=== PATIENT | male | born 1965 | race Caucasian/White ===

== ENCOUNTER → 2020-03-02 09:46 | Outpatient (BNVA) | payer MEDICAID, SELFPAY | PROVIDERS: PCP Internal Medicine Medical Oncology; Visit Provider Surgery | DX: L82.0 Inflamed seborrheic keratosis (principal) | CPT/HCPCS: 99203 ==

== ENCOUNTER 2020-03-16 07:16 | Outpatient (REF) | payer MEDICAID, SELFPAY ==
[2020-03-16 07:39] VITALS: BP 140/83; PULSE 115; RESP 16; TEMP 36.9; O2SAT 98
[2020-03-16 07:44] VITALS: BMI 20.9
[2020-03-16 08:30] VITALS: BP 130/76; PULSE 100; RESP 16; O2SAT 98
--- NOTE | 2020-03-16 08:42 | MHC.SHP ---
Pre-Procedural Eval Section A The patient is an INPATIENT: No Changes since office visit: Yes Patient answered all questions; No Cold of Flu in the past 2 weeks, No New Medical Problems and No Changes in Medication The History & Physical has been completed within 30 days and I have reviewed it.: Yes Section B Chief Complaint: keratosis Allergies: Allergies Allergy/AdvReac Type Severity Reaction Status Date / Time No Known Allergies Allergy Unverified 01/26/20 15:42 [No Known Allergies*] Plan Diagnosis/Plan: Unchanged Patient has been examined and remains a candidate for the planned procedure
--- NOTE | 2020-03-16 08:42 | PM.OP ---
Brief Operative Note Date of procedure: 03/16/20 Pre-op diagnosis: Skin lesion x 2 right face Post-op diagnosis: same Procedure: Excision of facial lesion x 2 Implants: non3 Surgeon: Skip Donovan MD Anesthesia: local Estimated blood loss (mL): 2 Pathology: other (skin lesion x 2) Condition: stable Disposition: other (home)
--- NOTE | 2020-03-16 08:43 | W.PM.OPN ---
Operative Note Operative Note Narrative: Preop diagnosis: Facial lesion x2 right face Postoperative diagnosis: Same Procedure: excision of facial lesions x2 face Surgeon: Skip Donovan MD Anesthesia local Indications for procedure: 54-year-old male with a 1.5 cm keratotic lesion located on the right preauricular skin of the face. Patient reports bleeding and discharge from the site. A 2nd 2 mm keratotic lesion located in the lower eyelid skin which is flat and dark in color but causing some irritation to the patient. He reports bleeding from both lesions on occasion. Operative findings: 1.5 cm keratotic lesion located in the right preauricular skin 2 mm keratotic lesion located in the lower eyelid skin Specimen: Right facial skin lesions x2 Estimated blood loss: 2 mL Complications: None Procedure details: Patient was brought to the minor surgery suite and a informed consent confirmed. A surgical time-out was called and the site of surgery confirmed by the patient. Patient was placed in a supine position with head turned toward the right. Skin was prepped with Betadine and draped in a sterile fashion. Skin was anesthetized using 1% lidocaine with epinephrine. An elliptical incision was made around the preauricular lesion oriented in the longitudinal fashion. The lesion was excised and sent to pathology for further examination. Skin was closed using interrupted 5 0 nylon sutures. Attention was then directed to the right lower eyelid lesion. Local was infiltrated below the lesion and sharp scissors use use excise the flat lesion. This was sent to pathology as well for further examination. Sterile dressings were then applied. The patient tolerated the procedure well was discharged to home in stable condition.
== END 2020-03-16 07:17 | disposition home or self-care (01) ==
LOC: HO.MS 07:16
PROVIDERS: Visit Provider Surgery
PROC: (CPT 11442; principal; 2020-03-16 08:00)
DX: L82.1 Other seborrheic keratosis (principal)
CPT/HCPCS: 11442; 11440; 88305

== ENCOUNTER → 2020-03-23 10:23 | Outpatient (BNVA) | payer MEDICAID, SELFPAY | PROVIDERS: PCP Internal Medicine; Referring Provider Internal Medicine; Visit Provider Surgery | DX: Z09 Encounter for follow-up examination after completed treatment for conditions other than malignant neoplasm (principal); Z87.2 Personal history of diseases of the skin and subcutaneous tissue | CPT/HCPCS: 99212 ==

== ENCOUNTER 2020-03-27 10:38 | Outpatient (REF) | payer MEDICAID, SELFPAY ==
[2020-03-27 11:29] LABS: MANUAL DIFF FLAG NO
[2020-03-27 11:38] LABS: Basophils Percent Auto 0.5 % (0-2); Eosinophils Percent Auto 0.5 % (0-4); Hematocrit 40.9 % (42-52); Hemoglobin 13.9 g/dl (14.0-18.0); Imm Gran Abs Auto 0.02 X10*3/uL (0.00-0.03); Imm Gran Pct Auto 0.3 % (0.0-0.4); Lymphocytes Absolute Auto 3.2 X10*3/uL (1.2-4.9); Lymphocytes Percent Auto 42.8 % (20-40); Mean Corpuscular Hemoglobin 32.6 pg (27.0-33.0); Mean Platelet Volume 9.6 fL (9.4-12.4); Monocytes Absolute Auto 0.8 X10*3/uL (0.1-1.2); Monocytes Percent Auto 10.3 % (2-11); Neutrophils Absolute Auto 3.4 X10*3/uL (2.0-8.3); Neutrophils Percent Auto 45.6 % (45-73); Platelet Count 262 X10*3/uL (160-400); Red Blood Count 4.26 X10*6/uL (4.60-5.80); Red Cell Distribution Width 14.2 % (11.0-16.0); White Blood Count 7.5 X10*3/uL (4.8-10.8)
[2020-03-27 12:00] LABS: Alanine Aminotransferase 13 U/L (0-40); Albumin Level 4.5 g/dL (3.5-5.0); Alkaline Phosphatase 82 U/L (39-117); Anion Gap 14 (12-20); Aspartate Amino Transferase 28 U/L (5-37); Bilirubin Total 0.3 mg/dL (0.0-1.0); Blood Urea Nitrogen 6 mg/dL (9-16); Calcium 8.6 mg/dL (8.4-10.2); Carbon Dioxide 27 mmol/L (22-29); Chloride 104 mmol/L (96-108); Cholesterol 198 mg/dL; Estimated Glomerular Filt Rate > 60; Glucose Random 72 mg/dL (60-115); HDL Cholesterol 79 mg/dL; LDL Cholesterol Calculated 92 mg/dl; Potassium 4.4 mmol/l (3.3-5.1); Sodium 141 mmol/L (135-145); Total Protein 7.5 g/dL (6.5-8.0); Triglycerides 139 mg/dL
[2020-03-27 12:24] LABS: Prostate Specific Antigen 1.03 ng/mL (<0.05-4.0)
[2020-03-27 13:37] LABS: Folate 9.1 ng/mL (> or = 4.0); Vitamin B12 321 pg/mL (200-900)
== END 2020-03-27 10:39 | disposition home or self-care (01) ==
LOC: HO.LAB 10:38
PROVIDERS: PCP Internal Medicine Medical Oncology; Visit Provider Internal Medicine Medical Oncology
DX: E53.8 Deficiency of other specified B group vitamins (principal); D75.89 Other specified diseases of blood and blood-forming organs; R00.0 Tachycardia, unspecified; E78.5 Hyperlipidemia, unspecified; R27.0 Ataxia, unspecified; I10 Essential (primary) hypertension
CPT/HCPCS: 36415; 80053; 80061; 82607; 82746; 84153; 85025

== ENCOUNTER 2020-06-13 10:44 | Outpatient (REF) | payer MEDICAID, SELFPAY ==
[2020-06-13 11:28] LABS: MANUAL DIFF FLAG NO
[2020-06-13 11:33] LABS: Basophils Absolute Auto 0.1 X10*3/uL (0.0-0.2); Basophils Percent Auto 0.6 % (0-2); Eosinophils Percent Auto 0.1 % (0-4); Hematocrit 42.4 % (42-52); Hemoglobin 14.5 g/dl (14.0-18.0); Imm Gran Abs Auto 0.05 X10*3/uL (0.00-0.03); Imm Gran Pct Auto 0.5 % (0.0-0.4); Lymphocytes Absolute Auto 2.1 X10*3/uL (1.2-4.9); Lymphocytes Percent Auto 20.3 % (20-40); Mean Corpuscular HGB Conc 34.2 g/dl (31.0-36.0); Mean Corpuscular Hemoglobin 32.4 pg (27.0-33.0); Mean Corpuscular Volume 94.6 fL (80-98); Mean Platelet Volume 9.7 fL (9.4-12.4); Monocytes Absolute Auto 0.9 X10*3/uL (0.1-1.2); Monocytes Percent Auto 8.8 % (2-11); Neutrophils Absolute Auto 7.3 X10*3/uL (2.0-8.3); Neutrophils Percent Auto 69.7 % (45-73); Platelet Count 244 X10*3/uL (160-400); Red Blood Count 4.48 X10*6/uL (4.60-5.80); Red Cell Distribution Width 13.7 % (11.0-16.0); White Blood Count 10.5 X10*3/uL (4.8-10.8)
[2020-06-13 12:12] LABS: Alanine Aminotransferase 12 U/L (0-40); Albumin Level 4.6 g/dL (3.5-5.0); Alkaline Phosphatase 63 U/L (39-117); Anion Gap 18 (12-20); Aspartate Amino Transferase 29 U/L (5-37); Bilirubin Total 1.4 mg/dL (0.0-1.0); Blood Urea Nitrogen 9 mg/dL (9-16); Calcium 9.4 mg/dL (8.4-10.2); Carbon Dioxide 24 mmol/L (22-29); Chloride 96 mmol/L (96-108); Estimated Glomerular Filt Rate > 60; Glucose Random 87 mg/dL (60-115); Potassium 4.3 mmol/L (3.3-5.1); Sodium 134 mmol/L (135-145); Total Protein 7.7 g/dL (6.5-8.0)
[2020-06-13 12:31] LABS: Vitamin B12 257 pg/mL (200-900)
== END 2020-06-13 10:45 | disposition home or self-care (01) ==
LOC: HO.LAB 10:44
PROVIDERS: PCP Internal Medicine Medical Oncology; Visit Provider Internal Medicine Medical Oncology
DX: E53.8 Deficiency of other specified B group vitamins (principal); R63.6 Underweight; E78.5 Hyperlipidemia, unspecified
CPT/HCPCS: 36415; 80053; 82607; 85025

== ENCOUNTER 2020-08-10 09:45 | Outpatient (REF) | payer MEDICAID, SELFPAY ==
--- NOTE | ~2020-08-10 | MR_ITS ---
EXAMINATION: MR BRAIN WITHOUT CONTRAST CLINICAL INFORMATION: Cerebellar ataxia. Rule out cerebellar degeneration. COMPARISON: Head CT 08/05/2016. TECHNIQUE: Multiplanar, multisequence imaging of the brain was performed without intravenous contrast. FINDINGS: There is no acute infarction, hemorrhage, mass, or extra-axial fluid collection. There is mild degree of diffuse brain parenchymal volume loss, greater than expected for patient's age but not definitively progressive compared with 2017. Disproportionate volume loss is seen involving the superior aspect of the cerebellar vermis and hemispheres which appears similar compared with prior. The brainstem volume and brachium pontis volume appears preserved No significant brain parenchyma signal abnormality is seen. The major arterial flow voids are preserved at the skull base. The orbital contents appear normal. Lobular mucosal thickening is seen along the right maxillary sinus floor. The mastoids are grossly clear. MR/MR head/brain wo con IMPRESSION: Redemonstration of diffuse brain parenchymal volume loss, greater than expected for patient's age but without definite progression compared with 2017. Volume loss is also seen involving the superior aspect of the cerebellar vermis and hemispheres but with preservation of the brainstem and brachium pontis volume. No acute abnormality is seen.
== END 2020-08-10 09:46 | disposition home or self-care (01) ==
LOC: HO.MRI 09:45
PROVIDERS: Visit Provider Psychiatry & Neurology Neurology
DX: G11.9 Hereditary ataxia, unspecified (principal)
CPT/HCPCS: 70551

== ENCOUNTER 2020-12-12 11:37 | Outpatient (REF) | payer MEDICAID, SELFPAY ==
[2020-12-12 12:38] LABS: MANUAL DIFF FLAG NO
[2020-12-12 12:45] LABS: Basophils Absolute Auto 0.1 X10*3/uL (0.0-0.2); Basophils Percent Auto 0.6 % (0-2); Eosinophils Percent Auto 0.2 % (0-4); Hematocrit 39.8 % (42-52); Hemoglobin 13.4 g/dl (14.0-18.0); Imm Gran Abs Auto 0.03 X10*3/uL (0.00-0.03); Imm Gran Pct Auto 0.3 % (0.0-0.4); Lymphocytes Absolute Auto 2.6 X10*3/uL (1.2-4.9); Mean Corpuscular HGB Conc 33.7 g/dl (31.0-36.0); Mean Corpuscular Hemoglobin 32.7 pg (27.0-33.0); Mean Corpuscular Volume 97.1 fL (80-98); Mean Platelet Volume 9.8 fL (9.4-12.4); Monocytes Absolute Auto 0.9 X10*3/uL (0.1-1.2); Monocytes Percent Auto 9.7 % (2-11); Neutrophils Absolute Auto 5.4 X10*3/uL (2.0-8.3); Neutrophils Percent Auto 60.2 % (45-73); Platelet Count 331 X10*3/uL (160-400); Red Cell Distribution Width 13.7 % (11.0-16.0)
[2020-12-12 13:23] LABS: Alanine Aminotransferase 9 U/L (0-40); Albumin Level 4.3 g/dL (3.5-5.0); Alkaline Phosphatase 54 U/L (39-117); Anion Gap 13 (12-20); Aspartate Amino Transferase 17 U/L (5-37); Bilirubin Total 0.4 mg/dL (0.0-1.0); Blood Urea Nitrogen 9 mg/dL (9-16); Calcium 9.7 mg/dL (8.4-10.2); Carbon Dioxide 27 mmol/L (22-29); Chloride 102 mmol/L (96-108); Estimated Glomerular Filt Rate > 60; Glucose Random 88 mg/dL (60-115); Potassium 4.5 mmol/L (3.3-5.1); Sodium 137 mmol/L (135-145); Total Protein 7.2 g/dL (6.5-8.0)
[2020-12-12 13:28] LABS: Erythrocyte Sedimentation Rate 13 MM/HR (0-15)
[2020-12-12 14:04] LABS: Folate 9.9 ng/mL (> or = 4.0); Vitamin B12 197 pg/mL (200-900)
== END 2020-12-12 11:38 | disposition home or self-care (01) ==
LOC: HO.LAB 11:37
PROVIDERS: Absent Provider Psychiatry & Neurology Neurology; PCP Internal Medicine Medical Oncology; Visit Provider Internal Medicine Medical Oncology
DX: E53.8 Deficiency of other specified B group vitamins (principal); R63.6 Underweight; D75.89 Other specified diseases of blood and blood-forming organs; I10 Essential (primary) hypertension; E78.5 Hyperlipidemia, unspecified
CPT/HCPCS: 36415; 80053; 82607; 82746; 85025; 85652

== ENCOUNTER 2021-03-25 08:57 | Outpatient (RCR) | payer MEDICAID, SELFPAY ==
--- NOTE | 2021-03-25 10:51 | MHC.PT.EP ---
[facility] [place] [facility] [place] [facility] [place] [facility] [address] [place] [address] Dr Melany Ahuja [address] [phone] F: [phone] F: [phone] F: [phone] F: [phone] Physical Therapy Plan of Care Date of Evaluation: Date of Surgery: NA Diagnosis: ATAXIA. Assessment: Pt IS 55 YO M REFERRED TO PT FROM DR MORTON WITH ATAXIA. 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 Pt WITH NORMAL NERVE CONDUCTION AND NORMAL EMG. Pt REPORTS ABOUT A 3 YEAR HX OF SLOW BALANCE LOSS PROGRESSION (INSIDIOUS ONSET). PRESENTS WITH WBOS/ATAXIC GT WITH ST CANE, DECREASED LE FLEXIBILITY AND POOR BALANCE, MMT WNLS FOR LES BUT SEEMINGLY DECREASED ENDURANCE IN LEGS IS PRESENT WITH Pt REPORT OF HEAVY FEELING IN LOWER LEGS (ESPECIALLY ON L). Pt LIVES WITH HIS PARENTS, HIS DTR (CARMEN) ACCOMPANIES HIM FOR EVAL. 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 SHOULD BENEFIT FROM PT TO ADDRESS THESE ISSUES. MAY BENEFIT FROM A STRUCTURED EXERCISE PROGRAM UPON DC (?DOPAFIT). Frequency and Duration: The patient will be seen 2X/WK X 8 WKS Short Term Goals: 1. INCREASED AWARENESS SAFETY AND BAL TECHNIQUES 2. INCREASED HS FLEXIBILITY 5 DEGREES B 3. ASSESS FOR BBPV WITH TREATMENT IF INDICATED Residential Goals: 1. I HEP WITH DC EX PLAN 2. IMPROVED GT PATTERN WITH REPORT OF IMPROVED CURB NEGOTIATION AND WALK ON UNEVEN SURFACES 3. INCREASED TIME WITH NBOS, TANDEM STANCE 4. INCREASED REPS WITH 30 SEC SIT<>STAND Treatment Plan: Modalities to reduce pain, spasms and effusion. Manual therapy to restore motion and function. Therapeutic exercise to improve strength and flexibility. Neuromuscular re-education for posture and balance. Therapeutic activities to return to functional activities of daily living. Electronically signed by: WON BRYAN PT Please sign and return to therapist. Thank you for your referral.
--- NOTE | 2021-05-17 10:33 | MHC.PT.DC ---
[facility] [place] [facility] [place] [facility] [place] [facility] [address] Melany Ahuja [address] [phone] F: [phone] F: [phone] F: [phone] F: [phone] Physical Therapy Discharge Report Diagnosis: ATAXIA. Date of Surgery: NA Date of Evaluation: 03/25/21 Date of Discharge: 05/17/21 Treatments to Date: 1 Cancellations to Date: 1 No Shows to Date: Discharge Status: Patient Elected to Stop Discharge Summary: Pt SEEN FOR INIT EVAL AND THEN HAD MULTIPLE CANCELS. ANDRIY (PRINT CONTROLLER) SPOKE WITH Pt ON 04/25 AND Pt TO CANCEL FURTHER APPTS WITH POSSIBLE RESTART AT FUTURE TIME (?MAY). WAS ADVISED THAT HE MAY NEED NEW ORDER Electronically signed by: WON BRYAN PT Please sign and return to therapist. Thank you for your referral.
== END 2021-05-17 10:38 | disposition home or self-care (01) ==
LOC: HO.PT 08:57
PROVIDERS: PCP Internal Medicine Medical Oncology; Visit Provider Psychiatry & Neurology Neurology
DX: R27.0 Ataxia, unspecified (principal)
CPT/HCPCS: 97110; 97162

== ENCOUNTER 2021-04-29 09:22 | Outpatient (REF) | payer MEDICAID, SELFPAY ==
[2021-04-29 09:57] LABS: MANUAL DIFF FLAG NO
[2021-04-29 10:08] LABS: Basophils Percent Auto 0.6 % (0-2); Eosinophils Percent Auto 0.2 % (0-4); Hemoglobin 14.9 g/dl (14.0-18.0); Imm Gran Abs Auto 0.02 X10*3/uL (0.00-0.03); Imm Gran Pct Auto 0.4 % (0.0-0.4); Lymphocytes Absolute Auto 2.4 X10*3/uL (1.2-4.9); Lymphocytes Percent Auto 50.4 % (20-40); Mean Corpuscular HGB Conc 33.9 g/dl (31.0-36.0); Mean Corpuscular Hemoglobin 32.7 pg (27.0-33.0); Mean Corpuscular Volume 96.7 fL (80.0-98.0); Mean Platelet Volume 9.7 fL (9.4-12.4); Monocytes Absolute Auto 0.6 X10*3/uL (0.1-1.2); Monocytes Percent Auto 13.1 % (2-11); Neutrophils Absolute Auto 1.7 x10*3/uL (2.0-8.3); Neutrophils Percent Auto 35.3 % (45-73); Platelet Count 225 X10*3/uL (160-400); Red Blood Count 4.55 X10*6/uL (4.60-5.80); Red Cell Distribution Width 14.4 % (11.0-16.0); White Blood Count 4.7 X10*3/uL (4.8-10.8)
[2021-04-29 10:40] LABS: Alanine Aminotransferase 18 U/L (0-40); Albumin Level 4.4 g/dL (3.5-5.0); Alkaline Phosphatase 67 U/L (39-117); Anion Gap 13 (12-20); Aspartate Amino Transferase 37 U/L (5-37); Bilirubin Total 0.4 mg/dL (0.0-1.0); Blood Urea Nitrogen 6 mg/dL (9-16); Calcium 9.6 mg/dL (8.4-10.2); Carbon Dioxide 26 mmol/L (22-29); Chloride 103 mmol/L (96-108); Estimated Glomerular Filt Rate > 60; Glucose Random 85 mg/dL (60-115); Potassium 4.6 mmol/L (3.3-5.1); Sodium 137 mmol/L (135-145); Total Protein 7.5 g/dL (6.5-8.0)
[2021-04-29 10:50] LABS: Free T4 (Free Thyroxine) 0.99 ng/dL (0.71-1.85); Thyroid Stimulating Hormone 1.49 uIU/mL (0.32-4.0)
[2021-04-29 11:31] LABS: Vitamin B12 255 pg/mL (200-900)
== END 2021-04-29 09:23 | disposition home or self-care (01) ==
LOC: HO.LAB 09:22
PROVIDERS: PCP Internal Medicine Medical Oncology; Visit Provider Internal Medicine Medical Oncology
DX: I10 Essential (primary) hypertension (principal); E78.5 Hyperlipidemia, unspecified; E53.8 Deficiency of other specified B group vitamins
CPT/HCPCS: 36415; 80053; 82607; 84439; 84443; 85025

== ENCOUNTER 2021-07-29 08:18 | Outpatient (REF) | payer MEDICAID, SELFPAY ==
[2021-07-29 08:44] LABS: MANUAL DIFF FLAG NO
[2021-07-29 08:59] LABS: Basophils Percent Auto 0.7 % (0-2); Eosinophils Percent Auto 0.5 % (0-4); Hematocrit 41.7 % (42.0-52.0); Hemoglobin 14.2 g/dl (14.0-18.0); Imm Gran Abs Auto 0.03 X10*3/uL (0.00-0.03); Imm Gran Pct Auto 0.5 % (0.0-0.4); Lymphocytes Absolute Auto 2.4 X10*3/uL (1.2-4.9); Mean Corpuscular HGB Conc 34.1 g/dl (31.0-36.0); Mean Corpuscular Volume 99.8 fL (80.0-98.0); Mean Platelet Volume 9.5 fL (9.4-12.4); Monocytes Absolute Auto 0.7 X10*3/uL (0.1-1.2); Monocytes Percent Auto 12.3 % (2-11); Neutrophils Absolute Auto 2.5 x10*3/uL (2.0-8.3); Platelet Count 219 X10*3/uL (160-400); Red Blood Count 4.18 X10*6/uL (4.60-5.80); Red Cell Distribution Width 13.7 % (11.0-16.0); White Blood Count 5.7 X10*3/uL (4.8-10.8)
[2021-07-29 09:21] LABS: Alanine Aminotransferase 24 U/L (0-40); Albumin Level 4.3 g/dL (3.5-5.0); Alkaline Phosphatase 73 U/L (39-117); Anion Gap 18 (12-20); Aspartate Amino Transferase 48 U/L (5-37); Bilirubin Total 0.7 mg/dL (0.0-1.0); Blood Urea Nitrogen 6 mg/dL (9-16); Calcium 9.7 mg/dL (8.4-10.2); Carbon Dioxide 23 mmol/L (22-29); Chloride 101 mmol/L (96-108); Cholesterol 205 mg/dL; Estimated Glomerular Filt Rate > 60; Glucose Fasting 96 mg/dL (60-99); HDL Cholesterol 89 mg/dL; LDL Cholesterol Calculated 101 mg/dl; Potassium 4.5 mmol/L (3.3-5.1); Sodium 137 mmol/L (135-145); Total Protein 7.5 g/dL (6.5-8.0); Triglycerides 75 mg/dL
[2021-07-29 10:15] LABS: Vitamin B12 246 pg/mL (200-900)
== END 2021-07-29 08:19 | disposition home or self-care (01) ==
LOC: HO.LAB 08:18
PROVIDERS: PCP Internal Medicine Medical Oncology; Visit Provider Internal Medicine Medical Oncology
DX: R63.6 Underweight (principal); D75.89 Other specified diseases of blood and blood-forming organs; I10 Essential (primary) hypertension; E78.5 Hyperlipidemia, unspecified
CPT/HCPCS: 36415; 80053; 80061; 82607; 85025

== ENCOUNTER 2021-12-27 08:12 | Outpatient (REF) | payer MEDICAID, SELFPAY ==
[2021-12-27 08:41] LABS: MANUAL DIFF FLAG NO
[2021-12-27 09:30] LABS: Basophils Absolute Auto 0.1 X10*3/uL (0.0-0.2); Basophils Percent Auto 0.9 % (0-2); Eosinophils Percent Auto 0.2 % (0-4); Hematocrit 40.2 % (42.0-52.0); Hemoglobin 13.9 g/dl (14.0-18.0); Imm Gran Abs Auto 0.02 X10*3/uL (0.00-0.03); Imm Gran Pct Auto 0.4 % (0.0-0.4); Lymphocytes Absolute Auto 2.4 X10*3/uL (1.2-4.9); Lymphocytes Percent Auto 43.2 % (20-40); Mean Corpuscular HGB Conc 34.6 g/dl (31.0-36.0); Mean Corpuscular Hemoglobin 33.4 pg (27.0-33.0); Mean Corpuscular Volume 96.6 fL (80.0-98.0); Mean Platelet Volume 9.6 fL (9.4-12.4); Monocytes Absolute Auto 0.7 X10*3/uL (0.1-1.2); Monocytes Percent Auto 11.9 % (2-11); Neutrophils Absolute Auto 2.5 x10*3/uL (2.0-8.3); Neutrophils Percent Auto 43.4 % (45-73); Platelet Count 230 X10*3/uL (160-400); Red Blood Count 4.16 X10*6/uL (4.60-5.80); Red Cell Distribution Width 14.4 % (11.0-16.0); White Blood Count 5.7 X10*3/uL (4.8-10.8)
[2021-12-27 10:07] LABS: Alanine Aminotransferase 13 U/L (0-40); Albumin Level 4.5 g/dL (3.5-5.0); Alkaline Phosphatase 78 U/L (39-117); Anion Gap 20 (12-20); Aspartate Amino Transferase 42 U/L (5-37); Bilirubin Total 0.5 mg/dL (0.0-1.0); Blood Urea Nitrogen 8 mg/dL (9-16); Calcium 9.4 mg/dL (8.4-10.2); Carbon Dioxide 23 mmol/L (22-29); Chloride 103 mmol/L (96-108); Cholesterol 225 mg/dL; Estimated Glomerular Filt Rate > 60; Glucose Fasting 93 mg/dL (60-99); HDL Cholesterol 97 mg/dL; LDL Cholesterol Calculated 112 mg/dl; Potassium 4.7 mmol/L (3.3-5.1); Sodium 141 mmol/L (135-145); Total Protein 7.6 g/dL (6.5-8.0); Triglycerides 83 mg/dL
[2021-12-27 10:11] LABS: Prostate Specific Antigen 1.41 ng/mL (<0.05-4.0)
[2021-12-27 10:13] LABS: Erythrocyte Sedimentation Rate 3 MM/HR (0-15)
[2021-12-27 10:17] LABS: Vitamin B12 230 pg/mL (200-900)
== END 2021-12-27 08:13 | disposition home or self-care (01) ==
LOC: HO.LAB 08:12
PROVIDERS: PCP Internal Medicine Medical Oncology; Visit Provider Internal Medicine Medical Oncology
DX: Z12.5 Encounter for screening for malignant neoplasm of prostate (principal); R63.6 Underweight; E53.8 Deficiency of other specified B group vitamins; I10 Essential (primary) hypertension
CPT/HCPCS: 36415; 80053; 80061; 82607; 84153; 85025; 85652

== ENCOUNTER 2023-06-18 08:47 | Outpatient (REF) | payer MEDICARE, MEDICAID, SELFPAY ==
[2023-06-18 09:10] LABS: MANUAL DIFF FLAG NO
[2023-06-18 10:07] LABS: Basophils Absolute Auto 0.1 X10*3/uL (0.0-0.2); Basophils Percent Auto 0.8 % (0-2); Eosinophils Percent Auto 0.3 % (0-4); Hematocrit 40.3 % (42.0-52.0); Hemoglobin 13.6 g/dl (14.0-18.0); Imm Gran Abs Auto 0.03 X10*3/uL (0.00-0.03); Imm Gran Pct Auto 0.4 % (0.0-0.4); Immature Retic Fraction 7.4 % (2.3-13.4); Lymphocytes Absolute Auto 2.8 X10*3/uL (1.2-4.9); Lymphocytes Percent Auto 36.4 % (20-40); Mean Corpuscular HGB Conc 33.7 g/dl (31.0-36.0); Mean Corpuscular Hemoglobin 31.3 pg (27.0-33.0); Mean Corpuscular Volume 92.9 fL (80.0-98.0); Mean Platelet Volume 9.2 fL (9.4-12.4); Monocytes Absolute Auto 0.9 X10*3/uL (0.1-1.2); Neutrophils Absolute Auto 3.9 x10*3/uL (2.0-8.3); Neutrophils Percent Auto 51.1 % (45-73); Platelet Count 283 X10*3/uL (160-400); Red Blood Count 4.34 X10*6/uL (4.60-5.80); Red Cell Distribution Width 14.3 % (11.0-16.0); Retic HGB Equivalent 35.3 pg (30.0-35.0); Reticulocyte Percent 1.6 % (0.5-1.8); Reticulocytes Absolute 0.069 X10*6/uL (0.026-0.095); White Blood Count 7.7 X10*3/uL (4.8-10.8)
[2023-06-18 10:39] LABS: Alanine Aminotransferase 12 U/L (0-40); Albumin Level 4.3 g/dL (3.5-5.0); Alkaline Phosphatase 58 U/L (39-117); Anion Gap 15 (12-20); Aspartate Amino Transferase 24 U/L (5-37); Bilirubin Total 0.4 mg/dL (0.0-1.0); Blood Urea Nitrogen 10 mg/dL (9-16); Calcium 10.1 mg/dL (8.4-10.2); Carbon Dioxide 25 mmol/L (22-29); Chloride 101 mmol/L (96-108); Cholesterol 211 mg/dL (<200); Estimated Glomerular Filt Rate > 60; Glucose Fasting 88 mg/dL (60-99); HDL Cholesterol 45 mg/dL (>40); LDL Cholesterol Calculated 145 mg/dL (<100); Potassium 4.3 mmol/L (3.3-5.1); Sodium 137 mmol/L (135-145); Total Protein 7.6 g/dL (6.5-8.0); Triglycerides 109 mg/dL (<150)
[2023-06-18 10:59] LABS: Prostate Specific Antigen 1.06 ng/mL (<0.05-4.0); Vitamin B12 410 pg/mL (200-900)
[2023-06-19 13:44] LABS: Alpha Fetoprotein 2.7 ng/mL (<6.1)
== END 2023-06-18 08:48 | disposition home or self-care (01) ==
LOC: HO.LAB 08:47
PROVIDERS: PCP Internal Medicine Medical Oncology; Visit Provider Internal Medicine Medical Oncology
DX: I10 Essential (primary) hypertension (principal); R63.6 Underweight; F17.200 Nicotine dependence, unspecified, uncomplicated; E78.00 Pure hypercholesterolemia, unspecified; E53.8 Deficiency of other specified B group vitamins; N40.1 Benign prostatic hyperplasia with lower urinary tract symptoms; N13.8 Other obstructive and reflux uropathy; D75.89 Other specified diseases of blood and blood-forming organs; R27.0 Ataxia, unspecified; Z12.5 Encounter for screening for malignant neoplasm of prostate
CPT/HCPCS: 36415; 80053; 80061; 82105; 82607; 84153; 85025; 85045

== ENCOUNTER 2024-09-12 09:07 | Inpatient (IN) | payer MEDICARE, SELFPAY ==
--- NOTE | ~2024-09-12 | CT_ITS ---
EXAMINATION: CT CERVICAL SPINE WITHOUT IV CONTRAST HISTORY: ?seizure, fall. TECHNIQUE: Helical CT of the cervical spine was performed per standard departmental protocol. Coronal and sagittal reformatted images were also evaluated. One or more of the following techniques was used for dose reduction: Automated exposure control, adjustment of the mA and/or kV according to patient size, use of iterative reconstruction technique. DLP: 320 mGy-cm COMPARISON: There are no prior studies for comparison. FINDINGS: CERVICAL SPINE: The vertebral bodies maintain normal height and alignment without evidence of fracture or subluxation. The intervertebral disc spaces are preserved. Evaluation for disc pathology is limited by lack of intrathecal contrast material. BRAIN: The visualized portion of the brain is unremarkable. SINUSES: The visualized paranasal sinuses, mastoid air cells and middle ear cavities are unremarkable. LUNG APICES: There is biapical pleural and parenchymal scarring. SOFT TISSUES: There is calcification of the internal carotid arteries. CT/CT cervical spine wo IV con IMPRESSION: No evidence of fracture or malalignment of the cervical spine. Electronically signed by: Serafin Schmidt MD 09/12/2024 10:28 AM EDT
--- NOTE | ~2024-09-12 | CT_ITS ---
EXAMINATION: CT HEAD WITHOUT IV CONTRAST HISTORY: seizure. TECHNIQUE: Unenhanced helical CT of the head was performed per standard departmental protocol. Coronal and sagittal reformats of the head were also evaluated. One or more of the following techniques was used for dose reduction: Automated exposure control, adjustment of the mA and/or kV according to patient size, use of iterative reconstruction technique. DLP: 779 mGy-cm COMPARISON: Comparison is made with the prior examination dated 08/05/2016. FINDINGS: BRAIN: There is mild prominence of the ventricular system and cortical sulci, consistent with atrophy. This is greater than expected for a patient of this age. Periventricular and subcortical white matter hypodensities are noted which are nonspecific, but often seen in the setting of small vessel ischemic disease. There is no mass effect or midline shift. No intra- or extra-axial fluid collections are identified. SINUSES: There is a polyp versus mucous retention cyst in the right maxillary sinus. The mastoid air cells and middle ear cavities are well pneumatized. ORBITS: The visualized orbits are unremarkable. BONES/SOFT TISSUES: The extracranial soft tissues are unremarkable. The calvarium is intact. No suspicious lytic or sclerotic lesions. CT/CT head/brain wo IV con IMPRESSION: No acute intracranial abnormality. Electronically signed by: Serafin Schmidt MD 09/12/2024 10:20 AM EDT
[2024-09-12 09:27] VITALS: BP 147/85; PULSE 118; RESP 16; TEMP 36.6; O2SAT 99; BMI 24.9
[2024-09-12 09:28] LABS: Glucose, Whole Blood 135 mg/dL (60-115)
[2024-09-12 09:30] VITALS: BP 129/85; PULSE 108; RESP 18; O2SAT 99
--- NOTE | 2024-09-12 09:31 | ED.SEIZURE ---
HPI - Seizure General Chief Complaint: Seizure Stated Complaint: AMS,GIBBERISH/NORMAL SPEECH,?SZ,H/O ETOH PER EMS Time Seen by Provider: 09/12/24 09:23 Source: patient, family, EMS and RN notes reviewed Mode of arrival: EMS Limitations: no limitations History of Present Illness ED Provider: Rakel Yuen PA-C HPI Narrative: This is a 59-year-old male, with no reported medical problems, who presents emergency department via EMS with concerns for seizure-like activity which occurred this morning. On my initial assessment, patient smelling of urine. He is alert and oriented x4, states that this morning he had a normal morning, had 3 cups of coffee, and states that all of the sudden while he was in his bedroom, he lost consciousness and woke up on the floor. This was witnessed by family members, states that there was reported seizure-like activity for approximately 1 minute. He became incontinent of his urine. EMS reports that he was post-ictal, stating he was speaking gibberish en route, he no longer appears to be post-ictal here in the emergency department. Patient reports that he is feeling well, only symptom is anxiety as this is never happened to him before. Patient reports that he drinks alcohol, is not very forthcoming about the details, he states that he last drank 2-3 weeks ago. He denies any heavy alcohol use, however when asked multiple times, he states that he does drink approximately 3-4 mixed drinks per day. He states that he does have a history of alcohol withdrawal, states that he has no known history of alcohol withdrawal seizures. No drug use. He does report that he smokes cigarettes. He denies any recent fevers, chills, chest pain, shortness of breath, abdominal pain, nausea, vomiting or diarrhea. Denies loss of bowel control. No other complaints or concerns at this time. MD complaint: possible seizure Onset (ago): hour(s) Description of Episode: loss of consciousness and bladder incontinence -: minutes(s) Witnessed: Yes - by Other (Family) Trauma: No Seizure History: No Place: Home Possible Precipitating Event: none Associated symptoms: denies other symptoms Treatments prior to arrival: none Related Data Home Medications ?Medication ?Instructions ?Recorded ?Confirmed mecobalamin (vitamin B12) 1,000 1,000 mcg sublingual DAILY 03/02/20 03/23/20 mcg disintegrating tablet,sublingual metoprolol tartrate 25 mg tablet 25 mg PO DAILY 03/02/20 03/23/20 Allergies Allergy/AdvReac Type Severity Reaction Status Date / Time No Known Allergies Allergy Unverified 09/12/24 09:35 [No Known Allergies*] Review of Systems Review of Systems: Constitutional: No Weight loss, No Fever, No Chills, No Night Sweats, No Fatigue, No Malaise ENT/Mouth: No Hearing loss, No Ear Pain, No Nasal Congestion, No Sinus Pain, No Hoarseness, No sore throat, No Rhinorrhea, No Swallowing Difficulty Eyes: No Eye Pain, No Swelling, No Redness, No Foreign Body, No Discharge, No Vision Changes Cardiovascular: No Chest Pain, No SOB, No Dyspnea on Exertion, No Orthopnea, No Edema, No Palpitations Respiratory: No Cough, No Sputum, No Wheezing, No Smoke Exposure, No Dyspnea Gastrointestinal: No Nausea, No Vomiting, No Diarrhea, No Constipation, No Abdominal pain, No Hematochezia, No Melena Genitourinary: No irregular bleeding, No Dysuria, No Urinary Frequency, No Hematuria, + Urinary Incontinence, No Urgency, No Flank Pain, No Urinary Flow Changes, No Hesitancy Musculoskeletal: No joint pain, No Myalgias, No Joint Swelling Skin: No Skin Lesions, No rash Neuro: No Weakness, No Numbness, No Paresthesias, + Loss of Consciousness, No Dizziness, No Headache Psych: No Anxiety/Panic, No Depression, No SI/HI/AH/VH, No Social Issues, Heme/Lymph: No Bruising, No Bleeding,No Lymphadenopathy Endocrine: No Polyuria, No Polydipsia, No Temperature Intolerance Yes all other systems are reviewed and are negative Constitutional: Constitutional: Reports as per HPI Neurologic: Reports Abnormal speech present [facility] Past Medical History Attestation statement: The following information was validated with the patient. Medical History Nicotine dependence, cigarettes, uncomplicated EtOH dependence Cerebellar ataxia Hypertension Vitamin B12 deficiency BPH (benign prostatic hyperplasia) Arthritis Surgical History History of mandibular surgery Social History Social History Alcohol intake: current Alcohol type: beer Smoked in Last 30 Days: Yes Use of substances other than those prescribed or required for medical reasons: No Advance Directives: No Advance Directives Information Provided: Yes Do you have a plan to hurt others: No Plan Physical Exam Vital Signs: Vital Signs: Last Vital Signs Temp 98 F 09/12/24 09:27 Pulse 108 H 09/12/24 12:00 Resp 18 09/12/24 12:00 BP 129/85 09/12/24 12:00 Pulse Ox 99 09/12/24 12:00 O2 Del Method Room Air 09/12/24 12:00 BMI result Body Mass Index 24.9 Const: General: cooperative, comfortable and no acute distress Orientation/consciousness: patient oriented x3 Limitations: no limitations HEENT: Head: Yes normal to inspection, Yes normocephalic and Yes atraumatic Ears: hearing grossly normal bilaterally General nose exam: Normal external nose present Face and sinus: Yes normal facial exam Mouth: Normal oral and palatal mucosa present, oropharynx normal and moist mucous membranes Throat: Yes posterior oropharynx normal Eyes: General: appearance normal, both eyes and all related structures Eyelids: Yes eyelids normal Conjunctivae: conjunctivae normal Sclerae: sclerae normal Pupils: Equal, round and reactive pupils present EOM: EOMs intact bilaterally Neck: Neck: Yes normal visual inspection, Yes full ROM and Yes no lymphadenopathy Lymphatic: no lymphadenopathy noted Chest: Chest palpation & inspection: normal inspection of the chest Resp: Effort & Inspection: normal respiratory effort and able to speak in complete sentences Auscultation: clear to auscultation bilaterally, no crackles, no rales, no rhonchi and no wheezes Cardio: Rate: regular rate Rhythm: regular rhythm Heart sounds: S1 normal heart sound present and S2 normal heart sound present GI: Inspection: Yes normal to inspection Skin: General skin exam: no rashes or lesions noted Trauma: no lacerations or abrasions Wounds: no wounds Neuro: General: patient oriented x3 and moves all extremities Cranial nerves: Yes Equal, round and reactive pupils present Cognition (Neuro): normal cognition Speech: Abnormal speech present Motor exam (neuro): 5/5 motor strength present throughout, Pronator motor function not present and no tremor noted Extrem: General: Yes normal to inspection Right upper extremity: normal to inspection Left upper extremity: normal to inspection Right lower extremity: normal to inspection Left lower extremity: normal to inspection Medications Administered Generic Name Dose Route Start Last Admin Trade Name Freq PRN Reason Stop Dose Admin Enoxaparin Sodium 40 mg 09/12/24 14:00 09/12/24 14:17 Enoxaparin Sodium 40 Mg/0.4 Ml Syringe SUBCUT Not Given Q24H CINDI Phenobarbital Sodium 191 mg 09/12/24 15:00 09/12/24 15:32 Phenobarbital Sodium 130 Mg/Ml Vial Im Q3hx2 IM 09/12/24 18:01 191 mg Q3H CINDI Administration Protocol Discontinued Medications Generic Name Dose Route Start Last Admin Trade Name Freq PRN Reason Stop Dose Admin Sodium Chloride 1,000 mls @ 999 mls/hr 09/12/24 09:32 09/12/24 13:11 Ns IVCONT 09/12/24 10:32 Infused .Q1H1M ONE Infusion Magnesium Sulfate 2 gm in 50 mls @ 150 mls/hr 09/12/24 10:42 09/12/24 13:11 Magnesium Sulfate/H2o IV 09/12/24 11:01 Infused ONCE ONE Infusion Phenobarbital Sodium 255 mg 09/12/24 12:15 09/12/24 12:58 Phenobarbital Sodium 130 Mg/Ml Im Once IM 09/12/24 12:16 255 mg ONCE ONE Administration Protocol Medical Decision Making Medical Decision Making MDM Narrative: This is a 59-year-old male, with no known medical problems, who presents emergency department with witnessed seizure-like activity which occurred this morning. Patient arrives via EMS, reporting that family witnessed seizure-like activity which lasted for approximately 1 minute. EMS reports he was postictal in the ambulance. On arrival, patient is alert and oriented x4, he has no current complaints. Patient states that this is never happened to him before. He does report that he drinks alcohol however states that he has not drank in over 3 weeks. He denies any daily alcohol use. No other drug use. No chest pain or shortness for breath. Differential diagnoses include alcohol withdrawal seizure, seizure, arrhythmia, syncope, ICH, electrolyte derangement. Will obtain labs, EKG, CT head and neck, UA, will start on IV fluids. We will continue to closely monitor. I discussed this with my attending physician, Dr. Damon, recommending 1 time dose of Valium. Course: Blood work returns, he has no leukocytosis, he has a normocytic anemia with an H&H of 13.7/39.9. Chemistry revealing hypo magnesi at 1.3 which was replenished with 2 g of magnesium. Total bili slightly elevated 1.3. AST slightly elevated at 45, ALT within normal limits. CPK elevated at 179, troponin x2 40.5 and 46. Lactic acid at 2.7, this was performed due to question of seizure-like activity. He is not on metformin. Infection is not suspected at this time. He has been well-appearing during his visit. CT head and neck revealed no acute findings. Cervical collar was removed. Ethyl alcohol less than 10. Valium was not given, discussed overall workup with my attending physician. Seizure like activity secondary to alcohol withdrawal as patient reported alcohol use, with cessation about 2 weeks ago. Pt was started on phenobarb protocol. We will discussed with the hospitalist for transfer of care. Differential Diagnosis Differential Diagnoses: The differential diagnosis associated with the presentation includes See above Admission/Observation Consideration of admission/observation: Escalation of care including admission/observation considered Patient requiring admission secondary to seizure like activity, ?etoh use in nature Lab Data MDM Lab Attestation statement: I reviewed the patient's lab results. See MDM and course 09/12/24 10:14 09/12/24 10:14 Labs: Lab Results 09/12/24 09/12/24 09/12/24 Range/Units 09:25 10:14 12:17 WBC 8.8 (4.8-10.8) X10*3/uL RBC 4.02 L (4.60-5.80) X10*6/uL Hgb 13.7 L (14.0-18.0) g/dl Hct 39.9 L (42.0-52.0) % MCV 99.3 H (80.0-98.0) fL MCH 34.1 H (27.0-33.0) pg MCHC 34.3 (31.0-36.0) g/dl RDW 13.8 (11.0-16.0) % Plt Count 221 (160-400) X10*3/uL MPV 9.6 (9.4-12.4) fL Immature Gran % (Auto) 0.3 (0.0-0.4) % Neut % (Auto) 69.6 (45-73) % Lymph % (Auto) 20.1 (20-40) % Greene % (Auto) 9.3 (2-11) % Eos % (Auto) 0.2 (0-4) % Baso % (Auto) 0.5 (0-2) % Lymph # (Auto) 1.8 (1.2-4.9) X10*3/uL Greene # (Auto) 0.8 (0.1-1.2) X10*3/uL Eos # (Auto) 0.0 (0.0-0.4) X10*3/uL Baso # (Auto) 0.0 (0.0-0.2) X10*3/uL Abs Immat Gran (auto) 0.03 (0.00-0.03) X10*3/uL Absolute Neuts (auto) 6.2 (2.0-8.3) x10*3/uL Absolute Nucleated RBC 0.000 (0.0-0.012) X10*3/uL Nucleated RBC % (auto) 0.0 (0.0-0.2) /100WBC Sodium 135 (135-145) mmol/L Potassium 3.4 D (3.3-5.1) mmol/L Chloride 99 (96-108) mmol/L Carbon Dioxide 23 (22-29) mmol/L Anion Gap 16 (12-20) BUN 9 (9-16) mg/dL Creatinine 0.75 (0.5-1.4) mg/dL Estim Creat Clear Calc 98.0 Estimated GFR > 60 POC Glucose 135 H (60-115) mg/dL Random Glucose 87 (60-115) mg/dL Lactic Acid 2.7 H* (0.5-2.0) mmol/L Lactic Acid F/U @ 2Hr (0.5-2.0) mmol/L Calcium 8.9 D (8.4-10.2) mg/dL Magnesium 1.3 L* (1.6-2.6) mg/dL Total Bilirubin 1.3 H (0.0-1.0) mg/dL Direct Bilirubin 0.4 (0.0-0.5) mg/dL AST 45 H (5-37) U/L ALT 37 (0-40) U/L Alkaline Phosphatase 55 (39-117) U/L Total Creatine Kinase 179 H (38-174) U/L Troponin I High Sens 40.5 H 46.0 H (<3.5-35.0) ng/L Total Protein 6.9 (6.5-8.0) g/dL Albumin 4.0 (3.5-5.0) g/dL Lipase 20 (8-78) U/L Urine Color Urine Appearance Urine pH (5.0-9.0) Ur Specific [place] (1.005-1.025) Urine Protein (Neg-Trace) mg/dL Urine Glucose (UA) (Negative) mg/dL Urine Ketones (Negative) mg/dL Urine Blood (Negative) Urine Nitrite (Negative) Ur Leukocyte Esterase (Negative) Urine RBC (0-2) /HPF Urine WBC (0-5) /HPF Ur Squamous Epith Cells (0-2) /HPF Urine Bacteria (None Seen) Hyaline Casts (0-2) /LPF Urine Opiates Screen (Not Detect) Ur Buprenorphine Scrn (Not Detect) ng/mL Ur Oxycodone Screen (Not Detect) ng/mL Urine Methadone Screen (Not Detect) ng/mL Urine Fentanyl Screen (Not Detect) Ur Barbiturates Screen (Not Detect) Ur Phencyclidine Scrn (Not Detect) Ur Amphetamines Screen (Not Detect) U Benzodiazepines Scrn (Not Detect) Urine Cocaine Screen (Not Detect) U Marijuana (THC) Screen (Not Detect) Ethyl Alcohol < 10 mg/dL Influenza Type A (PCR) NEGATIVE (Negative) Influenza Type B (PCR) NEGATIVE (Negative) RSV RNA Qual (PCR) NEGATIVE (Negative) SARS-CoV-2 RNA (RT-PCR) NEGATIVE (Negative) 09/12/24 Range/Units 12:24 WBC (4.8-10.8) X10*3/uL RBC (4.60-5.80) X10*6/uL Hgb (14.0-18.0) g/dl Hct (42.0-52.0) % MCV (80.0-98.0) fL MCH (27.0-33.0) pg MCHC (31.0-36.0) g/dl RDW (11.0-16.0) % Plt Count (160-400) X10*3/uL MPV (9.4-12.4) fL Immature Gran % (Auto) (0.0-0.4) % Neut % (Auto) (45-73) % Lymph % (Auto) (20-40) % Greene % (Auto) (2-11) % Eos % (Auto) (0-4) % Baso % (Auto) (0-2) % Lymph # (Auto) (1.2-4.9) X10*3/uL Greene # (Auto) (0.1-1.2) X10*3/uL Eos # (Auto) (0.0-0.4) X10*3/uL Baso # (Auto) (0.0-0.2) X10*3/uL Abs Immat Gran (auto) (0.00-0.03) X10*3/uL Absolute Neuts (auto) (2.0-8.3) x10*3/uL Absolute Nucleated RBC (0.0-0.012) X10*3/uL Nucleated RBC % (auto) (0.0-0.2) /100WBC Sodium (135-145) mmol/L Potassium (3.3-5.1) mmol/L Chloride (96-108) mmol/L Carbon Dioxide (22-29) mmol/L Anion Gap (12-20) BUN (9-16) mg/dL Creatinine (0.5-1.4) mg/dL Estim Creat Clear Calc Estimated GFR POC Glucose (60-115) mg/dL Random Glucose (60-115) mg/dL Lactic Acid (0.5-2.0) mmol/L Lactic Acid F/U @ 2Hr 0.9 (0.5-2.0) mmol/L Calcium (8.4-10.2) mg/dL Magnesium (1.6-2.6) mg/dL Total Bilirubin (0.0-1.0) mg/dL Direct Bilirubin (0.0-0.5) mg/dL AST (5-37) U/L ALT (0-40) U/L Alkaline Phosphatase (39-117) U/L Total Creatine Kinase (38-174) U/L Troponin I High Sens (<3.5-35.0) ng/L Total Protein (6.5-8.0) g/dL Albumin (3.5-5.0) g/dL Lipase (8-78) U/L Urine Color Dark Yellow Urine Appearance Cloudy Urine pH 6.0 (5.0-9.0) Ur Specific [place] 1.025 (1.005-1.025) Urine Protein 100 (2+) H (Neg-Trace) mg/dL Urine Glucose (UA) Negative (Negative) mg/dL Urine Ketones 15 (Negative) mg/dL Urine Blood Negative (Negative) Urine Nitrite Negative (Negative) Ur Leukocyte Esterase Negative (Negative) Urine RBC 0-2 (0-2) /HPF Urine WBC 0-5 (0-5) /HPF Ur Squamous Epith Cells 0-2 (0-2) /HPF Urine Bacteria None Seen (None Seen) Hyaline Casts 11-20 (0-2) /LPF Urine Opiates Screen Not Detected (Not Detect) Ur Buprenorphine Scrn Not Detected (Not Detect) ng/mL Ur Oxycodone Screen Not Detected (Not Detect) ng/mL Urine Methadone Screen Not Detected (Not Detect) ng/mL Urine Fentanyl Screen Not Detected (Not Detect) Ur Barbiturates Screen Not Detected (Not Detect) Ur Phencyclidine Scrn Not Detected (Not Detect) Ur Amphetamines Screen Not Detected (Not Detect) U Benzodiazepines Scrn Not Detected (Not Detect) Urine Cocaine Screen Not Detected (Not Detect) U Marijuana (THC) Screen Not Detected (Not Detect) Ethyl Alcohol mg/dL Influenza Type A (PCR) (Negative) Influenza Type B (PCR) (Negative) RSV RNA Qual (PCR) (Negative) SARS-CoV-2 RNA (RT-PCR) (Negative) Independent Interpretation I performed an independent interpretation of an: EKG Interpretation: Sinus tach at 112 beats per minute, with PVCs, no STEMI. Vent. Rate : 112 BPM Atrial Rate : 112 BPM P-R Int : 160 ms QRS Dur : 100 ms QT Int : 346 ms P-R-T Axes : 76 -53 63 degrees QTcB Int : 472 ms Sinus tachycardia with frequent Premature ventricular complexes Left axis deviation Incomplete right bundle branch block Abnormal ECG When compared with ECG of 07-Dec-2015 19:02, Premature ventricular complexes are now Present QRS axis Shifted left Non-specific change in ST segment in Lateral leads Radiology Impression Discussion of test interpretation with radiology: I have reviewed the radiologist's reading. Radiologist Impression: FINDINGS: CERVICAL SPINE: The vertebral bodies maintain normal height and alignment without evidence of fracture or subluxation. The intervertebral disc spaces are preserved. Evaluation for disc pathology is limited by lack of intrathecal contrast material. BRAIN: The visualized portion of the brain is unremarkable. SINUSES: The visualized paranasal sinuses, mastoid air cells and middle ear cavities are unremarkable. LUNG APICES: There is biapical pleural and parenchymal scarring. SOFT TISSUES: There is calcification of the internal carotid arteries. CT/CT cervical spine wo IV con IMPRESSION: No evidence of fracture or malalignment of the cervical spine. Electronically signed by: Serafin Schmidt MD 09/12/2024 10:28 AM EDT RP Dictated By: Serafin Schmidt MD FINDINGS: BRAIN: There is mild prominence of the ventricular system and cortical sulci, consistent with atrophy. This is greater than expected for a patient of this age. Periventricular and subcortical white matter hypodensities are noted which are nonspecific, but often seen in the setting of small vessel ischemic disease. There is no mass effect or midline shift. No intra- or extra-axial fluid collections are identified. SINUSES: There is a polyp versus mucous retention cyst in the right maxillary sinus. The mastoid air cells and middle ear cavities are well pneumatized. ORBITS: The visualized orbits are unremarkable. BONES/SOFT TISSUES: The extracranial soft tissues are unremarkable. The calvarium is intact. No suspicious lytic or sclerotic lesions. CT/CT head/brain wo IV con IMPRESSION: No acute intracranial abnormality. Electronically signed by: Serafin Schmidt MD 09/12/2024 10:20 AM EDT RP Dictated By: Serafin Schmidt MD Critical Care Time Critical Care Time Critical Care Time: Yes Total Critical Care Time: 35 Attestation: I have personally provided critical care time exclusive of time spent on separately billable procedures. Time includes review of lab data, radiology results, discussion with consultants, and monitoring for potential decompensation. Intervention performed as documented. Discharge Plan Discharge Clinical Impression: New onset seizure, Alcohol use disorder, Hypomagnesemia, Elevated troponin Patient Disposition: Admitted As Inpatient
[2024-09-12 10:22] LABS: MANUAL DIFF FLAG NO
[2024-09-12 10:34] LABS: Basophils Percent Auto 0.5 % (0-2); Eosinophils Percent Auto 0.2 % (0-4); Hematocrit 39.9 % (42.0-52.0); Hemoglobin 13.7 g/dl (14.0-18.0); Imm Gran Abs Auto 0.03 X10*3/uL (0.00-0.03); Imm Gran Pct Auto 0.3 % (0.0-0.4); Lymphocytes Absolute Auto 1.8 X10*3/uL (1.2-4.9); Lymphocytes Percent Auto 20.1 % (20-40); Mean Corpuscular HGB Conc 34.3 g/dl (31.0-36.0); Mean Corpuscular Hemoglobin 34.1 pg (27.0-33.0); Mean Corpuscular Volume 99.3 fL (80.0-98.0); Mean Platelet Volume 9.6 fL (9.4-12.4); Monocytes Absolute Auto 0.8 X10*3/uL (0.1-1.2); Monocytes Percent Auto 9.3 % (2-11); Neutrophils Absolute Auto 6.2 x10*3/uL (2.0-8.3); Neutrophils Percent Auto 69.6 % (45-73); Platelet Count 221 X10*3/uL (160-400); Red Blood Count 4.02 X10*6/uL (4.60-5.80); Red Cell Distribution Width 13.8 % (11.0-16.0); White Blood Count 8.8 X10*3/uL (4.8-10.8)
[2024-09-12 10:39] LABS: Alanine Aminotransferase 37 U/L (0-40); Alkaline Phosphatase 55 U/L (39-117); Anion Gap 16 (12-20); Aspartate Amino Transferase 45 U/L (5-37); Bilirubin Direct 0.4 mg/dL (0.0-0.5); Bilirubin Total 1.3 mg/dL (0.0-1.0); Blood Urea Nitrogen 9 mg/dL (9-16); Calcium 8.9 mg/dL (8.4-10.2); Carbon Dioxide 23 mmol/L (22-29); Chloride 99 mmol/L (96-108); Estimated Glomerular Filt Rate > 60; Ethanol < 10 mg/dL; Glucose Random 87 mg/dL (60-115); Lipase 20 U/L (8-78); Magnesium 1.3 mg/dL (1.6-2.6); Potassium 3.4 mmol/L (3.3-5.1); Sodium 135 mmol/L (135-145); Total Protein 6.9 g/dL (6.5-8.0)
[2024-09-12 10:40] LABS: Lactic Acid 2.7 mmol/L (0.5-2.0)
[2024-09-12 10:45] LABS: Troponin-I High Sensitivity 40.5 ng/L (<3.5-35.0)
[2024-09-12 11:02] LABS: Influenza A PCR NEGATIVE (Negative); Influenza B PCR NEGATIVE (Negative); Resp Syncy Virus RNA Qual PCR NEGATIVE (Negative); SARS COV2 PCR INHOUSE NEGATIVE (Negative)
--- NOTE | 2024-09-12 11:12 | PC.NURSE ---
Report recieved. Taken over care at this time.
[2024-09-12] MEDS: 0.9 % Sodium Chloride 1,000 ML 999 ML IVCONT (11:17)
--- NOTE | 2024-09-12 11:18 | PC.NURSE ---
pt is back from ct and remains caox4 with gcs of 15, his reflexes are brsik x 4 ext and he has no tremors. pt is compliant with c-collar. he is in nsr on monitor, no peripheral edema noted.
[2024-09-12 12:00] VITALS: BP 129/85; PULSE 108; RESP 18; O2SAT 99
[2024-09-12] MEDS: Magnesium Sulfate/H2O 2 GM/50 ML PIGGYBACK IV (12:00)
--- OUTSIDE RECORDS SUMMARY | 2024-09-12 12:06 | XMS_ITS ---
Author Organization Serafin Mckeon III, MD Address [address] [place] [address] Care Team Providers Care Obstetric Assistant Name Role Phone Serafin Mckeon Primary Care Provider REASON FOR VISIT annual exam Encounters Encounter Location Date Provider Diagnosis Serafin Mckeon III, MD [address] [place] [address] [place] [address] 05/13/2024 Serafin Mckeon Plan Of Treatment Next Appt Details Provider Name:Serafin Mckeon, 09/14/2024 10:30:00 AM, [address] [place] [address] [place], [id number], Progress Notes * Skip RANDLEDOB:1965 (59 yo M)Acc No.[id number]:05/13/2024 Progress Notes Patient:?Skip RANDLE Provider:?Serafin Mckeon MD :1965???Age:59 Y???Sex:Male Antony e:05/13/2024 Address:[address] [place] [address] [place], [id number] Subjective: * Chief Complaints: * ???1. Annual exam. * Medical History:? Objective: * Vitals:? Assessment: Plan: * Treatment: * Images: * The named appointment provid er may or may not be the originator of this progress note, and it is not deemed complete until electronically signed by the appointment provider. Sign off status: Pending * Provider:?Serafin Mckeon MD Date:?07/2024 Generated for Beryl barnard/Caitlyn/Gertrudis on:?09/12/2024 12:06 PM EDT
--- OUTSIDE RECORDS SUMMARY | 2024-09-12 12:06 | XMS_ITS ---
Author Organization Serafin Mckeon III, MD Address [address] [place] [address] Care Team Providers Care Typewriters Functional Tester Name Role Phone Serafin Mckeon Primary Care Provider Allergies Allergen (clinical drug ingredient) Drug/Non Drug Allergy documented on EMR Reaction Allergy Type Onset Date Status No Known Drug Allergy Unknown Drug Allergy Active REASON FOR VISIT annual exam Medications Medication SIG (Take, Route, Frequency, Duration) Notes Start Date End Date Status Thiamine HCl 100 MG 1 tablet Orally Once a day 05/2022 Active B1 100 MG TAKE 1 TABLET BY [facility] EVERY DAY FOR 30 DAYS Oral Activ e Tamsulosin HCl 0.4 MG 1 capsule Orally O nce a day 11/03/2022 Active Metoprolol Tartrate 50 MG 1 tablet with food Orally Twice a day 01/21/2016 Active Cyanocobalamin 1000 MCG 1 tablet Orally Once a day 09/11/2016 Active Social History Tobacco Use: Social History Observation Description Date Details (start date - stop date) Current Smoker NA - NA Tobacco Use/Smoking Question Answer Notes Patient is a current smoker How often do you smoke cigarettes? every day How many cigarettes a day do you smoke? 6-10 How soon after you wake up d o you smoke your first cigarette? after 60 minutes Are you interested in quitting? Ready to quit Additional Findings: Tobacco User Light cigarett e smoker ((1-9 cigs/day) Encounters Encounter Location Date Provider Diagnosis Serafin Mckeon III, MD [address] [place] [address] [place] [address] 02/11/2024 Serafin Careyrne Tobacco dependence F17.200 Assessments Encounter Date Diagnosis (ICD Code) Assessment Notes Treatment Notes Treatment Clinical Notes 02/11/2024 Tobacco dependence (ICD-10 - F17.200) I have strongly encouraged him not to smoke. I've discussed with him several strategies for becoming smoke-free in maintaining abstinence. He says that he is down to 10 cigarettes daily.I have made him aware of all of the smoking cessation programs available at local hospitals and commercially. He has declined a referral to any of them today. Plan Of Treatment Medication Medication Name Sig Start Date Stop Date Notes Thiamine HCl 100 MG 1 tablet Orally Once a day 09/08/2022 B1 100 MG TAKE 1 TABLET BY [facility] EVERY DAY FOR 30 DAYS Oral Tamsulosin HCl 0.4 MG 1 capsule Orally Once a day 11/04/19 23 Metoprolol Tartrate 50 MG 1 tablet with food Orally Twice a day 01/21/2016 Cyanocobalamin 1000 MCG 1 tablet Orally Once a day 017 Next Appt Details Provider Name:Serafin Mckeon, 09/14/2024 10:30:00 AM, [address] [place] [address] [address], [place], [address], Progress Notes * Skip RANDLEDOB:1965 (59 yo M)Acc No.[id number]:02/11/2024 Progress Notes Patient:?Skip RANDLE Provider:?Serafin Mckeon MD :1965???Age:58 Y???Sex:Male Antony e:02/11/2024 Address:[address] [place] [address] [place], [place] Subjective: * Chief Complaints: * ???1. Annual exam. * HPI: ???COVID-19 Screening:?Questions?Have you had any new onset fever, chills, cough, congestion, sore throat, shortness of breath, muscle aches??No ?Have you been exposed to the virus within the last 10 days??No ?Have you travelled internationally in the last 10 days??No ?Have you been exposed to COVID-19 in the past??No * ROS:?General/Constitutional:?pain?only normal aches and pains.?Chills?denies.?Fatigue?admits.?Fever?denies.?ENT:?Decreased hearing?denies.?Respiratory:?Cough?denies.?Cardiovascular:?Chest pain with exertion?denies.?Dyspnea on exertion?denies.?Shortness of breath?denies.?Gastrointestinal:?Constipation?denies.?Decreased appetite?denies.?Diarrhea?denies.?Heartburn?denies.?Nausea?denies.?Rectal bleeding?denies.?Vomiting?denies.?Hematology:?bruising?denies.?petechiae?denies.?Swollen glands?none have been noted.?Genitourinary:?Frequent urination?denies.?Musculoskeletal:?Muscle aches?denies.?Painful joints?denies.?Sciatica?denies.?Weakness?denies.?Skin:?Itching?denies.?Rash?denies.?Skin lesion(s)?denies.?Neurologic:?Difficulty speaking?denies.?Dizziness?denies.?Headache?denies.?Low back pain?denies.?Psychiatric:?Depressed mood?denies.? * Medical History:?Tobacco dep endence, Underweight, Tachycardia, 2009 microscopic hematuria, negative urine cytology, Allergies, Alcohol use disorder, Benign prostatic hypertrophy. * Surgical History:?Broken jaw 2002, nondisplaced fracture middle phalanx left third finger 2002. * Hospitalization/Major Diagno stic Procedure:?Denies Past Hospitalization. * Family History:?Father: jodee solo, CAD, tachycardia, on cardiac medications, diagnosed with CVD.?Mother: alive, diabetes mellitus, diagnosed with DM.?2 brother(s) , 1 sister(s) . 1 son(s) , 2 daughter(s) - healthy. .? Youngest child has authism. HIs two brothers are well. His sister has had an aortic aneurysm repair. His family was tested with ultrasound for aortic aneurysms and his was negative. His sister, Briseyda, had throat cancer at the age of 53. * Social History:?Tobacco Use:?Tobacco Use/Smoking?Patient is a?current smoker ?How often do you smoke cigarettes??every day ?How many cigarettes a day do you smoke??6-10 ?How soon after you wake up do you smoke your first cigarette??after 60 minutes ?Are you interested in quitting??Ready to quit ?Additional Findings: Tobacco User?Light cigarette smoker ((1-9 cigs/day) ???He smokes a half a packages cigarettes per day. He was born and [facility]. He is and has 3 children, 2 daughters and 1 son all of whom are alive and well. He has no grandchildren. 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 He has been there for 20 years. * Medications:?Taking Thiamine HCl 100 MG Tablet 1 tablet Orally Once a day , Taking Cyanocobalamin 1000 MCG Tablet 1 tablet Orally Once a day , Taking Metoprolol Tartrate 50 MG Tablet 1 tablet with food Orally Twice a day , Taking Tamsulosin HCl 0.4 MG Capsule 1 capsule Orally Once a day , Taking B1 100 MG Tablet TAKE 1 TABLET BY MOUTH EVERY DAY FOR 30 DAYS Oral , Medication List reviewed and reconciled with the patient * Allergies:?No Known Drug All ergy. Objective: * Vitals:? * Examination: ???General Examination: ?GENERAL APPEARANCE:?pleasant, well nourished, well developed, in no acute distress, calm and relaxed.?HEAD:?atraumatic, normocephalic.?EYES:?eomi, perrla, anicteric, conjugate.?EARS:?normal.?NOSE:?septum intact.?ORAL CAVITY:?normal, unremarkable.?NECK/THYROID:?no jugular venous distention, no carotid bruit, thyroid normal.?LYMPH NODES:?no enlarged lymph nodes,spleen normal.?SKIN:?no suspicious lesions, anicteric.?HEART:?no clicks, gallops, murmurs, or rubs, regular rhythm, S1, S2 normal, no s3, or vascular bruits.?LUNGS:?clear to auscultation .?BREASTS:??no masses palpable bilaterally.?ABDOMEN:?bowel sounds normal, no ascites, no organomegaly, no mass.?RECTAL EXAM:?not examined.?MUSCULOSKELETAL:?extremities unremarkable, no clubbing, cyanosis or edema.?PERIPHERAL PULSES:?normal.?NEUROLOGIC:?alert and oriented, cranial nerves 2-12 grossly intact, deep tendon reflexes 2+ symmetrical, motor strength normal upper and lower extremities, sensory exam intact.?PSYCH:?alert, oriented.? Assessment: * Assessment: 1.?Tobacco dependence - F17. 200???Notes :I have strongly encouraged him not to smoke. I've discussed with him several strategies for becoming smoke-free in maintaining abstinence. He says that he is down to 10 cigarettes daily.I have made him aware of all of the smoking cessation programs available at local hospitals and commercially. He has declined a referral to any of them today.??? Plan: * Treatment: * Images: * The named appointment provid er may or may not be the originator of this progress note, and it is not deemed complete until electronically signed by the appointment provider. Sign off status: Pending * Provider:?Serafin Mckeon MD Date:?07/2023 Generated for Beryl barnard/Caitlyn/eTransmitting on:?09/12/2024 12:06 PM EDT History and Physical Notes * HPI (History of Present Illness) Category Sub-Category Detail Notes COVID-19 Screening Questions Have you had any new onset fever, chills, cough, congestion, sore throat, shortness of breath, muscle aches?: No Have you been exposed to the virus withi n the last 10 days?: No Have you travelled internationally in [facility] last 10 days?: No Have you been exposed to COVID-19 in the past?: No Examination Category Sub-Category Detail Notes General Examination GENERAL APPEARANCE: pleasant , well nourished, well developed, in no acute distress, calm and relaxed HEAD: atraumatic, normocep halic EYES: eomi, perrla, anicte janet, conjugate EARS: normal NOSE: septum intact NECK/THYROID: no jugular venous di stention, no carotid bruit, thyroid normal HEART: no clicks, gallops, murmurs, or rubs, regular rhythm, S1, S2 normal, no s3, or vascular bruits LUNGS: clear to auscultatio n ABDOMEN: bowel sounds normal, no ascites, no organomegaly, no mass NEUROLOGIC: alert and oriented, cranial nerves 2-12 grossly intact, deep tendon reflexes 2+ symmetrical, motor strength normal upper and lower extremities, sensory exam intact SKIN: no suspicious lesion s, anicteric PERIPHERAL PULSES: normal BREASTS: no masses palpable b ilaterally MUSCULOSKELETAL: extremities unremark able, no clubbing, cyanosis or edema LYMPH NODES: no enlarged lymph no carine,spleen normal RECTAL EXAM: not examined PSYCH: alert, oriented ORAL CAVITY: normal, unremarkable
--- OUTSIDE RECORDS SUMMARY | 2024-09-12 12:07 | XMS_ITS ---
Author Organization Serafin Mckeon III, MD Address [address] [place] [address] Care Team Providers Care Licensed Clinical Social Worker Name Role Phone Serafin Mckeon Primary Care Provider [phone] REASON FOR VISIT annual exam Medications Medication SIG (Take, Route, Frequency, Duration) Notes Start Date End Date Status B1 100 MG TAKE 1 TABLET BY [facility] EVERY DAY FOR 30 DAYS Oral Activ e Cyanocobalamin 1000 MCG 1 tablet Orally Once a day 09/11/2016 Active Metoprolol Tartrate 50 MG 1 tablet with food Orally Twice a day 01/21/2016 Active Tamsulosin HCl 0.4 MG 1 capsule Orally O nce a day 11/03/2022 Active Thiamine HCl 100 MG 1 tablet Orally Once a day 05/2022 Active Social History Tobacco Use: Social History [...] Date Provider Diagnosis Serafin Mckeon III, MD [address] [place] [address] [address] [place] [address] 07/01/2024 Serafin Mckeon Tobacco dependence F17.200 Assessments Encounter Date Diagnosis (ICD Code) Assessment Notes Treatment Notes Treatment Clinical Notes 07/01/2024 Tobacco dependence (ICD-10 - F17.200) I have [...] Name Sig Start Date Stop Date Notes B1 100 MG TAKE 1 TABLET BY [facility] EVERY DAY FOR 30 DAYS Oral Cyanocobalamin 1000 MCG 1 tablet Orally Once a day 017 Metoprolol Tartrate 50 MG 1 tablet with food Orally Twice a day 01/21/2016 Tamsulosin HCl 0.4 MG 1 capsule Orally Once a day 11/04/19 23 Thiamine HCl 100 MG 1 tablet Orally Once a day 09/08/2022 Next Appt Details Provider Name:Serafin Mckeon, 09/14/2024 10:30:00 AM, [address] [place] [address] [address], [place], [address], Progress Notes * Skip RANDLEDOB:1965 (59 yo M)Acc No.[id number]:07/01/2024 Progress Notes Patient:?Skip RANDLE Provider:?Serafin Mckeon MD :1965???Age:59 Y???Sex:Male Antony e:07/01/2024 Address:[address] [place], [place] [id number] Subjective: * Chief Complaints: * ???1. Annual exam. * HPI: ???COVID-19 Screening:?Questions?Have you had any new onset fever, chills, cough, congestion, sore throat, shortness of breath, muscle aches??No * ROS:?General/Constitutional:?pain?only normal aches and pains.?Chills?denies.?Fatigue?admits.?Fever?denies.?ENT:?Decreased hearing?denies.?Respiratory:?Cough?denies.?Cardiovascular:?Chest pain with exertion?denies.?Dyspnea on exertion?denies.?Shortness of breath?denies.?Gastrointestinal:?Constipation?denies.?Decreased appetite?denies.?Diarrhea?denies.?Heartburn?denies.?Nausea?denies.?Rectal bleeding?denies.?Vomiting?denies.?Hematology:?bruising?denies.?petechiae?denies.?Swollen glands?none have been noted.?Genitourinary:?Frequent urination?denies.?Musculoskeletal:?Muscle aches?denies.?Painful joints?denies.?Sciatica?denies.?Weakness?denies.?Skin:?Itching?denies.?Rash?denies.?Skin lesion(s)?denies.?Neurologic:?Difficulty speaking?denies.?Dizziness?denies.?Headache?denies.?Low back pain?denies.?Psychiatric:?Depressed mood?denies.? * Medical History:? * Surgical History:?Broken jaw 2002, nondisplaced fracture [...] cigarettes per day. He was born and [facility] at [facility]. He is and has 3 children, 2 daughters and 1 son all of whom are alive and well. He has no grandchildren. 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 * Examination: ???General Examination: [...] off status: Pending * Provider:?Serafin Mckeon MD Date:?06/12 Generated for Beryl barnard/Caitlyn/Kianasmitting on:?09/12/2024 12:06 PM EDT History and Physical Notes * HPI (History of Present Illness) Category Sub-Category Detail Notes COVID-19 Screening Questions Have you had any new onset fever, chills, cough, congestion, sore throat, shortness of breath, muscle aches?: No Examination Category Sub-Category Detail Notes General [...]
--- OUTSIDE RECORDS SUMMARY | 2024-09-12 12:07 | XMS_ITS | Patient Health Record ---
Author Organization Serfain Mckeon III, MD Address [address] [place] [address] Care Team Providers Care Gravel Truck Driver Name Role Phone Serafin Mckeon Primary Care Provider [phone] Allergies Allergen (clinical drug ingredient) Drug/Non Drug Allergy documented on EMR Reaction Allergy Type Onset Date Status No Known Drug Allergy Unknown Drug Allergy Active Reason For Referral No Information Medications Medication SIG (Take, Route, Frequency, Duration) Notes Start Date End Date Status B1 100 MG TAKE 1 TABLET BY [facility] TH EVERY DAY FOR 30 DAYS Oral Activ e Cyanocobalamin 1000 MCG 1 tablet Orally Once a day 09/11/2016 Active Metoprolol Tartrate 50 MG 1 tablet with food Orally Twice a day 01/21/2016 Active Tamsulosin HCl 0.4 MG 1 capsule Orally O nce a day 11/03/2022 Active Thiamine HCl 100 MG 1 tablet Orally Once a day 05/2022 Active Immunizations Vaccine Route Administration Date Status Comme nts Influenza no Preserv 3 and > IM Intramuscular 03/15/2019 Administered Influenza, quad IM Intramuscular 04/19/2020 Administered COVID- 19 Vaccine Unknown 09/05/2020 Administered Influenza, quad IM Intramuscular 03/01/2021 Administered COVID- 19 Vaccine Unknown 08/12/2021 Administered Influenza, quad IM Intramuscular 03/11/2022 Administered COVID- 19 Vaccine Unknown 10/03/2020 Administered Influenza, quad IM Intramuscular 06/10/2023 Administered Social History Tobacco Use: Social History Observation [...] User Light cigarett e smoker ((1-9 cigs/day) Alcohol Screen Question Answer Notes Did you have a drink contain ing alcohol in the past year? Yes How often did you have a dri nk containing alcohol in the past year? Monthly or less (1 point) How many drinks did you have on a typical day when you were drinking in the past year? 1 or 2 drinks (0 point) How often did you have 6 or more drinks on one occasion in the past year? Never (0 point) Points 1 Interpretation Negative Encounters Encounter Location Date Provider Diagnosis Serafin Mckeon III, MD [address] [place] [address] [place] [address] 09/29/2023 Serafin Mckeon Tobacco dependence F17.200 Assessments Encounter Date Diagnosis (ICD Code) Assessment Notes Treatment Notes Treatment Clinical Notes 09/29/2023 Tobacco dependence (ICD-10 - F17.200) I have [...] any of them today. Plan Of Treatment Pending Test Test Name Order Date PROFILE, FASTING (COMPREHENSIVE METABOLI C) 09/26/2021 PROFILE, FASTING (COMPREHENSIVE METABOLI C) 09/08/2022 PROFILE, FASTING (COMPREHENSIVE METABOLI C) 06/07/2021 PROFILE, FASTING (COMPREHENSIVE METABOLI C) 06/10/2023 PROFILE, RANDOM (COMPREHENSIVE METABOLIC ) 09/18/2020 PROFILE, RANDOM (COMPREHENSIVE METABOLIC ) 03/01/2021 PROFILE, RANDOM (COMPREHENSIVE METABOLIC ) 11/30/2020 MAGNESIUM 09/08/2022 LIPID PANEL 09/18/2020 LIPID PANEL 09/26/2021 LIPID PANEL 06/07/2021 LIPID PANEL 09/08/2022 FREE T4 (FT4) 03/01/2021 TSH (THYROID STIMULATING HORMONE) 2020 VITAMIN B12 AND FOLATE 11/30/2020 VITAMIN B12 AND FOLATE 09/18/2020 B12 09/08/2022 B12 03/01/2021 B12 09/26/2021 PSA, TOTAL 09/08/2022 PSA, TOTAL 06/10/2023 PSA, TOTAL 09/26/2021 CBC w DIFF 06/07/2021 CBC w DIFF 09/26/2021 CBC w DIFF 11/30/2020 CBC w DIFF 03/01/2021 CBC w DIFF 09/08/2022 CBC w DIFF 09/18/2020 SED RATE (ESR) 09/26/2021 SED RATE (ESR) 11/30/2020 ALPHA-FETOPROTEIN,TUMOR MARKER CBC WITH AUTO DIFF 06/10/2023 RETIC 06/10/2023 Lipid Panel 06/10/2023 Vitamin B12 06/07/2021 Vitamin B12 06/10/2023 Next Appt Details Provider Name:Serafin Mckeon, 09/14/2024 10:30:00 AM, [address] [place] [address] , [place] [address], [place], [address], Insurance Providers Payer Name Payer Address Payer Phone Subscriber Number Group Number Insured Name Patient Relationship to Insured Coverage Start Date Coverage End Date MEDICARE NGS [address] [place] [address] [phone] [id number] Skip Randle Self - patient is the insured [place] [address] [place], [place] [id number] Skip Randle Self - patient is the insured Medical (General) History Medical History History ICD Code tobacco dependence underweight tachycardia 2009 microscopic hematuria, negative uri ne cytology allergies Alcohol use disorder Benign prostatic hypertrophy Surgical History Surgery Date(Month/Year) nondisplaced fracture middle phalanx lef t third finger 2002 Broken jaw 2002
[2024-09-12 12:21] LABS: Reflex Lactate? Lactic Acid Added
[2024-09-12 12:39] LABS: Appearance Urine Cloudy; Color Urine Dark Yellow; Glucose Urine UA Negative (Negative); Leukocyte Esterase Urine Negative (Negative); Nitrite Urine Negative (Negative); Specific Gravity - Urine 1.025 (1.005-1.025); UMIC TRIGGER UACC YES; Urine Blood Negative (Negative); Urine Ketones 15 mg/dL (Negative); Urine Protein 100 (2+) mg/dL (Neg-Trace)
[2024-09-12 12:52] LABS: Amphetamine Screen Urine Not Detected (Not Detect); Barbiturates, Urine Not Detected (Not Detect); Benzodiazepines Screen Urine Not Detected (Not Detect); Buprenorphine Scr Not Detected (Not Detect); Cannabinoid Screen Urine Not Detected (Not Detect); Cocaine Screen Urine Not Detected (Not Detect); Fentanyl, urine Not Detected (Not Detect); Methadone Screen, Urine Not Detected (Not Detect); Opiate Screen Urine Not Detected (Not Detect); Oxycodone Screen Urine Not Detected (Not Detect); Phencyclidine Screen Urine Not Detected (Not Detect)
[2024-09-12] MEDS: PHENobarbitaL sodium 130 MG/ML IM ONCE 255 MG IM (12:58)
[2024-09-12 12:59] LABS: ~Lactic Acid-LAB USE ONLY 0.9 mmol/L (0.5-2.0)
[2024-09-12 13:14] LABS: Bacteria Urine None Seen (None Seen); RBC Urine 0-2 /HPF (0-2); Squamous Epithelial Cell Urine 0-2 /HPF (0-2); WBC Urine 0-5 /HPF (0-5)
--- NOTE | 2024-09-12 14:02 | P.HPHOSP_ITS ---
History of Present Illness Date of Service: 09/12/24 Chief Complaint: Syncope, altered mentation A 59 years old male with PMH of alcohol abuse, smoking who presents to the hospital with reported syncopal episode and altered mentation at home with reported seizure likey activity. The patient reporting waking up this morning and having coffee then he went back to his bedroom and the next thing he remember is waking up while being carried by EMS. His mother reported abnormal movements and seizure likey activity for almost 1 minutes and lose control of urine. when EMS picked him up he was speaking unclear words and did not make sense. improved back to baseline. He reports quitting alcohol 2 weeks ago. tested negative for alcohol in urine. never had withdrawals before. No chest pain, palpitations, SOB, nausea, vomiting, diarrhea or urinary symptoms. A CT scan of head negative for acute findings but showing mild prominence of the ventricular system and cortical sulci, consistent with atrophy. This is greater than expected for a patient of this age. Will be admitted for further work up and neurology evaluation Review of Systems 2 Review of Systems: No fever, chills or weakness No chest pain, palpitation No shortness of breath or coughing No abdominal pain, nausea or vomiting No urinary symptoms No any rash or wounds Yes all other systems are reviewed and are negative [facility] Medical History Nicotine dependence, cigarettes, uncomplicated EtOH dependence Cerebellar ataxia Hypertension Vitamin B12 deficiency BPH (benign prostatic hyperplasia) Arthritis Surgical History History of mandibular surgery Social History Alcohol intake: current Alcohol type: beer Smoked in Last 30 Days: Yes Use of substances other than those prescribed or required for medical reasons: No Advance Directives: No Advance Directives Information Provided: Yes Do you have a plan to hurt others: No Plan Meds Allergies Allergy/AdvReac Type Severity Reaction Status Date / Time No Known Allergies Allergy Unverified 09/12/24 09:35 [No Known Allergies*] Active Medications: Current Medications Pharmacy Consult (Consult Rx Etoh Phenob Im/Po) 1 each MISCELLANE ONCE PRN; Protocol PRN Reason: Consult order Phenobarbital (Phenobarbital 15 Mg Tablet) 45 mg PO BID [facility]; Protocol Stop: 09/14/24 09:01 Phenobarbital (Phenobarbital 15 Mg Tablet) 15 mg PO BID [facility]; Protocol Stop: 09/16/24 09:01 Phenobarbital (Phenobarbital 15 Mg Tablet) 15 mg PO DAILY [facility]; Protocol Stop: 09/18/24 09:01 Phenobarbital Sodium (Phenobarbital Sodium 130 Mg/Ml Vial Im Q3hx2) 191 mg IM Q3H [facility]; Protocol Stop: 09/12/24 18:01 Home Medications ?Medication ?Instructions ?Recorded ?Confirmed ?Last Taken ?Type acetaminophen 325 mg tablet 325 - 650 mg PO Q4H PRN 09/12/24 09/12/24 Unknown History (Tylenol) Headache/Pain cyanocobalamin (vitamin B-12) 1,000 mcg PO DAILY 09/12/24 09/12/24 09/11/24 History 1,000 mcg tablet (Vitamin B-12) multivitamin 1 tab PO DAILY 09/12/24 09/12/24 09/11/24 History thiamine HCl (vitamin B1) 100 mg 100 mg PO DAILY 09/12/24 09/12/24 09/11/24 History tablet Physical Exam 2 Vital Signs and Narrative: Vital Signs: Last Vital Signs Temp 98 F 09/12/24 09:27 Pulse 108 H 09/12/24 12:00 Resp 18 09/12/24 12:00 BP 129/85 09/12/24 12:00 Pulse Ox 99 09/12/24 12:00 O2 Del Method Room Air 09/12/24 12:00 BMI result Body Mass Index 24.9 Const: Other: Constitutional : Awake, interactive, not in distress Neck : Normal inspection, Supple Cardiovascular : RRR, no JVP, no lower extremity edema Respiratory : good bilateral air entry, no crackles, wheezes or rhonchi Gastrointestinal: soft, lax, Normal bowel sounds, Non tender Skin : Warm, Dry Neurological : Alert & oriented x3, No focal deficit , CN 2-12 within normal Results Labs 09/12/24 10:14 09/12/24 10:14 Labs: Laboratory Results - last 24 hr 09/12/24 09/12/24 09/12/24 09:25 10:14 12:24 MCV 99.3 H MCH 34.1 H MCHC 34.3 RDW 13.8 Plt Count 221 MPV 9.6 Immature Gran % (Auto) 0.3 Neut % (Auto) 69.6 Lymph % (Auto) 20.1 [place] % (Auto) 9.3 Eos % (Auto) 0.2 Baso % (Auto) 0.5 Lymph # (Auto) 1.8 [place] # (Auto) 0.8 Eos # (Auto) 0.0 Baso # (Auto) 0.0 Abs Immat Gran (auto) 0.03 Absolute Neuts (auto) 6.2 Absolute Nucleated RBC 0.000 Nucleated RBC % (auto) 0.0 Anion Gap 16 Estim Creat Clear Calc 98.0 Estimated GFR > 60 POC Glucose 135 H Random Glucose 87 Lactic Acid 2.7 H* Lactic Acid F/U @ 2Hr 0.9 Calcium 8.9 D Magnesium 1.3 L* Total Bilirubin 1.3 H Direct Bilirubin 0.4 AST 45 H ALT 37 Alkaline Phosphatase 55 Total Creatine Kinase 179 H Total Protein 6.9 Albumin 4.0 Lipase 20 Urine Color Dark Yellow Urine Appearance Cloudy Urine pH 6.0 Ur Specific [place] 1.025 Urine Protein 100 (2+) H Urine Glucose (UA) Negative Urine Ketones 15 Urine Blood Negative Urine Nitrite Negative Ur Leukocyte Esterase Negative Urine RBC 0-2 Urine WBC 0-5 Ur Squamous Epith Cells 0-2 Urine Bacteria None Seen Hyaline Casts 11-20 Urine Opiates Screen Not Detected Ur Buprenorphine Scrn Not Detected Ur Oxycodone Screen Not Detected Urine Methadone Screen Not Detected Urine Fentanyl Screen Not Detected Ur Barbiturates Screen Not Detected Ur Phencyclidine Scrn Not Detected Ur Amphetamines Screen Not Detected U Benzodiazepines Scrn Not Detected Urine Cocaine Screen Not Detected U Marijuana (THC) Screen Not Detected Ethyl Alcohol < 10 Influenza Type A (PCR) NEGATIVE Influenza Type B (PCR) NEGATIVE RSV RNA Qual (PCR) NEGATIVE SARS-CoV-2 RNA (RT-PCR) NEGATIVE Imaging Radiologist's Impressions: Impressions Head CT 09/12/24 09:35 IMPRESSION: No acute intracranial abnormality. Electronically signed by: Serafin Schmidt MD 09/12/2024 10:20 AM EDT RP Cervical Spine CT 09/12/24 09:48 IMPRESSION: No evidence of fracture or malalignment of the cervical spine. Electronically signed by: Serafin Schmidt MD 09/12/2024 10:28 AM EDT RP Assessment and Plan (1) Elevated troponin: Status: Acute (2) Hypomagnesemia: Status: Acute (3) Alcohol use disorder: Status: Acute (4) New onset seizure: Status: Acute Plan A 59 years old male with PMH of alcohol abuse, smoking who presents to the hospital with reported syncopal episode and altered mentation at home with reported seizure likey activity. Seizure like activity concerning for possible new onset seizure CT Head reporting mild prominence of the ventricular system and cortical sulci, consistent with atrophy. This is greater than expected for a patient of this age. Unlikely withdrawal seizure if he quitted alcohol 2 weeks ago NEurology consult outpatient EEG keep on tele to monitor for any arrhythmia causing syncope Hx Alcohol abuse Started on Phenobarb in ED but unclear if he is withdrawing Alcohol level <10 CIWA protocol Continue Thiamine Acute hypomagnesemia replacement given follow Elevated Trop type 2 from seizure ? no chest pain, no EKG changes to suggest ACS Smoking Advised to Quit NRT as needed Urine incontinence Check PSA start Tamsulosin if elevated DVT PPx Lovenox The patient will likely need 2 overnight hospital stay for evaluation of seizure activity and monitoring alcohol withdrawal Quality Stroke Does the patient have a stroke diagnosis?: No VTE Prior VTE?: No VTE Risk Level:: Medical - moderate - high VTE Device Contraindication: Treatment Not Indicated VTE Drug Contraindication: N/A - Med Ordered
[2024-09-12] MEDS: PHENobarbitaL sodium 130 MG/ML VIAL IM Q3Hx2 191 MG IM ×2 (15:32→19:18)
[2024-09-12] MEDS: 0.9 % Sodium Chloride Flush 3 ML SYRINGE IVFLUSH (17:04)
--- NOTE | 2024-09-12 17:06 | PHA.MEDREC ---
Addendum entered by Sonali Barrera RPh 09/12/24 17:16: REVIEWED BY [facility] Original Note: Pharmacy Consult ? Medication Reconciliation Pharmacy has completed the medication reconciliation. Spoke with patient who confirmed he is only taking OTC medications (Tylenol, Vitamin B-1, Vitamin B-12 and a Multivitamin) and no prescription medications at this time.
--- NOTE | 2024-09-12 19:43 | MHC.EDTECH ---
Assisted pt to bathroom and back to bed. Pt walks slow with unsteady gait and walker. 1 Assist needed. Pt complaining of having diarrhea. RN aware
[2024-09-12 22:00] VITALS: BP 113/77; PULSE 86; RESP 18; O2SAT 97
[2024-09-12] MEDS: PHENobarbitaL 15 MG TABLET 45 MG PO (22:03)
[2024-09-13] VITALS (8 sets, daily range): BP systolic 98–115; BP diastolic 57–80; PULSE 80–98; RESP 14–20; TEMP 36.3–36.6; O2SAT 96–100; BMI 22.8
[2024-09-13 05:57] LABS: MANUAL DIFF FLAG NO
[2024-09-13 06:01] LABS: Basophils Percent Auto 0.7 % (0-2); Eosinophils Absolute Auto 0.1 X10*3/uL (0.0-0.4); Eosinophils Percent Auto 1.2 % (0-4); Hematocrit 36.6 % (42.0-52.0); Hemoglobin 12.4 g/dl (14.0-18.0); Imm Gran Abs Auto 0.03 X10*3/uL (0.00-0.03); Imm Gran Pct Auto 0.5 % (0.0-0.4); Lymphocytes Absolute Auto 2.2 X10*3/uL (1.2-4.9); Lymphocytes Percent Auto 36.5 % (20-40); Mean Corpuscular HGB Conc 33.9 g/dl (31.0-36.0); Mean Corpuscular Volume 100.3 fL (80.0-98.0); Mean Platelet Volume 9.9 fL (9.4-12.4); Monocytes Absolute Auto 0.9 X10*3/uL (0.1-1.2); Neutrophils Absolute Auto 2.9 x10*3/uL (2.0-8.3); Neutrophils Percent Auto 47.1 % (45-73); Platelet Count 199 X10*3/uL (160-400); Red Blood Count 3.65 X10*6/uL (4.60-5.80); Red Cell Distribution Width 13.8 % (11.0-16.0); White Blood Count 6.1 X10*3/uL (4.8-10.8)
--- NOTE | 2024-09-13 06:18 | PC.NURSE ---
admit note: pt BIBA from home for syncopal episode and AMS at home with reported seizure likely activity. no seizure hx. was incont of urine and postictal. pt reports he quit drinking 2 weeks ago. neuro consult. 1 assist with walker, gait unsteady. a/o x4 calm and cooperative with care. 20g LAC. ADMIT: new onset seizure, hypomag, elevated troponin. pt resting comfortably throughout the night, VSS. sinus on tele
[2024-09-13 06:23] LABS: Alkaline Phosphatase 48 U/L (39-117)
[2024-09-13 06:31] LABS: Alanine Aminotransferase 26 U/L (0-40); Albumin Level 3.4 g/dL (3.5-5.0); Anion Gap 14 (12-20); Aspartate Amino Transferase 40 U/L (5-37); Blood Urea Nitrogen 8 mg/dL (9-16); Calcium 8.5 mg/dL (8.4-10.2); Carbon Dioxide 21 mmol/L (22-29); Chloride 105 mmol/L (96-108); Creatinine Clr Calc Pharmacy 116.7; Estimated Glomerular Filt Rate > 60; Glucose Random 87 mg/dL (60-115); Magnesium 1.5 mg/dL (1.6-2.6); Potassium 3.2 mmol/L (3.3-5.1); Sodium 137 mmol/L (135-145)
[2024-09-13 06:34] LABS: Prostate Specific Antigen 1.21 ng/mL (<0.05-4.0)
[2024-09-13 06:44] LABS: Bilirubin Total 0.9 mg/dL (0.0-1.0)
[2024-09-13] MEDS: Thiamine HCL 100 MG TABLET PO (08:12)
[2024-09-13] MEDS: PHENobarbitaL 15 MG TABLET 45 MG PO ×2 (08:12→22:25)
[2024-09-13] MEDS: Potassium Chloride ER 20 MEQ TAB.ER.PRT 40 MEQ PO (08:12)
[2024-09-13] MEDS: 0.9 % Sodium Chloride Flush 3 ML SYRINGE IVFLUSH ×3 (08:13→22:25)
[2024-09-13] MEDS: Magnesium Sulfate/H2O 2 GM/50 ML PIGGYBACK IV (08:36)
--- NOTE | 2024-09-13 11:53 | MHC.CM.PN ---
IMM 09/13/24 DX Syncope AMS. Patient lives with his parents. 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 Pt has no services. MOW + home worker in place for parents. He is independent with equipment. DME Walker, Cane, Shower bench belong to parents. Pt uses prn. A friend provides transportation to appointments. PT eval rec is STR. Referrals sent. Will present for pt choice once Bed offers received. DP STR via BLS vs Home with services. A HCP has been documented. PCP Serafin Mckeon [facility].
[2024-09-13] MEDS: Enoxaparin Sodium 40 MG/0.4 ML SYRINGE SUBCUT (14:05)
--- NOTE | 2024-09-13 15:42 | HO.PM.IMPN ---
Subjective Subjective Date of Service: 09/13/24 Interval History: Seen and evaluated this morning feels better no reported seizure activity or syncope no other events Review of Systems Review of Systems: Yes all other systems are reviewed and are negative Physical Exam Vital Signs: Vital Signs: Last Vital Signs Temp 97.9 F 09/13/24 15:07 Pulse 96 09/13/24 15:07 Resp 18 09/13/24 15:07 BP 104/61 09/13/24 15:07 Pulse Ox 99 09/13/24 15:07 O2 Del Method Room Air 09/13/24 15:07 BMI result Body Mass Index 22.8 Const: Other: Constitutional : Awake, interactive, not in distress Neck : Normal inspection, Supple Cardiovascular : RRR, no JVP, no lower extremity edema Respiratory : good bilateral air entry, no crackles, wheezes or rhonchi Gastrointestinal: soft, lax, Normal bowel sounds, Non tender Skin : Warm, Dry Neurological : Alert & oriented x3, No focal deficit Objective Data Active Medications Acetaminophen (Acetaminophen 325 Mg Tablet) 650 mg PO Q6H PRN PRN Reason: Pain, Mild 1-3,fever,headache Calcium Carbonate (Calcium Carbonate 750 Mg Tab.Chew) 750 mg PO Q4H PRN PRN Reason: Heartburn Enoxaparin Sodium (Enoxaparin Sodium 40 Mg/0.4 Ml Syringe) 40 mg SUBCUT Q24H [facility] Last Admin: 09/13/24 14:05 Dose: 40 mg Documented By: ANASTACIO Magnesium Hydroxide (Milk Of Magnesia 30 Ml Oral.Susp) 30 ml PO DAILY PRN PRN Reason: Constipation Melatonin (Melatonin 3 Mg Tablet) 6 mg PO BEDTIME PRN PRN Reason: Insomnia Ondansetron HCl (Ondansetron Hcl 4 Mg/2 Ml Vial) 4 mg IVPUSH Q8H PRN PRN Reason: Nausea and Vomiting Pharmacy Consult (Consult Rx Etoh Phenob Im/Po) 1 each MISCELLANE ONCE PRN; Protocol PRN Reason: Consult order Phenobarbital (Phenobarbital 15 Mg Tablet) 45 mg PO BID [facility]; Protocol Stop: 09/14/24 09:01 Last Admin: 09/13/24 08:12 Dose: 45 mg Documented By: LIZ Phenobarbital (Phenobarbital 15 Mg Tablet) 15 mg PO BID [facility]; Protocol Stop: 09/16/24 09:01 Phenobarbital (Phenobarbital 15 Mg Tablet) 15 mg PO DAILY [facility]; Protocol Stop: 09/18/24 09:01 Sodium Chloride (0.9 % Sodium Chloride Flush 3 Ml Syringe) 3 ml IVFLUSH QSHIFT [facility] Last Admin: 09/13/24 08:13 Dose: 3 ml Documented By: LIZ Thiamine HCl (Thiamine Hcl 100 Mg Tablet) 100 mg PO DAILY [facility] Last Admin: 09/13/24 08:12 Dose: 100 mg Documented By: LIZ Labs 09/13/24 05:21 09/13/24 05:21 Labs: Laboratory Results - last 24 hr 09/13/24 05:21 MCV 100.3 H MCH 34.0 H MCHC 33.9 RDW 13.8 Plt Count 199 MPV 9.9 Immature Gran % (Auto) 0.5 H Neut % (Auto) 47.1 Lymph % (Auto) 36.5 [place] % (Auto) 14.0 H Eos % (Auto) 1.2 Baso % (Auto) 0.7 Lymph # (Auto) 2.2 [place] # (Auto) 0.9 Eos # (Auto) 0.1 Baso # (Auto) 0.0 Abs Immat Gran (auto) 0.03 Absolute Neuts (auto) 2.9 Absolute Nucleated RBC 0.000 Nucleated RBC % (auto) 0.0 Anion Gap 14 Estim Creat Clear Calc 116.7 Estimated GFR > 60 Random Glucose 87 Calcium 8.5 Magnesium 1.5 L Total Bilirubin 0.9 AST 40 H ALT 26 Alkaline Phosphatase 48 Total Protein 6.0 L Albumin 3.4 L Prostate Specific Ag 1.21 Assessment and Plan (1) Elevated troponin: Status: Acute (2) Hypomagnesemia: Status: Acute (3) Acute hypokalemia: Status: Acute (4) Alcohol use disorder: Status: Acute (5) New onset seizure: Status: Acute (6) Nicotine dependence, cigarettes, uncomplicated: Status: Acute Plan A 59 years old male with PMH of alcohol abuse, smoking who presents to the hospital with reported syncopal episode and altered mentation at home with reported seizure likey activity. Seizure like activity concerning for possible new onset seizure CT Head reporting mild prominence of the ventricular system and cortical sulci, consistent with atrophy. This is greater than expected for a patient of this age. less likely withdrawal seizure if he quitted alcohol 2 weeks ago NEurology recommended no seizure medication for first incident, to start medicaitons if recurrent outpatient EEG keep on tele to monitor for any arrhythmia causing syncope Hx Alcohol abuse continue Phenobarb in ED but unclear if he is withdrawing Alcohol level <10 CIWA protocol not scoring, if remains negative will DC tomorrow Continue Thiamine Acute hypomagnesemia replacement given PO and IV follow acute hypokalemia PO replacement, BMP Elevated Trop type 2 from seizure ? no chest pain, no EKG changes to suggest ACS Smoking Advised to Quit NRT as needed Urine incontinence Check PSA start Tamsulosin if elevated DVT PPx Lovenox The patient will likely need overnight hospital stay for evaluation of seizure activity and monitoring alcohol withdrawal Quality Stroke Does the patient have a stroke diagnosis?: No VTE Prior VTE?: No VTE Risk Level:: Medical - moderate - high VTE Device Contraindication: Treatment Not Indicated VTE Drug Contraindication: N/A - Med Ordered
--- NOTE | 2024-09-13 17:58 | PM.NEUROCN ---
History of Present Illness Data of Consult Service Date: 09/13/24 Primary Care Provider: Serafin Mckeon MD [facility] Reason for consult: ? SZ This is a 59 years old male with h/o alcohol abuse, cerebral and cerebellar atrophy ( MRI 2020) , who presented with reported syncopal episode and altered mentation at home with reported seizure like activity. The patient reports waking up in the morning and having coffee then he went back to his bedroom and the next thing he remember is waking up while being carried by EMS. His mother reported abnormal movements and seizure like activity for almost 1 minutes and loss of control of urine. He had slurring and did not make sense. Gradually improved back to baseline. He reports quitting alcohol 2 weeks ago. Tested negative for alcohol in urine. never had withdrawals before. No chest pain, palpitations, SOB, nausea, vomiting, diarrhea or urinary symptoms. A CT scan of head negative for acute findings but showing mild prominence of the ventricular system and cortical sulci, consistent with atrophy. This is greater than expected for a patient of this age. No further episodes since admission. [facility] Past Medical History Medical History Nicotine dependence, cigarettes, uncomplicated EtOH dependence Cerebellar ataxia Hypertension Vitamin B12 deficiency BPH (benign prostatic hyperplasia) Arthritis Surgical History Surgical History History of mandibular surgery Social History Social History Household Members: Family Housing: House Alcohol intake: current Alcohol type: beer Patient Tobacco Use Status: Current everyday Tobacco user Cigarette Packs Per Day: 0.5 Cigarettes Per Day: 10.0 service: Yes Meds Allergies Allergy/AdvReac Type Severity Reaction Status Date / Time No Known Allergies Allergy Unverified 09/12/24 09:35 [No Known Allergies*] Active Medications: Current Medications Acetaminophen (Acetaminophen 325 Mg Tablet) 650 mg PO Q6H PRN PRN Reason: Pain, Mild 1-3,fever,headache Calcium Carbonate (Calcium Carbonate 750 Mg Tab.Chew) 750 mg PO Q4H PRN PRN Reason: Heartburn Enoxaparin Sodium (Enoxaparin Sodium 40 Mg/0.4 Ml Syringe) 40 mg SUBCUT Q24H [facility] Last Admin: 05/06/25 14:05 Dose: 40 mg Magnesium Hydroxide (Milk Of Magnesia 30 Ml Oral.Susp) 30 ml PO DAILY PRN PRN Reason: Constipation Melatonin (Melatonin 3 Mg Tablet) 6 mg PO BEDTIME PRN PRN Reason: Insomnia Ondansetron HCl (Ondansetron Hcl 4 Mg/2 Ml Vial) 4 mg IVPUSH Q8H PRN PRN Reason: Nausea and Vomiting Pharmacy Consult (Consult Rx Etoh Phenob Im/Po) 1 each MISCELLANE ONCE PRN; Protocol PRN Reason: Consult order Phenobarbital (Phenobarbital 15 Mg Tablet) 45 mg PO BID [facility]; Protocol Stop: 09/14/24 09:01 Last Admin: 09/13/24 08:12 Dose: 45 mg Phenobarbital (Phenobarbital 15 Mg Tablet) 15 mg PO BID [facility]; Protocol Stop: 09/16/24 09:01 Phenobarbital (Phenobarbital 15 Mg Tablet) 15 mg PO DAILY [facility]; Protocol Stop: 09/18/24 09:01 Sodium Chloride (0.9 % Sodium Chloride Flush 3 Ml Syringe) 3 ml IVFLUSH QSHIFT [facility] Last Admin: 09/13/24 08:13 Dose: 3 ml Thiamine HCl (Thiamine Hcl 100 Mg Tablet) 100 mg PO DAILY [facility] Last Admin: 09/13/24 08:12 Dose: 100 mg Home Medications ?Medication ?Instructions ?Recorded ?Confirmed ?Last Taken ?Type acetaminophen 325 mg tablet 325 - 650 mg PO Q4H PRN 09/12/24 09/12/24 Unknown History (Tylenol) Headache/Pain cyanocobalamin (vitamin B-12) 1,000 mcg PO DAILY 09/12/24 09/12/24 09/11/24 History 1,000 mcg tablet (Vitamin B-12) multivitamin 1 tab PO DAILY 09/12/24 09/12/24 09/11/24 History thiamine HCl (vitamin B1) 100 mg 100 mg PO DAILY 09/12/24 09/12/24 09/11/24 History tablet Physical Exam Vital Signs: Vital Signs: Last Vital Signs Temp 97.9 F 09/13/24 15:07 Pulse 96 09/13/24 15:07 Resp 18 09/13/24 15:07 BP 104/61 09/13/24 15:07 Pulse Ox 99 09/13/24 15:07 O2 Del Method Room Air 09/13/24 15:07 BMI result Body Mass Index 22.8 Neuro: Other: Alert. Nonfocal exam. Results Labs 09/13/24 05:21 09/13/24 05:21 Labs: Short CBC 09/13/24 Range/Units 05:21 WBC 6.1 (4.8-10.8) X10*3/uL Hgb 12.4 L (14.0-18.0) g/dl Hct 36.6 L (42.0-52.0) % Plt Count 199 (160-400) X10*3/uL BMP 09/13/24 05:21 Sodium 137 Potassium 3.2 L Chloride 105 Carbon Dioxide 21 L BUN 8 L Creatinine 0.63 Calcium 8.5 Liver Function 09/13/24 Range/Units 05:21 Total Bilirubin 0.9 (0.0-1.0) mg/dL AST 40 H (5-37) U/L ALT 26 (0-40) U/L Alkaline Phosphatase 48 (39-117) U/L Albumin 3.4 L (3.5-5.0) g/dL Assessment and Plan (1) New onset seizure: Status: Acute No previous SZ. If his Hx is accurate, this is not the time frame of alcohol withdrawal Sz. CT and previous MRI have shown alcohol related atrophy. Recom. EEG. If it is negative would not start an anti-epileptic drug. (2) Alcohol use disorder: Status: Acute Procedures Date of Service Date of Service: 09/13/24
[2024-09-14 04:00] VITALS: BP 93/53; PULSE 50; RESP 17; TEMP 36.7; O2SAT 99
[2024-09-14 06:00] VITALS: BMI 21.7
[2024-09-14 07:00] VITALS: BP 123/74; PULSE 92; RESP 17; TEMP 36.8; O2SAT 99
[2024-09-14] MEDS: Thiamine HCL 100 MG TABLET PO (07:49)
[2024-09-14] MEDS: PHENobarbitaL 15 MG TABLET 45 MG PO (07:49)
[2024-09-14] MEDS: 0.9 % Sodium Chloride Flush 3 ML SYRINGE IVFLUSH ×2 (07:51→14:22)
[2024-09-14 11:17] VITALS: BP 109/65; PULSE 88; RESP 18; TEMP 36.4; O2SAT 99
[2024-09-14] MEDS: Enoxaparin Sodium 40 MG/0.4 ML SYRINGE SUBCUT (14:20)
--- NOTE | 2024-09-14 14:55 | MHC.CM.PN ---
IMM 09/13/24 Patient is discharged to home with VNA services. He has arranged for his dtr to provide transportation home.
--- NOTE | 2024-09-14 15:00 | PM.DS ---
DS: Providers Provider Date of Service: 09/14/24 Date of admission: 09/12/24 14:00 Date of discharge: 09/14/24 Primary care physician: Serafin Mckeon MD Consults: 09/12/24 17:37 Consult to Neurology Routine Consulting Provider: [facility] Reason for consultation: New onset seizure for eval and rec. DS: Diagnosis Discharge Diagnosis (1) Alcohol use disorder: Status: Acute (2) Seizure-like activity: Status: Acute (3) Hypomagnesemia: Status: Acute (4) Elevated troponin: Status: Acute (5) Acute hypokalemia: Status: Acute DS: Summary Hospital Course Hospital Course: Admission note HPI A 59 years old male with PMH of alcohol abuse, smoking who presents to the hospital with reported syncopal episode and altered mentation at home with reported seizure likey activity. The patient reporting waking up this morning and having coffee then he went back to his bedroom and the next thing he remember is waking up while being carried by EMS. His mother reported abnormal movements and seizure likey activity for almost 1 minutes and lose control of urine. when EMS picked him up he was speaking unclear words and did not make sense. improved back to baseline. He reports quitting alcohol 2 weeks ago. tested negative for alcohol in urine. never had withdrawals before. No chest pain, palpitations, SOB, nausea, vomiting, diarrhea or urinary symptoms. A CT scan of head negative for acute findings but showing mild prominence of the ventricular system and cortical sulci, consistent with atrophy. This is greater than expected for a patient of this age. Will be admitted for further work up and neurology evaluation Hospital course The patient was admitted and monitored for: # Seizure like activity with concerns for possible new onset seizure. CT Head reporting mild prominence of the ventricular system and cortical sulci, consistent with atrophy. This is greater than expected for a patient of this age. He reported quitting Alcohol 2 weeks ago which make it less likely to be withdrawal seizure. NEurology recommended no seizure medication for first incident, to start medicaitons if recurrent and to do an EEG. will get an outpatient EEG. No evidence of arrythmias on Telemetry. # Hx Alcohol abuse with reported quitting recently. He had negative alcohol level but was started Phenobarb protocol in ED but unclear if he is withdrawing at that point. Kept on CIWA protocol and was not scoring,. To discontinue Phenobarbital and monitor. Continue Thiamine on discharge. # Acute hypomagnesemia. replacement given PO and IV. To discharge on PO Magnesium supplement. # acute hypokalemia. PO replacement. # Elevated Trop , Likely type 2 from seizure as no chest pain, no EKG changes to suggest ACS. # Smoking, Advised to Quit. NRT as needed # Physical deconditioning, PT rec STR. patient prefers to go home with VNA. Discharge plan Avoid alcohol Avoid driving or running heavy machines to do EEG as outpatient: scheduled for next September 22. Please call [facility] [place]Cardiology to get exact time and details. Neurology recommended to hold on seizure medication as it is first presentation Follow up with neurology as needed If this incident happens again will need to be on seizure medications Time Attestation Discharge Coordination Time (in mins): 42 Quality: Safe Use of Opioids Does Pt have an Active Cancer Diagnosis on the Problem List?: No Quality: Stroke Does the patient have a stroke diagnosis?: No Physical Exam Vital Signs: Vital Signs: Last Vital Signs Temp 97.5 F 09/14/24 11:17 Pulse 88 09/14/24 11:17 Resp 18 09/14/24 11:17 BP 109/65 09/14/24 11:17 Pulse Ox 99 09/14/24 11:17 O2 Del Method Room Air 09/14/24 07:00 BMI result Body Mass Index 21.7 Const: Other: Constitutional : Awake, interactive, not in distress Neck : Normal inspection, Supple Cardiovascular : RRR, no JVP, no lower extremity edema Respiratory : good bilateral air entry, no crackles, wheezes or rhonchi Gastrointestinal: soft, lax, Normal bowel sounds, Non tender Skin : Warm, Dry Neurological : Alert & oriented x3, No focal deficit DS: Data Imaging CT scan - head: Radiologist's impression: ITS Impressions Head CT 09/12/24 09:35 IMPRESSION: No acute intracranial abnormality. Electronically signed by: Serafin Schmidt MD 09/12/2024 10:20 AM EDT RP Cervical Spine CT 09/12/24 09:48 IMPRESSION: No evidence of fracture or malalignment of the cervical spine. Electronically signed by: Serafin Schmidt MD 09/12/2024 10:28 AM EDT RP Discharge Plan Discharge Anticipated Discharge Date/Time: 09/14/24 14:46 Patient Disposition: Home Health Service Discharge Diagnosis: Abnormal movement altered mentation Referrals: Nell [facility] [Outside] - 1 Week Serafin Mckeon MD [Primary Care Provider] - 1 Week Discharge Medications: New magnesium oxide 400 mg magnesium tablet 400 mg PO DAILY Qty: 90 0RF Continued acetaminophen [Tylenol] 325 mg Tablet 325 - 650 mg PO Q4H PRN (Reason: Headache/Pain) cyanocobalamin (vitamin B-12) [Vitamin B-12] 1,000 mcg Tablet 1,000 mcg PO DAILY thiamine HCl (vitamin B1) 100 mg tablet 100 mg PO DAILY multivitamin Tablet 1 tab PO DAILY Discharge Orders: Discharge Order (Routine); Ordered 09/14/24 Ordered By: Myra Robledo Diet: Advance to usual diet Activity on Discharge: As tolerated Stand Alone Forms: Patient Portal Discharge page Print Language: Turkmen Other Ambulatory Orders: EEG ambulatory (Routine) Timeframe: 1 Week Facility: [facility] - Location: Radiology Ordered By: Myra Robledo Care Plan Goals: Avoid alcohol Avoid driving or running heavy machines to do EEG as outpatient: scheduled for next September 22. Please call [facility] [place]Cardiology to get exact time and details. Neurology recommended to hold on seizure medication as it is first presentation Follow up with neurology as needed If this incident happens again will need to be on seizure medications Health Concerns: Altered mentation Seizure like incident Plan of Treatment: Avoid Alcohol Outpatient EEG Assessment: as above
--- NOTE | 2024-09-14 15:16 | W.MHC.F2F ---
Service Date Service Date: 09/14/24 Encounter Date of encounter: 09/14/24 Reasons for Services Signs and symptoms assessed: physical deconditioning Reason for physical therapy: home safety and mobility and therapeutic exercises Homebound: Leaving the home is medically contraindicated at this time without the asist of a device and/or another person due th the listed conditions above and below. Reason homebound: unsteady gait / fall risk Certification: Based on the above findings, I certify that this patient is confined to the home and needs intermittent senior care care, physical therapy and/or speech therapy, or continues to need occupational therapy. The patient is under my care, and I have initiated the establishment of the plan of care. The patient will be followed by a physician who will periodically review the plan of care. Time Spent With Patient Time: Total time managing care of this patient today ____ minutes.
== END 2024-09-14 17:04 | disposition home health service (06) | DRG 101 ==
LOC: HO.ED 11:12 → HO.EDOVER 14:11 → HO.IMC 09-13 07:41
PROVIDERS: Physician Assistant Medical; Admitting Provider Student in an Organized Health Care Education/Training Program; Emergency Provider Emergency Medicine; PCP Internal Medicine Medical Oncology; Visit Provider Student in an Organized Health Care Education/Training Program
DX: R56.9 Unspecified convulsions (principal); E83.42 Hypomagnesemia; E87.6 Hypokalemia; G31.9 Degenerative disease of nervous system, unspecified; F17.210 Nicotine dependence, cigarettes, uncomplicated; Z71.6 Tobacco abuse counseling; F10.20 Alcohol dependence, uncomplicated; Z20.822 Contact with and (suspected) exposure to COVID-19; Z79.899 Other long term (current) drug therapy
CPT/HCPCS: 0241U; 36415; 70450; 72125; 80048; 80053; 80076; 80307; 81001; 82550; 82947; 83605; 83690; 83735; 84153; 84484; 85025; 93005; 97116; 97162; 99285; J1650; J2560; J3475

== ENCOUNTER → 2024-09-12 09:30 | Outpatient (BNV) | payer MEDICARE, SELFPAY | PROVIDERS: Admitting Provider Student in an Organized Health Care Education/Training Program; Emergency Provider Emergency Medicine; PCP Internal Medicine Medical Oncology; Visit Provider Internal Medicine | DX: I49.3 Ventricular premature depolarization (principal); I45.10 Unspecified right bundle-branch block | CPT/HCPCS: 93010 ==

== ENCOUNTER → 2024-09-12 09:35 | Outpatient (BNV) | payer MEDICARE, MEDICAID, SELFPAY | PROVIDERS: Emergency Provider Emergency Medicine; PCP Internal Medicine Medical Oncology; Visit Provider Radiology Diagnostic Radiology | DX: G40.009 Localization-related (focal) (partial) idiopathic epilepsy and epileptic syndromes with seizures of localized onset, not intractable, without status epilepticus (principal); W19.XXXA Unspecified fall, initial encounter | CPT/HCPCS: 70450; 72125 ==

== ENCOUNTER → 2024-09-12 14:00 | Outpatient (BNV) | payer MEDICARE, SELFPAY | PROVIDERS: Admitting Provider Student in an Organized Health Care Education/Training Program; Emergency Provider Emergency Medicine; PCP Internal Medicine Medical Oncology; Visit Provider Student in an Organized Health Care Education/Training Program | DX: F10.90 Alcohol use, unspecified, uncomplicated (principal); R56.9 Unspecified convulsions; E83.42 Hypomagnesemia; R79.89 Other specified abnormal findings of blood chemistry; E87.6 Hypokalemia | CPT/HCPCS: 99223; 99232; 99239; G0180 ==

== ENCOUNTER → 2024-09-12 14:00 | Outpatient (BNV) | payer MEDICARE, SELFPAY | PROVIDERS: Admitting Provider Student in an Organized Health Care Education/Training Program; Emergency Provider Emergency Medicine; PCP Internal Medicine Medical Oncology; Visit Provider Psychiatry & Neurology Neurology | DX: R56.9 Unspecified convulsions (principal); F10.90 Alcohol use, unspecified, uncomplicated | CPT/HCPCS: 99222 ==

== ENCOUNTER 2024-10-07 12:15 | Outpatient (REF) | payer MEDICARE, SELFPAY ==
--- OUTSIDE RECORDS SUMMARY | 2024-10-07 12:50 | XMS_ITS ---
Author Organization Serafin Mckeon III, MD Address [address] [place] [address] Care Team Providers Care Environmental Health Technologist Name Role Phone Serafin Mckeon Primary Care Provider REASON FOR VISIT Message Encounters Encounter Location Date Provider Diagnosis Serafin Mckeon III, MD [address] [place] [address] [place] [id number] 09/15/2024 Serafin Mkceon Plan Of Treatment Next Appt Details Provider Name:Serafin Mckeon, 10/13/2024 10:15:00 AM, [address] [place] [address] [place], [address], Progress Notes * RICHASkipDOB:1965 (59 yo M)Acc No.[id number]:09/15/2024 Patient:?Skip RANDLE :1965???Age:59 Y???Sex:Male Address:[address] [place] [address], [id number] * true * Date:? Generated for Beryl barnard/Caitlyn/eTransmitting on:?10/07/2024 12:50 PM EDT
[2024-10-07 13:15] LABS: MANUAL DIFF FLAG NO
[2024-10-07 13:24] LABS: Basophils Absolute Auto 0.1 X10*3/uL (0.0-0.2); Basophils Percent Auto 0.7 % (0-2); Eosinophils Absolute Auto 0.1 X10*3/uL (0.0-0.4); Eosinophils Percent Auto 0.8 % (0-4); Hemoglobin 13.3 g/dl (14.0-18.0); Imm Gran Abs Auto 0.01 X10*3/uL (0.00-0.03); Imm Gran Pct Auto 0.1 % (0.0-0.4); Lymphocytes Absolute Auto 3.7 X10*3/uL (1.2-4.9); Lymphocytes Percent Auto 48.1 % (20-40); Mean Corpuscular HGB Conc 33.3 g/dl (31.0-36.0); Mean Corpuscular Volume 99.3 fL (80.0-98.0); Mean Platelet Volume 9.8 fL (9.4-12.4); Monocytes Absolute Auto 0.9 X10*3/uL (0.1-1.2); Neutrophils Absolute Auto 2.9 x10*3/uL (2.0-8.3); Neutrophils Percent Auto 38.3 % (45-73); Platelet Count 270 X10*3/uL (160-400); Red Blood Count 4.03 X10*6/uL (4.60-5.80); Red Cell Distribution Width 13.2 % (11.0-16.0); White Blood Count 7.6 X10*3/uL (4.8-10.8)
[2024-10-07 14:03] LABS: Alanine Aminotransferase 19 U/L (0-40); Albumin Level 4.4 g/dL (3.5-5.0); Alkaline Phosphatase 54 U/L (39-117); Anion Gap 12 (12-20); Aspartate Amino Transferase 26 U/L (5-37); Bilirubin Total 0.5 mg/dL (0.0-1.0); Blood Urea Nitrogen 8 mg/dL (9-16); Calcium 9.8 mg/dL (8.4-10.2); Carbon Dioxide 27 mmol/L (22-29); Chloride 104 mmol/L (96-108); Cholesterol 222 mg/dL (<200); Estimated Glomerular Filt Rate > 60; Glucose Fasting 69 mg/dL (60-99); HDL Cholesterol 43 mg/dL (>40); LDL Cholesterol Calculated 144 mg/dL (<100); Magnesium 1.6 mg/dL (1.6-2.6); Potassium 3.6 mmol/L (3.3-5.1); Sodium 139 mmol/L (135-145); Total Protein 7.3 g/dL (6.5-8.0); Triglycerides 176 mg/dL (<150)
[2024-10-07 14:23] LABS: Folate 14.2 ng/mL (> or = 4.0); Vitamin B12 723 pg/mL (200-900)
== END 2024-10-07 12:16 | disposition home or self-care (01) ==
LOC: HO.10HDL 12:15
PROVIDERS: Visit Provider Internal Medicine Medical Oncology
DX: F17.200 Nicotine dependence, unspecified, uncomplicated (principal); R63.6 Underweight; D75.89 Other specified diseases of blood and blood-forming organs; E78.5 Hyperlipidemia, unspecified; E53.8 Deficiency of other specified B group vitamins
CPT/HCPCS: 36415; 80053; 80061; 82607; 82746; 83735; 85025

== ENCOUNTER 2025-01-05 07:10 | Inpatient (IN) | payer MEDICARE, SELFPAY ==
--- OUTSIDE RECORDS SUMMARY | 2024-11-22 05:45 | XMS_ITS ---
Author Organization Serafin Mckeon III, MD Address [address] [place] [address] Care Team Providers Care Contract Mail Carrier Name Role Phone Serafin Mckeon Primary Care [...] Date Provider Diagnosis Serafin Mckeon III, MD [address] [place] [address] [address] [place] [address] 11/22/2024 Serafin Mckeon Tobacco dependence F17.200 Assessments [...] 1 tablet Orally Once a day 017 Progress Notes * Skip RANDLEDOB:1965 (59 yo M)Acc No.[id number]:11/22/2024 Progress Notes Patient: Skip VIGIL Provider: Ayanna Mckeon MD :1965 A ge:59 Y S ex:Male Date:11/22/2024 Address:[address] [place] [address] [facility] [id number] Subjective: * Chief Complaints: * 1 . [...] cigarettes per day. He was born and [place] at [facility]. He is and has 3 children, 2 daughters and 1 son all of whom are alive and well. He has no grandchildren. 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 His work requires him to lift [...] MD Date: 0 11/22/2024 Generated for Beryl barnard/Caitlyn/Kianasmitting on: 0 01/05/2025 07:45 AM EDT History and Physical Notes * HPI [...]
--- OUTSIDE RECORDS SUMMARY | 2024-12-02 06:45 | XMS_ITS ---
Author Organization Serafin Mckeon III, MD Address [address] [place] [address] Care Team Providers Care Capacitor Tester Name Role Phone Serafin Mckeon Primary [...] Date Provider Diagnosis Serafin Mckeon III, MD [address] [place] [address] [place] [address] 12/02/2024 Serafin Mckeon Tobacco dependence F17.200 Assessments [...] Notes * Skip RANDLEDOB:1965 (59 yo M)Acc No.[id number]:12/02/2024 Progress Notes Patient: Skip VIGIL Provider: Ayanna Mckeon MD :1965 A ge:59 Y S ex:Male Date:12/02/2024 Address:[address] [place] [address] [facility] [id number] Subjective: * Chief Complaints: * 1 . [...] cigarettes per day. He was born and [place] at [facility]. He is and has 3 children, 2 daughters and 1 son all of whom are alive and well. He has no grandchildren. 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
--- OUTSIDE RECORDS SUMMARY | 2024-12-16 15:00 | XMS_ITS ---
Author Organization Serafin Mckeon III, MD Address [address] [place] [address] Care Team Providers Care District Adviser Name Role Phone Serafin Mckeon Primary Care Provider [phone] Allergies Allergen (clinical drug ingredient) Drug/Non Drug [...] Date Provider Diagnosis Serafin Mckeon III, MD [address] [place] [address] [address] [place] [address] 12/16/2024 Serafin Mckeon Tobacco dependence F17.200 Assessments [...] KOREY EVERY DAY FOR 30 DAYS Oral Tamsulosin HCl 0.4 MG 1 capsule Orally Once a day 11/04/19 23 Thiamine HCl 100 MG 1 tablet Orally Once a day 09/08/2022 Multivitamin - 1 tablet Orally Once a day Progress Notes * Skip RANDLEDOB:1965 (59 yo M)Acc No.[id number]:12/16/2024 Progress Notes Patient: Skip VIGIL Provider: Ayanna Mckeon MD :1965 A ge:59 Y S ex:Male Date:12/16/2024 Address:[address] [place] [address] [id number] Subjective: * Chief Complaints: * 1 . [...] cigarettes per day. He was born and [place] at [facility]. He is and has 3 children, 2 daughters and 1 son all of whom are alive and well. He has no grandchildren. 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 Assessment: * Assessment: 1. Nelly peace dependence - F17.200 N otes :I have [...] 0 12/16/2024 Generated for Beryl barnard/Caitlyn/Viryitting on: 01/05/2025 07:46 AM EDT History and Physical Notes * [...]
[2025-01-05] VITALS (13 sets, daily range): BP systolic 109–190; BP diastolic 59–93; PULSE 77–116; RESP 12–22; TEMP 36.5–37.1; O2SAT 96–100; BMI 18.2; BMI 18.5
--- NOTE | ~2025-01-05 | CT_ITS ---
EXAMINATION: CT HEAD WITHOUT CONTRAST CLINICAL INFORMATION: Weakness COMPARISON: September 12, 2024 TECHNIQUE: Contiguous axial imaging was performed from the skull base to vertex without intravenous administration of contrast. This CT examination was performed using dose optimization techniques as appropriate, variously including the following: *Automated exposure control *Adjustment of mA and/or kV according to patient size (this includes techniques or standardized protocols for targeted exams where dose is matched to indication/reason for exam; i.e. extremities or head) *Use of iterative reconstruction technique DLP: 779 mGY*cm FINDINGS: There is no acute ischemic change. Mild periventricular white matter hypodensities are again noted. There is no intracranial hemorrhage. There is no mass-effect or midline shift. Mild to moderate generalized atrophy is again noted. Basal cisterns and ventricles are within normal limits for age/cerebral volume. Orbits are symmetrical and unremarkable. Focal mucosal thickening is present along the medial floor the right maxillary sinus, improved since the prior There are no bony abnormalities. CT/CT head/brain wo IV con IMPRESSION: No acute intracranial abnormality. Decreased chronic mucosal thickening in the right maxillary sinus. Mild to moderate generalized atrophy. Electronically signed by: Yuriy Enriquez MD 01/05/2025 11:34 AM EDT
--- NOTE | ~2025-01-05 | CT_ITS ---
EXAMINATION: CT ABDOMEN PELVIS WITH IV CONTRAST HISTORY: Diffuse abd pain, nausea/vomiting, transaminitis COMPARISON: There are no prior studies for available comparison. TECHNIQUE: CT scan of the abdomen and pelvis was performed following administration of 85 mL Omnipaque 350 using standard departmental protocol. Coronal and sagittal reformatted images were generated and reviewed. Oral contrast material was not administered at the request of the referring physician. This CT exam was performed with one or more of the following dose reduction techniques: automated exposure control, adjustment of the mA and/or kV according to patient size, use of iterative reconstruction technique. DLP: 412 mGy-cm FINDINGS: The examination is markedly degraded by patient motion. LOWER CHEST: The visualized lung bases are clear. There is no pleural effusion. CARDIOVASCULATURE: The heart is normal in size. There is no pericardial effusion. LIVER: The liver is normal in size and contour, but demonstrates decreased attenuation, consistent with steatosis. No liver mass is identified. The hepatic and portal veins are patent. GALLBLADDER / BILE DUCTS: The gallbladder is unremarkable. There is no intra or extrahepatic biliary ductal dilatation. SPLEEN: The spleen is normal in size. No focal splenic lesion is identified. PANCREAS: The pancreas is unremarkable in appearance. ADRENAL GLANDS: Within normal limits. KIDNEYS/RETROPERITONEUM: No renal calculi are identified. There is no hydronephrosis. No renal masses are identified. LYMPH NODES: No abdominal or pelvic lymphadenopathy. VASCULATURE: The abdominal aorta demonstrates atherosclerotic calcification, but is normal in caliber. MESENTERY/PERITONEUM: No free fluid. No masses. There is no free intraperitoneal gas. STOMACH: There is a moderate hiatal hernia. A gastrostomy tube is partially visualized. SMALL BOWEL: The small bowel is grossly unremarkable in appearance. Evaluation is extremely limited by patient motion. COLON: There is a moderate amount of colonic stool. Evaluation is limited by motion. APPENDIX: Normal. URINARY BLADDER/PELVIC ORGANS: The urinary bladder is only partially imaged. The uterus is not identified. BONES / SOFT TISSUES: No suspicious bony or soft tissue abnormalities. CT/CT abdomen pelvis w IV con IMPRESSION: 1. Markedly limited examination due to patient motion. 2. Hepatic steatosis. 3. Moderate hiatal hernia. 4. Moderate colonic stool. Electronically signed by: Serafin Schmidt MD 01/05/2025 11:37 AM EDT
--- NOTE | ~2025-01-05 | US_ITS ---
EXAMINATION: US ABDOMEN LIMITED HISTORY: Transaminitis TECHNIQUE: Real-time grayscale ultrasound imaging of the right upper quadrant was performed and images were reviewed. COMPARISON: There are no prior studies available for comparison. FINDINGS: Liver: The right lobe of the liver measures 14.9 cm in size. The left lobe of the liver measures 11.1 cm in size. The liver demonstrates increased echotexture, consistent with steatosis. No focal mass or intrahepatic biliary ductal dilatation is identified. There is normal hepatopedal flow in the portal vein. Gallbladder and biliary tree: The gallbladder is unremarkable, without evidence of calculi, wall thickening, or pericholecystic fluid. There is no sonographic Muñiz sign. The common bile duct is normal in caliber measuring 3 mm. Right Kidney: The right kidney measures 11.1 cm in length and demonstrates a 7 x 6 x 8 mm lower pole cyst. The right kidney is otherwise unremarkable, without evidence of solid masses, hydronephrosis, or calculi. Pancreas: The pancreatic head, neck, and body are unremarkable. The pancreatic tail is obscured by bowel gas. Abdominal aorta and inferior vena cava: The visualized portions of the abdominal aorta and inferior vena cava are normal in caliber. There is no free fluid in the right upper quadrant. US/US abdomen limited IMPRESSION: Hepatic steatosis. Electronically signed by: Serafin Schmidt MD 01/05/2025 10:12 AM EDT
--- NOTE | 2025-01-05 07:37 | ECG_ITS ---
Test Reason : weakness Blood Pressure : */* mmHG Vent. Rate : 104 BPM Atrial Rate : 104 BPM P-R Int : 158 ms QRS Dur : 102 ms QT Int : 394 ms P-R-T Axes : 78 35 68 degrees QTcB Int : 518 ms Sinus tachycardia Incomplete right bundle branch block Borderline ECG When compared with ECG of 12-Sep-2024 10:01, Premature ventricular complexes are no longer Present T wave amplitude has increased in Anterior leads Referred By: Generic ED Physician Electronically Signed By: MANASA ERNANDEZ
--- OUTSIDE RECORDS SUMMARY | 2025-01-05 07:46 | XMS_ITS | Patient Health Record ---
Author Organization Serafin Mckeon III, MD Address [address] [place] [address] Care Team Providers Care Staff Training And Development Manager Name Role Phone Serafin Mckeon Primary Care Provider Allergies Allergen (clinical drug ingredient) Drug/Non Drug Allergy documented on EMR Reaction Allergy Type Onset Date Status No Known Drug Allergy Unknown Drug Allergy Active No Known Food Allergy Unknown Drug Allergy Active Results Component Value Reference Range Notes Troponin-I High Sensitivity Reviewed date:09/13/2024 05:37:46 AM Interpretation: Performing Lab:[address] [phone] Notes/Report: Troponin-I High Sensitivity 46.0 <3.5-35.0 ng/ L The [facility] high sensitivity Troponin-I results should be used in conjunction with other diagnostic information such as ECG, clinical observations and information, and patient symptoms to aid in the diagnosis of MT. Drug Screen Urine Reviewed date:09/13/2024 05:37:46 AM Interpretation: Performing Lab:[address] [phone] Notes/Report: Opiate Screen Urine Not Detected Not Detect Opiate cut-off is 300 ng/mL. Positive results are unconfirmed and should not be used for non-medical purposes. Barbiturates, Urine Not Detected Not Detect Barbiturate cut-off is 200 ng/mL. Positive results are unconfirmed and should not be used for non-medical purposes. Phencyclidine Screen Urine Not Detected Not Detect Phencyclidine cut-off is 25 ng/mL. Positive results are unconfirmed and should not be used for non-medical purposes. Amphetamine Screen Urine Not Detected Not Detect Amphetamine cut-off is 1000 ng/mL. Positive results are unconfirmed and should not be used for non-medical purposes. Benzodiazepines Screen Urine Not Detected Not Detect Benzodiazepine cut-off is 200 ng/mL. Positive results are unconfirmed and should not be used for non-medical purposes. Cocaine Screen Urine Not Detected Not Detect Cocaine cut-off is 300 ng/mL. Positive results are unconfirmed and should not be used for non-medical purposes. Cannabinoid Screen Urine Not Detected Not Detect Cannabinoid cut-off is 50 ng/mL. Positive results are unconfirmed and should not be used for non-medical purposes. Methadone Screen, Urine Not Detected Not Detect ng/mL Methadone cut-off is 300 ng/mL. Positive results are unconfirmed and should not be used for non-medical purposes. Fentanyl, urine Not Detected Not Detect Fentanyl cut-off is 1 ng/mL. Positive results are unconfirmed and should not be used for non-medical purposes. Oxycodone Screen Urine Not Detected Not Detect ng/mL Oxycodone cut-off is 100 ng/mL. Positive results are unconfirmed and should not be used for non-medical purposes. Buprenorphine Scr Not Detected Not Detect ng/mL Buprenorphine cut-off is 5 ng/mL. Positive results are unconfirmed and should not be used for non-medical purposes. UA ClnCatch+Micro w/rflx Cul t Reviewed date:09/13/2024 05:37:46 AM Interpretation: Performing Lab:[facility], [address] [place] [address], [place] [address] Notes/Report: Urine, Clean Catch Color Urine Dark Yellow Appearance Urine Cloudy PH 6.0 5.0-9.0 Glucose Urine UA Negative Negative mg/dL Urine Blood Negative Negative Specific [place] - Urine 1.025 1.005-1.025 Urine Protein 100 (2+) Neg-Trace mg/dL Urine Ketones 15 Negative mg/dL Nitrite Urine Negative Negative Leukocyte Esterase Urine Negative Negative RBC Urine 0-2 0-2 /HPF WBC Urine 0-5 0-5 /HPF Squamous Epithelial Cell Urine 0-2 0-2 /HPF Bacteria Urine None Seen None Seen Hyaline Casts Urine 11-20 0-2 /LPF Lactic Acid-LAB USE ONLY Reviewed date:09/13/2024 05:37:46 AM Interpretation: Performing Lab:[facility], [address] [place] [phone] Notes/Report: Lactic Acid-LAB USE ONLY 0.9 0.5-2.0 mmol/L Complete Blood Count Auto Di ff Reviewed date:09/13/2024 10:04:07 AM Interpretation: Performing Lab:[facility], [address] [place] [phone] Notes/Report: White Blood Count 6.1 4.8-10.8 X10*3/uL Red Blood Count 3.65 4.60-5.80 X10*6/uL Hemoglobin 12.4 14.0-18.0 g/dl Hematocrit 36.6 42.0-52.0 % Mean Corpuscular Volume 100.3 80.0-98.0 fL Mean Corpuscular Hemoglobin 34.0 27.0-33.0 pg Mean Corpuscular HGB Conc 33.9 31.0-36.0 g/dl Red Cell Distribution Width 13.8 11.0-16.0 % Platelet Count 199 160-400 X10*3/uL Mean Platelet Volume 9.9 9.4-12.4 fL Neutrophils Percent Auto 47.1 45-73 % Imm Gran Pct Auto 0.5 0.0-0.4 % Lymphocytes Percent Auto 36.5 20-40 % Monocytes Percent Auto 14.0 2-11 % Eosinophils Percent Auto 1.2 0-4 % Basophils Percent Auto 0.7 0-2 % NRBC Pct Auto 0.0 0.0-0.2 /100WBC Neutrophils Absolute Auto 2.9 2.0-8.3 x10*3/u L Imm Gran Abs Auto 0.03 0.00-0.03 X10*3/uL Lymphocytes Absolute Auto 2.2 1.2-4.9 X10*3/u L Monocytes Absolute Auto 0.9 0.1-1.2 X10*3/uL Eosinophils Absolute Auto 0.1 0.0-0.4 X10*3/u L Basophils Absolute Auto 0.0 0.0-0.2 X10*3/uL NRBC Abs Auto 0.000 0.0-0.012 X10*3/uL Comprehensive Met. Panel Reviewed date:09/13/2024 10:04:07 AM Interpretation: Performing Lab:[facility], [address] [place] [phone] Notes/Report: Sodium 137 135-145 mmol/L Potassium 3.2 3.3-5.1 mmol/L Chloride 105 96-108 mmol/L Carbon Dioxide 21 22-29 mmol/L Anion Gap 14 12-20 Blood Urea Nitrogen 8 9-16 mg/dL Creatinine 0.63 0.5-1.4 mg/dL Creatinine Clr Calc Pharmacy 116.7 eGFR (calculated from the MDRD study equation) and eCrCl (calculated from the Cockcroft-Gault equation) are based on different parameters and may not yield comparable results. If eCrCl result is absurd, please check patient's height/weight. Estimated Glomerular Filt Rate > 60 Chronic Kidney Disease: Estimated GFR < 60 mL/min/1.73m2 Severe Kidney Disease: Estimated GFR < 15 mL/min/1.73m2 Glucose Random 87 60-115 mg/dL Calcium 8.5 8.4-10.2 mg/dL Bilirubin Total 0.9 0.0-1.0 mg/dL Aspartate Amino Transferase 40 5-37 U/L Alanine Aminotransferase 26 0-40 U/L Total Protein 6.0 6.5-8.0 g/dL Albumin Level 3.4 3.5-5.0 g/dL Alkaline Phosphatase 48 39-117 U/L Magnesium Reviewed date:09/13/2024 10:04:07 AM Interpretation: Performing Lab:[facility], [address] [place] [phone] Notes/Report: Magnesium 1.5 1.6-2.6 mg/dL Prostate Specific Antigen Reviewed date:09/13/2024 10:04:07 AM Interpretation: Performing Lab:[facility], [address] [place] [phone] Notes/Report: Prostate Specific Antigen 1.21 <0.05-4.0 ng/mL PSA methodology: [facility] Alinity i Chemiluminescent Microparticle Immunoassay (CMIA) Complete Blood Count Auto Di ff Reviewed date:10/09/2024 07:54:45 PM Interpretation: Performing Lab:[facility], [address] [place] [phone] Notes/Report: White Blood Count 7.6 4.8-10.8 X10*3/uL Red Blood Count 4.03 4.60-5.80 X10*6/uL Hemoglobin 13.3 14.0-18.0 g/dl Hematocrit 40.0 42.0-52.0 % Mean Corpuscular Volume 99.3 80.0-98.0 fL Mean Corpuscular Hemoglobin 33.0 27.0-33.0 pg Mean Corpuscular HGB Conc 33.3 31.0-36.0 g/dl Red Cell Distribution Width 13.2 11.0-16.0 % Platelet Count 270 160-400 X10*3/uL Mean Platelet Volume 9.8 9.4-12.4 fL Neutrophils Percent Auto 38.3 45-73 % Imm Gran Pct Auto 0.1 0.0-0.4 % Lymphocytes Percent Auto 48.1 20-40 % Monocytes Percent Auto 12.0 2-11 % Eosinophils Percent Auto 0.8 0-4 % Basophils Percent Auto 0.7 0-2 % NRBC Pct Auto 0.0 0.0-0.2 /100WBC Neutrophils Absolute Auto 2.9 2.0-8.3 x10*3/u L Imm Gran Abs Auto 0.01 0.00-0.03 X10*3/uL Lymphocytes Absolute Auto 3.7 1.2-4.9 X10*3/u L Monocytes Absolute Auto 0.9 0.1-1.2 X10*3/uL Eosinophils Absolute Auto 0.1 0.0-0.4 X10*3/u L Basophils Absolute Auto 0.1 0.0-0.2 X10*3/uL NRBC Abs Auto 0.000 0.0-0.012 X10*3/uL Comprehensive [place]. Panel Fa st Reviewed date:10/09/2024 07:54:45 PM Interpretation: Performing Lab:[facility], [address] [place] [phone] Notes/Report: Sodium 139 135-145 mmol/L Potassium 3.6 3.3-5.1 mmol/L Chloride 104 96-108 mmol/L Carbon Dioxide 27 22-29 mmol/L Anion Gap 12 12-20 Blood Urea Nitrogen 8 9-16 mg/dL Creatinine 0.68 0.5-1.4 mg/dL Estimated Glomerular Filt Rate > 60 Chronic Kidney Disease: Estimated GFR < 60 mL/min/1.73m2 Severe Kidney Disease: Estimated GFR < 15 mL/min/1.73m2 Glucose Fasting 69 60-99 mg/dL Calcium 9.8 8.4-10.2 mg/dL Bilirubin Total 0.5 0.0-1.0 mg/dL Aspartate Amino Transferase 26 5-37 U/L Alanine Aminotransferase 19 0-40 U/L Total Protein 7.3 6.5-8.0 g/dL Albumin Level 4.4 3.5-5.0 g/dL Alkaline Phosphatase 54 39-117 U/L Magnesium Reviewed date:10/09/2024 07:54:45 PM Interpretation: Performing Lab:[facility], [address] [place] [phone] Notes/Report: Magnesium 1.6 1.6-2.6 mg/dL Lipid Panel Reviewed date:10/09/2024 07:54:45 PM Interpretation: Performing Lab:[facility], [address] [place] [phone] Notes/Report: Triglycerides 176 <150 mg/dL Desirable Triglyceride: less than 150 mg/dL Borderline High Triglyceride 150-199 mg/dL High Triglyceride: 200-499 mg/dL Very High Triglyceride: greater than or equal to 5OO mg/dL Cholesterol 222 <200 mg/dL Desirable Cholesterol: less than 200 mg/dL Borderline High Cholesterol: 200-239 mg/dL High Cholesterol: greater than 239 mg/dL LDL Cholesterol Calculated 144 <100 mg/dL Desirable LDL: less than 100 mg/dL Near Optimal/Above Optimal LDL: 110-129 mg/dL Borderline High LDL: 130-159 mg/dL High LDL: 160-189 mg/dL Very High LDL: greater than or equal to 190 mg/dL HDL Cholesterol 43 >40 mg/dL Desirable HDL: greater than 40 mg/dL Note: This HDL assay may give artificially low results in patients with liver disease. Vitamin B12 and Folate Reviewed date:10/09/2024 07:54:45 PM Interpretation: Performing Lab:[facility], [address], [place] [address] Notes/Report: Vitamin B12 723 200-900 pg/mL NORMAL 200-900 PG/ML INDETERMINATE 160-199 PG/ML DEFICIENT < 160 PG/ML Folate 14.2 > or = 4.0 ng/mL Reference Values: > or = 4.0 ng/mL < 4.0 ng/mL suggests folate deficiency Methotrexate, aminopterin and folinic acid (leucovorin) are chemotherapeutic agents whose molecular structures are similar to folate; therefore, the Software Intern folate assay cannot be used for patients using these drugs. Reason For Referral No Information Medications Medication SIG (Take, Route, Frequency, Duration) Notes Start Date End Date Status Thiamine HCl 100 MG 1 tablet Orally Once a day 05/2022 Active Metoprolol Tartrate 50 MG 1 tablet with food Orally Twice a day 01/21/2016 Active Cyanocobalamin 1000 MCG 1 tablet Orally Once a day 09/11/2016 Active Multivitamin - 1 tablet Orally Once a day Active Magnesium 400 MG as directed Orally Active B1 100 MG TAKE 1 TABLET BY KOREY TH EVERY DAY FOR 30 DAYS Oral Activ e Tamsulosin HCl 0.4 MG 1 capsule Orally O nce a day 11/03/2022 Active Immunizations Vaccine Route Administration Date Status Comme nts Influenza no Preserv 3 and > IM Intramuscular 03/15/2019 Administered Influenza, quad IM Intramuscular 04/19/2020 Administered COVID- 19 Vaccine Unknown 09/05/2020 Administered Influenza, quad IM Intramuscular 03/01/2021 Administered COVID- 19 Vaccine Unknown 08/12/2021 Administered Influenza, quad IM Intramuscular 03/11/2022 Administered COVID- 19 Vaccine Unknown 10/03/2020 Administered Influenza, quad IM Intramuscular 06/10/2023 Administered Influenza Vaccine Afluria IM Intramuscular 09/21/2024 Admi nistered Social History Tobacco Use: Social History Observation [...] te cigarette smoker (10-19 cigs/day) Vital Signs Heart Rate 90 /min 10/13/2024 Temperature 97.9 degrees Fahrenheit 10/13/2024 Blood pressure diastolic 87 mm Hg 10/13/2024 Height 71 in in 10/13/2024 Blood pressure systolic 126 mm Hg 10/13/2024 Weight 131 lbs 10/13/2024 BMI 18.27 kg/m2 10/13/2024 Encounters Encounter Location Date Provider Diagnosis Serafin Mckeon III, MD [address] [place] [address] [place] [id number] 09/21/2024 Serafin Mckeon Tobacco dependence F17.200 ; Encounter for immunization Z23 ; Underweight R63.6 ; Macrocytosis D75.89 ; Hyperlipidemia E78.5 ; Vitamin B 12 deficiency E53.8 ; Uncomplicated alcohol dependence F10.20 and Hypomagnesemia E83.42 Serafin Mckeon III, MD [address] [place] [address] [place] [id number] 10/13/2024 Serafin Mckeon Tobacco dependence F17.200 ; Vitamin B 12 deficiency E53.8 ; Underweight R63.6 ; HTN (hypertension) I10 ; Macrocytosis D75.89 and Ataxia R27.0 Serafin Mckeon III, MD [address] [place] [address] [place] [id number] 09/15/2024 Serafin Mckeon III, MD [address] [place] [address] [place] [id number] 09/21/2024 Serafin Mckeon III, MD [address] [place] [address] [place] [phone] 10/11/2024 Serafin Mckeon Tobacco dependence F17.200 Assessments Encounter Date Diagnosis (ICD Code) Assessment Notes Treatment Notes Treatment Clinical Notes 09/21/2024 Encounter for immunization (ICD-10 - Z23) He received influenza vaccine today. There was no reaction. He gave consent for the injection. 09/21/2024 Tobacco dependence (ICD-10 - F17.200) I have strongly encouraged him not to smoke. I've discussed with him several strategies for becoming smoke-free in maintaining abstinence. He says that he is down to 10 cigarettes daily.I have made him aware of all of the smoking cessation programs available at local [facility] and commercially. He has declined a referral to any of them today. 10/13/2024 Tobacco dependence (ICD-10 - F17.200) I have strongly encouraged him not to smoke. I've discussed with him several strategies for becoming smoke-free in maintaining abstinence. He says that he is down to 10 cigarettes daily.I have made him aware of all of the smoking cessation programs available at local [facility] and commercially. He has declined a referral to any of them today. 10/13/2024 Vitamin B 12 deficiency (ICD-10 - E53.8) He will continue current vitamin P 12 injections monthly periods. His mean cell volume is now almost normal. 10/11/2024 Tobacco dependence (ICD-10 - F17.200) I have strongly encouraged him not to smoke. I've discussed with him several strategies for becoming smoke-free in maintaining abstinence. He says that he is down to 10 cigarettes daily.I have made him aware of all of the smoking cessation programs available at local [facility] and commercially. He has declined a referral to any of them today. 09/21/2024 Underweight (ICD-10 - R63.6) His body mass is increased recently from 17-19.2. He has gained several pounds of weight. This value will be followed carefully. 10/13/2024 Underweight (ICD-10 - R63.6) His body mass is improving. He has gained several pounds of weight. This value will be followed carefully.His mean cell volume has normalized. 09/21/2024 Macrocytosis (ICD-10 - D75.89) The elevated MCV is ethanol effect. The value will be followed. His B12 and folic acid levels will be followed. 10/13/2024 HTN (hypertension) (ICD-10 - I10) His blood pressure is currently stable in the normal range. Will be observed carefully. No changes in medications was necessary. 09/21/2024 Hyperlipidemia (ICD-10 - E78.5) His fasting lipid profile periodically. 10/13/2024 Macrocytosis (ICD-10 - D75.89) The elevated MCV has almost normalized.. The value will be followed. His B12 and folic acid levels will be followed. 09/21/2024 Vitamin B 12 deficiency (ICD-10 - E53.8) Continue current vitamin P 12 injections monthly periods 10/13/2024 Ataxia (ICD-10 - R27.0) The MRI of his brain showed no change except for volume loss. His ataxia has improved with the use of B12. 09/21/2024 Uncomplicated alcohol dependence (ICD-10 - F10.20) An electroencephalogram will be done to see if his seizure is strongly recommended he begin alcoholism treatment. I wanted to refer him contracting support specialist at [facility]. However he declined at this time saying he wwould think about it. 09/21/2024 Hypomagnesemia (ICD-10 - E83.42) He was continued on 400 mg of magnesium oxide daily. Plan Of Treatment Pending Test Test Name Order Date PROFILE, FASTING (COMPREHENSIVE METABOLI C) 10/13/2024 PROFILE, FASTING (COMPREHENSIVE METABOLI C) 09/21/2024 PROFILE, FASTING (COMPREHENSIVE METABOLI C) 09/26/2021 PROFILE, FASTING (COMPREHENSIVE METABOLI C) 09/08/2022 PROFILE, FASTING (COMPREHENSIVE METABOLI C) 06/07/2021 PROFILE, FASTING (COMPREHENSIVE METABOLI C) 06/10/2023 PROFILE, RANDOM (COMPREHENSIVE METABOLIC ) 11/30/2020 PROFILE, RANDOM (COMPREHENSIVE METABOLIC ) 09/18/2020 PROFILE, RANDOM (COMPREHENSIVE METABOLIC ) 03/01/2021 MAGNESIUM 09/08/2022 LIPID PANEL 09/08/2022 LIPID PANEL 09/18/2020 LIPID PANEL 09/26/2021 LIPID PANEL 06/07/2021 LDH 10/13/2024 FREE T4 (FT4) 03/01/2021 TSH (THYROID STIMULATING HORMONE) 2020 TSH (THYROID STIMULATING HORMONE) 2024 VITAMIN B12 AND FOLATE 11/30/2020 VITAMIN B12 AND FOLATE 09/18/2020 B12 09/08/2022 B12 03/01/2021 B12 09/26/2021 PSA, TOTAL 09/26/2021 PSA, TOTAL 09/08/2022 PSA, TOTAL 06/10/2023 CBC w DIFF 06/07/2021 CBC w DIFF 09/21/2024 CBC w DIFF 09/26/2021 CBC w DIFF 11/30/2020 CBC w DIFF 10/13/2024 CBC w DIFF 03/01/2021 CBC w DIFF 09/08/2022 CBC w DIFF 09/18/2020 SED RATE (ESR) 09/26/2021 SED RATE (ESR) 11/30/2020 ALPHA-FETOPROTEIN,TUMOR MARKER CBC WITH AUTO DIFF 06/10/2023 RETIC 06/10/2023 RETIC 10/13/2024 Magnesium 09/21/2024 Magnesium 10/13/2024 Lipid Panel 10/13/2024 Lipid Panel 09/21/2024 Lipid Panel 06/10/2023 Vitamin B12 and Folate 10/13/2024 Vitamin B12 and Folate 09/21/2024 Vitamin B12 06/07/2021 Vitamin B12 06/10/2023 Free T4 (Free Thyroxine) 10/13/2024 Insurance Providers Payer Name Payer Address Payer Phone Subscriber Number Group Number Insured Name Patient Relationship to Insured Coverage Start Date Coverage End Date MEDICARE NGS [address] [place] [phone] [id number] Skip Randle Self - patient is the insured Medical (General) History Medical History History ICD Code tobacco dependence underweight tachycardia 2008 microscopic hematuria, negative uri ne cytology allergies Alcohol use disorder Benign prostatic hypertrophy Surgical History Surgery Date(Month/Year) nondisplaced fracture middle phalanx lef t third finger 2002 Broken jaw 2002
[2025-01-05 07:48] LABS: MANUAL DIFF FLAG NO
[2025-01-05 07:56] LABS: Hematocrit 37.0 % (42.0-52.0); Hemoglobin 12.9 g/dl (14.0-18.0); Imm Gran Abs Auto 0.05 X10*3/uL (0.00-0.03); Imm Gran Pct Auto 0.6 % (0.0-0.4); Lymphocytes Absolute Auto 0.7 X10*3/uL (1.2-4.9); Mean Corpuscular HGB Conc 34.9 g/dl (31.0-36.0); Mean Corpuscular Hemoglobin 34.2 pg (27.0-33.0); Mean Corpuscular Volume 98.1 fL (80.0-98.0); NRBC Abs Auto 0.000 X10*3/uL (0.0-0.012); NRBC Pct Auto 0.0 /100WBC (0.0-0.2); Red Blood Count 3.77 X10*6/uL (4.60-5.80); White Blood Count 7.7 X10*3/uL (4.8-10.8)
[2025-01-05 08:04] LABS: Alanine Aminotransferase 199 U/L (0-40); Albumin Level 4.4 g/dL (3.5-5.0); Alkaline Phosphatase 83 U/L (39-117); Anion Gap 27 (12-20); Aspartate Amino Transferase 362 U/L (5-37); Blood Urea Nitrogen 8 mg/dL (9-16); Calcium 9.1 mg/dL (8.4-10.2); Carbon Dioxide 19 mmol/L (22-29); Chloride 96 mmol/L (96-108); Cholesterol 273 mg/dL (<200); Creatinine Clr Calc Pharmacy 98.9; Estimated Glomerular Filt Rate > 60; HDL Cholesterol 133 mg/dL (>40); Potassium 4.0 mmol/L (3.3-5.1); Sodium 138 mmol/L (135-145); Total Protein 7.3 g/dL (6.5-8.0); Triglycerides 65 mg/dL (<150)
[2025-01-05 08:09] LABS: B Type Natriuretic Peptide 40 pg/mL (<100)
[2025-01-05 08:11] LABS: Troponin-I High Sensitivity 20.4 ng/L (<3.5-35.0)
[2025-01-05 08:21] LABS: Platelet Count 125 X10*3/uL (160-400)
--- NOTE | 2025-01-05 08:43 | ED.GENADULT ---
HPI - General Adult General Chief complaint: General Medical Stated complaint: SUDDEN ONSET WEAKNESS PER EMS Time Seen by Provider: 01/05/25 07:54 History of Present Illness ED Provider: Dr. Toscano HPI narrative: 59 y/o M patient; PMH alcohol use disorder, hx seizure disorder, hx cerebral and cerebellar atrophy; presents from home with report of nausea/vomiting, generalized weakness. Patient was noted to be incontinent of stool and urine. He states his last alcohol drink was approx 1 week ago. He otherwise denies: fever or chills, abdominal pain, falls or trauma, chest pain, SOB, cough/congestion. Related Data Home Medications ?Medication ?Instructions ?Recorded ?Confirmed acetaminophen 325 mg tablet 325 - 650 mg PO Q4H PRN 09/12/24 09/12/24 (Tylenol) Headache/Pain cyanocobalamin (vitamin B-12) 1,000 mcg PO DAILY 09/12/24 09/12/24 1,000 mcg tablet (Vitamin B-12) multivitamin 1 tab PO DAILY 09/12/24 09/12/24 thiamine HCl (vitamin B1) 100 mg 100 mg PO DAILY 09/12/24 09/12/24 tablet Previous Rx's ?Medication ?Instructions ?Recorded magnesium oxide 400 mg PO DAILY #90 tabs 09/14/24 Allergies Allergy/AdvReac Type Severity Reaction Status Date / Time No Known Allergies (No Known Allergy Verified 01/05/25 07:34 Allergies*) Review of Systems Review of Systems: Yes all other systems are reviewed and are negative PMFSH Past Medical History Attestation statement: The following information was validated with the patient. Source: old records reviewed Medical History Alcohol use disorder Nicotine dependence, cigarettes, uncomplicated EtOH dependence Cerebellar ataxia Hypertension Vitamin B12 deficiency BPH (benign prostatic hyperplasia) Arthritis Surgical History History of mandibular surgery Social History Social History Household Members: Family Housing: House Alcohol intake: current Alcohol intake frequency: 3 or more drinks per day Alcohol type: hard liquor Patient Tobacco Use Status: Current everyday Tobacco user Cigarette Packs Per Day: 0.5 Cigarettes Per Day: 10.0 Smoked in Last 30 Days: Yes Use of substances other than those prescribed or required for medical reasons: No Advance Directives: Yes Advance Directives on File: Yes Advance Directives Date on File: 09/15/24 Do you have a plan to hurt others: No Plan service: Yes Physical Exam ED Vital Signs: Vital Signs - 24 hr 01/05/25 07:30 01/05/25 08:00 01/05/25 10:00 Temperature 98.3 F 98.1 F 98.1 F Pulse Rate 102 H 101 H 98 Respiratory Rate 18 20 20 Blood Pressure 131/92 H 139/84 131/72 Pulse Oximetry 96 98 99 Oxygen Delivery Method Room Air Room Air Room Air Oxygen Flow Rate 01/05/25 11:06 01/05/25 11:12 01/05/25 11:40 Temperature Pulse Rate 115 H Respiratory Rate 22 H Blood Pressure 146/93 H Pulse Oximetry 100 100 96 Oxygen Delivery Method Non-Rebreather Mask Non-Rebreather Mask Room Air Oxygen Flow Rate 15 9 BMI result Body Mass Index 18.2 Patient is afebrile, tachycardic, normotensive. Const General: no acute distress HENMT Head: Yes normal to inspection and Yes atraumatic Eyes General: appearance normal, both eyes and all related structures Pupils: Equal, round and reactive pupils present EOM: EOMs intact bilaterally Neck Neck: Yes normal visual inspection, Yes full ROM, Yes supple and No tender Chest Chest palpation & inspection: normal inspection of the chest and normal palpation of entire chest wall Resp Effort & Inspection: normal respiratory effort, able to speak in complete sentences and no cough Auscultation: clear to auscultation bilaterally Cardio Rate: regular rate Rhythm: regular rhythm Peripheral pulses: Peripheral pulses 2+ throughout GI Inspection: Yes normal to inspection, No Abdominal wall edema and No distended Palpation (GI): Soft to palpation, not firm, nontender, no guarding and not rigid Auscultation: normal bowel sounds Back/Spine/Pelvis Back: No back tenderness Neuro Other: Strength 5/5 in upper and lower extremities. Sensation 5/5 in upper and lower extremities. Cranial nerves: Yes Equal, round and reactive pupils present Course Course Course Narrative: Patient is afebrile, tachycardic, normotensive. EKG independently interpreted by myself as ST 104BPM with QTc 518. Labs reviewed. No significant leukocytosis. Mild anemia Hgb 12.9. Bicarb 19. Anion gap 27. Transaminitis with AST 362, AST 199. Magnesium 0.8, ordered for 2g IV. LA 3.6. Tylenol level negative. Hepatitis panel negative. Ordered for CT Head, CT Abdomen/Pelvis, US Abdomen RUQ. Providing 2L IVF. US RUQ with hepatic steatosis. Utox is negative. While patient was in the CT scanner he was witnessed to have an approx 20 seconds generalized tonic-clonic seizure. Resolved without intervention but did then received 2mg Versed IV. Transient hypoxia, treated with 15L NRB. Will Keppra load. He did get CT Head. He got a contrast load for CT Abdomen/Pelvis but it was discontinued due to seizure. At this time I think it is safer to have patient returned to room. I do not think we need STAT repeat CT and contrast for abdomen/pelvis. Staff was able to get CT Head before seizure activity started. Patient did have prior seizure activity in 09/2024 for which he was seen by Neurology. He was recommended to have EEG. He was not started on anti-epileptic medication. Unclear if patient ever had EEG. Patient re-evaluated back in room. He remains post-ictal but is awake and answering questions in a confused fashion. Did bite his tongue. Nothing that needs to be repaired. Beta hydroxybuterate 1.71 in the setting of anion gap with N/V suspect starvation ketoacidosis. CT Head is negative for intra-cranial pathology. Plan: Admit to hospitalist Condition: Stable Medications Administered Generic Name Dose Route Start Last Admin Trade Name Freq PRN Reason Stop Dose Admin Dextrose/Sodium Chloride 1,000 mls @ 250 mls/hr 01/05/25 12:00 01/05/25 12:05 D5ns IVCONT 250 mls/hr .Q4H CINDI Administration Discontinued Medications Generic Name Dose Route Start Last Admin Trade Name Freq PRN Reason Stop Dose Admin Sodium Chloride 1,000 mls @ 999 mls/hr 01/05/25 09:15 01/05/25 11:24 Ns IV 01/05/25 10:15 Infused .Q1H1M CINDI Infusion Sodium Chloride 1,000 mls @ 999 mls/hr 01/05/25 09:15 01/05/25 11:24 Ns IV 01/05/25 10:15 Infused .Q1H1M CINDI Infusion Magnesium Sulfate 2 gm in 50 mls @ 25 mls/hr 01/05/25 09:45 01/05/25 10:23 Magnesium Sulfate/H2o IV 01/05/25 11:44 25 mls/hr ONCE ONE Administration Iohexol 100 ml 01/05/25 10:58 01/05/25 11:08 Iohexol 350 Mg/Ml 100 Ml Infus..Btl IV 01/05/25 10:59 85 ml ONCE ONE Administration Midazolam HCl 2 mg 01/05/25 11:06 01/05/25 10:52 Midazolam Hcl 2 Mg/2 Ml Vial IVPUSH 01/05/25 11:07 2 mg ONCE ONE Administration Medical Decision Making Lab Data 01/05/25 07:44 01/05/25 07:44 Labs: Lab Results 01/05/25 01/05/25 01/05/25 Range/Units 07:44 09:33 10:27 WBC 7.7 (4.8-10.8) X10*3/uL RBC 3.77 L (4.60-5.80) X10*6/uL Hgb 12.9 L (14.0-18.0) g/dl Hct 37.0 L (42.0-52.0) % MCV 98.1 H (80.0-98.0) fL MCH 34.2 H (27.0-33.0) pg MCHC 34.9 (31.0-36.0) g/dl RDW 15.4 (11.0-16.0) % Plt Count 125 L D (160-400) X10*3/uL MPV 9.9 (9.4-12.4) fL Immature Gran % (Auto) 0.6 H (0.0-0.4) % Neut % (Auto) 77.7 H (45-73) % Lymph % (Auto) 8.4 L (20-40) % [place] % (Auto) 10.1 (2-11) % Eos % (Auto) 2.7 (0-4) % Baso % (Auto) 0.5 (0-2) % Lymph # (Auto) 0.7 L (1.2-4.9) X10*3/uL [place] # (Auto) 0.8 (0.1-1.2) X10*3/uL Eos # (Auto) 0.2 (0.0-0.4) X10*3/uL Baso # (Auto) 0.0 (0.0-0.2) X10*3/uL Abs Immat Gran (auto) 0.05 H (0.00-0.03) X10*3/uL Absolute Neuts (auto) 6.0 (2.0-8.3) x10*3/uL Absolute Nucleated RBC 0.000 (0.0-0.012) X10*3/uL Nucleated RBC % (auto) 0.0 (0.0-0.2) /100WBC PT 10.7 L (10.9-12.4) SEC INR 0.9 (0.9-1.1) Sodium 138 (135-145) mmol/L Potassium 4.0 (3.3-5.1) mmol/L Chloride 96 (96-108) mmol/L Carbon Dioxide 19 L (22-29) mmol/L Anion Gap 27 H (12-20) BUN 8 L (9-16) mg/dL Creatinine 0.69 (0.5-1.4) mg/dL Estim Creat Clear Calc 98.9 Estimated GFR > 60 Random Glucose 136 H (60-115) mg/dL Lactic Acid 3.6 H* (0.5-2.0) mmol/L Calcium 9.1 D (8.4-10.2) mg/dL Magnesium 0.8 L* (1.6-2.6) mg/dL Total Bilirubin 1.3 H (0.0-1.0) mg/dL Direct Bilirubin 0.6 H (0.0-0.5) mg/dL AST 362 H (5-37) U/L ALT 199 H (0-40) U/L Alkaline Phosphatase 83 (39-117) U/L Troponin I High Sens 20.4 D (<3.5-35.0) ng/L B-Natriuretic Peptide 40 (<100) pg/mL Total Protein 7.3 (6.5-8.0) g/dL Albumin 4.4 (3.5-5.0) g/dL Triglycerides 65 (<150) mg/dL Cholesterol 273 H (<200) mg/dL LDL Cholesterol, Calc 127 H (<100) mg/dL HDL Cholesterol 133 (>40) mg/dL Lipase 38 (8-78) U/L Beta-Hydroxybutyrate 1.71 H (0.02-0.27) mmol/L Urine Color Yellow Urine Appearance Clear Urine pH 6.5 (5.0-9.0) Ur Specific [place] 1.015 (1.005-1.025) Urine Protein 30 (1+) H (Neg-Trace) mg/dL Urine Glucose (UA) Negative (Negative) mg/dL Urine Ketones 40 (Negative) mg/dL Urine Blood Small (1+) H (Negative) Urine Nitrite Negative (Negative) Ur Leukocyte Esterase Trace H (Negative) Urine RBC 0-2 (0-2) /HPF Urine WBC 0-5 (0-5) /HPF Ur Squamous Epith Cells 0-2 (0-2) /HPF Urine Bacteria None Seen (None Seen) Hyaline Casts 0-2 (0-2) /LPF Urine Opiates Screen Not Detected (Not Detect) Ur Buprenorphine Scrn Not Detected (Not Detect) ng/mL Ur Oxycodone Screen Not Detected (Not Detect) ng/mL Urine Methadone Screen Not Detected (Not Detect) ng/mL Urine Fentanyl Screen Not Detected (Not Detect) Acetaminophen < 3 (<30) mcg/mL Ur Barbiturates Screen Not Detected (Not Detect) Ur Phencyclidine Scrn Not Detected (Not Detect) Ur Amphetamines Screen Not Detected (Not Detect) U Benzodiazepines Scrn Not Detected (Not Detect) Urine Cocaine Screen Not Detected (Not Detect) U Marijuana (THC) Screen Not Detected (Not Detect) Ethyl Alcohol < 10 mg/dL Hepatitis A IgM Ab Nonreactive (Nonreactive) Hep Bs Antigen Negative (Negative) Hep Bs Antibody NONREACTIVE (Nonreactive) Hep B Core Total Ab Nonreactive (Nonreactive) Hepatitis C Ab (EIA) Nonreactive (Nonreactive) Radiology Impression Discussion of test interpretation with radiology: I have reviewed the radiologist's reading. Radiologist Impression: EXAMINATION: US ABDOMEN LIMITED HISTORY: Transaminitis TECHNIQUE: Real-time grayscale ultrasound imaging of the right upper quadrant was performed and images were reviewed. COMPARISON: There are no prior studies available for comparison. FINDINGS: Liver: The right lobe of the liver measures 14.9 cm in size. The left lobe of the liver measures 11.1 cm in size. The liver demonstrates increased echotexture, consistent with steatosis. No focal mass or intrahepatic biliary ductal dilatation is identified. There is normal hepatopedal flow in the portal vein. Gallbladder and biliary tree: The gallbladder is unremarkable, without evidence of calculi, wall thickening, or pericholecystic fluid. There is no sonographic Muñiz sign. The common bile duct is normal in caliber measuring 3 mm. Right Kidney: The right kidney measures 11.1 cm in length and demonstrates a 7 x 6 x 8 mm lower pole cyst. The right kidney is otherwise unremarkable, without evidence of solid masses, hydronephrosis, or calculi. Pancreas: The pancreatic head, neck, and body are unremarkable. The pancreatic tail is obscured by bowel gas. Abdominal aorta and inferior vena cava: The visualized portions of the abdominal aorta and inferior vena cava are normal in caliber. There is no free fluid in the right upper quadrant. US/US abdomen limited IMPRESSION: Hepatic steatosis. Electronically signed by: Serafin Schmidt MD 01/05/2025 10:12 AM EDT EXAMINATION: CT HEAD WITHOUT CONTRAST CLINICAL INFORMATION: Weakness COMPARISON: September 12, 2024 TECHNIQUE: Contiguous axial imaging was performed from the skull base to vertex without intravenous administration of contrast. This CT examination was performed using dose optimization techniques as appropriate, variously including the following: *Automated exposure control *Adjustment of mA and/or kV according to patient size (this includes techniques or standardized protocols for targeted exams where dose is matched to indication/reason for exam; i.e. extremities or head) *Use of iterative reconstruction technique DLP: 779 mGY*cm FINDINGS: There is no acute ischemic change. Mild periventricular white matter hypodensities are again noted. There is no intracranial hemorrhage. There is no mass-effect or midline shift. Mild to moderate generalized atrophy is again noted. Basal cisterns and ventricles are within normal limits for age/cerebral volume. Orbits are symmetrical and unremarkable. Focal mucosal thickening is present along the medial floor the right maxillary sinus, improved since the prior There are no bony abnormalities. CT/CT head/brain wo IV con IMPRESSION: No acute intracranial abnormality. Decreased chronic mucosal thickening in the right maxillary sinus. Mild to moderate generalized atrophy. Electronically signed by: Yuriy Enriquez MD 01/05/2025 11:34 AM EDT Report Number: [id number]: Total DLP = 422.00 mGy-cm EXAMINATION: CT ABDOMEN PELVIS WITH IV CONTRAST HISTORY: Diffuse abd pain, nausea/vomiting, transaminitis COMPARISON: There are no prior studies for available comparison. TECHNIQUE: CT scan of the abdomen and pelvis was performed following administration of 85 mL Omnipaque 350 using standard departmental protocol. Coronal and sagittal reformatted images were generated and reviewed. Oral contrast material was not administered at the request of the referring physician. This CT exam was performed with one or more of the following dose reduction techniques: automated exposure control, adjustment of the mA and/or kV according to patient size, use of iterative reconstruction technique. DLP: 412 mGy-cm FINDINGS: The examination is markedly degraded by patient motion. LOWER CHEST: The visualized lung bases are clear. There is no pleural effusion. CARDIOVASCULATURE: The heart is normal in size. There is no pericardial effusion. LIVER: The liver is normal in size and contour, but demonstrates decreased attenuation, consistent with steatosis. No liver mass is identified. The hepatic and portal veins are patent. GALLBLADDER / BILE DUCTS: The gallbladder is unremarkable. There is no intra or extrahepatic biliary ductal dilatation. SPLEEN: The spleen is normal in size. No focal splenic lesion is identified. PANCREAS: The pancreas is unremarkable in appearance. ADRENAL GLANDS: Within normal limits. KIDNEYS/RETROPERITONEUM: No renal calculi are identified. There is no hydronephrosis. No renal masses are identified. LYMPH NODES: No abdominal or pelvic lymphadenopathy. VASCULATURE: The abdominal aorta demonstrates atherosclerotic calcification, but is normal in caliber. MESENTERY/PERITONEUM: No free fluid. No masses. There is no free intraperitoneal gas. STOMACH: There is a moderate hiatal hernia. A gastrostomy tube is partially visualized. SMALL BOWEL: The small bowel is grossly unremarkable in appearance. Evaluation is extremely limited by patient motion. COLON: There is a moderate amount of colonic stool. Evaluation is limited by motion. APPENDIX: Normal. URINARY BLADDER/PELVIC ORGANS: The urinary bladder is only partially imaged. The uterus is not identified. BONES / SOFT TISSUES: No suspicious bony or soft tissue abnormalities. CT/CT abdomen pelvis w IV con IMPRESSION: 1. Markedly limited examination due to patient motion. 2. Hepatic steatosis. 3. Moderate hiatal hernia. 4. Moderate colonic stool. Critical Care Time Critical Care Time Critical Care Time: Yes Total Critical Care Time: 38 Attestation: Total critical care time: Approximately?38?minutes Due to a high probability of clinically significant, life threatening deterioration, the patient required my highest level of preparedness to intervene emergently and I personally spent this critical care time directly and personally managing the patient. This critical care time included obtaining a history; examining the patient; pulse oximetry; ordering and review of studies; arranging urgent treatment with development of a management plan; evaluation of patient's response to treatment; frequent reassessment; and, discussions with other providers. This critical care time was performed to assess and manage the high probability of imminent, life-threatening deterioration that could result in multi-organ failure. It was exclusive of separately billable procedures and treating other patients Discharge Plan Discharge Clinical Impression: Tonic clonic seizures, Hypomagnesemia, Transaminitis, Starvation ketoacidosis Patient Disposition: Admitted As Inpatient
--- NOTE | 2025-01-05 08:46 | PC.NURSE ---
patient a&ox3, lungs diminished throughout- rr equal/non labored, ekg performed, hospital monitor applied sinus tach on monitor, iv inserted/labs drawn, pt 2+ bedal edema- pt states he went to bed at 7pm at his baseline- able to ambulate with his walker and he woke at 3am unable to ambulate and weak. Upon this patients arrival, this nurse noticed he looked disheveled, shirt was wet-pt states he was sweating alot, upon removing his shoes and socks- they were saturated with urine/feces although his pants were clean/dry. patients bilateral feet were covered with feces some of which was dried and were washed by this nurse. pt c/o BLE pain 8-01/18 stating this is why is was unable to ambulate. neuro was intact, pt notable shaky- states his last etoh drink was over a week ago. seizure pads applied as patient does have a history of ETOH withdrawal seizures, call thomas within reach, plan of care ongoing.
--- NOTE | 2025-01-05 09:32 | PC.NURSE ---
ivf started per order
[2025-01-05 09:39] LABS: Lipase 38 U/L (8-78); Magnesium 0.8 mg/dL (1.6-2.6)
[2025-01-05 09:49] LABS: INTERNATIONAL NORM RATIO 0.9 (0.9-1.1); Prothrombin Time 10.7 SEC (10.9-12.4)
[2025-01-05 10:05] LABS: Acetaminophen LAB < 3 mcg/mL (<30)
[2025-01-05 10:21] LABS: HBS Num1 0.00 mIU/mL (0-7.99); HBc Num1 0.06 S/CO (0.00-0.79); HBsAGNum1 0.32 S/CO (0.00-0.99); Hepatitis A Antibody IgM 0.20 Index (0-0.79); Hepatitis B Surface Antigen Negative (Negative); ~HepC Num1 0.14 S/CO (0.00-0.79); ~Hepatitis A Antibody IgM Nonreactive (Nonreactive); ~Hepatitis B Surface Antibody NONREACTIVE (Nonreactive); ~Hepatitis C Antibody Nonreactive (Nonreactive)
[2025-01-05] MEDS: Magnesium Sulfate/H2O 2 GM/50 ML PIGGYBACK IV ×2 (10:23→17:20)
[2025-01-05 10:36] LABS: Appearance Urine Clear; Glucose Urine UA Negative (Negative); PH 6.5 (5.0-9.0); Specific Gravity - Urine 1.015 (1.005-1.025); UMIC TRIGGER UACC YES
--- NOTE | 2025-01-05 10:49 | PC.NURSE ---
pt to ct scan
[2025-01-05 10:54] LABS: Cannabinoid Screen Urine Not Detected (Not Detect)
--- NOTE | 2025-01-05 10:58 | EEG_ITS ---
Reason For EEG: Seizure Medications:acetaminophen, B12, thiamine keppra started in ED History: PMH from ED notes H/O alcohol use disorder, hx seizure disorder, hx cerebral and cerebellar atrophy; presents from home with report of nausea/vomiting, generalized weakness- this AM while patient was in the CT scanner he was witnessed to have an approx 20 seconds generalized tonic-clonic seizure. Resolved without intervention Nurse Orthopaedic Comments: Photic stimulation: completed Hyperventilation: omitted - neuro imaging pending Behavioral state: tense, restless, remained asymptomatic during this study State of consciousness: awake Skull defect: no Sedation: no Handedness: Right Duration of study: 21 mins 44 secs Description: This is a 16 channel EEG with an EKG lead. Patient is reported awake during the tracing. Background EEG rhythm is low amplitude fast with some artifacts with no obvious asymmetry or paroxysmal tendency. Photic stimulation does not produce any significant abnormality. Hyperventilation was not performed. No sharp wave spikes or paroxysmal tendency noted. Cardiac lead does not reveal any significant abnormality. Impression: No significant abnormality noted on this EEG. MTDD
[2025-01-05] MEDS: iohexoL 350 MG/ML 100 ML INFUS..BTL IV (11:08)
--- NOTE | 2025-01-05 11:09 | PC.NURSE ---
pt was in CT scan and this nurse was notified pt was seizing, provider at bedside, pts mouth suctioned, 2mg midazolam was given, NRB applied at 15L, pt brought back to room 21, pt currently sinus tach on monitor 100% on NRB mask now lowered to (L at this time- will work on titrating patient back to room air. IVF continue to run slowly, call thomas within reach, plan of care ongoing
[2025-01-05 11:41] LABS: Reflex Lactate? Lactic Acid Added
--- NOTE | 2025-01-05 11:43 | PC.NURSE ---
pharmacy was contacted for keppra drip, 2nd iv placed to pts lt FA, pt was taken off NRB mask and is currently on room air.
--- NOTE | 2025-01-05 12:25 | P.HPHOSP_ITS ---
History of Present Illness Date of Service: 01/05/25 Attending physician on admission: Jose Daugherty Chief Complaint: seizure This is a 59-year-old male with history of alcohol abuse, previous admission for possible seizure in September who presented due to weakness. Patient presented from home with report of nausea, vomiting and generalized weakness. Noted to be incontinent of stool and urine on arrival. Denies abdominal pain, nausea, vomiting. While in the emergency department and had witnessed seizure in the ED requiring IV Versed. Brain CT with no acute intracranial abnormality, [id number] generalized atrophy. Lab work significant for thrombocytopenia, anion gap lactic acid 3.6, bicarb 19, magnesium 0.8, AST 362, ALT 199, beta hydroxybutyrate 1.71. CT scan of the abdomen limited due to patient motion, hepatic steatosis noted as well as moderate colonic stool. Abdominal ultrasound with hepatic steatosis. Of note patient had an admission in September for possible seizure activity, at that time he was seen by Neurology and recommended to have outpatient EEG, possibly related to alcohol withdrawal and no medications started at that time. Patient is somewhat forgetful and disoriented but states that he has not had a drink for nearly 1 week because he has not been feeling well and having nausea/vomiting. Review of Systems 2 Review of Systems: Yes all other systems are reviewed and are negative Constitutional: Constitutional: Denies chills and Denies fever(s) Cardiovascular: Cardiovascular: Denies chest pain Gastrointestinal: Gastrointestinal: Denies abdominal pain, Reports nausea and Reports vomiting [facility] Medical History Alcohol use disorder Nicotine dependence, cigarettes, uncomplicated EtOH dependence Cerebellar ataxia Hypertension Vitamin B12 deficiency BPH (benign prostatic hyperplasia) Arthritis Surgical History History of mandibular surgery Social History Household Members: Family Housing: House Alcohol intake: current Alcohol intake frequency: 3 or more drinks per day Alcohol type: hard liquor Patient Tobacco Use Status: Current everyday Tobacco user Cigarette Packs Per Day: 0.5 Cigarettes Per Day: 10.0 Smoked in Last 30 Days: Yes Use of substances other than those prescribed or required for medical reasons: No Advance Directives: Yes Advance Directives on File: Yes Advance Directives Date on File: 09/15/24 Do you have a plan to hurt others: No Plan service: Yes Meds Allergies Allergy/AdvReac Type Severity Reaction Status Date / Time No Known Allergies (No Known Allergy Verified 01/05/25 07:34 Allergies*) Active Medications: Current Medications Acetaminophen (Acetaminophen 325 Mg Tablet) 650 mg PO Q6H PRN PRN Reason: Pain, Mild 1-3,fever,headache Calcium Carbonate (Calcium Carbonate 750 Mg Tab.Chew) 750 mg PO Q4H PRN PRN Reason: Heartburn Folic Acid (Folic Acid 1 Mg Tablet) 1 mg PO DAILY [facility] Dextrose/Sodium Chloride (D5ns) 1,000 mls @ 250 mls/hr IVCONT .Q4H [facility]INDI Last Admin: 01/05/25 12:05 Dose: 250 mls/hr Magnesium Sulfate (Magnesium Sulfate/H2o) 2 gm in 50 mls @ 25 mls/hr IV ONCE ONE Stop: 01/05/25 16:59 Magnesium Hydroxide (Milk Of Magnesia 30 Ml Oral.Susp) 30 ml PO DAILY PRN PRN Reason: Constipation Melatonin (Melatonin 3 Mg Tablet) 6 mg PO BEDTIME PRN PRN Reason: Insomnia Sodium Chloride (0.9 % Sodium Chloride Flush 3 Ml Syringe) 3 ml IVFLUSH QSHIFT [facility] Home Medications ?Medication ?Instructions ?Recorded ?Confirmed ?Last Taken ?Type acetaminophen 325 mg tablet 325 - 650 mg PO Q4H PRN 01/05/25 01/04/25 History (Tylenol) Headache/Pain cyanocobalamin (vitamin B-12) 1,000 mcg PO DAILY 09/1201/05/25 01/04/25 History 1,000 mcg tablet (Vitamin B-12) multivitamin 1 tab PO DAILY 09/12/24 08/01/0201/04/25 History thiamine HCl (vitamin B1) 100 mg 100 mg PO DAILY 09/1201/05/25 01/04/25 History tablet Physical Exam 2 Vital Signs and Narrative: Vital Signs: Last Vital Signs Temp 98.6 F 01/05/25 12:00 Pulse 105 H 01/05/25 12:00 Resp 14 01/05/25 12:00 BP 146/93 H 01/05/25 12:00 Pulse Ox 99 01/05/25 12:00 O2 Del Method Room Air 01/05/25 12:00 O2 Flow Rate 9 01/05/25 11:12 BMI result Body Mass Index 18.2 Const: General: cooperative, comfortable, alert and awake O rientation/consciousness: patient oriented x3 (forgetful, vague historian ) Resp: Effort & Inspection: normal respiratory effort, able to speak in complete sentences, no respiratory distress, no retractions and no use of accessory muscles Cardio: Rate: tachycardic GI: Inspection: No distended Palpation (GI): nontender Neuro: Other: grossly nonfocal, able to move all 4 extremities; left hip pain limits LLE ROM (pt reports chronic due to OA) General: patient oriented x3 (forgetful, vague historian ) Results Labs 01/05/25 07:44 01/05/25 07:44 Labs: Laboratory Results - last 24 hr 01/05/25 01/05/25 01/05/25 07:44 09:33 10:27 MCV 98.1 H MCH 34.2 H MCHC 34.9 RDW 15.4 Plt Count 125 L D MPV 9.9 Immature Gran % (Auto) 0.6 H Neut % (Auto) 77.7 H Lymph % (Auto) 8.4 L Summers % (Auto) 10.1 Eos % (Auto) 2.7 Baso % (Auto) 0.5 Lymph # (Auto) 0.7 L Summers # (Auto) 0.8 Eos # (Auto) 0.2 Baso # (Auto) 0.0 Abs Immat Gran (auto) 0.05 H Absolute Neuts (auto) 6.0 Absolute Nucleated RBC 0.000 Nucleated RBC % (auto) 0.0 PT 10.7 L INR 0.9 Anion Gap 27 H Estim Creat Clear Calc 98.9 Estimated GFR > 60 Random Glucose 136 H Lactic Acid 3.6 H* Calcium 9.1 D Magnesium 0.8 L* Total Bilirubin 1.3 H Direct Bilirubin 0.6 H AST 362 H ALT 199 H Alkaline Phosphatase 83 B-Natriuretic Peptide 40 Total Protein 7.3 Albumin 4.4 Triglycerides 65 Cholesterol 273 H LDL Cholesterol, Calc 127 H HDL Cholesterol 133 Lipase 38 Beta-Hydroxybutyrate 1.71 H Urine Color Yellow Urine Appearance Clear Urine pH 6.5 Ur Specific [place] 1.015 Urine Protein 30 (1+) H Urine Glucose (UA) Negative Urine Ketones 40 Urine Blood Small (1+) H Urine Nitrite Negative Ur Leukocyte Esterase Trace H Urine RBC 0-2 Urine WBC 0-5 Ur Squamous Epith Cells 0-2 Urine Bacteria None Seen Hyaline Casts 0-2 Urine Opiates Screen Not Detected Ur Buprenorphine Scrn Not Detected Ur Oxycodone Screen Not Detected Urine Methadone Screen Not Detected Urine Fentanyl Screen Not Detected Acetaminophen < 3 Ur Barbiturates Screen Not Detected Ur Phencyclidine Scrn Not Detected Ur Amphetamines Screen Not Detected U Benzodiazepines Scrn Not Detected Urine Cocaine Screen Not Detected U Marijuana (THC) Screen Not Detected Ethyl Alcohol < 10 Hepatitis A IgM Ab Nonreactive Hep Bs Antigen Negative Hep Bs Antibody NONREACTIVE Hep B Core Total Ab Nonreactive Hepatitis C Ab (EIA) Nonreactive Imaging Radiologist's Impressions: Impressions Abdomen Ultrasound 01/05/25 09:48 IMPRESSION: Hepatic steatosis. Electronically signed by: Serafin Schmidt MD 01/05/2025 10:12 AM EDT RP Abdomen/Pelvis CT 01/05/25 10:43 IMPRESSION: 1. Markedly limited examination due to patient motion. 2. Hepatic steatosis. 3. Moderate hiatal hernia. 4. Moderate colonic stool. Electronically signed by: Serafin Schmidt MD 01/05/2025 11:37 AM EDT RP Head CT 01/05/25 10:43 IMPRESSION: No acute intracranial abnormality. Decreased chronic mucosal thickening in the right maxillary sinus. Mild to moderate generalized atrophy. Electronically signed by: Yuriy Enriquez MD 01/05/2025 11:34 AM EDT RP Assessment and Plan (1) Transaminitis: Status: Acute (2) Tonic clonic seizures: Status: Acute Plan This is a 59-year-old male with a history of alcohol use disorder, tobacco dependence who initially presented to the emergency department with generalized weakness but was noted to be covered in feces and urine with concern for possible seizure, who subsequently had witnessed tonic-clonic seizure in the emergency department requiring IV Versed Seizure Admission in September for possible seizure Witnessed seizure activity in the ED Patient denies drinking alcohol for the past 1 week. Alcohol level negative Patient unreliable historian, seizure possibly due to alcohol withdrawal loaded with keppra in ED brain CT negative for acute changes neurology consult etoh use disorder follow [facility] addiction med consult due to elevated LFTs, will avoid phenobarbatol ativan protocol for withdrawal when CIWA begins trending up (currently scoring 0) thrombocytopenia likely due to etoh trend CBC acute lactic acidosis likely due to seizure, no evidence of infection IVF AGMA due to lactic acidosis from seizure and possible starvation/etoh ketoacidosis beta hydroxybutarate 1.71 continue IVF repeat BMP this afternoon hypomagnesemia mag 0.8, received IV magnesium in ED will give additional IV dose this afternoon resume po replacement in am Follow levels transaminitis elevated LFTS no abdominal pain ?due to etoh although not previously elevated abdominal imaging c/w hepatosteatosis Hepatitis panel negative Trend in a.m, if no improvement consider GI evaluation tobacco dependence smoking cessation advised NRT moderate protein calorie malnutrition BMI 18.2 Dietary supplements dvt ppx - mechanical devices due to thrombocytopenia will likely require 2 midnight stay for management of alcohol withdrawal, seizure and elevated LFTs Quality Stroke Does the patient have a stroke diagnosis?: No VTE Prior VTE?: No VTE Risk Level:: Medical - moderate - high VTE Device Contraindication: N/A - Device Ordered VTE Drug Contraindication: Treatment Not Indicated
--- NOTE | 2025-01-05 13:05 | P.CNNE_ITS ---
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 He came to hospital stating that he could not walk anymore. He has been using a walker for awhile and noted that his legs were weak. He denied any recent fall or any significant change in his back pain or new pain. No recent loss of bowel bladder control. He denied any excessive drinking of alcohol Review of Systems 2 Review of Systems: Complain of unsteadiness of gait. [facility] Past Medical History Medical History Alcohol use disorder Nicotine dependence, cigarettes, uncomplicated EtOH dependence Cerebellar ataxia Hypertension Vitamin B12 deficiency BPH (benign prostatic hyperplasia) Arthritis Surgical History Surgical History History of mandibular surgery Social History Social History Household Members: Family Housing: House Alcohol intake: current Alcohol intake frequency: 3 or more drinks per day Alcohol type: hard liquor Patient Tobacco Use Status: Current everyday Tobacco user Cigarette Packs Per Day: 0.5 Cigarettes Per Day: 10.0 Smoked in Last 30 Days: Yes Use of substances other than those prescribed or required for medical reasons: No Advance Directives: Yes Advance Directives on File: Yes Advance Directives Date on File: 09/15/24 Do you have a plan to hurt others: No Plan service: Yes Meds Allergies Allergy/AdvReac Type Severity Reaction Status Date / Time No Known Allergies (No Known Allergy Verified 01/05/25 07:34 Allergies*) Active Medications: Current Medications Acetaminophen (Acetaminophen 325 Mg Tablet) 650 mg PO Q6H PRN PRN Reason: Pain, Mild 1-3,fever,headache Calcium Carbonate (Calcium Carbonate 750 Mg Tab.Chew) 750 mg PO Q4H PRN PRN Reason: Heartburn Folic Acid (Folic Acid 1 Mg Tablet) 1 mg PO DAILY [facility] Dextrose/Sodium Chloride (D5ns) 1,000 mls @ 250 mls/hr IVCONT .Q4H CINDI Last Admin: 01/05/25 12:05 Dose: 250 mls/hr Magnesium Sulfate (Magnesium Sulfate/H2o) 2 gm in 50 mls @ 25 mls/hr IV ONCE ONE Stop: 01/05/25 16:59 Thiamine HCl 200 mg/ Sodium (Chloride) 102 mls @ 204 mls/hr IV Q24H [facility]INDI Magnesium Hydroxide (Milk Of Magnesia 30 Ml Oral.Susp) 30 ml PO DAILY PRN PRN Reason: Constipation Melatonin (Melatonin 3 Mg Tablet) 6 mg PO BEDTIME PRN PRN Reason: Insomnia Nicotine (Nicotine 14 Mg Patch.Td24) 14 mg TRANSDERMA DAILY [facility] Sodium Chloride (0.9 % Sodium Chloride Flush 3 Ml Syringe) 3 ml IVFLUSH QSHIFT [facility] Home Medications ?Medication ?Instructions ?Recorded ?Confirmed ?Last Taken ?Type acetaminophen 325 mg tablet 325 - 650 mg PO Q4H PRN 09/12/24 Unknown History (Tylenol) Headache/Pain cyanocobalamin (vitamin B-12) 1,000 mcg PO DAILY 09/1209/12/24 09/11/24 History 1,000 mcg tablet (Vitamin B-12) multivitamin 1 tab PO DAILY 09/12/24 05/0 10/0209/11/24 History thiamine HCl (vitamin B1) 100 mg 100 mg PO DAILY 09/1209/12/24 09/11/24 History tablet Physical Exam 2 Vital Signs: Vital Signs: Last Vital Signs Temp 98.6 F 01/05/25 12:00 Pulse 105 H 01/05/25 12:00 Resp 14 01/05/25 12:00 BP 146/93 H 01/05/25 12:00 Pulse Ox 99 01/05/25 12:00 O2 Del Method Room Air 01/05/25 12:00 O2 Flow Rate 9 01/05/25 11:12 BMI result Body Mass Index 18.2 Neuro: Other: He is alert and awake with normal spontaneity of speech fluency comprehension and somewhat vague affect. He remember that he has seen Dr. Hernandez in his office. Face was symmetrical. Visual ponce are full. Moderate ataxia was noted with [id number] testing bilaterally. Deep tendon reflexes were slightly on the brisk side especially in knees with equivocal plantars. Speech was okay. Results Labs 01/05/25 07:44 01/05/25 07:44 Labs: Short CBC 01/05/25 Range/Units 07:44 WBC 7.7 (4.8-10.8) X10*3/uL Hgb 12.9 L (14.0-18.0) g/dl Hct 37.0 L (42.0-52.0) % Plt Count 125 L D (160-400) X10*3/uL BMP 01/05/25 07:44 Sodium 138 Potassium 4.0 Chloride 96 Carbon Dioxide 19 L BUN 8 L Creatinine 0.69 Calcium 9.1 D Liver Function 01/05/25 Range/Units 07:44 Total Bilirubin 1.3 H (0.0-1.0) mg/dL Direct Bilirubin 0.6 H (0.0-0.5) mg/dL AST 362 H (5-37) U/L ALT 199 H (0-40) U/L Alkaline Phosphatase 83 (39-117) U/L Albumin 4.4 (3.5-5.0) g/dL Urine 01/05/25 Range/Units 10:27 Urine Color Yellow Urine Appearance Clear Urine pH 6.5 (5.0-9.0) Ur Specific [place] 1.015 (1.005-1.025) Urine Protein 30 (1+) H (Neg-Trace) mg/dL Urine Glucose (UA) Negative (Negative) mg/dL Head CT revealed moderate diffuse cerebral atrophy and little bit more of brainstem and cerebellum. 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 He has clinical features of cognitive difficulties, cerebellar type ataxia, and hyperreflexia suggestive of spinal cord or pyramidal involvement. Alcohol drinking, which he was denying, could make the situation worse. Mainstay of management is avoiding alcohol, common sense measures to avoid any falls, and correction of electrolyte parameters. There was no specific treatment. Procedures Date of Service Date of Service: 01/05/25
[2025-01-05 13:08] LABS: ~Lactic Acid-LAB USE ONLY 4.0 mmol/L (0.5-2.0)
--- NOTE | 2025-01-05 13:28 | PC.NURSE ---
this nurse called pharmacy again looking for the keppra, this nurse was told that they were having an issue with the printer and they would get it to us as soon as possible. Hospitalist was notified of this as well.
--- NOTE | 2025-01-05 13:41 | PHA.MEDREC ---
Addendum entered by Rajat Walter, Matthew 01/05/25 14:36: MED REC CHECKED BY [facility] Original Note: Pharmacy Consult ? Medication Reconciliation Pharmacy has completed the medication reconciliation. Patient was able to confirm med list.
[2025-01-05] MEDS: Thiamine HCL 200 MG in 0.9 % Sodium Chloride 100 ML 204 MG IV (13:48)
[2025-01-05 14:50] LABS: Reflex Lactate? 2 Y
[2025-01-05 15:41] LABS: ~Lactic Acid-LAB USE ONLY 2.3 mmol/L (0.5-2.0)
[2025-01-05 15:41] LABS: Anion Gap 17 (12-20); Blood Urea Nitrogen 5 mg/dL (9-16); Calcium 7.9 mg/dL (8.4-10.2); Carbon Dioxide 24 mmol/L (22-29); Chloride 99 mmol/L (96-108); Creatinine Clr Calc Pharmacy 131.2; Estimated Glomerular Filt Rate > 60; Potassium 3.5 mmol/L (3.3-5.1); Sodium 136 mmol/L (135-145)
--- NOTE | 2025-01-05 15:44 | PC.NURSE ---
eeg pt off the floor taken to have an eeg performed
--- NOTE | 2025-01-05 17:24 | PC.NURSE ---
pt a&o at baseline, pt returned from having EEG done, ivf started per order, electronic bench technician reapplied nsr on monitor, vss, call thomas wtihyi reach, plan of care ongoing
[2025-01-06] VITALS (7 sets, daily range): BP systolic 95–112; BP diastolic 58–69; PULSE 71–83; RESP 18–20; TEMP 36.2–36.7; O2SAT 98–100; BMI 18.5
[2025-01-06 07:58] LABS: Hematocrit 33.4 % (42.0-52.0); Hemoglobin 11.5 g/dl (14.0-18.0); Mean Corpuscular HGB Conc 34.4 g/dl (31.0-36.0); Mean Corpuscular Hemoglobin 33.9 pg (27.0-33.0); Mean Corpuscular Volume 98.5 fL (80.0-98.0); NRBC Abs Auto 0.000 X10*3/uL (0.0-0.012); NRBC Pct Auto 0.0 /100WBC (0.0-0.2); Platelet Count 114 X10*3/uL (160-400); Red Blood Count 3.39 X10*6/uL (4.60-5.80); White Blood Count 6.3 X10*3/uL (4.8-10.8)
[2025-01-06 08:19] LABS: Alanine Aminotransferase 104 U/L (0-40); Albumin Level 3.0 g/dL (3.5-5.0); Anion Gap 8 (12-20); Aspartate Amino Transferase 138 U/L (5-37); Blood Urea Nitrogen 3 mg/dL (9-16); Calcium 7.5 mg/dL (8.4-10.2); Carbon Dioxide 26 mmol/L (22-29); Chloride 108 mmol/L (96-108); Creatinine Clr Calc Pharmacy 133.2; Estimated Glomerular Filt Rate > 60; Magnesium 1.2 mg/dL (1.6-2.6); Potassium 3.0 mmol/L (3.3-5.1); Sodium 139 mmol/L (135-145); Total Protein 5.1 g/dL (6.5-8.0)
[2025-01-06 08:20] LABS: Alkaline Phosphatase 50 U/L (39-117)
[2025-01-06] MEDS: 0.9 % Sodium Chloride Flush 3 ML SYRINGE IVFLUSH ×3 (08:35→20:46)
[2025-01-06] MEDS: Potassium Chloride Packet 20 MEQ PACKET 60 MEQ PO (09:16)
[2025-01-06] MEDS: Magnesium Sulfate/H2O 2 GM/50 ML PIGGYBACK IV (09:16)
--- NOTE | 2025-01-06 10:37 | P.PNIM_ITS ---
Subjective Subjective Date of Service: 01/06/25 Interval History: seen and examined this morning follow up for seizure, possible etoh withdrawal patient feeling well, no overnight events Review of Systems Review of Systems: Yes all other systems are reviewed and are negative Constitutional Constitutional: Denies chills and Denies fever(s) Cardiovascular Cardiovascular: Denies chest pain, Denies palpitations and Denies dyspnea Respiratory Respiratory: Denies cough and Denies dyspnea Endocrine Endocrine: Denies palpitations Physical Exam 2 Vital Signs: Vital Signs: Last Vital Signs Temp 97.8 F 01/06/25 07:47 Pulse 71 01/06/25 07:47 Resp 18 01/06/25 07:47 BP 103/63 01/06/25 07:47 Pulse Ox 100 01/06/25 07:47 O2 Del Method Room Air 01/06/25 07:47 O2 Flow Rate 9 01/05/25 11:12 BMI result Body Mass Index 18.5 Const: General: cooperative, comfortable, alert and awake O rientation/consciousness: patient oriented x3 (forgetful, vague historian ) Resp: Effort & Inspection: normal respiratory effort, able to speak in complete sentences, no respiratory distress, no retractions and no use of accessory muscles Cardio: Rate: tachycardic GI: Inspection: No distended Palpation (GI): nontender Neuro: Other: grossly nonfocal, able to move all 4 extremities; left hip pain limits LLE ROM (pt reports chronic due to OA) General: patient oriented x3 (forgetful, vague historian ) Objective Data Active Medications Acetaminophen (Acetaminophen 325 Mg Tablet) 650 mg PO Q6H PRN PRN Reason: Pain, Mild 1-3,fever,headache Calcium Carbonate (Calcium Carbonate 750 Mg Tab.Chew) 750 mg PO Q4H PRN PRN Reason: Heartburn Cyanocobalamin (Cyanocobalamin (Vitamin B-12) 1,000 Mcg Tablet) 1,000 mcg PO DAILY [facility] Last Admin: 01/06/25 08:35 Dose: 1,000 mcg Documented By: KYLAH Folic Acid (Folic Acid 1 Mg Tablet) 1 mg PO DAILY [facility] Last Admin: 01/06/25 08:35 Dose: 1 mg Documented By: KYLAH Dextrose/Sodium Chloride (D5ns) 1,000 mls @ 250 mls/hr IVCONT .Q4H [facility] Last Admin: 01/06/25 08:34 Dose: Not Given Documented By: KYLAH Non-Admin Reason: HOLD PER PROVIDER Thiamine HCl 200 mg/ Sodium (Chloride) 102 mls @ 204 mls/hr IV Q24H [facility] Last Infusion: 01/05/25 14:18 Dose: Infused Documented By: CANDACE Magnesium Sulfate (Magnesium Sulfate/H2o) 2 gm in 50 mls @ 25 mls/hr IV ONCE ONE Stop: 01/06/25 10:47 Last Admin: 01/06/25 09:16 Dose: 25 mls/hr Documented By: KYLAH Levetiracetam (Levetiracetam 500 Mg Tablet) 500 mg PO BID [facility] Last Admin: 01/06/25 10:27 Dose: 500 mg Documented By: KYLAH Magnesium Hydroxide (Milk Of Magnesia 30 Ml Oral.Susp) 30 ml PO DAILY PRN PRN Reason: Constipation Magnesium Oxide (Magnesium Oxide 400 Mg Tablet) 400 mg PO DAILY [facility] Last Admin: 01/06/25 08:35 Dose: 400 mg Documented By: KYLAH Melatonin (Melatonin 3 Mg Tablet) 6 mg PO BEDTIME PRN PRN Reason: Insomnia Multivitamins/Vitamin C (Multivitamin Tablet) 1 tab PO DAILY [facility] Last Admin: 01/06/25 08:35 Dose: 1 tab Documented By: KYLAH Nicotine (Nicotine 14 Mg Patch.Td24) 14 mg TRANSDERMA DAILY [facility] Last Admin: 01/06/25 08:35 Dose: Not Given Documented By: KYLAH Non-Admin Reason: Patient Refused Sodium Chloride (0.9 % Sodium Chloride Flush 3 Ml Syringe) 3 ml IVFLUSH QSHIFT [facility] Last Admin: 01/06/25 08:35 Dose: 3 ml Documented By: KYLAH Labs 01/06/25 07:25 01/06/25 07:25 Labs: Laboratory Results - last 24 hr 01/05/25 01/05/25 01/05/25 07:44 09:33 10:27 MCV MCH MCHC RDW Plt Count MPV Absolute Nucleated RBC Nucleated RBC % (auto) Anion Gap Estim Creat Clear Calc Estimated GFR Random Glucose Lactic Acid F/U @ 2Hr Lactic Acid F/U @ 4Hr Calcium Magnesium Total Bilirubin Direct Bilirubin AST ALT Alkaline Phosphatase Total Protein Albumin Beta-Hydroxybutyrate 1.71 H Urine Color Yellow Urine Appearance Clear Urine pH 6.5 Ur Specific [place] 1.015 Urine Protein 30 (1+) H Urine Glucose (UA) Negative Urine Ketones 40 Urine Blood Small (1+) H Urine Nitrite Negative Ur Leukocyte Esterase Trace H Urine RBC 0-2 Urine WBC 0-5 Ur Squamous Epith Cells 0-2 Urine Bacteria None Seen Hyaline Casts 0-2 Urine Opiates Screen Not Detected Ur Buprenorphine Scrn Not Detected Ur Oxycodone Screen Not Detected Urine Methadone Screen Not Detected Urine Fentanyl Screen Not Detected Ur Barbiturates Screen Not Detected Ur Phencyclidine Scrn Not Detected Ur Amphetamines Screen Not Detected U Benzodiazepines Scrn Not Detected Urine Cocaine Screen Not Detected U Marijuana (THC) Screen Not Detected Hepatitis A IgM Ab Nonreactive Hep Bs Antigen Negative Hep Bs Antibody NONREACTIVE Hep B Core Total Ab Nonreactive Hepatitis C Ab (EIA) Nonreactive 01/05/25 01/05/25 01/05/25 12:39 14:37 15:04 MCV MCH MCHC RDW Plt Count MPV Absolute Nucleated RBC Nucleated RBC % (auto) Anion Gap 17 Estim Creat Clear Calc 131.2 Estimated GFR > 60 Random Glucose 149 H Lactic Acid F/U @ 2Hr 4.0 H* Lactic Acid F/U @ 4Hr 2.3 H* Calcium 7.9 L D Magnesium Total Bilirubin Direct Bilirubin AST ALT Alkaline Phosphatase Total Protein Albumin Beta-Hydroxybutyrate Urine Color Urine Appearance Urine pH Ur Specific [place] Urine Protein Urine Glucose (UA) Urine Ketones Urine Blood Urine Nitrite Ur Leukocyte Esterase Urine RBC Urine WBC Ur Squamous Epith Cells Urine Bacteria Hyaline Casts Urine Opiates Screen Ur Buprenorphine Scrn Ur Oxycodone Screen Urine Methadone Screen Urine Fentanyl Screen Ur Barbiturates Screen Ur Phencyclidine Scrn Ur Amphetamines Screen U Benzodiazepines Scrn Urine Cocaine Screen U Marijuana (THC) Screen Hepatitis A IgM Ab Hep Bs Antigen Hep Bs Antibody Hep B Core Total Ab Hepatitis C Ab (EIA) 01/06/25 07:25 MCV 98.5 H MCH 33.9 H MCHC 34.4 RDW 15.2 Plt Count 114 L MPV 10.7 Absolute Nucleated RBC 0.000 Nucleated RBC % (auto) 0.0 Anion Gap 8 L Estim Creat Clear Calc 133.2 Estimated GFR > 60 Random Glucose 119 H Lactic Acid F/U @ 2Hr Lactic Acid F/U @ 4Hr Calcium 7.5 L Magnesium 1.2 L* Total Bilirubin 1.5 H Direct Bilirubin 0.6 H AST 138 H ALT 104 H Alkaline Phosphatase 50 Total Protein 5.1 L Albumin 3.0 L Beta-Hydroxybutyrate Urine Color Urine Appearance Urine pH Ur Specific [place] Urine Protein Urine Glucose (UA) Urine Ketones Urine Blood Urine Nitrite Ur Leukocyte Esterase Urine RBC Urine WBC Ur Squamous Epith Cells Urine Bacteria Hyaline Casts Urine Opiates Screen Ur Buprenorphine Scrn Ur Oxycodone Screen Urine Methadone Screen Urine Fentanyl Screen Ur Barbiturates Screen Ur Phencyclidine Scrn Ur Amphetamines Screen U Benzodiazepines Scrn Urine Cocaine Screen U Marijuana (THC) Screen Hepatitis A IgM Ab Hep Bs Antigen Hep Bs Antibody Hep B Core Total Ab Hepatitis C Ab (EIA) Assessment and Plan (1) Transaminitis: Status: Acute (2) Hypomagnesemia: Status: Acute (3) Spinocerebellar ataxia: Status: Acute (4) Tonic clonic seizures: Status: Acute Plan This is a 59-year-old male with a history of alcohol use disorder, tobacco dependence who initially presented to the emergency department with generalized weakness but was noted to be covered in feces and urine with concern for possible seizure, who subsequently had witnessed tonic-clonic seizure in the emergency department requiring IV Versed Seizure Admission in September for possible seizure Witnessed seizure activity in the ED Patient denies drinking alcohol for the past 1 week. Alcohol level negative loaded with keppra in ED brain CT negative for acute changes eeg done, report pending neurology consult - start keppra 500 bid etoh use disorder follow CIWA addiction med consult pending due to elevated LFTs, will avoid phenobarbatol ativan protocol for withdrawal when CIWA begins trending up - CIWA remains low; doesn't not appear to be withdrawing at this time hypomagnesemia still low will give additional IV dose increase po dose to bid Follow levels hypokalemia replace and follow thrombocytopenia likely due to etoh trending down slightly follow CBC acute lactic acidosis likely due to seizure, no evidence of infection trended down with IVF AGMA due to lactic acidosis from seizure and possible starvation/etoh ketoacidosis beta hydroxybutarate 1.71 resolved with IVF transaminitis elevated LFTS no abdominal pain ?due to etoh although not previously elevated abdominal imaging c/w hepatosteatosis Hepatitis panel negative Trending down tobacco dependence smoking cessation advised NRT moderate protein calorie malnutrition BMI 18.2 Dietary supplements dvt ppx - mechanical devices due to thrombocytopenia Requires ongoing inpatient stay for management of alcohol withdrawal, seizure and elevated LFTs; requires PT evaluation for safe disposition Quality Stroke Does the patient have a stroke diagnosis?: No VTE Prior VTE?: No VTE Risk Level:: Medical - moderate - high VTE Device Contraindication: N/A - Device Ordered VTE Drug Contraindication: Treatment Not Indicated
--- NOTE | 2025-01-06 12:02 | MHC.CLN ---
CONSULT PT IS MODERATELY MALNOURISHED PT WITH 6% NONSIGNIFICANT WT LOSS X 90DAYS WITH BMI 18 AND MILDLY DEPLETED SUBCUTANEOUS FAT REGULAR DIET IN PLACE PT RECEIVING 8OZ ENSURE BID TO PROMOTE INCREASED KCALS SUPPLEMENT PROVIDES 700KCALS, 40G PROTEIN MONITOR PO INTAKE AND ENCOURAGE SUPPLEMENTS SEE FULL ASSESSMENT
[2025-01-06] MEDS: Thiamine HCL 200 MG in 0.9 % Sodium Chloride 100 ML 204 MG IV (12:13)
--- NOTE | 2025-01-06 14:17 | MHC.CM.PN ---
CM MET WITH PT AND FAMILY AT BEDSIDE PT LIVES WITH HIS PARENTS AND YOUNGER BROTHER HE IS INDEPENDENT WITH CARE, USES A CANE AND A ROLLATOR HCP ON FILE PCP: SISSY OLMEDO IMM DELIVERED DCP TBD: FAMILY IS HOPEFUL PT WILL QUALIFY FOR STR THEY REPORT HE IS UNSTEADY DCP PENDING PT EVAL, STR VS HOME TRANSPORT TBD BY DISPO, BLS VS FAMILY
[2025-01-07 03:45] VITALS: BP 107/63; PULSE 79; RESP 18; TEMP 37.2; O2SAT 98
[2025-01-07 07:11] VITALS: BP 109/64; PULSE 89; RESP 17; TEMP 36.3; O2SAT 99
[2025-01-07 08:23] LABS: Hematocrit 33.6 % (42.0-52.0); Hemoglobin 11.7 g/dl (14.0-18.0); Mean Corpuscular HGB Conc 34.8 g/dl (31.0-36.0); Mean Corpuscular Hemoglobin 34.1 pg (27.0-33.0); Mean Corpuscular Volume 98.0 fL (80.0-98.0); NRBC Abs Auto 0.000 X10*3/uL (0.0-0.012); NRBC Pct Auto 0.0 /100WBC (0.0-0.2); Platelet Count 112 X10*3/uL (160-400); Red Blood Count 3.43 X10*6/uL (4.60-5.80); White Blood Count 13.4 X10*3/uL (4.8-10.8)
[2025-01-07 08:43] LABS: Alanine Aminotransferase 127 U/L (0-40); Albumin Level 3.3 g/dL (3.5-5.0); Alkaline Phosphatase 62 U/L (39-117); Anion Gap 13 (12-20); Aspartate Amino Transferase 166 U/L (5-37); Blood Urea Nitrogen 3 mg/dL (9-16); Calcium 8.2 mg/dL (8.4-10.2); Carbon Dioxide 26 mmol/L (22-29); Chloride 102 mmol/L (96-108); Creatinine Clr Calc Pharmacy 130.7; Estimated Glomerular Filt Rate > 60; Magnesium 1.2 mg/dL (1.6-2.6); Potassium 3.6 mmol/L (3.3-5.1); Sodium 137 mmol/L (135-145); Total Protein 5.6 g/dL (6.5-8.0)
[2025-01-07] MEDS: Magnesium Sulfate/H2O 2 GM/50 ML PIGGYBACK IV (09:38)
[2025-01-07] MEDS: 0.9 % Sodium Chloride Flush 3 ML SYRINGE IVFLUSH ×3 (09:40→19:30)
--- NOTE | 2025-01-07 10:46 | P.PNIM_ITS ---
Subjective Subjective Date of Service: 01/07/25 Interval History: seen and examined this morning follow up for seizure, possible etoh withdrawal patient feeling well, no overnight events Review of Systems Review of Systems: Yes all other systems are reviewed and are negative Constitutional Constitutional: Denies chills and Denies fever(s) Cardiovascular Cardiovascular: Denies chest pain, Denies palpitations and Denies dyspnea Respiratory Respiratory: Denies cough and Denies dyspnea Endocrine Endocrine: Denies palpitations Physical Exam 2 Exam: Exam: Appearing in no acute distress lung sounds are clear to auscultation heart regular rate rhythm, clear S1, S2 positive bowel sounds, abdomen is soft, nontender neuro patient is alert x3, no focal deficits Vital Signs: Vital Signs: Last Vital Signs Temp 97.3 F 01/07/25 07:11 Pulse 89 01/07/25 07:11 Resp 17 01/07/25 07:11 BP 109/64 01/07/25 07:11 Pulse Ox 99 01/07/25 07:11 O2 Del Method Room Air 01/07/25 07:11 O2 Flow Rate 9 01/05/25 11:12 BMI result Body Mass Index 18.5 Objective Data Active Medications Acetaminophen (Acetaminophen 325 Mg Tablet) 650 mg PO Q6H PRN PRN Reason: Pain, Mild 1-3,fever,headache Calcium Carbonate (Calcium Carbonate 750 Mg Tab.Chew) 750 mg PO Q4H PRN PRN Reason: Heartburn Cyanocobalamin (Cyanocobalamin (Vitamin B-12) 1,000 Mcg Tablet) 1,000 mcg PO DAILY [facility] Last Admin: 01/07/25 09:36 Dose: 1,000 mcg Documented By: ERASMO Folic Acid (Folic Acid 1 Mg Tablet) 1 mg PO DAILY [facility] Last Admin: 01/07/25 09:36 Dose: 1 mg Documented By: ERASMO Thiamine HCl 200 mg/ Sodium (Chloride) 102 mls @ 204 mls/hr IV Q24H [facility] Last Infusion: 01/06/25 12:43 Dose: Infused Documented By: KYLAH Magnesium Sulfate (Magnesium Sulfate/H2o) 2 gm in 50 mls @ 25 mls/hr IV ONCE ONE Stop: 01/07/25 11:15 Last Admin: 01/07/25 09:38 Dose: 25 mls/hr Documented By: ERASMO Levetiracetam (Levetiracetam 500 Mg Tablet) 500 mg PO BID [facility] Last Admin: 01/07/25 09:36 Dose: 500 mg Documented By: ERASMO Magnesium Hydroxide (Milk Of Magnesia 30 Ml Oral.Susp) 30 ml PO DAILY PRN PRN Reason: Constipation [facility] ([facility] 400 Mg [facility] Admin: 01/07/25 09:36 Dose: 400 mg Documented By: ERASMO Melatonin (Melatonin 3 Mg Tablet) 6 mg PO BEDTIME PRN PRN Reason: Insomnia Multivitamins/Vitamin C (Multivitamin Tablet) 1 tab PO DAILY [facility] Last Admin: 01/07/25 09:36 Dose: 1 tab Documented By: ERASMO Nicotine (Nicotine 14 Mg Patch.Td24) 14 mg TRANSDERMA DAILY [facility] Last Admin: 01/07/25 09:38 Dose: Not Given Documented By: ERASMO Non-Admin Reason: Patient Refused Sodium Chloride (0.9 % Sodium Chloride Flush 3 Ml Syringe) 3 ml IVFLUSH QSHIFT [facility] Last Admin: 01/07/25 09:40 Dose: 3 ml Documented By: ERASMO Labs 01/07/25 07:36 01/07/25 07:36 Labs: Laboratory Results - last 24 hr 01/07/25 07:36 MCV 98.0 MCH 34.1 H MCHC 34.8 RDW 14.6 Plt Count 112 L MPV 11.1 Absolute Nucleated RBC 0.000 Nucleated RBC % (auto) 0.0 Anion Gap 13 Estim Creat Clear Calc 130.7 Estimated GFR > 60 Random Glucose 97 Calcium 8.2 L D Magnesium 1.2 L* Total Bilirubin 1.4 H Direct Bilirubin 0.5 AST 166 H ALT 127 H Alkaline Phosphatase 62 Total Protein 5.6 L Albumin 3.3 L Hold Yellow Top See Note Assessment and Plan (1) Transaminitis: Status: Acute (2) Hypomagnesemia: Status: Acute (3) Spinocerebellar ataxia: Status: Acute (4) Tonic clonic seizures: Status: Acute Plan 59-year-old male with a history of alcohol use disorder, tobacco dependence who initially presented to the emergency department with generalized weakness but was noted to be covered in feces and urine with concern for possible seizure, who subsequently had witnessed tonic-clonic seizure in the emergency department requiring IV Versed Seizure Admission in September for possible seizure Witnessed seizure activity in the ED Patient denies drinking alcohol for the past 1 week. Alcohol level negative loaded with keppra in ED brain CT negative for acute changes eeg done, report pending neurology consult>started keppra 500 bid Leukocytosis no signs of infection maybe reactive monitor Etoh use disorder follow CIWA addiction consult due to elevated LFTs, will avoid phenobarbatol ativan protocol for withdrawal when CIWA begins trending up>CIWA remains low; doesn't not appear to be withdrawing at this time Hypomagnesemia replete with IV and oral Hypokalemia Repleted and resolved Thrombocytopenia likely due to etoh trending down follow CBC Acute lactic acidosis likely due to seizure, no evidence of infection trended down with IVF AGMA due to lactic acidosis from seizure and possible starvation/etoh ketoacidosis beta hydroxybutarate 1.71 resolved with IVF Transaminitis elevated LFTS no abdominal pain ?due to etoh although not previously elevated abdominal imaging c/w hepatosteatosis Hepatitis panel negative Trending down Tobacco dependence smoking cessation advised NRT Moderate protein calorie malnutrition BMI 18.5 Dietary supplements OOB to chair dvt ppx - mechanical devices due to thrombocytopenia Full code Quality Stroke Does the patient have a stroke diagnosis?: No VTE Prior VTE?: No VTE Risk Level:: Medical - moderate - high VTE Device Contraindication: N/A - Device Ordered VTE Drug Contraindication: Treatment Not Indicated
[2025-01-07 11:13] VITALS: BP 112/62; PULSE 74; RESP 17; TEMP 36.2; O2SAT 99
[2025-01-07] MEDS: Thiamine HCL 200 MG in 0.9 % Sodium Chloride 100 ML 204 MG IV (12:14)
[2025-01-07 15:27] VITALS: BP 121/67; PULSE 98; RESP 17; TEMP 36.4; O2SAT 98
[2025-01-07 19:14] VITALS: BP 114/70; PULSE 106; RESP 18; TEMP 37.7; O2SAT 98
[2025-01-07 23:38] VITALS: BP 122/74; PULSE 86; RESP 18; TEMP 37.2; O2SAT 99
[2025-01-08 03:11] VITALS: BP 130/80; PULSE 98; RESP 18; TEMP 37; O2SAT 100
[2025-01-08 07:29] VITALS: BP 125/79; PULSE 87; RESP 16; TEMP 36.7; O2SAT 100
[2025-01-08] MEDS: 0.9 % Sodium Chloride Flush 3 ML SYRINGE IVFLUSH ×3 (07:55→20:49)
[2025-01-08 09:43] LABS: Anion Gap 15 (12-20); Blood Urea Nitrogen 5 mg/dL (9-16); Calcium 8.9 mg/dL (8.4-10.2); Carbon Dioxide 26 mmol/L (22-29); Chloride 100 mmol/L (96-108); Creatinine Clr Calc Pharmacy 133.2; Estimated Glomerular Filt Rate > 60; Potassium 3.8 mmol/L (3.3-5.1); Sodium 137 mmol/L (135-145)
[2025-01-08 09:56] LABS: Magnesium 1.4 mg/dL (1.6-2.6)
--- NOTE | 2025-01-08 10:18 | P.PNIM_ITS ---
Subjective Subjective Date of Service: 01/08/25 Interval History: seen and examined this morning follow up for seizure, possible etoh withdrawal patient feeling well, no overnight events Review of Systems Review of Systems: Yes all other systems are reviewed and are negative Constitutional Constitutional: Denies chills and Denies fever(s) Cardiovascular Cardiovascular: Denies chest pain, Denies palpitations and Denies dyspnea Respiratory Respiratory: Denies cough and Denies dyspnea Endocrine Endocrine: Denies palpitations Physical Exam 2 Exam: Exam: Appearing in no acute distress lung sounds are clear to auscultation heart regular rate rhythm, clear S1, S2 positive bowel sounds, abdomen is soft, nontender neuro patient is alert x3, no focal deficits Vital Signs: Vital Signs: Last Vital Signs Temp 98.0 F 01/08/25 07:29 Pulse 87 01/08/25 07:29 Resp 16 01/08/25 07:29 BP 125/79 01/08/25 07:29 Pulse Ox 100 01/08/25 07:29 O2 Del Method Room Air 01/08/25 07:29 O2 Flow Rate 9 01/05/25 11:12 BMI result Body Mass Index 18.5 Objective Data Active Medications Acetaminophen (Acetaminophen 325 Mg Tablet) 650 mg PO Q6H PRN PRN Reason: Pain, Mild 1-3,fever,headache Last Admin: 01/07/25 15:21 Dose: 650 mg Documented By: SP Calcium Carbonate (Calcium Carbonate 750 Mg Tab.Chew) 750 mg PO Q4H PRN PRN Reason: Heartburn Cyanocobalamin (Cyanocobalamin (Vitamin B-12) 1,000 Mcg Tablet) 1,000 mcg PO DAILY [facility] Last Admin: 01/08/25 07:53 Dose: 1,000 mcg Documented By: ERASMO Diazepam (Diazepam 10 Mg/2 Ml Cartridge) 10 mg IVPUSH Q6H PRN PRN Reason: Anxiety Folic Acid (Folic Acid 1 Mg Tablet) 1 mg PO DAILY [facility] Last Admin: 01/08/25 07:54 Dose: 1 mg Documented By: ERASMO Thiamine HCl 200 mg/ Sodium (Chloride) 102 mls @ 204 mls/hr IV Q24H [facility] Last Infusion: 01/07/25 12:45 Dose: Infused Documented By: ERASMO Magnesium Sulfate (Magnesium Sulfate/H2o) 2 gm in 50 mls @ 25 mls/hr IV ONCE ONE Stop: 01/08/25 12:07 Levetiracetam (Levetiracetam 500 Mg Tablet) 500 mg PO BID [facility] Last Admin: 01/08/25 07:53 Dose: 500 mg Documented By: ERASMO Magnesium Hydroxide (Milk Of Magnesia 30 Ml Oral.Susp) 30 ml PO DAILY PRN PRN Reason: Constipation Magnesium Oxide (Magnesium Oxide 400 Mg Tablet) 800 mg PO BIDPC [facility] Melatonin (Melatonin 3 Mg Tablet) 6 mg PO BEDTIME PRN PRN Reason: Insomnia Multivitamins/Vitamin C (Multivitamin Tablet) 1 tab PO DAILY [facility] Last Admin: 01/08/25 07:53 Dose: 1 tab Documented By: ERASMO Nicotine (Nicotine 14 Mg Patch.Td24) 14 mg TRANSDERMA DAILY [facility] Last Admin: 01/08/25 07:55 Dose: Not Given Documented By: ERASMO Non-Admin Reason: Patient Refused Sodium Chloride (0.9 % Sodium Chloride Flush 3 Ml Syringe) 3 ml IVFLUSH QSHIFT [facility] Last Admin: 01/08/25 07:55 Dose: 3 ml Documented By: ERASMO Labs 01/07/25 07:36 01/08/25 09:02 Labs: Laboratory Results - last 24 hr 01/08/25 09:02 Hold Purple Top SEE NOTE Anion Gap 15 Estim Creat Clear Calc 133.2 Estimated GFR > 60 Random Glucose 95 Calcium 8.9 D Magnesium 1.4 L* Assessment and Plan (1) Transaminitis: Status: Acute (2) Hypomagnesemia: Status: Acute (3) Spinocerebellar ataxia: Status: Acute (4) Tonic clonic seizures: Status: Acute Plan 59-year-old male with a history of alcohol use disorder, tobacco dependence who initially presented to the emergency department with generalized weakness but was noted to be covered in feces and urine with concern for possible seizure, who subsequently had witnessed tonic-clonic seizure in the emergency department requiring IV Versed Seizure Admission in September for possible seizure Witnessed seizure activity in the ED Patient denies drinking alcohol for the past 1 week. Alcohol level negative loaded with keppra in ED brain CT negative for acute changes eeg done, report pending neurology consult>started keppra 500 bid Leukocytosis no signs of infection maybe reactive monitor Etoh use disorder follow CIWA addiction consult due to elevated LFTs, will avoid phenobarbatol ativan protocol for withdrawal when CIWA begins trending up>CIWA remains low; doesn't not appear to be withdrawing at this time Hypomagnesemia replete with IV and oral Hypokalemia Repleted and resolved Thrombocytopenia likely due to etoh trending down follow CBC Acute lactic acidosis likely due to seizure, no evidence of infection trended down with IVF AGMA due to lactic acidosis from seizure and possible starvation/etoh ketoacidosis beta hydroxybutarate 1.71 resolved with IVF Transaminitis elevated LFTS no abdominal pain ?due to etoh although not previously elevated abdominal imaging c/w hepatosteatosis Hepatitis panel negative Trending down Tobacco dependence smoking cessation advised NRT Moderate protein calorie malnutrition BMI 18.5 Dietary supplements OOB to chair dvt ppx - mechanical devices due to thrombocytopenia Full code Quality Stroke Does the patient have a stroke diagnosis?: No VTE Prior VTE?: No VTE Risk Level:: Medical - moderate - high VTE Device Contraindication: N/A - Device Ordered VTE Drug Contraindication: Treatment Not Indicated
[2025-01-08 11:11] VITALS: BP 113/69; PULSE 90; RESP 16; TEMP 36.9; O2SAT 98
[2025-01-08] MEDS: Magnesium Sulfate/H2O 2 GM/50 ML PIGGYBACK IV (11:34)
[2025-01-08] MEDS: Thiamine HCL 200 MG in 0.9 % Sodium Chloride 100 ML 204 MG IV (13:40)
[2025-01-08 15:47] VITALS: BP 119/72; PULSE 97; RESP 16; TEMP 36.5; O2SAT 99
[2025-01-08 19:39] VITALS: BP 118/71; PULSE 82; RESP 18; TEMP 36.6; O2SAT 100
[2025-01-08 23:28] VITALS: BP 121/68; PULSE 97; RESP 18; TEMP 36.6; O2SAT 100
[2025-01-09 04:00] VITALS: BP 126/74; PULSE 96; RESP 18; TEMP 36.2; O2SAT 100
[2025-01-09 07:41] VITALS: BP 112/70; PULSE 76; RESP 18; TEMP 36.7; O2SAT 99
--- NOTE | 2025-01-09 08:53 | PM.DS ---
DS: Providers Provider Date of Service: 01/10/25 Date of admission: 01/05/25 11:58 Date of discharge: 01/10/25 Primary care physician: Serafin Mckeon MD Consults: 01/05/25 12:17 Consult to Neurology Routine Consulting Provider: [facility] Reason for consultation: witnessed seizure; h/o etoh; previous h/o seizure Has provider been notified: No 01/05/25 12:43 Addiction Medicine Provider Routine Consulting Provider: Addiction Covering Reason for consultation: etoh use disorder Has provider been notified: No DS: Diagnosis Discharge Diagnosis (1) Transaminitis: Status: Acute (2) Hypomagnesemia: Status: Acute (3) Spinocerebellar ataxia: Status: Acute (4) Tonic clonic seizures: Status: Acute DS: Summary Hospital Course Hospital Course: History and physical as per admitting provider. This is a 59-year-old male with history of alcohol abuse, previous admission for possible seizure in September who presented due to weakness. Patient presented from home with report of nausea, vomiting and generalized weakness. Noted to be incontinent of stool and urine on arrival. Denies abdominal pain, nausea, vomiting. While in the emergency department and had witnessed seizure in the ED requiring IV Versed. Brain CT with no acute intracranial abnormality, [id number] generalized atrophy. Lab work significant for thrombocytopenia, anion gap lactic acid 3.6, bicarb 19, magnesium 0.8, AST 362, ALT 199, beta hydroxybutyrate 1.71. CT scan of the abdomen limited due to patient motion, hepatic steatosis noted as well as moderate colonic stool. Abdominal ultrasound with hepatic steatosis. Of note patient had an admission in September for possible seizure activity, at that time he was seen by Neurology and recommended to have outpatient EEG, possibly related to alcohol withdrawal and no medications started at that time. Patient is somewhat forgetful and disoriented but states that he has not had a drink for nearly 1 week because he has not been feeling well and having nausea/vomiting. 59-year-old man admitted for possible seizure secondary to alcohol abuse. Patient reported that he has not drank in his alcohol level was in fact negative. Apparently had some device similar that appeared to be a seizure a few months ago. He was loaded with Keppra in the ER and Neurology recommended continuing Keppra 500 mg twice daily. He had a brain CT was negative for acute changes, EEG did not show any changes or seizure activity. At this time patient is stable for discharge home. He will continue on the Keppra, he should drive for 6 months and she should follow up with Neurology for management of this medication. Leukocytosis. No sign of infection, likely reactive transplant alcohol use disorder Etoh use disorder. Treated with CIWA scale, seen evaluated by addiction team who did discuss treatment while naltrexone. Patient was also recommended to go to and have not outpatient coach mechanic as he does live in a situation where all of his family drink alcohol. Hypomagnesemia. Repleted with oral and IV. Continue oral magnesium and check magnesium in 3 days Hypokalemia. Repleted and resolved Thrombocytopenia. Likely secondary to alcohol use Acute lactic acidosis. Likely secondary to seizure, no evidence of infection, treated with IV fluids AGMA due to lactic acidosis from seizure and possible starvation/etoh ketoacidosis, beta hydroxybutarate 1.71, resolved with IVF Transaminitis. Elevated LFTs, likely related to alcohol use. Imaging showing hepatic steatosis, hepatitis panel negative Tobacco dependence. smoking cessation advised. NRT Moderate protein calorie malnutrition. BMI 18.5. Dietary supplements Less than 30 day stay Time Attestation Discharge Coordination Time (in mins): 45 Quality: Safe Use of Opioids Does Pt have an Active Cancer Diagnosis on the Problem List?: No Quality: Stroke Does the patient have a stroke diagnosis?: No Physical Exam Exam: Exam: Appearing in no acute distress head is normocephalic atraumatic eyes pupils are PERRLA sclera is anicteric mouth throat mucous membranes are intact and moist neck is supple no lymphadenopathy, no JVD noted lung sounds are clear to auscultation heart regular rate rhythm, clear S1, S2 positive bowel sounds, abdomen is soft, nontender neuro patient is alert x3, no focal deficits Vital Signs: Vital Signs: Last Vital Signs Temp 98.0 F 01/09/25 07:41 Pulse 76 01/09/25 07:41 Resp 18 01/09/25 07:41 BP 112/70 01/09/25 07:41 Pulse Ox 99 01/09/25 07:41 O2 Del Method Room Air 01/09/25 07:41 O2 Flow Rate 9 01/05/25 11:12 BMI result Body Mass Index 18.5 DS: Data Data Completed and Pending Labs on day of discharge: Laboratory Results - last 24 hr 01/08/25 09:02 Hold Purple Top SEE NOTE Sodium 137 Potassium 3.8 Chloride 100 Carbon Dioxide 26 Anion Gap 15 BUN 5 L Creatinine 0.52 Estim Creat Clear Calc 133.2 Estimated GFR > 60 Random Glucose 95 Calcium 8.9 D Magnesium 1.4 L* Discharge Plan Discharge Anticipated Discharge Date/Time: 01/09/25 08:49 Patient Disposition: Xfer SNF Discharge Diagnosis: New onset seizure hypomagnesemia ETOH Referrals: [facility] [Provider Group] - 01/16/25 9:30 am Referral Note: This appt is to start/continue Naltrexone for alcohol use disorder Please present with your ID and Ins card if available. If you can not keep you appt please call to [facility] [Outside] - 1 Day Referral Note: SHORT TERM REHAB Serafin Mckeon MD [Primary Care Provider, Internal Medicine] - 1 Week Ever Kulkarni MD [Physician, Neurology] - 1 Week Referral Note: Management of seizure medications Discharge Medications: New levetiracetam 500 mg Tablet 500 mg PO BID Qty: 60 0RF folic acid 1 mg Tablet 1 mg PO DAILY Qty: 30 0RF magnesium oxide 400 mg (241.3 mg magnesium) Tablet 800 mg PO BIDPC Qty: 20 0RF naltrexone 50 mg tablet 50 mg PO DAILY Qty: 30 0RF Continued acetaminophen [Tylenol] 325 mg Tablet 325 - 650 mg PO Q4H PRN (Reason: Headache/Pain) cyanocobalamin (vitamin B-12) [Vitamin B-12] 1,000 mcg Tablet 1,000 mcg PO DAILY thiamine HCl (vitamin B1) 100 mg tablet 100 mg PO DAILY multivitamin Tablet 1 tab PO DAILY Discontinued magnesium oxide 400 mg magnesium tablet 400 mg PO DAILY Qty: 90 0RF Discharge Orders: Discharge Order (Routine); Ordered 01/10/25 Ordered By: Analilia Boggs Diet: Advance to usual diet Activity on Discharge: As tolerated Stand Alone Forms: Patient Portal Discharge page Print Language: Burmese Other Ambulatory Orders: Magnesium (Routine) Timeframe: 3 Days Facility: [facility] - Location: Laboratory Ordered By: Analilia Boggs Care Plan Goals: You have been started on antiseizure medications. You can not drive for at least 6 months, avoid activities that are dangerous being alone such as swimming, hiking, baths. Always have somebody accompanying you or monitoring you during these types of activities Follow up with a neurologist for management of seizure medications May use imodium for loose stools Use naltrexone for assistance with alcohol cessation Health Concerns: New onset seizure hypomagnesemia ETOH Plan of Treatment: Follow up with primary care provider as needed Take all medications as prescribed Assessment: See discharge summary
[2025-01-09] MEDS: 0.9 % Sodium Chloride Flush 3 ML SYRINGE IVFLUSH ×3 (09:04→20:56)
[2025-01-09 09:55] LABS: Magnesium 1.4 mg/dL (1.6-2.6)
[2025-01-09] MEDS: Magnesium Sulfate/H2O 2 GM/50 ML PIGGYBACK IV (10:40)
[2025-01-09 11:26] VITALS: BP 118/74; PULSE 91; RESP 18; TEMP 37.4; O2SAT 98
[2025-01-09 12:59] LABS: Magnesium 2.0 mg/dL (1.6-2.6)
--- NOTE | 2025-01-09 13:01 | MHC.CLN ---
F/U REGULAR DIET ENSURE BID TO PROMOTE NUTRITIONAL INTAKE SUPPLEMENT PROVIDES 700KCALS, 40G PROTEIN INTAKE AT MEALS VARIABLE, 50-100% MONITOR PO INTAKE AND ENCOURAGE SUPPLEMENTS
--- NOTE | 2025-01-09 13:46 | MHC.CM.PN ---
Addendum entered by Xin Morrow 01/09/25 15:05: This CM received a phone call from pts brother Ed, he states his mother does not want him returning to the home until he has been to STR. He also states he is calling the pts friend to cancel his ride today. PT evaluated pt and are recommending STR. This CM met with pt to discuss the situation. Pt understands he is being denied re-entry to his home by his mother until after he goes to STR. Pt agreeable to going to STR. [facility] has offered pt a bed, they can accept him tomorrow 01/10. Hospitalist updated, and discharge cancelled for today. Original Note: Second IMM given 01/09. Pt is medically cleared for discharge home self-care, pts friend will transport him home today, pt is aware and in agreement with the discharge plan.
--- NOTE | 2025-01-09 14:22 | HO.PM.IMPN ---
Subjective Subjective Date of Service: 01/09/25 Interval History: seen and examined this morning follow up for seizure, possible etoh withdrawal patient feeling well, no overnight events Review of Systems Review of Systems: Yes all other systems are reviewed and are negative Constitutional Constitutional: Denies chills and Denies fever(s) Cardiovascular Cardiovascular: Denies chest pain, Denies palpitations and Denies dyspnea Respiratory Respiratory: Denies cough and Denies dyspnea Endocrine Endocrine: Denies palpitations Physical Exam Exam: Exam: Appearing in no acute distress lung sounds are clear to auscultation heart regular rate rhythm, clear S1, S2 positive bowel sounds, abdomen is soft, nontender neuro patient is alert x3, no focal deficits Vital Signs: Vital Signs: Last Vital Signs Temp 99.4 F 01/09/25 11:26 Pulse 91 01/09/25 11:26 Resp 18 01/09/25 11:26 BP 118/74 01/09/25 11:26 Pulse Ox 98 01/09/25 11:26 O2 Del Method Room Air 01/09/25 11:26 O2 Flow Rate 9 01/05/25 11:12 BMI result Body Mass Index 18.5 Objective Data Active Medications Acetaminophen (Acetaminophen 325 Mg Tablet) 650 mg PO Q6H PRN PRN Reason: Pain, Mild 1-3,fever,headache Last Admin: 01/07/25 15:21 Dose: 650 mg Documented By: SP Calcium Carbonate (Calcium Carbonate 750 Mg Tab.Chew) 750 mg PO Q4H PRN PRN Reason: Heartburn Cyanocobalamin (Cyanocobalamin (Vitamin B-12) 1,000 Mcg Tablet) 1,000 mcg PO DAILY FOR[facility]LY [facility], [facility] Last Admin: 01/09/25 09:04 Dose: 1,000 mcg Documented By: LING Diazepam (Diazepam 10 Mg/2 Ml Cartridge) 10 mg IVPUSH Q6H PRN PRN Reason: Anxiety Folic Acid (Folic Acid 1 Mg Tablet) 1 mg PO DAILY [facility], [facility] Last Admin: 01/09/25 09:04 Dose: 1 mg Documented By: LING Levetiracetam (Levetiracetam 500 Mg Tablet) 500 mg PO BID [facility], [facility] Last Admin: 01/09/25 09:04 Dose: 500 mg Documented By: LING Magnesium Hydroxide (Milk Of Magnesia 30 Ml Oral.Susp) 30 ml PO DAILY PRN PRN Reason: Constipation Magnesium Oxide (Magnesium Oxide 400 Mg Tablet) 800 mg PO BIDPC FOR[facility], [facility] Last Admin: 01/09/25 09:04 Dose: 800 mg Documented By: LING Melatonin (Melatonin 3 Mg Tablet) 6 mg PO BEDTIME PRN PRN Reason: Insomnia Multivitamins/Vitamin C (Multivitamin Tablet) 1 tab PO DAILY [facility], [facility] Last Admin: 01/09/25 09:04 Dose: 1 tab Documented By: LING Nicotine (Nicotine 14 Mg Patch.Td24) 14 mg TRANSDERMA DAILY [facility], [facility] Last Admin: 01/09/25 09:04 Dose: Not Given Documented By: LING Non-Admin Reason: Patient Refused Sodium Chloride (0.9 % Sodium Chloride Flush 3 Ml Syringe) 3 ml IVFLUSH QSHIFT [facility] Last Admin: 01/09/25 09:04 Dose: 3 ml Documented By: LING Labs 01/07/25 07:36 01/08/25 09:02 Labs: Laboratory Results - last 24 hr 01/09/25 01/09/25 08:30 12:00 Hold Purple Top SEE NOTE Magnesium 1.4 L* 2.0 Assessment and Plan (1) Transaminitis: Status: Acute (2) Hypomagnesemia: Status: Acute (3) Spinocerebellar ataxia: Status: Acute (4) Tonic clonic seizures: Status: Acute Plan 59-year-old male with a history of alcohol use disorder, tobacco dependence who initially presented to the emergency department with generalized weakness but was noted to be covered in feces and urine with concern for possible seizure, who subsequently had witnessed tonic-clonic seizure in the emergency department requiring IV Versed Seizure Admission in September for possible seizure Witnessed seizure activity in the ED Patient denies drinking alcohol for the past 1 week. Alcohol level negative loaded with keppra in ED brain CT negative for acute changes eeg done, report pending neurology consult>started keppra 500 bid Leukocytosis no signs of infection maybe reactive monitor Etoh use disorder follow CIWA addiction consult due to elevated LFTs, will avoid phenobarbatol ativan protocol for withdrawal when CIWA begins trending up>CIWA remains low; doesn't not appear to be withdrawing at this time Hypomagnesemia. Resolved repleted with IV and oral Hypokalemia Repleted and resolved Thrombocytopenia likely due to etoh trending down follow CBC Acute lactic acidosis likely due to seizure, no evidence of infection trended down with IVF AGMA due to lactic acidosis from seizure and possible starvation/etoh ketoacidosis beta hydroxybutarate 1.71 resolved with IVF Transaminitis elevated LFTS no abdominal pain ?due to etoh although not previously elevated abdominal imaging c/w hepatosteatosis Hepatitis panel negative Trending down Tobacco dependence smoking cessation advised NRT Moderate protein calorie malnutrition BMI 18.5 Dietary supplements OOB to chair dvt ppx - mechanical devices due to thrombocytopenia Full code PT rec STR Quality Stroke Does the patient have a stroke diagnosis?: No VTE Prior VTE?: No VTE Risk Level:: Medical - moderate - high VTE Device Contraindication: N/A - Device Ordered VTE Drug Contraindication: Treatment Not Indicated
[2025-01-09 16:00] VITALS: BP 113/75; PULSE 92; RESP 18; TEMP 36.8; O2SAT 99
[2025-01-09 19:36] VITALS: BP 118/73; PULSE 100; RESP 18; TEMP 37; O2SAT 98
[2025-01-09 23:23] VITALS: BP 114/66; PULSE 93; RESP 18; TEMP 36.4; O2SAT 99
[2025-01-10 03:23] VITALS: BP 114/70; PULSE 93; RESP 18; TEMP 36.4; O2SAT 100
[2025-01-10 07:10] VITALS: BP 111/65; PULSE 86; RESP 18; TEMP 36.4; O2SAT 98
[2025-01-10] MEDS: 0.9 % Sodium Chloride Flush 3 ML SYRINGE IVFLUSH (08:58)
--- NOTE | 2025-01-10 09:13 | MHC.CM.PN ---
Addendum entered by Andreea Calderon RN 01/10/25 09:47: CM MET W/PT TO LET HIM KNOW TIME OF TRANSFER IS 11:30AM, CM OFFERED TO CONTACT FAMILY HOWEVER PT DECLINED AND REPORTS IF MY KIDS CALL YOU CAN LET THEM KNOW WHERE. Original Note: IMM DELIVERED 01/09/25 BY PREVIOUS CM, [facility]
--- NOTE | 2025-01-10 11:08 | P.EN_ITS ---
Event Note Date of Service: 01/10/25 Event Note: Addiction consult placed for patient AUD Seen by creative writing english professor, notes reviewed. Expressed interest in starting Naltrexone for AUD. Chart review shows patient is scheduled to d/c today, and nlatrexone has been ordered by hospitalist. CCC appt scheduled by RN Time Spent With Patient Time: Total time managing care of this patient today ____ minutes.
[2025-01-10 12:00] VITALS: BP 110/64; PULSE 80; RESP 18; TEMP 37.2; O2SAT 97
== END 2025-01-10 12:48 | disposition skilled nursing facility (03) | DRG 101 ==
LOC: HO.ED 11:46 → HO.EDOVER 12:06 → HO.IMC 19:13
PROVIDERS: Admitting Provider Physician Assistant Medical; Emergency Provider Emergency Medicine; PCP Internal Medicine Medical Oncology; Visit Provider Nurse Practitioner Acute Care
DX: R56.9 Unspecified convulsions (principal); E87.21 Acute metabolic acidosis; E44.0 Moderate protein-calorie malnutrition; Z68.1 Body mass index [BMI] 19.9 or less, adult; G11.2 Late-onset cerebellar ataxia; F17.210 Nicotine dependence, cigarettes, uncomplicated; G31.9 Degenerative disease of nervous system, unspecified; E83.42 Hypomagnesemia; D69.59 Other secondary thrombocytopenia; Z71.6 Tobacco abuse counseling; E87.6 Hypokalemia; F10.10 Alcohol abuse, uncomplicated; Z79.899 Other long term (current) drug therapy
CPT/HCPCS: 36415; 70450; 74177; 76705; 80048; 80061; 80076; 80143; 80307; 81001; 82010; 83605; 83690; 83735; 83880; 84484; 85025; 85027; 85610; 86704; 86706; 86709; 86803; 87340; 93005; 95816; 97162; 99285; J1953; J2250; J3411; J3475; Q9967; S9485

== ENCOUNTER → 2025-01-05 07:37 | Outpatient (BNV) | payer MEDICARE, SELFPAY | PROVIDERS: Admitting Provider Physician Assistant Medical; Emergency Provider Emergency Medicine; PCP Internal Medicine Medical Oncology; Visit Provider Internal Medicine | DX: I45.10 Unspecified right bundle-branch block (principal); R00.0 Tachycardia, unspecified | CPT/HCPCS: 93010 ==

== ENCOUNTER → 2025-01-05 09:13 | Outpatient (BNV) | payer MEDICARE, SELFPAY | PROVIDERS: Emergency Provider Emergency Medicine; PCP Internal Medicine Medical Oncology; Visit Provider Radiology Diagnostic Radiology | DX: K76.0 Fatty (change of) liver, not elsewhere classified (principal); G31.89 Other specified degenerative diseases of nervous system | CPT/HCPCS: 74177; 76705 ==

== ENCOUNTER → 2025-01-05 11:58 | Outpatient (BNV) | payer MEDICARE, SELFPAY | PROVIDERS: Admitting Provider Physician Assistant Medical; Emergency Provider Emergency Medicine; PCP Internal Medicine Medical Oncology; Visit Provider Psychiatry & Neurology Neurology | DX: G11.8 Other hereditary ataxias (principal) | CPT/HCPCS: 99222 ==

== ENCOUNTER → 2025-01-05 11:58 | Outpatient (BNV) | payer MEDICARE, SELFPAY | PROVIDERS: Admitting Provider Physician Assistant Medical; Emergency Provider Emergency Medicine; PCP Internal Medicine Medical Oncology; Visit Provider Physician Assistant Medical | DX: R74.01 Elevation of levels of liver transaminase levels (principal); E83.42 Hypomagnesemia; G11.8 Other hereditary ataxias; G40.409 Other generalized epilepsy and epileptic syndromes, not intractable, without status epilepticus | CPT/HCPCS: 99223; 99232; 99233; 99239 ==

== ENCOUNTER 2025-04-01 09:23 | Outpatient (REF) | payer MEDICARE, SELFPAY ==
--- OUTSIDE RECORDS SUMMARY | 2024-10-11 06:21 | XMS_ITS ---
Author Organization Serafin Mckeon III, MD Address [address] [place] [address] Care Team Providers Care Knitter Hand Name Role Phone Dr. Serafin Mckeon III Primary Care Provider REASON FOR VISIT Rx Refill Medications Medication SIG (Take, Route, Frequency, Duration) Notes Start Date End Date Status Metoprolol Tartrate 50 MG 1 tablet with food Orally Twice a day 01/21/2016 Active Magnesium 400 MG as directed Orally Active Thiamine HCl 100 MG 1 tablet Orally Once a day for 30 days 09/08/2022 10/06/2025 Active Tamsulosin HCl 0.4 MG 1 capsule Orally O nce a day 11/03/2022 Active B1 100 MG TAKE 1 TABLET BY KOREY TH EVERY DAY FOR 30 DAYS Oral Active Cyanocobalamin 1000 MCG 1 tablet Orally Once a day 09/11/2016 Active Encounters Encounter Location Date Provider Diagnosis Serafin Mckeon III, MD [address] [place] [address] [place] [address] 10/11/2024 Serafin Mckeon Tobacco dependence F17.200 Assessments Encounter Date Diagnosis (ICD Code) Assessment Notes Treatment Notes Treatment Clinical Notes 10/11/2024 Tobacco dependence (ICD-10 - F17.200) I have [...] MG 1 tablet Orally Once a day for 30 days 09/08/2022 10/06/2025 Next Appt Details Provider Name:Serafin Mckeon , 04/12/2025 09:45:00 AM, [address] [place] [address] [address], [place], [address], Progress Notes * Skip RANDLEDOB:1965 (59 yo M)Acc No.[id number]:10/11/2024 Patient: Skip VIGIL :1965 A ge:59 Y S ex:Male Address:[address] [place] [address], [address] * Refills Refill Thiamine HCl Tablet, 100 MG, Orally, 30 Tablet, 1 tablet, Once a day, 30 days, Refills=11 Subjective: * Chief Complaints: * R x Refill * Medical History: * Surgical History: * Hospitalization/Major Diagno stic Procedure: * Medications: T akingThiamine HCl 100 MG Tablet 1 tablet Orally Once a day Cyanocobalamin 1000 MCG Tablet 1 tablet Orally Once a day Metoprolol Tartrate 50 MG Tablet 1 tablet with food Orally Twice a day Tamsulosin HCl 0.4 MG Capsule 1 capsule Orally Once a day B1 100 MG Tablet TAKE 1 TABLET BY MOUTH EVERY DAY FOR 30 DAYS Oral Magnesium 400 MG Tablet as directed Orally Taking Thiamine HCl 100 MG Tablet 1 tablet Orally Once a day Taking Cyanocobalamin 1000 MCG Tablet 1 tablet Orally Once a day Taking Metoprolol Tartrate 50 MG Tablet 1 tablet with food Orally Twice a day Taking Tamsulosin HCl 0.4 MG Capsule 1 capsule Orally Once a day Taking B1 100 MG Tablet TAKE 1 TABLET BY MOUTH EVERY DAY FOR 30 DAYS Oral Taking Magnesium 400 MG Tablet as directed Orally Objective: * Vitals: * Physical Examination: Assessment: * Assessment: 1. T obacco dependence - F17.200 N otes :I have strongly encouraged him not to smoke. I've discussed with him several strategies for becoming smoke-free in maintaining abstinence. He says that he is down to 10 cigarettes daily.I have made him aware of all of the smoking cessation programs available at local hospitals and commercially. He has declined a referral to any of them today. Plan: * Treatment: * Procedure Codes: * true * Date: Generated for Beryl barnard/Caitlyn/Gertrudis on: 06/01/2024 09:28 AM EST
--- OUTSIDE RECORDS SUMMARY | 2024-10-13 05:15 | XMS_ITS ---
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 Serafin Mckeon III Primary Care Provider Allergies Allergen (clinical drug ingredient) Drug/Non Drug Allergy documented on EMR Reaction Allergy Type Onset Date Status No Known Drug Allergy Unknown Drug Allergy Active No Known Food Allergy Unknown Drug Allergy Active REASON FOR VISIT Follow up Medications Medication SIG (Take, Route, Frequency, Duration) Notes Start Date End Date Status Cyanocobalamin 1000 MCG 1 tablet Orally Once a day 09/11/2016 Active Metoprolol Tartrate 50 MG 1 tablet with food Orally Twice a day 01/21/2016 Active Magnesium 400 MG as directed Orally Active Tamsulosin HCl 0.4 MG 1 capsule Orally O nce a day 11/03/2022 Active B1 100 MG TAKE 1 TABLET BY KOREY EVERY DAY FOR 30 DAYS Oral Activ e Thiamine HCl 100 MG 1 tablet Orally Once a day 05/2022 Active Multivitamin - 1 tablet Orally Once a day Active Social History Tobacco Use: Social History Observation Description Date Details (start date - stop date) Current Smoker NA - NA Tobacco Control (Standard) Question Answer Notes Tobacco use: Current smoker How often do you smoke cigarettes? Every day How many cigarettes a day do you smoke? 6-10 How soon after you wake up d o you smoke your first cigarette? After 60 minutes Are you interested in quitting? Not ready to kelin t Additional Findings: Tobacco user Modera te cigarette smoker (10-19 cigs/day) Vital Signs Temperature 97.9 degrees Fahrenheit 10/14/19 25 Blood pressure systolic 126 mm Hg 10/14/19 25 Blood pressure diastolic 87 mm Hg 025 Heart Rate 90 /min 10/13/2024 Height 71 in in 10/13/2024 Weight 131 lbs 10/13/2024 BMI 18.27 kg/m2 10/13/2024 Encounters Encounter Location Date Provider Diagnosis Serafin Mckeon III, MD [address] [place] [address] DR [place], [place]IE [address] 10/13/2024 Serafin Mckeon Tobacco dependence F17.200 ; Vitamin B 12 deficiency E53.8 ; Underweight R63.6 ; HTN (hypertension) I10 ; Macrocytosis D75.89 and Ataxia R27.0 Assessments Encounter Date Diagnosis (ICD Code) Assessment Notes Treat ment Notes Treatment Clinical Notes 10/13/2024 Tobacco dependence (ICD-10 - F17.200) I have strongly encouraged him not to smoke. I've discussed with him several strategies for becoming smoke-free in maintaining abstinence. He says that he is down to 10 cigarettes daily.I have made him aware of all of the smoking cessation programs available at local hospitals and commercially. He has declined a referral to any of them today. 10/13/2024 Vitamin B 12 deficiency (ICD-10 - E53.8) He will continue current vitamin P 12 injections monthly periods. His mean cell volume is now almost normal. 10/13/2024 Underweight (ICD-10 - R63.6) His body mass is improving. He has gained several pounds of weight. This value will be followed carefully.His mean cell volume has normalized. 10/13/2024 HTN (hypertension) (ICD-10 - I10) His blood pressure is currently stable in the normal range. Will be observed carefully. No changes in medications was necessary. 10/13/2024 Macrocytosis (ICD-10 - D75.89) The elevated MCV has almost normalized.. The value will be followed. His B12 and folic acid levels will be followed. 10/13/2024 Ataxia (ICD-10 - R27.0) The MRI of his brain showed no change except for volume loss. His ataxia has improved with the use of B12. Plan Of Treatment Medication Medication Name Sig Start Date Stop Date Notes Cyanocobalamin 1000 MCG 1 tablet Orally Once a day 017 Metoprolol Tartrate 50 MG 1 tablet with food Orally Twice a day 01/21/2016 Magnesium 400 MG as directed Orally Tamsulosin HCl 0.4 MG 1 capsule Orally Once a day 11/04/19 23 B1 100 MG TAKE 1 TABLET BY [facility] EVERY DAY FOR 30 DAYS Oral Thiamine HCl 100 MG 1 tablet Orally Once a day 09/08/2022 Multivitamin - 1 tablet Orally Once a day Pending Test Test Name Order Date PROFILE, FASTING (COMPREHENSIVE METABOLI C) 10/13/2024 LDH 10/13/2024 TSH (THYROID STIMULATING HORMONE) 2024 CBC w DIFF 10/13/2024 RETIC 10/13/2024 Magnesium 10/13/2024 Lipid Panel 10/13/2024 Vitamin B12 and Folate 10/13/2024 Free T4 (Free Thyroxine) 10/13/2024 Next Appt Details Follow Up: 3 Weeks, Reason: OV Provider Name:Serafin Mckeon , 04/12/2025 09:45:00 AM, [address] [place] [address] [address] [facility], [id number], Progress Notes * EMILIASkip FLORENCEDOB:1965 (59 yo M)Acc No.[id number]:10/13/2024 Progress Notes Patient: Skip VIGIL Provider: Ayanna Mckeon MD :1965 A ge:59 Y S ex:Male Date:10/13/2024 Address:[address] [place], [place] [id number] Subjective: * Chief Complaints: * F ollow up * HPI: C OVID-19 Screening: Nancie solo has had no seizures since his last visit. He has been smoking a half a package of cigarettes per day. He states that he has consumed no alcohol since his last visit. He says he has been compliant with all of his vitamins and his magnesium. His questions about magnesium were answered in detail and his blood work was reviewed with him. His magnesium level is 1.6. He will continue that medication until the current bottle is empty. I explained to him the rationale for the time. He remains under weight at 131 pounds. We discussed a diet that will raise his BMI into the 20s.More comprehensive blood work will be done in 3 weeks and he will return to the office accompanied by his father and both of them will have office visits. He is doing well at this time. He came in, ambulatory but with a walker.. His ataxia continued. He is generally improved. Questions H ave you had any new onset fever, chills, cough, congestion, sore throat, shortness of breath, muscle aches? N o * ROS: G eneral/Constitutional: pain o nly normal aches and pains. C hills d enies.?Fatigue a dmits. F ever d enies. E NT: Decreased hearing d enies. R espiratory: Cough n on-productive. C ardiovascular: Chest pain with exertion d enies. D yspnea on exertion?denies. S hortness of breath w ith exertion. G astrointestinal: Constipation o ccasional. D ecreased appetite d enies. D iarrhea d enies. H eartburn d enies. N ausea d enies. R ectal bleeding d enies. V omiting d enies. H ematology: bruising d enies. p etechiae d enies. S wollen glands n one have been noted. G enitourinary: Frequent urination o nce a night. M usculoskeletal: Muscle aches d enies. P ainful joints d enies. S ciatica d enies. W eakness d enies. S kin: Itching d enies. R susana d enies. S kin lesion(s)?denies. N eurologic: Difficulty speaking d enies. D izziness d enies.?Headache d enies. L ow back pain d enies. P sychiatric: Depressed mood d enies. * Medical History: * Surgical History: B roken jaw 2002nondisplaced fracture middle phalanx left third finger 2002 * Hospitalization/Major Diagno stic Procedure: D enies Past Hospitalization * Family History: F ather: alive, CAD, tachycardia, on cardiac medications, diagnosed with CVD. M other: alive, diabetes mellitus, diagnosed with DM. 2 brother(s) , 1 sister(s) . 1 son(s) , 2 daughter(s) - healthy. . Youngest child has authism. HIs two brothers are well. His sister has had an aortic aneurysm repair. His family was tested with ultrasound for aortic aneurysms and his was negative. His sister, Briseyda, had throat cancer at the age of 53. * Social History: T obacco Use: T obacco Control (Standard) T obacco use: C urrent smoker H ow often do you smoke cigarettes? E very day H ow many cigarettes a day do you smoke? 6 -10 H ow soon after you wake up do you smoke your first cigarette? A fter 60 minutes A re you interested in quitting? N ot ready to quit A dditional Findings: Tobacco user M oderate cigarette smoker (10-19 cigs/day) H e smokes a half a packages cigarettes per day. He was born and [place] at [facility]. He is and has 3 children, 2 daughters and 1 son all of whom are alive and well. He has no grandchildren. 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 His work requires him to lift up to 70 pounds on a repetitive basis. He has been there for 20 years. * Medications: T akingMultivitamin - Tablet 1 tablet Orally Once a day Cyanocobalamin 1000 MCG Tablet 1 tablet Orally Once a day Metoprolol Tartrate 50 MG Tablet 1 tablet with food Orally Twice a day Tamsulosin HCl 0.4 MG Capsule 1 capsule Orally Once a day B1 100 MG Tablet TAKE 1 TABLET BY MOUTH EVERY DAY FOR 30 DAYS Oral Magnesium 400 MG Tablet as directed Orally Thiamine HCl 100 MG Tablet 1 tablet Orally Once a day , stop date 10/06/2025Medication List reviewed and reconciled with the patientTaking Multivitamin - Tablet 1 tablet Orally Once a day [...] 1 tablet Orally Once a day , stop date 10/06/2025Medication List reviewed and reconciled with the patient * Allergies: N o Known Drug AllergyNo Known Food Allergyno[Allergies Verified] Objective: * Vitals: H t: 71 in, Wt: 131, BMI:18.27, BP: 126/87, HR: 90, Temp: 97.9, Wt-k.42. * P ast Orders: Lab:Comprehensive [facility]. Arvinde l Fast * Collection Date 10/07/2024 06/18/2023 12/27/2021 Collection Time 12:26 PM 09:09 AM 08:40 AM Order Date 10/07/2024 06/18/2023 12/27/2021 Sodium 139 (Ref Range: 135-145 mmol/L) 137 (Ref Range: 135-145 mmol/L) 141 (Ref Range: 135-145 mmol/L) Bilirubin Total 0.5 (Ref Range: 0.0-1.0 mg/dL) 0.4 (Ref Range: 0.0-1.0 mg/dL) 0.5 (Ref Range: 0.0-1.0 mg/dL) Aspartate Amino Transferase 26 (Ref Range: 5-37 U/L) 24 (Ref Range: 5-37 U/L) 42 H (Ref Range: 5-37 U/L) Alanine Aminotransferase 19 (Ref Range: 0-40 U/L) 12 (Ref Range: 0-40 U/L) 13 (Ref Range: 0-40 U/L) Total Protein 7.3 (Ref Range: 6.5-8.0 g/dL) 7.6 (Ref Range: 6.5-8.0 g/dL) 7.6 (Ref Range: 6.5-8.0 g/dL) Albumin Level 4.4 (Ref Range: 3.5-5.0 g/dL) 4.3 (Ref Range: 3.5-5.0 g/dL) 4.5 (Ref Range: 3.5-5.0 g/dL) Alkaline Phosphatase 54 (Ref Range: 39-117 U/L) 58 (Ref Range: 39-117 U/L) 78 (Ref Range: 39-117 U/L) Potassium 3.6 (Ref Range: 3.3-5.1 mmol/L) 4.3 (Ref Range: 3.3-5.1 mmol/L) 4.7 (Ref Range: 3.3-5.1 mmol/L) Chloride 104 (Ref Range: 96-108 mmol/L) 101 (Ref Range: 96-108 mmol/L) 103 (Ref Range: 96-108 mmol/L) Carbon Dioxide 27 (Ref Range: 22-29 mmol/L) 25 (Ref Range: 22-29 mmol/L) 23 (Ref Range: 22-29 mmol/L) Anion Gap 12 (Ref Range: 12-20) 15 (Ref Range: 12-20) 20 (Ref Range: 12-20) Blood Urea Nitrogen 8 L (Ref Range: 9-16 mg/dL) 10 (Ref Range: 9-16 mg/dL) 8 L (Ref Range: 9-16 mg/dL) Creatinine 0.68 (Ref Range: 0.5-1.4 mg/dL) 0.78 (Ref Range: 0.5-1.4 mg/dL) 0.78 (Ref Range: 0.5-1.4 mg/dL) Estimated Glomerular Filt Rate > 60 > 60 > 60 Glucose Fasting 69 (Ref Range: 60-99 mg/dL) 88 (Ref Range: 60-99 mg/dL) 93 (Ref Range: 60-99 mg/dL) Calcium 9.8 (Ref Range: 8.4-10.2 mg/dL) 10.1 (Ref Range: 8.4-10.2 mg/dL) 9.4 (Ref Range: 8.4-10.2 mg/dL) * Lab:Magnesium * Collection Date 10/07/2024 09/13/2024 Collection Time 12:26 PM 05:21 AM Order Date 10/07/2024 09/13/2024 Magnesium 1.6 (Ref Range: 1.6-2.6 mg/dL) 1.5 L (Ref Range: 1.6-2.6 mg/dL) * Lab:Prostate Specific Antige n * Collection Date 09/13/2024 06/18/2023 12/27/2021 Collection Time 05:21 AM 09:09 AM 08:40 AM Order Date 09/13/2024 06/18/2023 12/27/2021 Prostate Specific Antigen 1.21 (Ref Range: <0.05-4.0 ng/mL) 1.06 (Ref Range: <0.05-4.0 ng/mL) 1.41 (Ref Range: <0.05-4.0 ng/mL) * Lab:Comprehensive Met. Panel * Collection Date 09/13/2024 04/29/2021 12/12/2020 Collection Time 05:21 AM 09:54 AM 11:45 AM Order Date 09/13/2024 04/29/2021 12/12/2020 Sodium 137 (Ref Range: 135-145 mmol/L) 137 (Ref Range: 135-145 mmol/L) 137 (Ref Range: 135-145 mmol/L) Bilirubin Total 0.9 (Ref Range: 0.0-1.0 mg/dL) 0.4 (Ref Range: 0.0-1.0 mg/dL) 0.4 (Ref Range: 0.0-1.0 mg/dL) Aspartate Amino Transferase 40 H (Ref Range: 5-37 U/L) 37 (Ref Range: 5-37 U/L) 17 (Ref Range: 5-37 U/L) Alanine Aminotransferase 26 (Ref Range: 0-40 U/L) 18 (Ref Range: 0-40 U/L) 9 (Ref Range: 0-40 U/L) Total Protein 6.0 L (Ref Range: 6.5-8.0 g/dL) 7.5 (Ref Range: 6.5-8.0 g/dL) 7.2 (Ref Range: 6.5-8.0 g/dL) Albumin Level 3.4 L (Ref Range: 3.5-5.0 g/dL) 4.4 (Ref Range: 3.5-5.0 g/dL) 4.3 (Ref Range: 3.5-5.0 g/dL) Alkaline Phosphatase 48 (Ref Range: 39-117 U/L) 67 (Ref Range: 39-117 U/L) 54 (Ref Range: 39-117 U/L) Potassium 3.2 L (Ref Range: 3.3-5.1 mmol/L) 4.6 (Ref Range: 3.3-5.1 mmol/L) 4.5 (Ref Range: 3.3-5.1 mmol/L) Chloride 105 (Ref Range: 96-108 mmol/L) 103 (Ref Range: 96-108 mmol/L) 102 (Ref Range: 96-108 mmol/L) Carbon Dioxide 21 L (Ref Range: 22-29 mmol/L) 26 (Ref Range: 22-29 mmol/L) 27 (Ref Range: 22-29 mmol/L) Anion Gap 14 (Ref Range: 12-20) 13 (Ref Range: 12-20) 13 (Ref Range: 12-20) Blood Urea Nitrogen 8 L (Ref Range: 9-16 mg/dL) 6 L (Ref Range: 9-16 mg/dL) 9 (Ref Range: 9-16 mg/dL) Creatinine 0.63 (Ref Range: 0.5-1.4 mg/dL) 0.71 (Ref Range: 0.5-1.4 mg/dL) 0.87 (Ref Range: 0.5-1.4 mg/dL) Estimated Glomerular Filt Rate > 60 > 60 > 60 Glucose Random 87 (Ref Range: 60-115 mg/dL) 85 (Ref Range: 60-115 mg/dL) 88 (Ref Range: 60-115 mg/dL) Calcium 8.5 (Ref Range: 8.4-10.2 mg/dL) 9.6 (Ref Range: 8.4-10.2 mg/dL) 9.7 (Ref Range: 8.4-10.2 mg/dL) Creatinine Clr Calc Pharmacy 116.7 NR NR * Lab:Complete Blood Count Aut o Diff * Collection Date 10/07/2024 09/13/2024 06/18/2023 Collection Time 12:26 PM 05:21 AM 09:09 AM Order Date 10/07/2024 09/13/2024 06/18/2023 White Blood Count 7.6 (Ref Range: 4.8-10.8 X10*3/uL) 6.1 (Ref Range: 4.8-10.8 X10*3/uL) 7.7 (Ref Range: 4.8-10.8 X10*3/uL) Red Blood Count 4.03 L (Ref Range: 4.60-5.80 X10*6/uL) 3.65 L (Ref Range: 4.60-5.80 X10*6/uL) 4.34 L (Ref Range: 4.60-5.80 X10*6/uL) Hemoglobin 13.3 L (Ref Range: 14.0-18.0 g/dl) 12.4 L (Ref Range: 14.0-18.0 g/dl) 13.6 L (Ref Range: 14.0-18.0 g/dl) Hematocrit 40.0 L (Ref Range: 42.0-52.0 %) 36.6 L (Ref Range: 42.0-52.0 %) 40.3 L (Ref Range: 42.0-52.0 %) Mean Corpuscular Volume 99.3 H (Ref Range: 80.0-98.0 fL) 100.3 H (Ref Range: 80.0-98.0 fL) 92.9 (Ref Range: 80.0-98.0 fL) Mean Corpuscular Hemoglobin 33.0 (Ref Range: 27.0-33.0 pg) 34.0 H (Ref Range: 27.0-33.0 pg) 31.3 (Ref Range: 27.0-33.0 pg) Mean Corpuscular HGB Conc 33.3 (Ref Range: 31.0-36.0 g/dl) 33.9 (Ref Range: 31.0-36.0 g/dl) 33.7 (Ref Range: 31.0-36.0 g/dl) Red Cell Distribution Width 13.2 (Ref Range: 11.0-16.0 %) 13.8 (Ref Range: 11.0-16.0 %) 14.3 (Ref Range: 11.0-16.0 %) Platelet Count 270 (Ref Range: 160-400 X10*3/uL) 199 (Ref Range: 160-400 X10*3/uL) 283 (Ref Range: 160-400 X10*3/uL) Mean Platelet Volume 9.8 (Ref Range: 9.4-12.4 fL) 9.9 (Ref Range: 9.4-12.4 fL) 9.2 L (Ref Range: 9.4-12.4 fL) Neutrophils Percent Auto 38.3 L (Ref Range: 45-73 %) 47.1 (Ref Range: 45-73 %) 51.1 (Ref Range: 45-73 %) Imm Gran Pct Auto 0.1 (Ref Range: 0.0-0.4 %) 0.5 H (Ref Range: 0.0-0.4 %) 0.4 (Ref Range: 0.0-0.4 %) Lymphocytes Percent Auto 48.1 H (Ref Range: 20-40 %) 36.5 (Ref Range: 20-40 %) 36.4 (Ref Range: 20-40 %) Monocytes Percent Auto 12.0 H (Ref Range: 2-11 %) 14.0 H (Ref Range: 2-11 %) 11.0 (Ref Range: 2-11 %) Eosinophils Percent Auto 0.8 (Ref Range: 0-4 %) 1.2 (Ref Range: 0-4 %) 0.3 (Ref Range: 0-4 %) Basophils Percent Auto 0.7 (Ref Range: 0-2 %) 0.7 (Ref Range: 0-2 %) 0.8 (Ref Range: 0-2 %) NRBC Pct Auto 0.0 (Ref Range: 0.0-0.2 /100WBC) 0.0 (Ref Range: 0.0-0.2 /100WBC) 0.0 (Ref Range: 0.0-0.2 /100WBC) Neutrophils Absolute Auto 2.9 (Ref Range: 2.0-8.3 x10*3/uL) 2.9 (Ref Range: 2.0-8.3 x10*3/uL) 3.9 (Ref Range: 2.0-8.3 x10*3/uL) Imm Gran Abs Auto 0.01 (Ref Range: 0.00-0.03 X10*3/uL) 0.03 (Ref Range: 0.00-0.03 X10*3/uL) 0.03 (Ref Range: 0.00-0.03 X10*3/uL) Lymphocytes Absolute Auto 3.7 (Ref Range: 1.2-4.9 X10*3/uL) 2.2 (Ref Range: 1.2-4.9 X10*3/uL) 2.8 (Ref Range: 1.2-4.9 X10*3/uL) Monocytes Absolute Auto 0.9 (Ref Range: 0.1-1.2 X10*3/uL) 0.9 (Ref Range: 0.1-1.2 X10*3/uL) 0.9 (Ref Range: 0.1-1.2 X10*3/uL) Eosinophils Absolute Auto 0.1 (Ref Range: 0.0-0.4 X10*3/uL) 0.1 (Ref Range: 0.0-0.4 X10*3/uL) 0.0 (Ref Range: 0.0-0.4 X10*3/uL) Basophils Absolute Auto 0.1 (Ref Range: 0.0-0.2 X10*3/uL) 0.0 (Ref Range: 0.0-0.2 X10*3/uL) 0.1 (Ref Range: 0.0-0.2 X10*3/uL) NRBC Abs Auto 0.000 (Ref Range: 0.0-0.012 X10*3/uL) 0.000 (Ref Range: 0.0-0.012 X10*3/uL) 0.000 (Ref Range: 0.0-0.012 X10*3/uL) ???Lab:Lactic Acid-LAB USE ONLY (Order Date - 09/12/2024) (Collection Date & Time - 09/12/2024 12:24 PM)?ValueReference Range? Lactic Acid-LAB USE ONLY0.90.5-2.0 - mmol/L ???Lab:UA ClnCatch+Micro w/rflx Cult (Order Date - 09/12/2024) (Collection Date & Time - 09/12/2024 12:24 PM)?ValueReference Range?Color UrineDark Yellow-?Appearance UrineCloudy-?PH6.05.0-9.0 -?Glucose Urine UANegativeNegative - mg/dL?Urine BloodNegativeNegative - ?Specific [place] - Urine1.0251.005-1.025 -?Urine Bcbtesr579 (2+)A Neg-Trace - mg/dL?Urine Wuihtzh78Dzgurerw - mg/dL?Nitrite Urine NegativeNegative -?Leukocyte Esterase UrineNegativeNegative -?RBC Urine0-20-2 - /HPF?WBC Urine0-50-5 - /HPF?Squamous Epithelial Cell Urine0-20-2 - /HPF?Bacteria UrineNone SeenNone Seen -?Hyaline Casts [id number] - /LPF ???Lab:Drug Screen Urine (Order Date - 09/12/2024) (Collection Date & Time - 09/12/2024 12:24 PM)?ValueReference Range?Opiate Screen UrineNot DetectedNot Detect -?Barbiturates, UrineNot DetectedNot Detect - ?Phencyclidine Screen UrineNot DetectedNot Detect -?Amphetamine Screen UrineNot DetectedNot Detect -?Benzodiazepines Screen UrineNot DetectedNot Detect -?Cocaine Screen UrineNot DetectedNot Detect - ?Cannabinoid Screen UrineNot DetectedNot Detect -?Fentanyl, urine Not DetectedNot Detect -?Methadone Screen, UrineNot DetectedNot Detect - ng/mL?Oxycodone Screen UrineNot DetectedNot Detect - ng/mL ?Buprenorphine ScrNot DetectedNot Detect - ng/mL ???Lab:Troponin-I High Sensitivity (Order Date - 09/12/2024) (Collection Date & Time - 09/12/2024 12:17 PM)?ValueReference Range?Troponin-I High Gdnalwyibjg98.0H<3.5-35.0 - ng/L * Lab:Lipid Panel * Collection Date 10/07/2024 06/18/2023 12/27/2021 Collection Time 12:26 PM 09:09 AM 08:40 AM Order Date 10/07/2024 06/18/2023 12/27/2021 Triglycerides 176 H (Ref Range: <150 mg/dL) 109 (Ref Range: <150 mg/dL) 83 (Ref Range: mg/dL) Cholesterol 222 H (Ref Range: <200 mg/dL) 211 H (Ref Range: <200 mg/dL) 225 (Ref Range: mg/dL) LDL Cholesterol Calculated 144 H (Ref Range: <100 mg/dL) 145 H (Ref Range: <100 mg/dL) 112 (Ref Range: mg/dl) HDL Cholesterol 43 (Ref Range: >40 mg/dL) 45 (Ref Range: >40 mg/dL) 97 (Ref Range: mg/dL) * Lab:Vitamin B12 and Folate * Collection Date 10/07/2024 12/12/2020 Collection Time 12:26 PM 11:45 AM Order Date 10/07/2024 12/12/2020 Vitamin B12 723 (Ref Range: 200-900 pg/mL) 197 L (Ref Range: 200-900 pg/mL) Folate 14.2 (Ref Range: > or = 4.0 ng/mL) 9.9 (Ref Range: > or = 4.0 ng/mL) * Examination: G eneral Examination: GENERAL APPEARANCE: p leasant, well nourished, well developed, in no acute distress, calm and relaxed, underweight, underweight m an. HEAD: a traumatic, normocephalic. EYES: e sharron, perrla, anicteric, conjugate. EARS: n ormal. NOSE: s eptum intact. ORAL CAVITY: n ormal, unremarkable. NECK/THYROID: n o jugular venous distention, no carotid bruit, thyroid normal. LYMPH NODES: n o enlarged lymph nodes,spleen normal. SKIN: n o suspicious lesions, anicteric. HEART: n o clicks, gallops, murmurs, or rubs, regular rhythm, S1, S2 normal, no s3, or vascular bruits. LUNGS: , diminished breath sounds throughout, good air movement, , . BREASTS: no masses palpable bilaterally. ABDOMEN: b owel sounds normal, no ascites, no organomegaly, no mass. RECTAL EXAM: n ot examined. MUSCULOSKELETAL: e xtremities unremarkable, no clubbing, cyanosis or edema. PERIPHERAL PULSES: n ormal. NEUROLOGIC: a lert and oriented, cranial nerves 2-12 grossly intact, deep tendon reflexes 2+ symmetrical, motor strength normal upper and lower extremities, sensory exam intact, Uses a walker, continued moderately severe cerebellar ataxia. PSYCH: a lert, oriented. Assessment: * Assessment: 1. T obacco dependence - F17.200 (Primary) N otes :I have strongly encouraged him not to smoke. I've discussed with him several strategies for becoming smoke-free in maintaining abstinence. He says that he is down to 10 cigarettes daily.I have made him aware of all of the smoking cessation programs available at local hospitals and commercially. He has declined a referral to any of them today. 2 . V itamin B 12 deficiency - E53.8 N otes :He will continue current vitamin P 12 injections monthly periods. His mean cell volume is now almost normal. 3 . U nderweight - R63.6 N otes :His body mass is improving. He has gained several pounds of weight. This value will be followed carefully.His mean cell volume has normalized. 4 . H TN (hypertension) - I10 N otes :His blood pressure is currently stable in the normal range. Will be observed carefully. No changes in medications was necessary. 5 . M acrocytosis - D75.89 N otes :The elevated MCV has almost normalized.. The value will be followed. His B12 and folic acid levels will be followed. 6 . A taxia - R27.0 N otes :The MRI of his brain showed no change except for volume loss. His ataxia has improved with the use of B12. Plan: * Treatment: 2. O thers Continue Magnesium Tablet, 400 MG, as directed, Orally. * Labs: * L ab: PROFILE, FASTING (COMPREHENSIVE METABOLIC) L ab: LDH L ab: TSH (THYROID STIMULATING HORMONE) L ab: CBC w DIFF L ab: RETIC L ab: Magnesium L ab: Lipid Panel L ab: Vitamin B12 and Folate L ab: Free T4 (Free Thyroxine) * Procedure Codes: * Preventive Medicine: Counseling: C are goal follow-up plan: Counseling for abnormal BMI given Y es Below Normal BMI Follow-up D ietary education for weight gain, Dietary management education, guidance, and counseling, Feeding regime, Lifestyle education regarding diet, Nutrition / feeding management, Prescribed diet education, Special diet education, Intervention, Order not done: Medical or Other reason not done S moking/Tobacco Use Patient counseled on the dangers of tobacco use and urged to quit. 0 10/13/2024 Patient Lifestyle Goals P atient wants to quit Treatment Goals C ut down by 1 cigarette a week, Set a quit date Barriers S ocial smoker, Smokes while drinking Self-Management Plan M rhea a plan to cut down number of cigarettes over time and set a date to work towards quitting * Follow Up: 3 Weeks (Reason: OV) * Images: * Sign off status: Completed true * Provider: Ayanna Mckeon MD Date: 0 10/13/2024 Generated for Beryl barnard/Caitlyn/Gertrudis on: 1 06/01/2024 09:26 AM EST History and Physical Notes * HPI (History of Present Illness) Category Sub-Category Detail Notes COVID-19 Screening Questions Have you had any new onset fever, chills, cough, congestion, sore throat, shortness of breath, muscle aches?: No Examination Category Sub-Category Detail Notes General Examination GENERAL APPEARANCE: pleasant , well nourished, well developed, in no acute distress, calm and relaxed, underweight, underweight man HEAD: atraumatic, normocep halic EYES: eomi, perrla, anicte janet, conjugate EARS: normal NOSE: septum intact NECK/THYROID: no jugular venous di stention, no carotid bruit, thyroid normal HEART: no clicks, gallops, murmurs, or rubs, regular rhythm, S1, S2 normal, no s3, or vascular bruits LUNGS: , diminished breath sounds throughout, good air movement, , ABDOMEN: bowel sounds normal, no ascites, no organomegaly, no mass NEUROLOGIC: alert and oriented, cranial nerves 2-12 grossly intact, deep tendon reflexes 2+ symmetrical, motor strength normal upper and lower extremities, sensory exam intact, Uses a walker, continued moderately severe cerebellar ataxia SKIN: no suspicious lesion s, anicteric PERIPHERAL PULSES: normal BREASTS: no masses palpable b ilaterally MUSCULOSKELETAL: extremities unremark able, no clubbing, cyanosis or edema LYMPH NODES: no enlarged lymph no carine,spleen normal RECTAL EXAM: not examined PSYCH: alert, oriented ORAL CAVITY: normal, unremarkable
--- OUTSIDE RECORDS SUMMARY | 2024-11-08 12:30 | XMS_ITS ---
Author Organization Serafin Mckeon III, MD Address [address] [address] Care Team Providers Care Polysomnographic Technologist Name Role Phone Dr. Serafin Mckeon III Primary Care Provider REASON FOR VISIT Follow up Encounters Encounter Location Date Provider Diagnosis Serafin Mckeon III, MD [address] [place] [address] [place] [address] 11/08/2024 Serafin Mckeon Plan Of Treatment Next Appt Details Provider Name:Serafin Mckeon , 04/12/2025 09:45:00 AM, [address] [place] [address] [place], [address], Progress Notes * Skip RANDLEDOB:1965 (59 yo M)Acc No.[id number]:11/08/2024 Progress Notes Patient: Skip VIGIL Provider: Ayanna Mckeon MD :1965 A ge:59 Y S ex:Male Date:11/08/2024 Address:[address] [place] [address] [place] Subjective: * Chief Complaints: * 1 . Follow up. * Medical History: Objective: * Vitals: Assessment: Plan: * Treatment: * Images: * The named appointment provid er may or may not be the originator of this progress note, and it is not deemed complete until electronically signed by the appointment provider. Sign off status: Pending * Provider: Ayanna Mckeon MD Date: 0 11/08/2024 Generated for Beryl barnard/Caitlyn/Viryitting on: 06/01/2024 09:27 AM EST
--- OUTSIDE RECORDS SUMMARY | 2024-11-22 04:45 | XMS_ITS ---
Author Organization Serafin Mckeon III, MD Address [address] [place] [address] Care Team Providers Care Distribution Clerk Name Role Phone Dr. Serafin Mckeon III [...] DAY FOR 30 DAYS Oral Activ e Magnesium 400 MG as directed Orally Active Multivitamin - 1 tablet Orally Once a day Active Thiamine HCl 100 MG 1 tablet Orally Once a day 05/2022 Active Cyanocobalamin 1000 MCG 1 tablet Orally [...] user Modera te cigarette smoker (10-19 cigs/day) Encounters Encounter Location Date Provider Diagnosis Serafin Mckeon III, MD [address] [place] [address] [place] [address] 11/22/2024 Serafin Mckeon Tobacco dependence F17.200 Assessments Encounter Date Diagnosis (ICD Code) Assessment Notes Treatment Notes Treatment Clinical Notes 11/22/2024 Tobacco dependence (ICD-10 - F17.200) I have [...] Name Sig Start Date Stop Date Notes Metoprolol Tartrate 50 MG 1 tablet with food Orally Twice a day 01/21/2016 Tamsulosin HCl 0.4 MG 1 capsule Orally Once a day 11/04/19 23 B1 100 MG TAKE 1 TABLET BY KOREY EVERY DAY FOR 30 DAYS Oral Magnesium 400 MG as directed Orally Multivitamin - 1 tablet Orally Once a day Thiamine HCl 100 MG 1 tablet Orally Once a day 09/08/2022 Cyanocobalamin 1000 MCG 1 tablet Orally Once a day 017 Next Appt Details Provider Name:Serafin Mckeon , 04/12/2025 09:45:00 AM, [address] [place] [address] [address], [place], [address], Progress Notes * Skip RANDLEDOB:1965 (59 yo M)Acc No.[id number]:11/22/2024 Progress Notes Patient: Skip VIGIL Provider: Ayanna Mckeon MD :1965 A ge:59 Y S ex:Male Date:11/22/2024 Address:[address] [place], [place] [id number] Subjective: * Chief Complaints: * 1 . Follow up. * HPI: C OVID-19 Screening: Questions H ave you had any new onset fever, chills, cough, congestion, sore throat, shortness of breath, muscle aches? N o * ROS: G eneral/Constitutional: pain o nly normal aches and pains. C hills d enies.?Fatigue a dmits. F ever d enies. E NT: Decreased hearing d enies. R espiratory: Cough d enies. C ardiovascular: Chest pain with exertion d enies. D yspnea on exertion?denies. S hortness of breath d enies. G astrointestinal: Constipation d enies. D ecreased appetite d enies.?Diarrhea d enies. H eartburn d enies. N ausea d enies. R ectal bleeding?denies. V omiting d enies. H ematology: bruising d enies. p etechiae d enies. S wollen glands n one have been noted. G enitourinary: Frequent urination d enies. M usculoskeletal: Muscle aches d enies. P ainful joints d enies. S ciatica d enies. W eakness d enies. S kin: Itching d enies. R susana d enies. S kin lesion(s)?denies. N eurologic: Difficulty speaking d enies. D izziness d enies.?Headache d enies. L ow back pain d enies. P sychiatric: Depressed mood d enies. * Medical History: T obacco dependence, Underweight, Tachycardia, 2009 microscopic hematuria, negative urine cytology, Allergies, Alcohol use disorder, Benign prostatic hypertrophy. * Surgical History: B roken jaw 2002, nondisplaced fracture middle phalanx left third finger 2002. * Hospitalization/Major Diagno stic Procedure: D enies Past Hospitalization. * Family History: F ather: alive, CAD, [...] cigarettes per day. He was born and [place] at [facility]. He is and has 3 children, 2 daughters and 1 son all of whom are alive and well. He has no grandchildren. 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 His work requires him to lift up to 70 pounds on a repetitive basis. He has been there for 20 years. * Medications: T aking Thiamine HCl 100 MG Tablet 1 tablet [...] EVERY DAY FOR 30 DAYS Oral , Taking Magnesium 400 MG Tablet as directed Orally , Taking Multivitamin - Tablet 1 tablet Orally Once a day , Medication List reviewed and reconciled with the patient * Allergies: N o Known Drug Allergy, No Known Food Allergy. Objective: * Vitals: * Examination: G eneral Examination: GENERAL APPEARANCE: p leasant, well nourished, well developed, in no acute distress, calm and relaxed. HEAD: a traumatic, normocephalic. EYES: e sharron, [...] normal, no s3, or vascular bruits. LUNGS: c lear to auscultation . BREASTS: no masses palpable bilaterally. ABDOMEN: b owel sounds normal, no ascites, no organomegaly, no mass. RECTAL EXAM: n ot examined. MUSCULOSKELETAL: e xtremities unremarkable, no clubbing, cyanosis or edema. PERIPHERAL PULSES: n ormal. NEUROLOGIC: a lert and oriented, cranial nerves 2-12 grossly intact, deep tendon reflexes 2+ symmetrical, motor strength normal upper and lower extremities, sensory exam intact. PSYCH: a lert, oriented. Assessment: * Assessment: [...] any of them today. Plan: * Treatment: 2. O thers Continue Magnesium Tablet, 400 MG, as directed, Orally. * Images: * The named appointment provid er may or may not be the originator of this progress note, and it is not deemed complete until electronically signed by the appointment provider. Sign off status: Pending * Provider: Ayanna Mckeon MD Date: 0 11/22/2024 Generated for Beryl barnard/Caitlyn/Viryitting on: 06/01/2024 09:26 AM EST History and Physical [...]
--- OUTSIDE RECORDS SUMMARY | 2024-12-02 05:45 | XMS_ITS ---
Author Organization Serafin Mckeon III, MD Address [address] [place] [address] Care Team Providers Care Diesel Mechanic Helper Name Role Phone Dr. Serafin Mckeon III Primary Care Provider Allergies Allergen (clinical drug ingredient) Drug/Non Drug Allergy documented on EMR Reaction Allergy Type Onset Date Status No Known Drug Allergy Unknown Drug Allergy Active No Known Food Allergy Unknown Drug Allergy Active REASON FOR VISIT Follow up Medications Medication SIG (Take, Route, Frequency, Duration) Notes Start Date End Date Status Multivitamin - 1 tablet Orally Once a day Active B1 100 MG TAKE 1 TABLET BY KOREY EVERY DAY FOR 30 DAYS Oral Activ e Magnesium 400 MG as directed Orally Active Tamsulosin HCl 0.4 MG 1 capsule Orally O nce a day 11/03/2022 Active Thiamine HCl 100 MG 1 tablet Orally Once a day 05/2022 Active Metoprolol Tartrate 50 MG 1 tablet [...] Date Provider Diagnosis Serafin Mckeon III, MD [address] [place] [address] [place] [address] 12/02/2024 Serafin Mckeon Tobacco dependence F17.200 Assessments Encounter Date Diagnosis (ICD Code) Assessment Notes Treatment Notes Treatment Clinical Notes 12/02/2024 Tobacco dependence (ICD-10 - F17.200) I have [...] Name Sig Start Date Stop Date Notes Multivitamin - 1 tablet Orally Once a day B1 100 MG TAKE 1 TABLET BY KOREY EVERY DAY FOR 30 DAYS Oral Magnesium 400 MG as directed Orally Tamsulosin HCl 0.4 MG 1 capsule Orally Once a day 11/04/19 23 Thiamine HCl 100 MG 1 tablet Orally Once a day 09/08/2022 Metoprolol Tartrate 50 MG 1 tablet with food Orally Twice a day 01/21/2016 Cyanocobalamin 1000 MCG 1 tablet Orally Once a day 017 Next Appt Details Provider Name:Serafin Mckeon , 04/12/2025 09:45:00 AM, [address] [place] [address] [address], [place], [address], Progress Notes * Skip RANDLEDOB:1965 (59 yo M)Acc No.[id number]:12/02/2024 Progress Notes Patient: Skip VIGIL Provider: Ayanna Mckeon MD :1965 A ge:59 Y S ex:Male Date:12/02/2024 Address:[address] [place], [place] [id number] Subjective: * Chief Complaints: * 1 . [...] cigarettes per day. He was born and [place] at [facility]. He is and has 3 children, 2 daughters and 1 son all of whom are alive and well. He has no grandchildren. 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 His work requires him to lift [...] * Provider: Ayanna Mckeon MD Date: 0 12/02/2024 Generated for Beryl barnard/Caitlyn/Viryitting on: 06/01/2024 09:28 AM EST History and Physical Notes * [...]
--- OUTSIDE RECORDS SUMMARY | 2024-12-16 14:00 | XMS_ITS ---
Author Organization Serafin Mckeon III, MD Address [address] [place] [address] Care Team Providers Care Calender Tender Name Role Phone Dr. Serafin Mckeon III [...] tablet Orally Once a day 09/11/2016 Active Magnesium 400 MG as directed Orally Active B1 100 MG TAKE 1 TABLET [...] Date Provider Diagnosis Serafin Mckeon III, MD [address] [place] [address] [place] [address] 12/16/2024 Serafin Mckeon Tobacco dependence F17.200 Assessments Encounter Date Diagnosis (ICD Code) Assessment Notes Treatment Notes Treatment Clinical Notes 12/16/2024 Tobacco dependence (ICD-10 - F17.200) I have [...] 1 tablet Orally Once a day 017 Magnesium 400 MG as directed Orally B1 100 MG TAKE 1 TABLET BY KOREY TH EVERY DAY FOR 30 DAYS Oral Tamsulosin HCl 0.4 MG 1 capsule Orally Once a day 11/04/19 23 Thiamine HCl 100 MG 1 tablet Orally Once a day 09/08/2022 Multivitamin - 1 tablet Orally Once a day Next Appt Details Provider Name:Serafin Mckeon , 04/12/2025 09:45:00 AM, [address] [place] [address] [address], [place], [address], Progress Notes * Skip RANDLEDOB:1965 (59 yo M)Acc No.[id number]:12/16/2024 Progress Notes Patient: Skip VIGIL Provider: Ayanna Mckeon MD :1965 A ge:59 Y S ex:Male Date:12/16/2024 Address:[address] [place], [place] [id number] Subjective: * Chief Complaints: * 1 . [...] middle phalanx left third finger 2002. * Family History: F ather: alive, CAD, [...] cigarettes per day. He was born and [place] at [facility]. He is and has 3 children, 2 daughters and 1 son all of whom are alive and well. He has no grandchildren. 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
--- OUTSIDE RECORDS SUMMARY | 2025-02-07 12:00 | XMS_ITS ---
Author Organization Serafin Mckeon III, MD Address [address] [place] [address] Care Team Providers Care Corporate Financial Analyst Name Role Phone Dr. Serafin Mckeon III Primary Care Provider [phone] Allergies Allergen (clinical drug ingredient) Drug/Non Drug Allergy documented on EMR Reaction Allergy Type Onset Date Status No Known Drug Allergy Unknown Drug Allergy Active No Known Food Allergy Unknown Drug Allergy Active REASON FOR VISIT Hospital Follow up Medications Medication SIG (Take, Route, [...] 1 tablet Orally Once a day Active Tamsulosin HCl 0.4 MG 1 capsule Orally O nce a day 11/03/2022 Active B1 100 MG TAKE 1 TABLET BY KOREY TH EVERY DAY FOR 30 DAYS Oral Activ e Social History Tobacco Use: Social History Observation [...] Date Provider Diagnosis Serafin Mckeon III, MD [address] [place] [address] [place] [address] 02/07/2025 Serafin Mckeon Tobacco dependence F17.200 Assessments Encounter Date Diagnosis (ICD Code) Assessment Notes Treatment Notes Treatment Clinical Notes 02/07/2025 Tobacco dependence (ICD-10 - F17.200) I have [...] 01/21/2016 Magnesium 400 MG as directed Orally Thiamine HCl 100 MG 1 tablet Orally Once a day 09/08/2022 Cyanocobalamin 1000 MCG 1 tablet Orally Once a day 017 Multivitamin - 1 tablet Orally Once a day Tamsulosin HCl 0.4 MG 1 capsule Orally Once a day 11/04/19 23 B1 100 MG TAKE 1 TABLET BY KOREY TH EVERY DAY FOR 30 DAYS Oral Next Appt Details Provider Name:Serafin Mckeon , 04/12/2025 09:45:00 AM, [address] [place] [address] [address], [place], [address], Progress Notes * Skip RANDLEDOB:1965 (59 yo M)Acc No.[id number]:02/07/2025 Patient: Skip VIGIL Provider: Ayanna Mckeon MD :1965 A ge:59 Y S ex:Male Date:02/07/2025 Address:[address] [place] [address] [id number] Subjective: * Chief Complaints: * 1 . Hospital Follow up. * HPI: C OVID-19 Screening: [...] cigarettes per day. He was born and [place] at [facility]. He is and has 3 children, 2 daughters and 1 son all of whom are alive and well. He has no grandchildren. 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
--- OUTSIDE RECORDS SUMMARY | 2025-02-14 07:15 | XMS_ITS ---
Author Organization Serafin Mckeon III, MD Address [address] [place] [address] Care Team Providers Care Rock Duster Name Role Phone Dr. Serafin Mckeon III Primary Care Provider [phone] Allergies Allergen (clinical drug ingredient) Drug/Non Drug Allergy documented on EMR Reaction Allergy Type Onset Date Status No Known Drug Allergy Unknown Drug Allergy Active No Known Food Allergy Unknown Drug Allergy Active REASON FOR VISIT Hospital Follow up Medications Medication SIG (Take, Route, Frequency, Duration) Notes Start Date End Date Status Cyanocobalamin 1000 MCG 1 tablet Orally Once a day 09/11/2016 Active Thiamine HCl 100 MG 1 tablet Orally Once a day 05/2022 Active Tamsulosin HCl 0.4 MG 1 capsule Orally O nce a day 11/03/2022 Active Metoprolol Tartrate 50 MG 1 tablet with food Orally Twice a day 01/21/2016 Active B1 100 MG TAKE 1 TABLET BY EVERY DAY FOR 30 DAYS Oral Activ e Multivitamin - 1 tablet Orally Once a day Active Magnesium 400 MG as directed Orally Active Social History Tobacco Use: Social History [...] Provider Diagnosis Serafin Mckeon III, MD [address] [place] [address] [place] [address] 02/14/2025 Serafin Mckeon Tobacco dependence F17.200 Assessments Encounter Date Diagnosis (ICD Code) Assessment Notes Treatment Notes Treatment Clinical Notes 02/14/2025 Tobacco dependence (ICD-10 - F17.200) I have [...] 1 tablet Orally Once a day 017 Thiamine HCl 100 MG 1 tablet Orally Once a day 09/08/2022 Tamsulosin HCl 0.4 MG 1 capsule Orally Once a day 11/04/19 23 Metoprolol Tartrate 50 MG 1 tablet with food Orally Twice a day 01/21/2016 B1 100 MG TAKE 1 TABLET BY KOREY EVERY DAY FOR 30 DAYS Oral Multivitamin - 1 tablet Orally Once a day Magnesium 400 MG as directed Orally Next Appt Details Provider Name:Serafin Mckeon , 04/12/2025 09:45:00 AM, [address] [place] [address] [address], [place], [address], Progress Notes * Skip RANDLEDOB:1965 (59 yo M)Acc No.[id number]:02/14/2025 Patient: Skip VIGIL Provider: Ayanna Mckeon MD :1965 A ge:59 Y S ex:Male Date:02/14/2025 Address:[address] [place] [address] [id number] Subjective: * Chief Complaints: * 1 . [...] cigarettes per day. He was born and [place] at [facility]. He is and has 3 children, 2 daughters and 1 son all of whom are alive and well. He has no grandchildren. 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
--- OUTSIDE RECORDS SUMMARY | 2025-02-24 04:45 | XMS_ITS ---
Author Organization Serafin Mckeon III, MD Address [address] [place] [address] Care Team Providers Care Workers' Compensation Magistrate Name Role Phone Dr. Serafin Mckeon III Primary Care Provider Allergies Allergen (clinical drug ingredient) Drug/Non Drug Allergy documented on EMR Reaction Allergy Type Onset Date Status No Known Drug Allergy Unknown Drug Allergy Active No Known Food Allergy Unknown Drug Allergy Active Reason For Referral Reason Evaluate and Treat Left Knee Pain Diagnosis 1 Left knee pain (M25. 562) Referral Organization Serafin Mckeon III, MD Referring Provider First Name Serafin Referring Provider Last Name Linda Referring Provider Speciality Internal M edicine Referred Provider [facility], Orthopedic Surgeons Referred Provider Specialty Orthopedic S urgery General Notes D, Deepa 02/27/2025 10:19:44 AM > Progress note and referral faxed. Referral Priority Routine REASON FOR VISIT Recent hospitalization 01/05/25 through 01/10/25., Alcohol withdrawal seizures, Thrombocytopenia, Hypomagnesemia, Transaminitis, Starvation ketosis, Lactic acid 3.6, Alcohol use disorder Medications Medication SIG (Take, Route, Frequency, Duration) Notes Start Date End Date Status Thiamine HCl 100 MG 1 tablet Orally Once a day Active Folate 400 MCG 1 tablet Orally Once a day 02/25/20 25 Active Naltrexone HCl 50 MG 1 tablet Orally Once a day Active Multivitamin - 1 tablet Orally Once a day Active Magnesium 400 MG as directed Orally Active Metoprolol Tartrate 50 MG 1 tablet with food Orally Twice a day 01/21/2016 Active Tamsulosin HCl 0.4 MG 1 capsule Orally O nce a day 11/03/2022 Active Cyanocobalamin 1000 MCG 1 tablet Orally Once a day 09/11/2016 Active levETIRAcetam 500 MG 1 tablet Orally lazara ry 12 hrs 02/24/2025 Active B1 100 MG TAKE 1 TABLET BY KOREY TH EVERY DAY FOR 30 DAYS Oral Activ e Thiamine HCl 100 MG 1 tablet Orally Once a day 05/2022 Active Immunizations Vaccine Route Administration Date Status Comme nts Influenza Vaccine Afluria IM Intramuscular 02/24/2025 Admi nistered Social History Tobacco Use: Social [...] user Modera te cigarette smoker (10-19 cigs/day) Problems Problem Type SNOMED Code ICD Code Onset Dates Problem Status W/U Status Risk Notes Problem [id number] Left knee pain (M25.562) Active confirmed He is a sharp knee pain under his patella on the right that developed over the last week without trauma. There were no physical findings no sign of DVT. Vital Signs Temperature 97.7 degrees Fahrenheit 02/25/20 25 Blood pressure systolic 135 mm Hg 02/25/20 25 Blood pressure diastolic 83 mm Hg 025 Heart Rate 62 /min 02/24/2025 Height 71 in in 02/24/2025 Weight 131 lbs 02/24/2025 BMI 18.27 kg/m2 02/24/2025 Encounters Encounter Location Date Provider Diagnosis Serafin Mckeon III, MD [address] [place] [address] [place], [place] [address] 02/24/2025 Serafin Mckeon Tobacco dependence F17.200 ; Encounter for immunization Z23 ; Left knee pain M25.562 ; Vitamin B 12 deficiency E53.8 ; Underweight R63.6 ; HTN (hypertension) I10 ; Macrocytosis D75.89 ; Cerebellar ataxia G11.9 ; Uncomplicated alcohol dependence F10.20 and Hypomagnesemia E83.42 Assessments Encounter Date Diagnosis (ICD Code) Assessment Notes Treatment Notes Treatment Clinical Notes 02/24/2025 Tobacco dependence (ICD-10 - F17.200) I have strongly encouraged him not to smoke. I've discussed with him several strategies for becoming smoke-free in maintaining abstinence. He says that he is down to 10 cigarettes daily.I have made him aware of all of the smoking cessation programs available at local hospitals and commercially. He has declined a referral to any of them today. 02/24/2025 Encounter for immunization (ICD-10 - Z23) He received his annual influenza vaccine today without difficulty. He was advised of the risks and benefits and gaave informed consent. 02/24/2025 Left knee pain (ICD-10 - M25.562) He is a sharp knee pain under his patella on the right that developed over the last week without trauma. There were no physical findings no sign of DVT. 02/24/2025 Vitamin B 12 deficiency (ICD-10 - E53.8) He will continue current vitamin P 12 injections monthly periods. His mean cell volume is now almost normal. 02/24/2025 Underweight (ICD-10 - R63.6) His body mass is improving. He has gained several pounds of weight. This value will be followed carefully.His mean cell volume has normalized. 02/24/2025 HTN (hypertension) (ICD-10 - I10) His blood pressure is currently stable in the normal range. Will be observed carefully. No changes in medications was necessary. 02/24/2025 Macrocytosis (ICD-10 - D75.89) The elevated MCV has almost normalized.. The value will be followed. His B12 and folic acid levels will be followed. 02/24/2025 Cerebellar ataxia (ICD-10 - G11.9) This is likely due to history of B12 deficiency and alcohol consumption. He will be observed carefully. Advised strongly to avoid alcohol use and to follow-up with neurology on their schedule.. 02/24/2025 Uncomplicated alcohol dependence (ICD-10 - F10.20) An electroencephalogram will be done to see if his seizure is strongly recommended he begin alcoholism treatment. [facility] However he declined at this time saying he wwould think about it. 02/24/2025 Hypomagnesemia (ICD-10 - E83.42) He was continued on 400 mg of magnesium oxide daily. Plan Of Treatment Medication Medication Name Sig Start Date Stop Date Notes Thiamine HCl 100 MG 1 tablet Orally Once a day 02/24/2025 Folate 400 MCG 1 tablet Orally Once a day 02/24/2025 Naltrexone HCl 50 MG 1 tablet Orally Once a day 02/24/2025 Multivitamin - 1 tablet Orally Once a day Magnesium 400 MG as directed Orally Metoprolol Tartrate 50 MG 1 tablet with food Orally Twice a day 01/21/2016 Tamsulosin HCl 0.4 MG 1 capsule Orally Once a day 11/04/19 23 Cyanocobalamin 1000 MCG 1 tablet Orally Once a day 017 levETIRAcetam 500 MG 1 tablet Orally every 12 hrs 02/25/20 25 B1 100 MG TAKE 1 TABLET BY [facility] EVERY DAY FOR 30 DAYS Oral Thiamine HCl 100 MG 1 tablet Orally Once a day 09/08/2022 Pending Test Test Name Order Date XR knee LT 3V 02/24/2025 Referrals Referral Date Details 02/24/2025 02/24/2025, Evaluate and Treat Left Knee Pain, [facility] Sur[facility] Next Appt Details Follow Up: 6 Weeks, Reason: OV Provider Name:Serafin Mckeon , 04/12/2025 09:45:00 AM, [address] [place] [address], [address], [id number], Progress Notes * Skip RANDLEDOB:1965 (59 yo M)Acc No.[id number]:02/24/2025 Patient: Skip VIGIL Provider: Ayanna Mckeon MD :1965 A ge:59 Y S ex:Male Date:02/24/2025 Address:[address] [place], [place] [id number] Subjective: * Chief Complaints: * R ecent hospitalization 01/05/25 through 01/10/25.Alcohol withdrawal seizuresThrombocytopeniaHypomagnesemiaTransaminitisStarvation ketosisLactic acid 3.6Alcohol use disorder * HPI: C OVID-19 Screening: Nancie solo comes to the office following an admission to the hospital for alcoholism disorders. At discharge he was in rehabilitation for almost a month and was recently released. He is feeling much better. He is on several new medications including thiamine folate B12 Keppra and magnesium. He has been abstinent from alcohol since discharge from rehabilitation. Is very cooperative with the visit today. He came in with a walker remains ataxic. He will be seen frequently for support monitor recovery he was referred to addiction medicine. He has developed a sharp pain in his right popliteal area walking. The pain is not in his gastrocnemius but the back of his knee. He admits to nocturia once a night. He is also taking naltrexone on a daily basis. He is tolerating all of his medication. Questions H ave you had any new onset fever, chills, cough, congestion, sore throat, shortness of breath, muscle aches? N o * ROS: G eneral/Constitutional: pain R ight knee. C hills d enies. F atigue?admits. F ever d enies. E NT: Decreased hearing d enies. R espiratory: Cough d enies. C ardiovascular: Chest pain with exertion d enies. D yspnea on exertion?denies. S hortness of breath d enies. G astrointestinal: Constipation o ccasional. D ecreased [...] pain d enies. P sychiatric: Depressed mood w hich is mild. * Medical History: * Surgical History: B [...] cigarettes per day. He was born and [employer] [facility] [employer] [facility] [employer] at [facility]. He is and has 3 children, 2 daughters and 1 son all of whom are alive and well. He has no grandchildren. 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 His work requires him to lift up to 70 pounds on a repetitive basis. He has been there for 20 years. * Medications: T akinglevETIRAcetam 500 MG Tablet 1 tablet Orally every 12 hrs Naltrexone HCl 50 MG Tablet 1 tablet Orally Once a day Thiamine HCl 100 MG Tablet 1 tablet Orally Once a day Folate 400 MCG Tablet 1 tablet Orally Once a day Thiamine HCl 100 MG Tablet 1 tablet [...] Magnesium 400 MG Tablet as directed Orally Multivitamin - Tablet 1 tablet Orally Once a day Medication List reviewed and reconciled with the patientTaking levETIRAcetam 500 MG Tablet 1 tablet Orally every 12 hrs Taking Naltrexone HCl 50 MG Tablet 1 tablet Orally Once a day Taking Thiamine HCl 100 MG Tablet 1 tablet Orally Once a day Taking Folate 400 MCG Tablet 1 tablet Orally Once a day Taking Thiamine HCl 100 MG Tablet 1 [...] 400 MG Tablet as directed Orally Taking Multivitamin - Tablet 1 tablet Orally Once a day Medication List reviewed and reconciled with the patient * Allergies: N o Known Drug AllergyNo Known Food Allergyno[Allergies Verified] Objective: * Vitals: H t: 71 in, Wt: 131, BMI:18.27, BP: 135/83, HR: 62, Temp: 97.7, Wt-k.42. * Examination: G eneral Examination: GENERAL APPEARANCE: p leasant, well nourished, well developed, in no acute distress, calm and relaxed: underweightUnsteady gentleman using a wheeled walker.? HEAD: a traumatic, normocephalic. EYES: e sharron, [...] normal, no s3, or vascular bruits. LUNGS: : diminished breath sounds throughout: scattered inspiratory wheezes. BREASTS: no masses palpable bilaterally. ABDOMEN: b owel sounds normal, no ascites, no organomegaly, no mass, Underweight. RECTAL EXAM: n ot examined. MUSCULOSKELETAL: e xtremities unremarkable, no clubbing, cyanosis or edema. PERIPHERAL PULSES: n ormal. NEUROLOGIC: a lert and oriented, cranial nerves 2-12 grossly intact, deep tendon reflexes 2+ symmetrical, motor strength normal upper and lower extremities, sensory exam Diminished lower extremities, cerebellar ataxia, uses walker cannot stand unaided without a device. PSYCH: a lert, oriented. Assessment: * Assessment: 1. E ncounter for immunization - Z23 (Primary) N otes :He received his annual influenza vaccine today without difficulty. He was advised of the risks and benefits and gaave informed consent. 2 . T obacco dependence - F17.200 N otes [...] a referral to any of them today. 3 . L eft knee pain - M25.562 N otes :He is a sharp knee pain under his patella on the right that developed over the last week without trauma. There were no physical findings no sign of DVT. 4 . V itamin B 12 deficiency - E53.8 N otes :He will continue current vitamin P 12 injections monthly periods. His mean cell volume is now almost normal. 5 . U nderweight - R63.6 N otes :His body mass is improving. He has gained several pounds of weight. This value will be followed carefully.His mean cell volume has normalized. 6 . H TN (hypertension) - I10 N otes :His blood pressure is currently stable in the normal range. Will be observed carefully. No changes in medications was necessary. 7 . M acrocytosis - D75.89 N otes :The elevated MCV has almost normalized.. The value will be followed. His B12 and folic acid levels will be followed. 8 . C erebellar ataxia - G11.9 N otes :This is likely due to history of B12 deficiency and alcohol consumption. He will be observed carefully. Advised strongly to avoid alcohol use and to follow- up with neurology on their schedule.. 9 . U ncomplicated alcohol dependence - F10.20 N otes :An electroencephalogram will be done to see if his seizure is strongly recommended he begin alcoholism treatment. I wanted to refer him academic records specialist at [facility]. However he declined at this time saying he wwould think about it. 1 0. H ypomagnesemia - E83.42 N otes :He was continued on 400 mg of magnesium oxide daily. Plan: * Treatment: 2. T obacco dependence Continue Thiamine HCl Tablet, 100 MG, 1 tablet, Orally, Once a day; C ontinue Cyanocobalamin Tablet, 1000 MCG, 1 tablet, Orally, Once a day; C ontinue Metoprolol Tartrate Tablet, 50 MG, 1 tablet with food, Orally, Twice a day; C ontinue Tamsulosin HCl Capsule, 0.4 MG, 1 capsule, Orally, Once a day; C ontinue B1 Tablet, 100 MG, TAKE 1 TABLET BY MOUTH EVERY DAY FOR 30 DAYS, Oral; Continue Multivitamin Tablet, -, 1 tablet, Orally, Once a day. 3. L eft knee pain I maging: XR knee LT 3V Referral To:[facility] Orthopedic Surgery Reason:Evaluate and Treat Left Knee Pain 4. O thers Continue Magnesium Tablet, 400 MG, as directed, Orally. * Immunizations: Influenza Vaccine Afluria : 0.5 mL (Dose No:1) (Route: Intramuscular) given by Ekaterina Buck on Left Arm (Encounter for immunization) ???Immunization record has been reviewed and updated. * Procedure Codes: 9 0674 CCIIV4 VAC NO PRSV 0.5 ML [id number] FLU VACC 4 KALINA 3 YRS PLUS IM * Preventive Medicine: Counseling: C are goal follow-up plan: Counseling for abnormal BMI given Y es Below Normal BMI Follow-up D ietary education for weight gain, Dietary management education, guidance, and counseling, Feeding regime, Lifestyle education regarding diet, Nutrition / feeding management, Prescribed diet education, Special diet education, Intervention, Order not done: Medical or Other reason not done S moking/Tobacco Use Patient Lifestyle Goals P atient wants to quit Treatment Goals S et a quit date, Cut down by 1 cigarette a week Barriers S tress, Social smoker Self-Management Plan M rhea a plan to cut down number of cigarettes over time and set a date to work towards quitting * Follow Up: 6 Weeks (Reason: OV) * Images: * Sign off status: Completed true * Provider: Ayanna Mckeon MD Date: Generated for Beryl barnard/Caitlyn/Viryitting on: 06/01/2024 09:28 [...] developed, in no acute distress, calm and relaxed: underweightUnsteady gentleman using a wheeled walker HEAD: atraumatic, normocep halic EYES: eomi, perrla, anicte janet, conjugate EARS: normal NOSE: septum intact NECK/THYROID: no jugular venous di stention, no carotid bruit, thyroid normal HEART: no clicks, gallops, murmurs, or rubs, regular rhythm, S1, S2 normal, no s3, or vascular bruits LUNGS: : diminished breath sounds throughout: scattered inspiratory wheezes ABDOMEN: bowel sounds normal, no ascites, no organomegaly, no mass, Underweight NEUROLOGIC: alert and oriented, cranial nerves 2-12 grossly intact, deep tendon reflexes 2+ symmetrical, motor strength normal upper and lower extremities, sensory exam Diminished lower extremities, cerebellar ataxia, uses walker cannot stand unaided without a device SKIN: no suspicious lesion s, anicteric PERIPHERAL PULSES: normal BREASTS: no masses palpable b ilaterally MUSCULOSKELETAL: extremities unremark able, no clubbing, cyanosis or edema LYMPH NODES: no enlarged lymph no carine,spleen normal RECTAL EXAM: not examined PSYCH: alert, oriented ORAL CAVITY: normal, unremarkable Consultation Request Notes Referral Date Referring Provider Referred Provider Not yovany 02/24/2025 [facility], Orthopedic Surgeons Evaluate and Treat Left Knee Pain
--- OUTSIDE RECORDS SUMMARY | 2025-03-06 04:48 | XMS_ITS ---
Author Organization Serafin Mckeon III, MD Address [address] [address] Care Team Providers Care Mushroom Cutter Name Role Phone Dr. Serafin Mckeon III Primary Care Provider REASON FOR VISIT Refills Medications Medication SIG (Take, Route, Fr equency, Duration) Notes Start Date End Date Status Folic Acid 1 MG 1 tablet Orally Once a day for 30 days 03/06/2025 03/01/2026 Active Magnesium 400 MG twice a day Orally t wice a day for 30 days Active Naltrexone HCl 50 MG 1 tablet Orally Onc e a day for 30 days 02/24/2025 03/01/2026 Active levETIRAcetam 500 MG 1 tablet Orally lazara ry 12 hrs for 30 days 02/24/2025 Active Encounters Encounter Location Date Provider Diagnosis Serafin Mckeon III, MD [address] [place] [address] [place] [address] 03/06/2025 Serafin Mckeon Encounter for immunization Z23 Assessments Encounter Date Diagnosis (ICD Code) Assessment Notes Treat ment Notes Treatment Clinical Notes 03/06/2025 Encounter for immunization (ICD-10 - Z23) He received his annual influenza vaccine today without difficulty. He was advised of the risks and benefits and gaave informed consent. Plan Of Treatment Medication Medication Name Sig Start Date Stop Date Notes Folic Acid 1 MG 1 tablet Orally Once a day for 30 days 03/06/2025 03/01/2026 Magnesium 400 MG twice a day Orally t wice a day for 30 days Naltrexone HCl 50 MG 1 tablet Orally Onc e a day for 30 days 02/24/2025 03/01/2026 levETIRAcetam 500 MG 1 tablet Orally lazara ry 12 hrs for 30 days 02/24/2025 Next Appt Details Provider Name:Serafin Mckeon , 04/12/2025 09:45:00 AM, [address], [facility] [address], [place], [address], Progress Notes * RICHA SkipDOB:1965 (59 yo M)Acc No.[id number]:03/06/2025 Patient: Skip VIGIL :1965 A ge:59 Y S ex:Male Address:[address] [place] [address], [address] * Refills Refill Naltrexone HCl Tablet, 50 MG, Orally, 30, 1 tablet, Once a day, 30 days, Refills=11 Refill Magnesium Tablet, 400 MG, Orally, 60, twice a day, twice a day, 30 days, Refills=11 Refill levETIRAcetam Tablet, 500 MG, Orally, 60, 1 tablet, every 12 hrs, 30 days, Refills=11 Start Folic Acid Tablet, 1 MG, Orally, 30, 1 tablet, Once a day, 30 days, Refills=11 * true * Date: Generated for Beryl barnard/Caitlyn/Viryitting on: 06/01/2024 09:28 AM EST
--- NOTE | ~2025-04-01 | XR_ITS ---
EXAMINATION: XR KNEE, LEFT CLINICAL INFORMATION: 29/01/2016 COMPARISON: None available. TECHNIQUE: Three views of the left knee. FINDINGS: No fracture or joint effusion. Alignment is anatomic. Joint spaces are maintained. No abnormal soft tissue calcification. Vascular calcifications XR/XR knee LT 3V IMPRESSION: No acute findings Electronically signed by: Saurabh Krueger MD 04/03/2025 11:22 AM EST
--- OUTSIDE RECORDS SUMMARY | 2025-04-01 09:26 | XMS_ITS | Encounter Summary ---
Author Organization [facility] Address [address] [place] [address] Care Team Providers Care Financial Assistance Advisor Name Role Phone Sonali Lindsey MD Primary Care Provider + Encounter Details Date Type Department Care Team (Late st Contact Info) Description 01/29/2025 Lab Requisition [facility] - Main Lab [address] [facility] [facility] [place] [address] Sonali Lindsey MD [address] [id number] Alcohol use, unspecified, uncomplicated; Other generalized epilepsy and epileptic syndromes, not intractable, with status epilepticus (CMS/HCC V24, CMS/HCC V28) Social History Tobacco Use Types Packs/Day Years Used Date Smoking Tobacco: Every Day Cigarettes Alcohol Use Standard Drinks/Week Comments Yes 0 (1 standard drink = 0.6 oz pur e alcohol) Sex and Gender Information Value Date Recorded Sex Assigned at Not on file Legal Sex Male 8:27 PM EST Gender Identity Not on file Sexual Orientation Not on file documented as of this encounter Plan of Treatment Not on file documented as of this encounter Procedures Procedure Name Priority Date/Time Associated Diagnosis Comments COMPLETE BLOOD COUNT Routine 01/30/2025 7:36 AM EDT Alcohol use, unspecified, uncomplicated Other generalized epilepsy and epileptic syndromes, not intractable, with status epilepticus (CMS/HCC V24, CMS/HCC V28) BASIC METABOLIC PANEL Routine 01/30/2025 7:36 AM EDT Alcohol use, unspecified, uncomplicated Other generalized epilepsy and epileptic syndromes, not intractable, with status epilepticus (CMS/HCC V24, CMS/HCC V28) documented in this encounter Results * Basic metabolic panel (01/30/2025 7:36 AM EDT) Sodium 139 133 - 145 mmol/L LAB CHEMISTRY METHOD 01/30/2025 12:55 PM [facility] Potassium 4.3 3.5 - 5.5 mmol/L LAB CHEMISTRY METHOD 01/30/2025 12:55 PM [facility] Chloride 104 96 - 110 mmol/L LAB CHEMISTRY METHOD 01/30/2025 12:55 PM [facility] CO2 29 21 - 32 mmol/L LAB CHEMISTRY METHOD 01/30/2025 12:55 PM [facility] Anion Gap 6 3 - 11 LAB CHEMISTRY METHOD 01/30/2025 12:55 PM [facility] Glucose 71 70 - 100 mg/dL LAB CHEMISTRY METHOD 01/30/2025 12:55 PM [facility] BUN 9 5 - 25 mg/dL LAB CHEMISTRY METHOD 01/30/2025 12:55 PM [facility] Creatinine 0.70 0.70 - 1.30 mg/dL LAB CHEMISTRY METHOD 01/30/2025 12:55 PM [facility] eGFR 107 >=60 mL/min/1. 73m2 LAB CHEMISTRY METHOD 01/30/2025 12:55 PM [facility] Comment:Calculation based on the Chronic Kidney Disease Epidemiology Collaboration (CKD-EPI) equation refit without adjustment for race. BUN/Creatinine Ratio 12.9 LAB CHEMISTRY METHOD 01/30/2025 12:55 PM [facility] Calcium 9.3 8.5 - 10.5 mg/dL LAB CHEMISTRY METHOD 01/30/2025 12:55 PM [facility] Blood Venous blood specimen / Unknown Venipuncture / Unknown 01/30/2025 7:36 AM EDT 01/30/2025 10:57 AM EDT Sonail Lindsey MD LAB BLOOD ORDERABLES Fin al Result [facility] [address] [place] [address], * (ABNORMAL) Complete blood count (01/30/2025 7:36 AM EDT) WBC 6.3 4.8 - 10.8 K/mcL LAB HEMETOLOGY METHOD 01/30/2025 12:40 PM EDT [facility] RBC 4.10(L) 4.50 - 5.50 M/mcL LAB HEMETOLOGY METHOD 01/30/2025 12:40 PM EDT [facility] Hemoglobin 13.6 13.5 - 17.5 g/dL LAB HEMETOLOGY METHOD 01/30/2025 12:40 PM EDT [facility] Hematocrit 42.0 42.0 - 54.0 % LAB HEMETOLOGY METHOD 01/30/2025 12:40 PM EDT [facility] MCV 101.9(H) 79.0 - 98.0 FL LAB HEMETOLOGY METHOD 01/30/2025 12:40 PM EDT [facility] MCH 33.0(H) 27.0 - 32.0 pcg LAB HEMETOLOGY METHOD 01/30/2025 12:40 PM EDT [facility] MCHC 32.4 32.0 - 37.0 g/dL LAB HEMETOLOGY METHOD 01/30/2025 12:40 PM EDT [facility] RDW 12.7 11.0 - 15.0 % LAB HEMETOLOGY METHOD 01/30/2025 12:40 PM EDT [facility] Platelets 285 130 - 400 K/mcL LAB HEMETOLOGY METHOD 01/30/2025 12:40 PM EDT [facility] MPV 10.4 7.0 - 11.0 FL LAB HEMETOLOGY METHOD 01/30/2025 12:40 PM EDT [facility] NRBC 0.0 <1.0 % LAB HEMETOLOGY METHOD 01/30/2025 12:40 PM EDT [facility] NRBC Absolute 0.00 <0.10 K/mcL LAB HEMETOLOGY METHOD 01/30/2025 12:40 PM EDT [facility] Blood Venous blood specimen / Unknown Venipuncture / Unknown 01/30/2025 7:36 AM EDT 01/30/2025 10:57 AM EDT us Sonali Lindsey MD LAB BLOOD ORDERABLES Fin al Result [facility] [address] [place] [address], documented in this encounter Visit Diagnoses Diagnosis Alcohol use, unspecified, uncomplicated Other generalized epilepsy and epileptic syndromes, not intractable, with status epilepticus (CMS/HCC V24, CMS/HCC V28) documented in this encounter Care Teams Financial Assistance Advisor Relationship Specialty Start Date End Date Sonali Lindsey MD PCP - General Family Medicine 01/11/25 documented as of this encounter
--- OUTSIDE RECORDS SUMMARY | 2025-04-01 09:26 | XMS_ITS | Encounter Summary ---
Author Organization [facility] Address [address] [place] [address] Care Team Providers Care Scrap Hooker Name Role Phone Sonali Lindsey MD Primary Care Provider + Encounter Details Date Type Department Care Team (Late st Contact Info) Description 01/22/2025 Lab Requisition [facility] - Main Lab [address] [facility] [place] [address] Sonali Lindsey MD [address] [phone] Alcohol use, unspecified, uncomplicated; Other generalized epilepsy [...] Associated Diagnosis Comments COMPLETE BLOOD COUNT Routine 01/23/2025 8:13 AM EDT Alcohol use, unspecified, uncomplicated Other generalized epilepsy and epileptic syndromes, not intractable, with status epilepticus (CMS/HCC V24, CMS/HCC V28) BASIC METABOLIC PANEL Routine 01/23/2025 8:13 AM EDT Alcohol use, unspecified, uncomplicated Other generalized epilepsy and epileptic syndromes, not intractable, with status epilepticus (CMS/HCC V24, CMS/HCC V28) documented in this encounter Results * (ABNORMAL) Basic metabolic panel (01/23/2025 8:13 AM EDT) Sodium 138 133 - 145 mmol/L LAB CHEMISTRY METHOD 01/23/2025 12:54 PM [facility] Potassium 4.1 3.5 - 5.5 mmol/L LAB CHEMISTRY METHOD 01/23/2025 12:54 PM [facility] Chloride 103 96 - 110 mmol/L LAB CHEMISTRY METHOD 01/23/2025 12:54 PM [facility] CO2 28 21 - 32 mmol/L LAB CHEMISTRY METHOD 01/23/2025 12:54 PM [facility] Anion Gap 7 3 - 11 LAB CHEMISTRY METHOD 01/23/2025 12:54 PM [facility] Glucose 116(H) 70 - 100 mg/dL LAB CHEMISTRY METHOD 01/23/2025 12:54 PM [facility] BUN 13 5 - 25 mg/dL LAB CHEMISTRY METHOD 01/23/2025 12:54 PM [facility] Creatinine 0.66(L) 0.70 - 1.30 mg/dL LAB CHEMISTRY METHOD 01/23/2025 12:54 PM [facility] eGFR 109 >=60 mL/min/1. 73m2 LAB CHEMISTRY METHOD 01/23/2025 12:54 PM [facility] Comment:Calculation based on the Chronic Kidney Disease Epidemiology Collaboration (CKD-EPI) equation refit without adjustment for race. BUN/Creatinine Ratio 19.7 LAB CHEMISTRY METHOD 01/23/2025 12:54 PM [facility] Calcium 9.1 8.5 - 10.5 mg/dL LAB CHEMISTRY METHOD 01/23/2025 12:54 PM [facility] Blood Venous blood specimen / Unknown Venipuncture / Unknown 01/23/2025 8:13 AM EDT 01/23/2025 11:46 AM EDT us Sonali Lindsey MD LAB BLOOD ORDERABLES Fin al Result [facility] [address] [place] [address], * (ABNORMAL) Complete blood count (01/23/2025 8:13 AM EDT) WBC 5.9 4.8 - 10.8 K/mcL LAB HEMETOLOGY METHOD 01/23/2025 2:06 PM EDT [facility] RBC 3.70(L) 4.50 - 5.50 M/mcL LAB HEMETOLOGY METHOD 01/23/2025 2:06 PM EDT [facility] Hemoglobin 12.5(L) 13.5 - 17.5 g/dL LAB HEMETOLOGY METHOD 01/23/2025 2:06 PM EDT [facility] Hematocrit 37.7(L) 42.0 - 54.0 % LAB HEMETOLOGY METHOD 01/23/2025 2:06 PM EDT [facility] MCV 102.7(H) 79.0 - 98.0 FL LAB HEMETOLOGY METHOD 01/23/2025 2:06 PM EDT [facility] MCH 34.1(H) 27.0 - 32.0 pcg LAB HEMETOLOGY METHOD 01/23/2025 2:06 PM EDT [facility] MCHC 33.2 32.0 - 37.0 g/dL LAB HEMETOLOGY METHOD 01/23/2025 2:06 PM EDT [facility] RDW 12.9 11.0 - 15.0 % LAB HEMETOLOGY METHOD 01/23/2025 2:06 PM [facility] Platelets 415(H) 130 - 400 K/mcL LAB HEMETOLOGY METHOD 01/23/2025 2:06 PM EDT [facility] MPV 9.3 7.0 - 11.0 FL LAB HEMETOLOGY METHOD 01/23/2025 2:06 PM EDT [facility] NRBC 0.0 <1.0 % LAB HEMETOLOGY METHOD 01/23/2025 2:06 PM EDT [facility] NRBC Absolute 0.00 <0.10 K/mcL LAB HEMETOLOGY METHOD 01/23/2025 2:06 PM EDT [facility] Blood Venous blood specimen / Unknown Venipuncture / Unknown 01/23/2025 8:13 AM EDT 01/23/2025 11:46 AM EDT us Sonali Lindsey MD LAB BLOOD ORDERABLES Fin al Result [facility] [address] [place] [address], documented in this encounter Visit Diagnoses Diagnosis Alcohol use, unspecified, uncomplicated Other generalized epilepsy and epileptic syndromes, not intractable, with status epilepticus (CMS/HCC V24, CMS/HCC V28) documented in this encounter Care Teams Scrap Hooker Relationship Specialty Start Date End Date Sonali Lindsey MD PCP - General Family Medicine 01/11/25 documented as of this encounter
--- OUTSIDE RECORDS SUMMARY | 2025-04-01 09:26 | XMS_ITS | Encounter Summary ---
Author Organization [facility] Address [address] [place] [address] Care Team Providers Care Supervisor Contingents Name Role Phone Sonali Lindsey MD Primary Care Provider + Encounter Details Date Type Department Care Team (Late st Contact Info) Description 01/14/2025 Lab Requisition [facility] - Main Lab [address] [facility] [place] [address] Sonali Lindsey MD [address] [phone] Alcohol use, unspecified, uncomplicated; Other generalized epilepsy [...] Associated Diagnosis Comments COMPLETE BLOOD COUNT Routine 01/16/2025 8:52 AM EDT Alcohol use, unspecified, uncomplicated Other generalized epilepsy and epileptic syndromes, not intractable, with status epilepticus (CMS/HCC V24, CMS/HCC V28) BASIC METABOLIC PANEL Routine 01/16/2025 8:52 AM EDT Alcohol use, unspecified, uncomplicated Other generalized epilepsy and epileptic syndromes, not intractable, with status epilepticus (CMS/HCC V24, CMS/HCC V28) documented in this encounter Results * Basic metabolic panel (01/16/2025 8:52 AM EDT) Sodium 137 133 - 145 mmol/L LAB CHEMISTRY METHOD 01/16/2025 2:44 PM [facility] Potassium 4.5 3.5 - 5.5 mmol/L LAB CHEMISTRY METHOD 01/16/2025 2:44 PM [facility] Chloride 104 96 - 110 mmol/L LAB CHEMISTRY METHOD 01/16/2025 2:44 PM [facility] CO2 22 21 - 32 mmol/L LAB CHEMISTRY METHOD 01/16/2025 2:44 PM [facility] Anion Gap 11 3 - 11 LAB CHEMISTRY METHOD 01/16/2025 2:44 PM [facility] Glucose 90 70 - 100 mg/dL LAB CHEMISTRY METHOD 01/16/2025 2:44 PM [facility] BUN 9 5 - 25 mg/dL LAB CHEMISTRY METHOD 01/16/2025 2:44 PM [facility] Creatinine 0.82 0.70 - 1.30 mg/dL LAB CHEMISTRY METHOD 01/16/2025 2:44 PM [facility] eGFR 102 >=60 mL/min/1. 73m2 LAB CHEMISTRY METHOD 01/16/2025 2:44 PM [facility] Comment:Calculation based on the Chronic Kidney Disease Epidemiology Collaboration (CKD-EPI) equation refit without adjustment for race. BUN/Creatinine Ratio 11.0 LAB CHEMISTRY METHOD 01/16/2025 2:44 PM [facility] Calcium 9.3 8.5 - 10.5 mg/dL LAB CHEMISTRY METHOD 01/16/2025 2:44 PM [facility] Blood Venous blood specimen / Unknown Venipuncture / Unknown 01/16/2025 8:52 AM EDT 01/16/2025 11:42 AM EDT Sonali Lindsey MD LAB BLOOD ORDERABLES Fin al Result [facility] [address] [place] [address], * (ABNORMAL) Complete blood count (01/16/2025 8:52 AM EDT) WBC 7.0 4.8 - 10.8 K/mcL LAB HEMETOLOGY METHOD 01/16/2025 1:[address] [facility] RBC 3.80(L) 4.50 - 5.50 M/mcL LAB HEMETOLOGY METHOD 01/16/2025 1:[address] [facility] Hemoglobin 12.8(L) 13.5 - 17.5 g/dL LAB HEMETOLOGY METHOD 01/16/2025 1:[address] [facility] Hematocrit 39.6(L) 42.0 - 54.0 % LAB HEMETOLOGY METHOD 01/16/2025 1:[address] [facility] MCV 104.5(H) 79.0 - 98.0 FL LAB HEMETOLOGY METHOD 01/16/2025 1:[address] [facility] MCH 33.8(H) 27.0 - 32.0 pcg LAB HEMETOLOGY METHOD 01/16/2025 1:[address] [facility] MCHC 32.3 32.0 - 37.0 g/dL LAB HEMETOLOGY METHOD 01/16/2025 1:[address] [facility] RDW 13.6 11.0 - 15.0 % LAB HEMETOLOGY METHOD 01/16/2025 1:[address] [facility] Platelets 626(H) 130 - 400 K/mcL LAB HEMETOLOGY METHOD 01/16/2025 1:[address] [facility] MPV 9.4 7.0 - 11.0 FL LAB HEMETOLOGY METHOD 01/16/2025 1:[address] [facility] NRBC 0.0 <1.0 % LAB HEMETOLOGY METHOD 01/16/2025 1:[address] [facility] NRBC Absolute 0.00 <0.10 K/mcL LAB HEMETOLOGY METHOD 01/16/2025 1:[address] [facility] Blood Venous blood specimen / Unknown Venipuncture / Unknown 01/16/2025 8:52 AM EDT 01/16/2025 12:15 PM EDT us Sonali Lindsey MD LAB BLOOD ORDERABLES Fin al Result [facility] [address] [place] [address], documented in this encounter Visit Diagnoses Diagnosis Alcohol use, unspecified, uncomplicated Other generalized epilepsy and epileptic syndromes, not intractable, with status epilepticus (CMS/HCC V24, CMS/HCC V28) documented in this encounter Care Teams Supervisor Contingents Relationship Specialty Start Date End Date Sonali Lindsey MD PCP - General Family Medicine 01/11/25 documented as of this encounter
--- OUTSIDE RECORDS SUMMARY | 2025-04-01 09:27 | XMS_ITS | Encounter Summary ---
Author Organization [facility] Address [address] [place] [address] Care Team Providers Care Metal Drilling Machine Operator Name Role Phone Sonali Lindsey MD Primary Care Provider + Encounter Details Date Type Department Care Team (Late st Contact Info) Description 02/04/2025 Lab Requisition [facility] - Main Lab [address] [facility] [place] [address] Sonali Lindsey MD [address] [address] Alcohol use, unspecified, uncomplicated; Other generalized epilepsy [...] on file documented as of this encounter Visit Diagnoses Diagnosis Alcohol use, unspecified, uncomplicated Other generalized epilepsy and epileptic syndromes, not intractable, with status epilepticus (CMS/HCC V24, CMS/HCC V28) documented in this encounter Care Teams Metal Drilling Machine Operator Relationship Specialty Start Date End Date Sonali Lindsey MD PCP - General Family Medicine 01/11/25 documented as of this encounter
--- OUTSIDE RECORDS SUMMARY | 2025-04-01 09:27 | XMS_ITS | Encounter Summary ---
Author Organization [facility] Address [address] [place] [address] Care Team Providers Care Before School Name Role Phone Sonali Lindsey MD Primary Care Provider + Encounter Details Date Type Department Care Team (Late st Contact Info) Description 01/11/2025 Lab Requisition [facility] - Main Lab [address] [place] [address] Sonali Lindsey MD [address] [phone] Alcohol use, unspecified, uncomplicated; Unspecified convulsions (CMS/HCC V24, CMS/HCC V28); Trigeminal neuralgia Social History Tobacco Use Types Packs/Day Years [...] Procedure Name Priority Date/Time Associated Diagnosis Comments RED - PLAIN Routine 01/11/2025 5:39 AM EDT Alcohol use, unspecified, uncomplicated Unspecified convulsions (CMS/HCC V24, CMS/HCC V28) Trigeminal neuralgia COMPLETE BLOOD COUNT Routine 01/11/2025 5:39 AM EDT Alcohol use, unspecified, uncomplicated Unspecified convulsions (CMS/HCC V24, CMS/HCC V28) Trigeminal neuralgia GAMMA GLUTAMYL TRANSFERASE Routine 01/11/2025 5:39 AM EDT Alcohol use, unspecified, uncomplicated Unspecified convulsions (CMS/HCC V24, CMS/HCC V28) Trigeminal neuralgia HEPATIC FUNCTION PANEL Routine 5:39 AM EDT Alcohol use, unspecified, uncomplicated Unspecified convulsions (CMS/HCC V24, CMS/HCC V28) Trigeminal neuralgia COMPREHENSIVE METABOLIC PANEL Routine 01/11/2025 5:39 AM EDT Alcohol use, unspecified, uncomplicated Unspecified convulsions (CMS/HCC V24, CMS/HCC V28) Trigeminal neuralgia documented in this encounter Results * Red tube (01/11/2025 5:39 AM EDT) Pathologist [facility] Extra Tube Hold for add-ons. 01/11/2025 10:01 AM EDT [facility] Comment:Auto resulted. Blood Venous blood specimen / Unknown Venipuncture / Unknown 01/11/2025 5:39 AM EDT 01/11/2025 8:22 AM EDT Sonali Lindsey MD LAB BLOOD ORDERABLES Fin al Result Performing Organization Address City/[facility]/ZIP Co de Phone Number [facility] [address] [place] [address], [place] [phone] * (ABNORMAL) GGT (01/11/2025 5:39 AM EDT) [facility] GGT 186(H) 7 - 64 unit/L LAB CHEMISTRY METHOD 01/11/2025 9:03 AM EDT [facility] Blood Venous blood specimen / Unknown Venipuncture / Unknown 01/11/2025 5:39 AM EDT 01/11/2025 8:22 AM EDT Sonali Lindsey MD LAB BLOOD ORDERABLES Fin al Result Performing Organization Address City/[facility]/ZIP Co de Phone Number [facility] [address] [place] [address], [place] [phone] * (ABNORMAL) Hepatic function panel (01/11/2025 5:39 AM EDT) Total Protein 5.8(L) 6.0 - 8.0 g/dL LAB CHEMISTRY METHOD 01/11/2025 9:05 AM [facility] Albumin 3.1(L) 3.2 - 5.0 g/dL LAB CHEMISTRY METHOD 01/11/2025 9:05 AM [facility] Total Bilirubin 0.5 0.0 - 1.4 mg/dL LAB CHEMISTRY METHOD 01/11/2025 9:05 AM [facility] Bilirubin, Direct 0.2 0.0 - 0.3 mg/dL LAB CHEMISTRY METHOD 01/11/2025 9:05 AM [facility] Bilirubin, Indirect 0.3 0.0 - 1.1 mg/dL LAB CHEMISTRY METHOD 01/11/2025 9:05 AM [facility] ALT (SGPT) 67(H) 10 - 60 unit/L LAB CHEMISTRY METHOD 01/11/2025 9:05 AM [facility] AST (SGOT) 45(H) 10 - 42 unit/L LAB CHEMISTRY METHOD 01/11/2025 9:05 AM [facility] Alkaline Phosphatase 67 42 - 121 unit/L LAB CHEMISTRY METHOD 01/11/2025 9:05 AM [facility] Blood Venous blood specimen / Unknown Venipuncture / Unknown 01/11/2025 5:39 AM EDT 01/11/2025 8:22 AM EDT us Sonali Lindsey MD LAB BLOOD ORDERABLES Fin al Result [facility] [address] [place] [address], * (ABNORMAL) Comprehensive metabolic panel (01/11/2025 5:39 AM EDT) Sodium 139 133 - 145 mmol/L LAB CHEMISTRY METHOD 01/11/2025 9:05 AM [facility] Potassium 4.8 3.5 - 5.5 mmol/L LAB CHEMISTRY METHOD 01/11/2025 9:05 AM [facility] Chloride 104 96 - 110 mmol/L LAB CHEMISTRY METHOD 01/11/2025 9:05 AM [facility] CO2 30 21 - 32 mmol/L LAB CHEMISTRY METHOD 01/11/2025 9:05 AM [facility] Anion Gap 5 3 - 11 LAB CHEMISTRY METHOD 01/11/2025 9:05 AM [facility] Glucose 90 70 - 100 mg/dL LAB CHEMISTRY METHOD 01/11/2025 9:05 AM [facility] BUN 11 5 - 25 mg/dL LAB CHEMISTRY METHOD 01/11/2025 9:05 AM [facility] Creatinine 0.64(L) 0.70 - 1.30 mg/dL LAB CHEMISTRY METHOD 01/11/2025 9:05 AM [facility] eGFR 110 >=60 mL/min/1. 73m2 LAB CHEMISTRY METHOD 01/11/2025 9:05 AM [facility] Comment:Calculation based on the Chronic Kidney Disease Epidemiology Collaboration (CKD-EPI) equation refit without adjustment for race. BUN/Creatinine Ratio 17.2 LAB CHEMISTRY METHOD 01/11/2025 9:05 AM [facility] Calcium 9.5 8.5 - 10.5 mg/dL LAB CHEMISTRY METHOD 01/11/2025 9:05 AM [facility] AST (SGOT) 45(H) 10 - 42 unit/L LAB CHEMISTRY METHOD 01/11/2025 9:05 AM [facility] ALT (SGPT) 67(H) 10 - 60 unit/L LAB CHEMISTRY METHOD 01/11/2025 9:05 AM EDT [facility] Alkaline Phosphatase 67 42 - 121 unit/L LAB CHEMISTRY METHOD 01/11/2025 9:05 AM EDT [facility] Total Protein 5.8(L) 6.0 - 8.0 g/dL LAB CHEMISTRY METHOD 01/11/2025 9:05 AM [facility] Albumin 3.1(L) 3.2 - 5.0 g/dL LAB CHEMISTRY METHOD 01/11/2025 9:05 AM EDT [facility] Total Bilirubin 0.5 0.0 - 1.4 mg/dL LAB CHEMISTRY METHOD 01/11/2025 9:05 AM [facility] Blood Venous blood specimen / Unknown Venipuncture / Unknown 01/11/2025 5:39 AM EDT 01/11/2025 8:22 AM EDT Sonali Lindsey MD LAB BLOOD ORDERABLES Fin al Result [facility] [address] [place] [address], * (ABNORMAL) Complete blood count (01/11/2025 5:39 AM EDT) WBC 5.0 4.8 - 10.8 K/mcL LAB HEMETOLOGY METHOD 01/11/2025 8:31 AM EDT [facility] RBC 3.50(L) 4.50 - 5.50 [facility] Hemoglobin 11.8(L) 13.5 - 17.5 g/dL LAB HEMETOLOGY METHOD 01/11/2025 8:31 AM [facility] Hematocrit 36.2(L) 42.0 - 54.0 % LAB HEMETOLOGY METHOD 01/11/2025 8:31 AM EDT [facility] MCV 103.4(H) 79.0 - 98.0 FL LAB HEMETOLOGY METHOD 01/11/2025 8:31 AM EDT [facility] MCH 33.7(H) 27.0 - 32.0 pcg LAB HEMETOLOGY METHOD 01/11/2025 8:31 AM EDT [facility] MCHC 32.6 32.0 - 37.0 g/dL LAB HEMETOLOGY METHOD 01/11/2025 8:31 AM EDT [facility] RDW 14.3 11.0 - 15.0 % LAB HEMETOLOGY METHOD 01/11/2025 8:31 AM EDT [facility] Platelets 255 130 - 400 K/mcL LAB HEMETOLOGY METHOD 01/11/2025 8:31 AM [facility] MPV 9.8 7.0 - 11.0 FL LAB HEMETOLOGY METHOD 01/11/2025 8:31 AM EDT [facility] NRBC 0.0 <1.0 % LAB HEMETOLOGY METHOD 01/11/2025 8:31 AM T [facility] NRBC Absolute 0.00 <0.10 K/mcL LAB HEMETOLOGY METHOD 01/11/2025 8:31 AM [facility] Blood Venous blood specimen / Unknown Venipuncture / Unknown 01/11/2025 5:39 AM EDT 01/11/2025 8:22 AM EDT us Sonali Lindsey MD LAB BLOOD ORDERABLES Fin al Result [facility] [address] [place] [address], documented in this encounter Visit Diagnoses Diagnosis Alcohol use, unspecified, uncomplicated Unspecified convulsions (CMS/HCC V24, CMS/HCC V28) Trigeminal neuralgia documented in this encounter Care Teams Before School Relationship Specialty Start Date End Date Sonali Lindsey MD PCP - General Family Medicine 01/11/25 documented as of this encounter
--- OUTSIDE RECORDS SUMMARY | 2025-04-01 09:27 | XMS_ITS | Patient Health Record ---
Author Organization Serafin Mckeon III, MD Address [address] [place] [address] Care Team Providers Care Deputy Director Of Public Works Name Role Phone Dr. Serafin Mckeon III Primary Care Provider Allergies Allergen (clinical drug ingredient) Drug/Non Drug Allergy documented on EMR Reaction Allergy Type Onset Date Status No Known Drug Allergy Unknown Drug Allergy Active No Known Food Allergy Unknown Drug Allergy Active Results Component Value Reference Range Notes Troponin-I High Sensitivity Reviewed date:09/13/2024 05:37:46 AM Interpretation: Performing Lab:[facility], [address] [place] [phone] Notes/Report: Troponin-I High Sensitivity 46.0 <3.5-35.0 ng/L The Elam high sensitivity Troponin-I results should be used in conjunction with other diagnostic information such as ECG, clinical observations and information, and patient symptoms to aid in the diagnosis of PA. Drug Screen Urine Reviewed date:09/13/2024 05:37:46 AM Interpretation: Performing Lab:[address] [phone] Notes/Report: Opiate Screen Urine Not Detected Not [...] t Reviewed date:09/13/2024 05:37:46 AM Interpretation: Performing Lab:[facility], [address] [place] [phone] Notes/Report: Urine, Clean Catch Color Urine Dark Yellow Appearance Urine Cloudy PH 6.0 5.0-9.0 Glucose Urine UA Negative Negative mg/dL Urine Blood Negative Negative Specific Mclean - Urine 1.025 1.005-1.025 Urine Protein 100 (2+) Neg-Trace mg/dL Urine Ketones 15 Negative mg/dL Nitrite Urine Negative Negative Leukocyte Esterase Urine Negative Negative RBC Urine 0-2 0-2 /HPF WBC Urine 0-5 0-5 /HPF Squamous Epithelial Cell Urine 0-2 0-2 /HPF Bacteria Urine None Seen None Seen Hyaline Casts Urine 11-20 0-2 /LPF Lactic Acid-LAB USE ONLY Reviewed date:09/13/2024 05:37:46 AM Interpretation: Performing Lab:[facility], [address] [place] [phone] Notes/Report: Lactic Acid-LAB USE ONLY 0.9 0.5-2.0 mmol/L Complete Blood Count Auto Di ff Reviewed date:09/13/2024 10:04:07 AM Interpretation: Performing Lab:[facility], [address] [place] [phone] Notes/Report: White Blood Count 6.1 4.8-10.8 X10*3/uL [...] 0.0-0.2 /100WBC Neutrophils Absolute Auto 2.9 2.0-8.3 x10*3/uL Imm Gran Abs Auto 0.03 0.00-0.03 X10*3/uL Lymphocytes Absolute Auto 2.2 1.2-4.9 X10*3/uL Monocytes Absolute Auto 0.9 0.1-1.2 X10*3/uL Eosinophils Absolute Auto 0.1 0.0-0.4 X10*3/uL Basophils Absolute Auto 0.0 0.0-0.2 X10*3/uL NRBC Abs Auto 0.000 0.0-0.012 X10*3/uL Comprehensive Met. Panel Reviewed date:09/13/2024 10:04:07 AM Interpretation: Performing Lab:[facility], [address] [place] [phone] Notes/Report: Sodium 137 135-145 mmol/L Potassium 3.2 [...] Magnesium Reviewed date:09/13/2024 10:04:07 AM Interpretation: Performing Lab:[facility], [address] [place] [phone] Notes/Report: Magnesium 1.5 1.6-2.6 mg/dL Prostate Specific Antigen Reviewed date:09/13/2024 10:04:07 AM Interpretation: Performing Lab:[facility], [address] [place] [phone] Notes/Report: Prostate Specific Antigen 1.21 <0.05-4.0 ng/mL PSA methodology: Elam Alinity i Chemiluminescent Microparticle Immunoassay (CMIA) Complete Blood Count Auto Di ff Reviewed date:10/09/2024 07:54:45 PM Interpretation: Performing Lab:[facility], [address] [place] [phone] Notes/Report: White Blood Count 7.6 4.8-10.8 X10*3/uL [...] 0.0-0.2 /100WBC Neutrophils Absolute Auto 2.9 2.0-8.3 x10*3/uL Imm Gran Abs Auto 0.01 0.00-0.03 X10*3/uL Lymphocytes Absolute Auto 3.7 1.2-4.9 X10*3/uL Monocytes Absolute Auto 0.9 0.1-1.2 X10*3/uL Eosinophils Absolute Auto 0.1 0.0-0.4 X10*3/uL Basophils Absolute Auto 0.1 0.0-0.2 X10*3/uL NRBC Abs Auto 0.000 0.0-0.012 X10*3/uL Comprehensive [place]. Panel Fa st Reviewed date:10/09/2024 07:54:45 PM Interpretation: Performing Lab:[facility], [address] [place] [phone] Notes/Report: Sodium 139 135-145 mmol/L Potassium 3.6 [...] Magnesium Reviewed date:10/09/2024 07:54:45 PM Interpretation: Performing Lab:[address] [phone] Notes/Report: Magnesium 1.6 1.6-2.6 mg/dL Lipid Panel Reviewed date:10/09/2024 07:54:45 PM Interpretation: Performing Lab:[address] [phone] Notes/Report: Triglycerides 176 <150 mg/dL Desirable Triglyceride: [...] Folate Reviewed date:10/09/2024 07:54:45 PM Interpretation: Performing Lab:[facility], [address] [place] [phone] Notes/Report: Vitamin B12 723 200-900 pg/mL NORMAL 200-900 PG/ML INDETERMINATE 160-199 PG/ML DEFICIENT < 160 PG/ML Folate 14.2 > or = 4.0 ng/mL Reference Values: > or = 4.0 ng/mL < 4.0 ng/mL suggests folate deficiency Methotrexate, aminopterin and folinic acid (leucovorin) are chemotherapeutic agents whose molecular structures are similar to folate; therefore, the [employer] folate assay cannot be used for patients using these drugs. Complete Blood Count Auto Di ff Reviewed date:01/06/2025 02:45:15 PM Interpretation: Performing Lab:[facility], [address] [place] [phone] Notes/Report: White Blood Count 7.7 4.8-10.8 X10*3/uL Red Blood Count 3.77 4.60-5.80 X10*6/uL Hemoglobin 12.9 14.0-18.0 g/dl Hematocrit 37.0 42.0-52.0 % Mean Corpuscular Volume 98.1 80.0-98.0 fL Mean Corpuscular Hemoglobin 34.2 27.0-33.0 pg Mean Corpuscular HGB Conc 34.9 31.0-36.0 g/dl Red Cell Distribution Width 15.4 11.0-16.0 % Platelet Count 125 160-400 X10*3/uL Test was verified by repeat analysis. Mean Platelet Volume 9.9 9.4-12.4 fL Neutrophils Percent Auto 77.7 45-73 % Imm Gran Pct Auto 0.6 0.0-0.4 % Lymphocytes Percent Auto 8.4 20-40 % Monocytes Percent Auto 10.1 2-11 % Eosinophils Percent Auto 2.7 0-4 % Basophils Percent Auto 0.5 0-2 % NRBC Pct Auto 0.0 0.0-0.2 /100WBC Neutrophils Absolute Auto 6.0 2.0-8.3 x10*3/uL Imm Gran Abs Auto 0.05 0.00-0.03 X10*3/uL Lymphocytes Absolute Auto 0.7 1.2-4.9 X10*3/uL Monocytes Absolute Auto 0.8 0.1-1.2 X10*3/uL Eosinophils Absolute Auto 0.2 0.0-0.4 X10*3/uL Basophils Absolute Auto 0.0 0.0-0.2 X10*3/uL NRBC Abs Auto 0.000 0.0-0.012 X10*3/uL Prothrombin Time INR Reviewed date:01/06/2025 02:45:15 PM Interpretation: Performing Lab:[address] [phone] Notes/Report: Prothrombin Time 10.7 10.9-12.4 SEC INTERNATIONAL NORM RATIO 0.9 0.9-1.1 INTERNATIONAL NORMALIZED RATIO (INR) REFERENCE RANGES Reference Range For patients not on anticoagulant therapy: 0.9 - 1.1 INR ranges for oral anticoagulant therapy: For prevention and treatment of venous thrombosis and pulmonary embolism: 2.0 - 3.0 For acute myocardial infarction with aspirin therapy: 2.0 - 3.0 For acute myocardial infarction without aspirin therapy: 3.0 - 4.0 For patients with mechanical prosthetic heart valves: 2.5 - 3.5 Liver Panel Reviewed date:01/06/2025 02:45:15 PM Interpretation: Performing Lab:[address] [phone] Notes/Report: Bilirubin Total 1.3 0.0-1.0 mg/dL Bilirubin Direct 0.6 0.0-0.5 mg/dL Aspartate Amino Transferase 362 5-37 U/L Alanine Aminotransferase 199 0-40 U/L Total Protein 7.3 6.5-8.0 g/dL Albumin Level 4.4 3.5-5.0 g/dL Alkaline Phosphatase 83 39-117 U/L Basic Metabolic Panel Reviewed date:01/06/2025 02:45:15 PM Interpretation: Performing Lab:[address] [address] Notes/Report: Sodium 138 135-145 mmol/L Potassium 4.0 3.3-5.1 mmol/L Chloride 96 96-108 mmol/L Carbon Dioxide 19 22-29 mmol/L Anion Gap 27 12-20 Blood Urea Nitrogen 8 9-16 mg/dL Creatinine 0.69 0.5-1.4 mg/dL Creatinine Clr Calc Pharmacy 98.9 eGFR (calculated from the MDRD study equation) and eCrCl (calculated from the Cockcroft-Gault equation) are based on different parameters and may not yield comparable results. If eCrCl result is absurd, please check patient's height/weight. Estimated Glomerular Filt Rate > 60 Chronic Kidney Disease: Estimated GFR < 60 mL/min/1.73m2 Severe Kidney Disease: Estimated GFR < 15 mL/min/1.73m2 Glucose Random 136 60-115 mg/dL Calcium 9.1 8.4-10.2 mg/dL Lactic Acid Reviewed date:01/06/2025 02:45:15 PM Interpretation: Performing Lab:[address] [phone] Notes/Report: Lactic Acid 3.6 0.5-2.0 mmol/L Critical value for LACTIC: Results called to and read back by: ONI Person calling: Renovar Date: 01/05/25 Time: 1006 Magnesium Reviewed date:01/06/2025 02:45:15 PM Interpretation: Performing Lab:[facility], [address] [place] [phone] Notes/Report: Magnesium 0.8 1.6-2.6 mg/dL Critical value for MAG: Results called to and read back by: MAGGIE Person calling: [employer] Date: 01/05/25 Time: 0939 Troponin-I High Sensitivity Reviewed date:01/06/2025 02:45:15 PM Interpretation: Performing Lab:[facility], [address] [place] [phone] Notes/Report: Troponin-I High Sensitivity 20.4 <3.5-35.0 ng/L The Elam high sensitivity Troponin-I results should be used in conjunction with other diagnostic information such as ECG, clinical observations and information, and patient symptoms to aid in the diagnosis of PA. B Type Natriuretic Peptide Reviewed date:01/06/2025 02:45:15 PM Interpretation: Performing Lab:[facility], [address] [place] [phone] Notes/Report: B Type Natriuretic Peptide 40 <100 pg/mL Lipid Panel Reviewed date:01/06/2025 02:45:15 PM Interpretation: Performing Lab:[facility], [address] [place] [phone] Notes/Report: Triglycerides 65 <150 mg/dL Desirable Triglyceride: less than 150 mg/dL Borderline High Triglyceride 150-199 mg/dL High Triglyceride: 200-499 mg/dL Very High Triglyceride: greater than or equal to 5OO mg/dL Cholesterol 273 <200 mg/dL Desirable Cholesterol: less than 200 mg/dL Borderline High Cholesterol: 200-239 mg/dL High Cholesterol: greater than 239 mg/dL LDL Cholesterol Calculated 127 <100 mg/dL Desirable LDL: less than 100 mg/dL Near Optimal/Above Optimal LDL: 110-129 mg/dL Borderline High LDL: 130-159 mg/dL High LDL: 160-189 mg/dL Very High LDL: greater than or equal to 190 mg/dL HDL Cholesterol 133 >40 mg/dL Desirable HDL: greater than 40 mg/dL Note: This HDL assay may give artificially low results in patients with liver disease. Lipase Reviewed date:01/06/2025 02:45:15 PM Interpretation: Performing Lab:[facility], [address] [place] [phone] Notes/Report: Lipase 38 8-78 U/L Hepatitis A,B,C Profile Reviewed date:01/06/2025 02:45:15 PM Interpretation: Performing Lab:[facility], [address] [place] [phone] Notes/Report: Hepatitis A Antibody IgM Nonreactive Nonreactive IgM antibodies to HAV not detected; does not exclude early acute or recovered HAV infection. Hepatitis B Surface Antibody NONREACTIVE Nonreactive Nonreactive: < 8.00 mIU/mL Hepatitis B Core Antibody Nonreactive Nonreactive Hepatitis C Antibody Nonreactive Nonreactive Antibodies to HCV not detected; does not exclude early acute HCV infection. Hepatitis B Surface Antigen Negative Negative Drug Screen Urine Reviewed date:01/06/2025 02:45:15 PM Interpretation: Performing Lab:[facility], [address] [place] [phone] Notes/Report: Opiate Screen Urine Not Detected Not [...] should not be used for non-medical purposes. Acetaminophen LAB Reviewed date:01/06/2025 02:45:15 PM Interpretation: Performing Lab:[facility], [address] [place] [phone] Notes/Report: Acetaminophen LAB < 3 <30 mcg/mL Ethanol Reviewed date:01/06/2025 02:45:15 PM Interpretation: Performing Lab:[facility], [address] [place] [phone] Notes/Report: Ethanol < 10 Serum/plasma ethanol results are to be used for medical/treatment purposes only. UA ClnCatch+Micro w/rflx Cul t Reviewed date:01/06/2025 02:45:15 PM Interpretation: Performing Lab:[facility], [address] [place] [phone] Notes/Report: Urine, Clean Catch Color Urine Yellow Appearance Urine Clear PH 6.5 5.0-9.0 Glucose Urine UA Negative Negative mg/dL Urine Blood Small (1+) Negative Specific Mclean - Urine 1.015 1.005-1.025 Urine Protein 30 (1+) Neg-Trace mg/dL Urine Ketones 40 Negative mg/dL Nitrite Urine Negative Negative Leukocyte Esterase Urine Trace Negative RBC Urine 0-2 0-2 /HPF WBC Urine 0-5 0-5 /HPF Squamous Epithelial Cell Urine 0-2 0-2 /HPF Bacteria Urine None Seen None Seen Hyaline Casts Urine 0-2 0-2 /LPF Lactic Acid-LAB USE ONLY Reviewed date:01/06/2025 02:45:15 PM Interpretation: Performing Lab:[facility], [address] [place] [phone] Notes/Report: Lactic Acid-LAB USE ONLY 4.0 0.5-2.0 mmol/L Critical value for test(s): LACTA Results called to and read back by: SHOAIB PEACE Person calling: [place] Date:01/05/25 Time:1305 Lactic Acid-LAB USE ONLY Reviewed date:01/06/2025 02:45:15 PM Interpretation: Performing Lab:[facility], [address] [place] [phone] Notes/Report: Lactic Acid-LAB USE ONLY 2.3 0.5-2.0 mmol/L Critical value for test(s): LACTIC ACID Results called to and read back by: MAGGIE Person calling: MARLEY Date: 01/05/25 Time: 1541 Beta-Hydroxybutyrate Reviewed date:01/06/2025 02:45:15 PM Interpretation: Performing Lab:[address] [phone] Notes/Report: Beta-Hydroxybutyrate 1.71 0.02-0.27 mmol/L CT abdomen pelvis w con Reviewed date:01/06/2025 02:45:15 PM Interpretation: Performing Lab: Notes/Report: [address] [address] [address] Scan Report Signed Patient: Skip Randle MR#: [id number] [birth year] : 1965 Acct:[id number] Age/Sex: 59 / M ADM Date: 01/05/25 Loc: HO.ED Attending Dr: Ordering Physician: Shoaib Toscano MD Date of Service: 01/05/25 Procedure(s): CT abdomen pelvis w IV con Accession Number(s): [id number] cc: Shoaib Toscano MD; Serafin Mckeon MD Report Number: [id number]: Total DLP = 422.00 mGy-cm EXAMINATION: CT ABDOMEN PELVIS WITH IV CONTRAST HISTORY: Diffuse abd pain, nausea/vomiting, transaminitis COMPARISON: There are no prior studies for available comparison. TECHNIQUE: CT scan of the abdomen and pelvis was performed following administration of 85 mL Omnipaque 350 using standard departmental protocol. Coronal and sagittal reformatted images were generated and reviewed. Oral contrast material was not administered at the request of the referring physician. This CT exam was performed with one or more of the following dose reduction techniques: automated exposure control, adjustment of the mA and/or kV according to patient size, use of iterative reconstruction technique. DLP: 412 mGy-cm FINDINGS: The examination is markedly degraded by patient motion. LOWER CHEST: The visualized lung bases are clear. There is no pleural effusion. CARDIOVASCULATURE: The heart is normal in size. There is no pericardial effusion. LIVER: The liver is normal in size and contour, but demonstrates decreased attenuation, consistent with steatosis. No liver mass is identified. The hepatic and portal veins are patent. GALLBLADDER / BILE DUCTS: The gallbladder is unremarkable. There is no intra or extrahepatic biliary ductal dilatation. SPLEEN: The spleen is normal in size. No focal splenic lesion is identified. PANCREAS: The pancreas is unremarkable in appearance. ADRENAL GLANDS: Within normal limits. KIDNEYS/RETROPERITONEUM: No renal calculi are identified. There is no hydronephrosis. No renal masses are identified. LYMPH NODES: No abdominal or pelvic lymphadenopathy. VASCULATURE: The abdominal aorta demonstrates atherosclerotic calcification, but is normal in caliber. MESENTERY/PERITONEUM: No free fluid. No masses. There is no free intraperitoneal gas. STOMACH: There is a moderate hiatal hernia. A gastrostomy tube is partially visualized. SMALL BOWEL: The small bowel is grossly unremarkable in appearance. Evaluation is extremely limited by patient motion. COLON: There is a moderate amount of colonic stool. Evaluation is limited by motion. APPENDIX: Normal. URINARY BLADDER/PELVIC ORGANS: The urinary bladder is only partially imaged. The uterus is not identified. BONES / SOFT TISSUES: No suspicious bony or soft tissue abnormalities. CT/CT abdomen pelvis w IV con IMPRESSION: 1. Markedly limited examination due to patient motion. 2. Hepatic steatosis. 3. Moderate hiatal hernia. 4. Moderate colonic stool. Electronically signed by: Serafin Schmidt MD 01/05/2025 11:37 AM EDT Dictated By: Serafin Schmidt MD Signed By: <Electronically signed by Serafin Schmidt MD in [place]> 01/05/25 1137 DD/ 1043 TD/TT: 01/05/25 1127 [employer]: [place] [address] CT Scan Report Signed Patient: Clinton Randle MR#: [id number] 04 : 1965 Acct:[id number] Age/Sex: 59 / M ADM Date: 01/05/25 Loc: .ED Attending Dr: Ordering Physician: Shoaib Toscano MD Date of Service: 01/05/25 Procedure(s): CT abdomen pelvis w IV con Accession Number(s): [id number] cc: Shoaib Toscano MD; Serafin Mckeon MD Report Number: [id number]: Total DLP = 422.00 mGy-cm EXAMINATION: CT ABDOMEN PELVIS WITH IV CONTRAST HISTORY: Diffuse abd pain, nausea/vomiting, transaminitis COMPARISON: There ar e no prior studies for available comparison. TECHNIQUE: CT scan o f the abdomen and pelvis was performed following administration of 85 mL Omnipaque 350 using standard departmental protocol. Coronal an d sagittal reformatted images were generated and reviewed. Oral contrast material was not administered at the request of the referring physician. This CT exam was performed with one or more of the following dose reduction techniques : automated exposure control, adjustment of the mA and/or kV according to patient size, use of iterative reconstruction technique. DLP: 412 mGy-cm FINDINGS: The examination is markedly degraded by patient motion. LOWER CHEST: The visualized lung bases are clear. There is no pleural effusion. CARDIOVASCULATURE: T he heart is normal in size. There is no pericardial effusion. LIVER: The liver is normal in size and contour, but demonstrates decreased attenuatio n, consistent with steatosis. No liver mass is identified. The hepatic and portal veins are patent. GALLBLADDER / BILE DUCTS: The gallbladder is unremarkable. There is no intra or extrahepati c biliary ductal dilatation. SPLEEN: The spleen i s normal in size. No focal splenic lesion is identified. PANCREAS: The pancre as is unremarkable in appearance. ADRENAL GLANDS: With in normal limits. KIDNEYS/RETROPERITON EU M: No renal calculi are identified. There is no hydronephrosis. No renal masses are identified. LYMPH NODES: No abdominal or pelvic lymphadenopathy. VASCULATURE: The abdominal aorta demonstrates atherosclerotic calcification, but i s normal in caliber. MESENTERY/PERITONEUM : No free fluid. No masses. There is no free intraperitoneal gas. STOMACH: There is a moderate hiatal hernia. A gastrostomy tube is partially visualized. SMALL BOWEL: The sma ll bowel is grossly unremarkable in appearance. Evaluation is extremely limited by patient motion. COLON: There is a moderate amount of colonic stool. Evaluation is limited by motion. APPENDIX: Normal. URINARY BLADDER/PELV IC ORGANS: The urinary bladder is only partially imaged. The uterus i s not identified. BONES / SOFT TISSUES : No suspicious bony or soft tissue abnormalities. __ CT/CT abdomen pelvis w IV con IMPRESSION: 1. Markedly limited examination due to patient motion. 2. Hepatic steatosis. 3. Moderate hiatal hernia. 4. Moderate colonic stool. Electronically adina d by: Serafin Schmidt MD 01/05/2025 11:37 AM EDT Dictated By: Serafin Schmidt MD Signed By: <Electronically signed by Serafin Schmidt MD in [place]> 01/05/25 1137 DD/ 1043 TD/TT: 01/05/25 1127 [employer]: CT head/brain wo con Reviewed date:01/06/2025 02:45:15 PM Interpretation: Performing Lab: Notes/Report: [address] [address] [address] Scan Report Signed Patient: Skip Randle MR#: [id number] [birth year] : 1965 Acct:[id number] Age/Sex: 59 / M ADM Date: 01/05/25 Loc: HO.ED Attending Dr: Ordering Physician: Shoaib Toscano MD Date of Service: 01/05/25 Procedure(s): CT head/brain wo IV con Accession Number(s): [id number] cc: Shoaib Toscano MD; Serafin Mckeon MD Report Number: [id number]: Total DLP = 779.00 mGy-cm EXAMINATION: CT HEAD WITHOUT CONTRAST CLINICAL INFORMATION: Weakness COMPARISON: September 12, 2024 TECHNIQUE: Contiguous axial imaging was performed from the skull base to vertex without intravenous administration of contrast. This CT examination was performed using dose optimization techniques as appropriate, variously including the following: *Automated exposure control *Adjustment of mA and/or kV according to patient size (this includes techniques or standardized protocols for targeted exams where dose is matched to indication/reason for exam; i.e. extremities or head) *Use of iterative reconstruction technique DLP: 779 mGY*cm FINDINGS: There is no acute ischemic change. Mild periventricular white matter hypodensities are again noted. There is no intracranial hemorrhage. There is no mass-effect or midline shift. Mild to moderate generalized atrophy is again noted. Basal cisterns and ventricles are within normal limits for age/cerebral volume. Orbits are symmetrical and unremarkable. Focal mucosal thickening is present along the medial floor the right maxillary sinus, improved since the prior There are no bony abnormalities. CT/CT head/brain wo IV con IMPRESSION: No acute intracranial abnormality. Decreased chronic mucosal thickening in the right maxillary sinus. Mild to moderate generalized atrophy. Electronically signed by: Yuriy Enriquez MD 01/05/2025 11:34 AM EDT Dictated By: Yuriy Enriquez MD Signed By: <Electronically signed by Yuriy Enriquez MD in [place]> 01/05/25 1134 DD/ 1043 TD/TT: 01/05/25 1127 [employer]: [place] [address] CT Scan Report Signed Patient: Clinton Randle MR#: [id number] 04 : 1965 Acct:[id number] Age/Sex: 59 / M ADM Date: 01/05/25 Loc: HO.ED Attending Dr: Ordering Physician: Shoaib Toscano MD Date of Service: 01/05/25 Procedure(s): CT head/brain wo IV con Accession Number(s): [id number] cc: Shoaib Toscano MD; Serafin Mckeon MD Report Number: [id number]: Total DLP = 779.00 mGy-cm EXAMINATION: CT HEAD WITHOUT CONTRAST CLINICAL INFORMATION: Weakness COMPARISON: September 12, 2024 TECHNIQUE: Contiguous axial imaging was performed from the skull base to vertex without intravenous administration of contrast. This CT examination was performed using dose optimization techniques as appropriate, various ly including the following: *Automated exposure control *Adjustment of mA and/or kV according to patient size (this includes techniques or standardized protocols for targeted exams where dose is matched to indication/reason for exam; i.e. extremities or head) *Use of iterative reconstruction technique DLP: 779 mGY*cm FINDINGS: There is no acute ischemic change. Mild periventricular white matter hypodensities are again noted. There is no intracranial hemorrhage. There is no mass-effect or midline shift. Mild to moderate generalized atrophy is again noted. Basal cisterns and ventricles are within normal limits for age/cerebral volume. Orbits are symmetric al and unremarkable. Focal mucosal thickening is present along the medial floor the right maxillary sinus, improved since the prior There are no bony abnormalities. CT/CT head/brain wo IV con IMPRESSION: No acute intracrania l abnormality. Decreased chronic mucosal thickening in the right maxillary sinus. Mild to moderate generalized atrophy. Electronically adina d by: Yuriy Enriquez MD 01/05/2025 11:34 AM EDT Dictated By: Yuriy Enriquez MD Signed By: <Electronically signed by Yuriy Enriquez MD in [place]> 01/05/25 1134 DD/ 1043 TD/TT: 01/05/25 1127 [employer]: US abdomen limited Reviewed date:01/06/2025 02:45:15 PM Interpretation: Performing Lab: Notes/Report: [address] [address] Ultrasound Report Signed Patient: Skip Randle MR#: [id number] 04 : 1965 Acct:[id number] Age/Sex: 59 / M ADM Date: 01/05/25 Loc: HO.ED Attending Dr: Ordering Physician: Shoaib Toscano MD Date of Service: 01/05/25 Procedure(s): US abdomen limited Accession Number(s): [id number] cc: Shoaib Toscano MD; Serafin Mckeon MD EXAMINATION: US ABDOMEN LIMITED HISTORY: Transaminitis TECHNIQUE: Real-time grayscale ultrasound imaging of the right upper quadrant was performed and images were reviewed. COMPARISON: There are no prior studies available for comparison. FINDINGS: Liver: The right lobe of the liver measures 14.9 cm in size. The left lobe of the liver measures 11.1 cm in size. The liver demonstrates increased echotexture, consistent with steatosis. No focal mass or intrahepatic biliary ductal dilatation is identified. There is normal hepatopedal flow in the portal vein. Gallbladder and biliary tree: The gallbladder is unremarkable, without evidence of calculi, wall thickening, or pericholecystic fluid. There is no sonographic Muñiz sign. The common bile duct is normal in caliber measuring 3 mm. Right Kidney: The right kidney measures 11.1 cm in length and demonstrates a 7 x 6 x 8 mm lower pole cyst. The right kidney is otherwise unremarkable, without evidence of solid masses, hydronephrosis, or calculi. Pancreas: The pancreatic head, neck, and body are unremarkable. The pancreatic tail is obscured by bowel gas. Abdominal aorta and inferior vena cava: The visualized portions of the abdominal aorta and inferior vena cava are normal in caliber. There is no free fluid in the right upper quadrant. US/US abdomen limited IMPRESSION: Hepatic steatosis. Electronically signed by: Serafin Schmidt MD 01/05/2025 10:12 AM EDT RP Dictated By: Serafin Schmidt MD Signed By: <Electronically signed by Serafin Schmidt MD in OV> 01/05/25 1012 DD/ TD/TT: 01/05/2553 [employer] Management: [place] [address] Ultrasound Report Signed Patient: Clinton Randle MR#: [id number] 04 : 1965 Acct:[id number] Age/Sex: 59 / M ADM Date: 01/05/25 Loc: HO.ED Attending Dr: Ordering Physician: Shoaib Toscano MD Date of Service: 01/05/25 Procedure(s): US abdomen limited Accession Number(s): [id number] cc: Shoaib Toscano MD; Serafin Mckeon MD EXAMINATION: US ABDOMEN LIMITED HISTORY: Transaminitis TECHNIQUE: Real-time grayscale ultrasound imaging of the right upper quadrant was perform ed and images were reviewed. COMPARISON: There ar e no prior studies available for comparison. FINDINGS: Liver: The right lob e of the liver measures 14.9 cm in size. The left lobe of the liver measures 11.1 cm in size. The liver demonstrates increased echotextur e, consistent with steatosis. No focal mass or intrahepatic biliary ductal dilatation is identified. There is normal hepatopedal flow in the portal vein. Gallbladder and biliary tree: The gallbladder is unremarkable, without evidence of calculi, wall thickening, or pericholecystic fluid. There is no sonographic Muñiz sign. The common bile duct is normal in caliber measuring 3 mm. Right Kidney: The right kidney measures 11.1 cm in length and demonstrates a 7 x 6 x 8 mm lower pole cyst. The right kidney is otherwise unremarkable, without evidence of solid masses, hydronephrosis, or calculi. Pancreas: The pancreatic head, neck, and body are unremarkable. The pancreatic tail is obscured by bowel gas. Abdominal aorta and inferior vena cava: The visualized portions of the abdominal aorta and inferior vena cava are normal in caliber. There is no free flu id in the right upper quadrant. US/US abdomen limited IMPRESSION: Hepatic steatosis. Electronically adina d by: Serafin Schmidt MD 01/05/2025 10:12 AM EDT RP Dictated By: Serafin Schmidt MD Signed By: <Electronically signed by Serafin Schmidt MD in OV> 01/05/25 1012 DD/ 0948 TD/TT: 01/05/25 0953 Head Of [employer] Management: Basic Metabolic Panel Reviewed date:01/06/2025 02:45:15 PM Interpretation: Performing Lab:[address] [address] Notes/Report: Sodium 136 135-145 mmol/L Potassium 3.5 3.3-5.1 mmol/L Chloride 99 96-108 mmol/L Carbon Dioxide 24 22-29 mmol/L Anion Gap 17 12-20 Blood Urea Nitrogen 5 9-16 mg/dL Creatinine 0.52 0.5-1.4 mg/dL Creatinine Clr Calc Pharmacy 131.2 eGFR (calculated from the MDRD study equation) and eCrCl (calculated from the Cockcroft-Gault equation) are based on different parameters and may not yield comparable results. If eCrCl result is absurd, please check patient's height/weight. Estimated Glomerular Filt Rate > 60 Chronic Kidney Disease: Estimated GFR < 60 mL/min/1.73m2 Severe Kidney Disease: Estimated GFR < 15 mL/min/1.73m2 Glucose Random 149 60-115 mg/dL Calcium 7.9 8.4-10.2 mg/dL Complete Blood Count no Diff Reviewed date:01/06/2025 02:45:15 PM Interpretation: Performing Lab:[facility], [address] [place] [address] Notes/Report: White Blood Count 6.3 4.8-10.8 X10*3/uL Red Blood Count 3.39 4.60-5.80 X10*6/uL Hemoglobin 11.5 14.0-18.0 g/dl Hematocrit 33.4 42.0-52.0 % Mean Corpuscular Volume 98.5 80.0-98.0 fL Mean Corpuscular Hemoglobin 33.9 27.0-33.0 pg Mean Corpuscular HGB Conc 34.4 31.0-36.0 g/dl Red Cell Distribution Width 15.2 11.0-16.0 % Platelet Count 114 160-400 X10*3/uL Mean Platelet Volume 10.7 9.4-12.4 fL NRBC Pct Auto 0.0 0.0-0.2 /100WBC NRBC Abs Auto 0.000 0.0-0.012 X10*3/uL Liver Panel Reviewed date:01/06/2025 02:45:15 PM Interpretation: Performing Lab:[address] [address] Notes/Report: Bilirubin Total 1.5 0.0-1.0 mg/dL Bilirubin Direct 0.6 0.0-0.5 mg/dL Aspartate Amino Transferase 138 5-37 U/L Alanine Aminotransferase 104 0-40 U/L Total Protein 5.1 6.5-8.0 g/dL Albumin Level 3.0 3.5-5.0 g/dL Alkaline Phosphatase 50 39-117 U/L Basic Metabolic Panel Reviewed date:01/06/2025 02:45:15 PM Interpretation: Performing Lab:[address] [address] Notes/Report: Sodium 139 135-145 mmol/L Potassium 3.0 3.3-5.1 mmol/L Chloride 108 96-108 mmol/L Carbon Dioxide 26 22-29 mmol/L Anion Gap 8 12-20 Blood Urea Nitrogen 3 9-16 mg/dL Creatinine 0.52 0.5-1.4 mg/dL Creatinine Clr Calc Pharmacy 133.2 eGFR (calculated from the MDRD study equation) and eCrCl (calculated from the Cockcroft-Gault equation) are based on different parameters and may not yield comparable results. If eCrCl result is absurd, please check patient's height/weight. Estimated Glomerular Filt Rate > 60 Chronic Kidney Disease: Estimated GFR < 60 mL/min/1.73m2 Severe Kidney Disease: Estimated GFR < 15 mL/min/1.73m2 Glucose Random 119 60-115 mg/dL Calcium 7.5 8.4-10.2 mg/dL Magnesium Reviewed date:01/06/2025 02:45:15 PM Interpretation: Performing Lab:[address] [address] Notes/Report: Magnesium 1.2 1.6-2.6 mg/dL Critical [MG] sent by a secure message and confirmed by (RADHA JOLLY RN AT 08:15 ON 01/06/2025) Tech:GEORGIJERRY Complete Blood Count no Diff Reviewed date:01/07/2025 09:35:28 PM Interpretation: Performing Lab:[facility], [address] [place] [address] Notes/Report: White Blood Count 13.4 4.8-10.8 X10*3/uL Red Blood Count 3.43 4.60-5.80 X10*6/uL Hemoglobin 11.7 14.0-18.0 g/dl Hematocrit 33.6 42.0-52.0 % Mean Corpuscular Volume 98.0 80.0-98.0 fL Mean Corpuscular Hemoglobin 34.1 27.0-33.0 pg Mean Corpuscular HGB Conc 34.8 31.0-36.0 g/dl Red Cell Distribution Width 14.6 11.0-16.0 % Platelet Count 112 160-400 X10*3/uL Mean Platelet Volume 11.1 9.4-12.4 fL NRBC Pct Auto 0.0 0.0-0.2 /100WBC NRBC Abs Auto 0.000 0.0-0.012 X10*3/uL Liver Panel Reviewed date:01/07/2025 09:35:28 PM Interpretation: Performing Lab:[facility], [address] [place] [phone] Notes/Report: Bilirubin Total 1.4 0.0-1.0 mg/dL Bilirubin Direct 0.5 0.0-0.5 mg/dL Aspartate Amino Transferase 166 5-37 U/L Alanine Aminotransferase 127 0-40 U/L Total Protein 5.6 6.5-8.0 g/dL Albumin Level 3.3 3.5-5.0 g/dL Alkaline Phosphatase 62 39-117 U/L Basic Metabolic Panel Reviewed date:01/07/2025 09:35:28 PM Interpretation: Performing Lab:[facility], [address] [place] [phone] Notes/Report: Sodium 137 135-145 mmol/L Potassium 3.6 3.3-5.1 mmol/L Chloride 102 96-108 mmol/L Carbon Dioxide 26 22-29 mmol/L Anion Gap 13 12-20 Blood Urea Nitrogen 3 9-16 mg/dL Creatinine 0.53 0.5-1.4 mg/dL Creatinine Clr Calc Pharmacy 130.7 eGFR (calculated from the MDRD study equation) and eCrCl (calculated from the Cockcroft-Gault equation) are based on different parameters and may not yield comparable results. If eCrCl result is absurd, please check patient's height/weight. Estimated Glomerular Filt Rate > 60 Chronic Kidney Disease: Estimated GFR < 60 mL/min/1.73m2 Severe Kidney Disease: Estimated GFR < 15 mL/min/1.73m2 Glucose Random 97 60-115 mg/dL Calcium 8.2 8.4-10.2 mg/dL Magnesium Reviewed date:01/07/2025 09:35:28 PM Interpretation: Performing Lab:[facility], [address] [place] [address] Notes/Report: Magnesium 1.2 1.6-2.6 mg/dL Critical [Magnesium] sent by a secure message and confirmed by (ANGELIA, 01/07/25 0839) Tech: GREGORY Shepherd Reviewed date:01/07/2025 09:35:28 PM Interpretation: Performing Lab:[address] [address] Notes/Report: Tyree Shepherd See Note Specimen held untested for 24 hours; Call to request Chemistry testing. Hold Lav - Possible Hematolo gy Reviewed date:01/09/2025 08:38:08 AM Interpretation: Performing Lab:[facility], [address] [place] [phone] Notes/Report: Hold Lav - Possible Hematology SEE NOTE Specimen will be held untested for 8 hours. Call Hematology if testing is desired. Basic Metabolic Panel Reviewed date:01/09/2025 08:38:09 AM Interpretation: Performing Lab:[facility], [address] [place] [phone] Notes/Report: Sodium 137 135-145 mmol/L Potassium 3.8 3.3-5.1 mmol/L Chloride 100 96-108 mmol/L Carbon Dioxide 26 22-29 mmol/L Anion Gap 15 12-20 Blood Urea Nitrogen 5 9-16 mg/dL Creatinine 0.52 0.5-1.4 mg/dL Creatinine Clr Calc Pharmacy 133.2 eGFR (calculated from the MDRD study equation) and eCrCl (calculated from the Cockcroft-Gault equation) are based on different parameters and may not yield comparable results. If eCrCl result is absurd, please check patient's height/weight. Estimated Glomerular Filt Rate > 60 Chronic Kidney Disease: Estimated GFR < 60 mL/min/1.73m2 Severe Kidney Disease: Estimated GFR < 15 mL/min/1.73m2 Glucose Random 95 60-115 mg/dL Calcium 8.9 8.4-10.2 mg/dL Magnesium Reviewed date:01/09/2025 08:38:09 AM Interpretation: Performing Lab:[facility], [address] [place] [phone] Notes/Report: Magnesium 1.4 1.6-2.6 mg/dL Critical [Magnesium] sent by a secure message and confirmed by (ANGELIA, 01/08/25 0947) Tech: GREGORY Clements Lav - Possible Hematolo gy Reviewed date:01/10/2025 04:47:00 AM Interpretation: Performing Lab:[facility], [address] [place] [phone] Notes/Report: Hold Lav - Possible Hematology SEE NOTE Specimen will be held untested for 8 hours. Call Hematology if testing is desired. Magnesium Reviewed date:01/10/2025 04:47:00 AM Interpretation: Performing Lab:[facility], [address] [place] [phone] Notes/Report: Magnesium 1.4 1.6-2.6 mg/dL Critical [MG] sent by a secure message and confirmed by (GINA BEARD RN AT 09:40 ON 01/09/2025) Tech:KAREY Magnesium Reviewed date:01/10/2025 04:47:00 AM Interpretation: Performing Lab:[facility], [address] [place] [address] Notes/Report: Magnesium 2.0 1.6-2.6 mg/dL Reason For Referral Reason Evaluate and Treat Left Knee Pain Diagnosis 1 Left knee pain (M25. 562) Referral Organization Serafin Mckeon III, MD Referring Provider First Name Serafin Referring Provider Last Name Linda Referring Provider Speciality Internal M edicine Referred Provider State [place] [facility], [facility] Referred Provider Specialty Orthopedic S tan General Notes Deepa Aceves 02/27/2025 10:19:44 AM > Progress note and referral faxed. Referral Priority Routine Medications Medication SIG (Take, Route, Frequency, Duration) Notes Start Date End Date Status Folic Acid 1 MG 1 tablet Orally Once a day for 30 days 03/06/2025 03/01/2026 Active Metoprolol Tartrate 50 MG 1 tablet with food Orally Twice a day 01/21/2016 Active Tamsulosin HCl 0.4 MG 1 capsule Orally O nce a day 11/03/2022 Active Cyanocobalamin 1000 MCG 1 tablet Orally Once a day 09/11/2016 Active Magnesium 400 MG twice a day Orally t wice a day for 30 days Active Naltrexone HCl 50 MG 1 tablet Orally Onc e a day for 30 days 02/24/2025 03/01/2026 Active Thiamine HCl 100 MG 1 tablet Orally Once a day 02/24/2025 Active Thiamine HCl 100 MG 1 tablet Orally Once a day 09/08/2022 Active Folate 400 MCG 1 tablet Orally Once a day 02/24/2025 Active levETIRAcetam 500 MG 1 tablet Orally lazara ry 12 hrs for 30 days 02/24/2025 Active Multivitamin - 1 tablet Orally Once a day Active B1 100 MG TAKE 1 TABLET BY KOREY TH EVERY DAY FOR 30 DAYS Oral Active Immunizations Vaccine Route Administration Date Status [...] Vaccine Afluria IM Intramuscular 09/21/2024 Admi nistered Influenza Vaccine Afluria IM Intramuscular 02/24/2025 Admi nistered Social History Tobacco Use: Social History Observation Description Date Details (start date - stop date) Current Smoker NA - NA Alcohol Screen Question Answer Notes Did you [...] Never (0 point) Points 1 Interpretation Negative Tobacco Control (Standard) Question Answer Notes Tobacco [...] smoker (10-19 cigs/day) Vital Signs Heart Rate 62 /min 02/24/2025 Temperature 97.7 degrees Fahrenheit 02/24/2025 Blood pressure diastolic 83 mm Hg 02/24/2025 Height 71 in in 02/24/2025 Blood pressure systolic 135 mm Hg 02/24/2025 Weight 131 lbs 02/24/2025 BMI 18.27 kg/m2 02/24/2025 Encounters Encounter Location Date Provider Diagnosis Serafin Mckeon III, MD [address] [place] [address] [place] [address] 09/21/2024 Serafin Mckeon Tobacco dependence F17.200 ; Encounter for immunization Z23 ; Underweight R63.6 ; Macrocytosis D75.89 ; Hyperlipidemia E78.5 ; Vitamin B 12 deficiency E53.8 ; Uncomplicated alcohol dependence F10.20 and Hypomagnesemia E83.42 Serafin Mckeon III, MD [address] [place] [address] [place] [address] 10/13/2024 Serafin Mckeon Tobacco dependence F17.200 ; Vitamin B 12 deficiency E53.8 ; Underweight R63.6 ; HTN (hypertension) I10 ; Macrocytosis D75.89 and Ataxia R27.0 Serafin Mckeon III, MD [address] [place] [address] [place] [address] 02/24/2025 Serafin Mckeon Tobacco dependence F17.200 ; Encounter for immunization Z23 ; Left knee pain M25.562 ; Vitamin B 12 deficiency E53.8 ; Underweight R63.6 ; HTN (hypertension) I10 ; Macrocytosis D75.89 ; Cerebellar ataxia G11.9 ; Uncomplicated alcohol dependence F10.20 and Hypomagnesemia E83.42 Serafin Mckeon III, MD [address] [place] [address] [place] [address] 09/15/2024 Serafin Mckeon III, MD [address] [place] [address] [place] [address] 09/21/2024 Serafin Mckeon III, MD [address] [place] [address] [place] [address] 10/11/2024 Serafin Mckeon Tobacco dependence F17.200 Serafin Mckeon III, MD [address] [place] [address] [place] [address] 03/06/2025 Serafin Mckeon Encounter for immunization Z23 [...] cell volume is now almost normal. 02/24/2025 Encounter for immunization (ICD-10 - Z23) He received his annual influenza vaccine today without difficulty. He was advised of the risks and benefits and gaave informed consent. 02/24/2025 Tobacco dependence (ICD-10 - F17.200) I have strongly encouraged him not to smoke. I've discussed with him several strategies for becoming smoke-free in maintaining abstinence. He says that he is down to 10 cigarettes daily.I have made him aware of all of the smoking cessation programs available at local hospitals and commercially. He has declined a referral to any of them today. 10/11/2024 Tobacco dependence (ICD-10 - F17.200) I have strongly encouraged him not to smoke. I've discussed with him several strategies for becoming smoke-free in maintaining abstinence. He says that he is down to 10 cigarettes daily.I have made him aware of all of the smoking cessation programs available at local hospitals and commercially. He has declined a referral to any of them today. 03/06/2025 Encounter for immunization (ICD-10 - Z23) He received his annual influenza vaccine today without difficulty. He was advised of the risks and benefits and gaave informed consent. 09/21/2024 Underweight (ICD-10 - R63.6) His body mass is increased recently from 17-19.2. He has gained several pounds of weight. This value will be followed carefully. 10/13/2024 Underweight (ICD-10 - R63.6) His body mass is improving. He has gained several pounds of weight. This value will be followed carefully.His mean cell volume has normalized. 02/24/2025 Left knee pain (ICD-10 - M25.562) He is a sharp knee pain under his patella on the right that developed over the last week without trauma. There were no physical findings no sign of DVT. 09/21/2024 Macrocytosis (ICD-10 - D75.89) The elevated MCV is ethanol effect. The value will be followed. His B12 and folic acid levels will be followed. 10/13/2024 HTN (hypertension) (ICD-10 - I10) His blood pressure is currently stable in the normal range. Will be observed carefully. No changes in medications was necessary. 02/24/2025 Vitamin B 12 deficiency (ICD-10 - E53.8) He will continue current vitamin P 12 injections monthly periods. His mean cell volume is now almost normal. 09/21/2024 Hyperlipidemia (ICD-10 - E78.5) His fasting lipid profile periodically. 10/13/2024 Macrocytosis (ICD-10 - D75.89) The elevated MCV has almost normalized.. The value will be followed. His B12 and folic acid levels will be followed. 02/24/2025 Underweight (ICD-10 - R63.6) His body mass is improving. He has gained several pounds of weight. This value will be followed carefully.His mean cell volume has normalized. 09/21/2024 Vitamin B 12 deficiency (ICD-10 - E53.8) Continue current vitamin P 12 injections monthly periods 10/13/2024 Ataxia (ICD-10 - R27.0) The MRI of his brain showed no change except for volume loss. His ataxia has improved with the use of B12. 02/24/2025 HTN (hypertension) (ICD-10 - I10) His blood pressure is currently stable in the normal range. Will be observed carefully. No changes in medications was necessary. 09/21/2024 Uncomplicated alcohol dependence (ICD-10 - F10.20) An electroencephalogram will be done to see if his seizure is strongly recommended he begin alcoholism treatment. I wanted to refer him micro computer specialist at [facility]. However he declined at this time saying he wwould think about it. 02/24/2025 Macrocytosis (ICD-10 - D75.89) The elevated MCV has almost normalized.. The value will be followed. His B12 and folic acid levels will be followed. 09/21/2024 Hypomagnesemia (ICD-10 - E83.42) He was continued on 400 mg of magnesium oxide daily. 02/24/2025 Cerebellar ataxia (ICD-10 - G11.9) This [...] alcoholism treatment. I wanted to refer him micro computer specialist at [facility]. However he declined at this time saying he wwould think about it. 02/24/2025 Hypomagnesemia (ICD-10 - E83.42) He was continued on 400 mg of magnesium oxide daily. Plan Of Treatment Pending Test Test Name Order Date PROFILE, FASTING (COMPREHENSIVE METABOLI C) 09/26/2021 PROFILE, FASTING (COMPREHENSIVE METABOLI C) 09/08/2022 PROFILE, FASTING (COMPREHENSIVE METABOLI C) 06/07/2021 PROFILE, FASTING (COMPREHENSIVE METABOLI C) 06/10/2023 PROFILE, FASTING (COMPREHENSIVE METABOLI C) 10/13/2024 PROFILE, FASTING (COMPREHENSIVE METABOLI C) 09/21/2024 PROFILE, RANDOM (COMPREHENSIVE METABOLIC ) 09/18/2020 PROFILE, RANDOM (COMPREHENSIVE METABOLIC ) 03/01/2021 PROFILE, RANDOM (COMPREHENSIVE METABOLIC ) 11/30/2020 MAGNESIUM 09/08/2022 LIPID PANEL 09/18/2020 LIPID PANEL 09/26/2021 LIPID PANEL 06/07/2021 LIPID PANEL 09/08/2022 LDH 10/13/2024 FREE T4 (FT4) 03/01/2021 TSH [...] B12 06/10/2023 Free T4 (Free Thyroxine) 10/13/2024 XR knee LT 3V 02/24/2025 Next Appt Details Provider Name:Serafin Mckeon , 04/12/2025 09:45:00 AM, [address] [place] [address] [address], [address], [place], [address], Insurance Providers Payer Name Payer Address Payer Phone Subscriber Number Group Number Insured Name Patient Relationship to Insured Coverage Start Date Coverage End Date MEDICARE NGS [address] [place] [phone] [id number] Skip Randle Self - patient is the insured Medical (General) History Medical History History ICD Code tobacco dependence underweight tachycardia 2008 microscopic hematuria, negative uri ne cytology allergies Alcohol use disorder Benign prostatic hypertrophy Surgical History Surgery Date(Month/Year) nondisplaced fracture middle phalanx lef t third finger 2002 Broken jaw 2002
--- OUTSIDE RECORDS SUMMARY | 2025-04-01 09:28 | XMS_ITS | Clinical Summary ---
Author Organization [address] Address [address] [place] [phone] Phone Care Team Providers Care Tool And Die Manager Name Role Phone Sonali Lindsey MD Primary Care Provider + Encounters Date Type Department Care Team Description 02/04/2025 Lab Requisition [facility] [address] [place] [phone] Sonali Lindsey MD Alcohol use, unspecified, uncomplicated; Other generalized epilepsy and epileptic syndromes, not intractable, with status epilepticus ([facility] V24, [facility] V28) 01/29/2025 Lab Requisition [facility] [address] [place] [phone] Sonali Lindsey MD Alcohol use, unspecified, uncomplicated; Other generalized epilepsy and epileptic syndromes, not intractable, with status epilepticus ([facility] V24, [facility] V28) 01/22/2025 Lab Requisition [facility] [address] [place] [phone] Sonali Lindsey MD Alcohol use, unspecified, uncomplicated; Other generalized epilepsy and epileptic syndromes, not intractable, with status epilepticus ([facility] V24, [facility] V28) 01/14/2025 Lab Requisition [facility] [address] [place] [phone] Sonali Lindsey MD Alcohol use, unspecified, uncomplicated; Other generalized epilepsy and epileptic syndromes, not intractable, with status epilepticus ([facility] V24, [facility] V28) 01/11/2025 Lab Requisition [facility] [address] [place] [phone] Sonali Lindsey MD Alcohol use, unspecified, uncomplicated; Unspecified convulsions (CMS/HCC V24, CMS/HCC V28); Trigeminal neuralgia from Last 3 Months Surgical History Surgery Date Site/Laterality Comments OTHER SURGICAL HISTORY PROCEDURE: DENIES PREVIOUS SURGERY Medical History Medical History Date Comments Jaw fracture (CMS/HCC V24, C MS/HCC V28) DX:Jaw fracture (HCC) Smoking 07/28/2012 DX:Smoking Impacted cerumen 07/28/2012 DX:Impacted cer umen Family history of aortic aneurysm 07/28/2012 DX:Family history of aortic aneurysm Diastolic murmur 07/28/2012 DX:Diastolic mu rmur High triglycerides 08/23/2012 DX:High trigl ycerides Elevated glucose 08/23/2012 DX:Elevated glu cose Family History Medical History Relation Name Comments Other: aortic anuerysm Sister 1 Relation Name Status Comments Sister 1 Sister 2 Social History Tobacco Use Types Packs/Day Years Used Date Smoking Tobacco: Every Day Cigarettes Alcohol Use Standard Drinks/Week Comments Yes 0 (1 standard drink = 0.6 oz pur e alcohol) Sex and Gender Information Value Date Recorded Sex Assigned at Not on file Legal Sex Male 8:27 PM EST Gender Identity Not on file Sexual Orientation Not on file Obstetrics History Plan of Treatment Health Maintenance Due Date Last Done Comments Colorectal Cancer Screening: Colonoscopy 1967 Hepatitis B Vaccines (1 of 3 - 19+ 3-dose series) 1986 Pneumococcal Vaccine: 50+ Ye ars (1 of 2 - PCV) 1986 Zoster Vaccines (1 of 2) 2017 DTaP,Tdap,and Td Vaccines (2 - Td or Tdap) 07/28/2022 07/28/2012 Depression Screening 05/11/2024 COVID-19 Vaccine (1 - 2024-2 6 season) 2025 Influenza Vaccine (#1) 2025 Cholesterol Screening (Lipid Panel) 01/11/2025 HIV Screening 01/11/2025 Hepatitis C Screening 01/11/2025 Medicare Annual Wellness Visit 01/11/2025 Social Influencers of Health Screening 01/11/2025 RSV Immunization Adult Patie nts (1 - 1-dose 75+ series) 2042 HIB Vaccines Aged Out No longer eligi ble based on patient's age to complete this topic HPV Vaccines Aged Out No longer eligi ble based on patient's age to complete this topic Hepatitis A Vaccines Aged Out No long er eligible based on patient's age to complete this topic IPV Vaccines Aged Out No longer eligi ble based on patient's age to complete this topic MMR Vaccines Aged Out No longer eligi ble based on patient's age to complete this topic Meningococcal ACWY Vaccine Aged Out N o longer eligible based on patient's age to complete this topic Meningococcal B Vaccine Aged Out No l onger eligible based on patient's age to complete this topic RSV Immunization Patients Un amada 20 months Aged Out No longer eligible b ased on patient's age to complete this topic Varicella Vaccines Aged Out No longer eligible based on patient's age to complete this topic Procedures Procedure Name Priority Date/Time Associated Diagnosis Comments BASIC METABOLIC PANEL Routine 01/30/2025 7:36 AM EDT Alcohol use, unspecified, uncomplicated Other generalized epilepsy and epileptic syndromes, not intractable, with status epilepticus (CMS/HCC V24, CMS/HCC V28) COMPLETE BLOOD COUNT Routine 01/30/2025 7:36 AM EDT Alcohol use, unspecified, uncomplicated Other generalized epilepsy and epileptic syndromes, not intractable, with status epilepticus (CMS/HCC V24, CMS/HCC V28) BASIC METABOLIC PANEL Routine 01/23/2025 8:13 AM EDT Alcohol use, unspecified, uncomplicated Other generalized epilepsy and epileptic syndromes, not intractable, with status epilepticus (CMS/HCC V24, CMS/HCC V28) COMPLETE BLOOD COUNT Routine 01/23/2025 8:13 AM EDT Alcohol use, unspecified, uncomplicated Other generalized epilepsy and epileptic syndromes, not intractable, with status epilepticus (CMS/HCC V24, CMS/HCC V28) BASIC METABOLIC PANEL Routine 01/16/2025 8:52 AM EDT Alcohol use, unspecified, uncomplicated Other generalized epilepsy and epileptic syndromes, not intractable, with status epilepticus (CMS/HCC V24, CMS/HCC V28) COMPLETE BLOOD COUNT Routine 01/16/2025 8:52 AM EDT Alcohol use, unspecified, uncomplicated Other generalized epilepsy and epileptic syndromes, not intractable, with status epilepticus (CMS/HCC V24, CMS/HCC V28) RED - PLAIN Routine 01/11/2025 5:39 AM [...] convulsions (CMS/HCC V24, CMS/HCC V28) Trigeminal neuralgia from Last 3 Months Results * (ABNORMAL) Complete blood count (01/30/2025 7:36 AM EDT) Only the most recent of4 resultswithin the time period is included. WBC 6.3 4.8 - 10.8 K/mcL LAB HEMETOLOGY METHOD 01/30/2025 12:40 PM EDT [facility] RBC 4.10(L) 4.50 - 5.50 M/mcL LAB HEMETOLOGY METHOD 01/30/2025 12:40 PM EDT [facility] Hemoglobin 13.6 13.5 - 17.5 g/dL LAB HEMETOLOGY METHOD 01/30/2025 12:40 PM EDT [facility] Hematocrit 42.0 42.0 - 54.0 % LAB HEMETOLOGY METHOD 01/30/2025 12:40 PM EDT [facility] MCV 101.9(H) 79.0 - 98.0 FL LAB HEMETOLOGY METHOD 01/30/2025 12:40 PM EDT [facility] MCH 33.0(H) 27.0 - 32.0 pcg LAB HEMETOLOGY METHOD 01/30/2025 12:40 PM EDT [facility] MCHC 32.4 32.0 - 37.0 g/dL LAB HEMETOLOGY METHOD 01/30/2025 12:40 PM EDT [facility] RDW 12.7 11.0 - 15.0 % LAB HEMETOLOGY METHOD 01/30/2025 12:40 PM EDT [facility] Platelets 285 130 - 400 K/mcL LAB HEMETOLOGY METHOD 01/30/2025 12:40 PM EDT [facility] MPV 10.4 7.0 - 11.0 FL LAB HEMETOLOGY METHOD 01/30/2025 12:40 PM EDT [facility] NRBC 0.0 <1.0 % LAB HEMETOLOGY METHOD 01/30/2025 12:40 PM EDT [facility] NRBC Absolute 0.00 <0.10 K/mcL LAB HEMETOLOGY METHOD 01/30/2025 12:40 PM EDT [facility] Blood Venous blood specimen / Unknown Venipuncture / Unknown 01/30/2025 7:36 AM EDT 01/30/2025 10:57 AM EDT us Sonali Lindsey MD LAB BLOOD ORDERABLES Fin al Result [facility] [address] [place] [address], * Basic metabolic panel (01/30/2025 7:36 AM EDT) Only the most recent of3 resultswithin the time period is included. Sodium 139 133 - 145 mmol/L LAB CHEMISTRY METHOD 01/30/2025 12:55 PM [facility] Potassium 4.3 3.5 - 5.5 mmol/L LAB CHEMISTRY METHOD 01/30/2025 12:55 PM [facility] Chloride 104 96 - 110 mmol/L LAB CHEMISTRY METHOD 01/30/2025 12:55 PM [facility] CO2 29 21 - 32 mmol/L LAB CHEMISTRY METHOD 01/30/2025 12:55 PM [facility] Anion Gap 6 3 - 11 LAB CHEMISTRY METHOD 01/30/2025 12:55 PM [facility] Glucose 71 70 - 100 mg/dL LAB CHEMISTRY METHOD 01/30/2025 12:55 PM [facility] BUN 9 5 - 25 mg/dL LAB CHEMISTRY METHOD 01/30/2025 12:55 PM [facility] Creatinine 0.70 0.70 - 1.30 mg/dL LAB CHEMISTRY METHOD 01/30/2025 12:55 PM [facility] eGFR 107 >=60 mL/min/1. 73m2 LAB CHEMISTRY METHOD 01/30/2025 12:55 PM [facility] Comment:Calculation based on the Chronic Kidney Disease Epidemiology Collaboration (CKD-EPI) equation refit without adjustment for race. BUN/Creatinine Ratio 12.9 LAB CHEMISTRY METHOD 01/30/2025 12:55 PM [facility] Calcium 9.3 8.5 - 10.5 mg/dL LAB CHEMISTRY METHOD 01/30/2025 12:55 PM [facility] Blood Venous blood specimen / Unknown Venipuncture / Unknown 01/30/2025 7:36 AM EDT 01/30/2025 10:57 AM EDT Sonali Lindsey MD LAB BLOOD ORDERABLES Fin al Result Performing Organization Address [facility] Co de Phone Number [facility] [address] [place] [address], [place] [phone] * Red tube (01/11/2025 5:39 AM EDT) [facility] Extra Tube Hold for add-ons. 01/11/2025 10:01 AM EDT [facility] Comment:Auto resulted. Blood Venous blood specimen / Unknown Venipuncture / Unknown 01/11/2025 5:39 AM EDT 01/11/2025 8:22 AM EDT Sonali Lindsey MD LAB BLOOD ORDERABLES Fin al Result Performing Organization Address [facility] de Phone Number [facility] [address] [place] [address], [place] [phone] * (ABNORMAL) GGT (01/11/2025 5:39 AM EDT) [facility] GGT 186(H) 7 - 64 unit/L LAB CHEMISTRY METHOD 01/11/2025 9:03 AM EDT [facility] Blood Venous blood specimen / Unknown Venipuncture / Unknown 01/11/2025 5:39 AM EDT 01/11/2025 8:22 AM EDT Sonali Lindsey MD LAB BLOOD ORDERABLES Fin al Result Performing Organization Address [facility] Co de Phone Number [facility] [address] [place] [address], [place] [phone] * (ABNORMAL) Hepatic function panel (01/11/2025 5:39 AM EDT) [facility] Total Protein 5.8(L) 6.0 - 8.0 g/dL LAB CHEMISTRY METHOD 01/11/2025 9:05 AM [facility] Albumin 3.1(L) 3.2 - 5.0 g/dL LAB CHEMISTRY METHOD 01/11/2025 9:05 AM [facility] Total Bilirubin 0.5 0.0 - 1.4 mg/dL LAB CHEMISTRY METHOD 01/11/2025 9:05 AM [facility] Bilirubin, Direct 0.2 0.0 - 0.3 mg/dL LAB CHEMISTRY METHOD 01/11/2025 9:05 AM [facility] Bilirubin, Indirect 0.3 0.0 - 1.1 mg/dL LAB CHEMISTRY METHOD 01/11/2025 9:05 AM [facility] ALT (SGPT) 67(H) 10 - 60 unit/L LAB CHEMISTRY METHOD 01/11/2025 9:05 AM [facility] AST (SGOT) 45(H) 10 - 42 unit/L LAB CHEMISTRY METHOD 01/11/2025 9:05 AM [facility] Alkaline Phosphatase 67 42 - 121 unit/L LAB CHEMISTRY METHOD 01/11/2025 9:05 AM [facility] Blood Venous blood specimen / Unknown Venipuncture / Unknown 01/11/2025 5:39 AM EDT 01/11/2025 8:22 AM EDT us Sonali Lindsey MD LAB BLOOD ORDERABLES Fin al Result [facility] [address] [place] [address], * (ABNORMAL) Comprehensive metabolic panel (01/11/2025 5:39 AM EDT) Sodium 139 133 - 145 mmol/L LAB CHEMISTRY METHOD 01/11/2025 9:05 AM [facility] Potassium 4.8 3.5 - 5.5 mmol/L LAB CHEMISTRY METHOD 01/11/2025 9:05 AM [facility] Chloride 104 96 - 110 mmol/L LAB CHEMISTRY METHOD 01/11/2025 9:05 AM [facility] CO2 30 21 - 32 mmol/L LAB CHEMISTRY METHOD 01/11/2025 9:05 AM [facility] Anion Gap 5 3 - 11 LAB CHEMISTRY METHOD 01/11/2025 9:05 AM [facility] Glucose 90 70 - 100 mg/dL LAB CHEMISTRY METHOD 01/11/2025 9:05 AM [facility] BUN 11 5 - 25 mg/dL LAB CHEMISTRY METHOD 01/11/2025 9:05 AM [facility] Creatinine 0.64(L) 0.70 - 1.30 mg/dL LAB CHEMISTRY METHOD 01/11/2025 9:05 AM [facility] eGFR 110 >=60 mL/min/1. 73m2 LAB CHEMISTRY METHOD 01/11/2025 9:05 AM [facility] Comment:Calculation based on the Chronic Kidney Disease Epidemiology Collaboration (CKD-EPI) equation refit without adjustment for race. BUN/Creatinine Ratio 17.2 LAB CHEMISTRY METHOD 01/11/2025 9:05 AM [facility] Calcium 9.5 8.5 - 10.5 mg/dL LAB CHEMISTRY METHOD 01/11/2025 9:05 AM [facility] AST (SGOT) 45(H) 10 - 42 unit/L LAB CHEMISTRY METHOD 01/11/2025 9:05 AM [facility] ALT (SGPT) 67(H) 10 - 60 unit/L LAB CHEMISTRY METHOD 01/11/2025 9:05 AM [facility] Alkaline Phosphatase 67 42 - 121 unit/L LAB CHEMISTRY METHOD 01/11/2025 9:05 AM EDT [facility] Total Protein 5.8(L) 6.0 - 8.0 g/dL LAB CHEMISTRY METHOD 01/11/2025 9:05 AM EDT [facility] Albumin 3.1(L) 3.2 - 5.0 g/dL LAB CHEMISTRY METHOD 01/11/2025 9:05 AM EDT [facility] Total Bilirubin 0.5 0.0 - 1.4 mg/dL LAB CHEMISTRY METHOD 01/11/2025 9:05 AM EDT [facility] Blood Venous blood specimen / Unknown Venipuncture / Unknown 01/11/2025 5:39 AM EDT 01/11/2025 8:22 AM EDT us Sonali Lindsey MD LAB BLOOD ORDERABLES Fin al Result [facility] [address] [place] [address], from Last 3 Months Insurance MEDICARE MEDICAID - [place] Care Teams Tool And Die Manager Relationship Specialty Start Date End Date Sonali Lindsey MD PCP - General Family Medicine 01/11/25
== END 2025-04-01 09:24 | disposition home or self-care (01) ==
LOC: HO.XRAY 09:23
PROVIDERS: PCP Internal Medicine Medical Oncology; Visit Provider Internal Medicine Medical Oncology
DX: M25.562 Pain in left knee (principal)
CPT/HCPCS: 73562

== ENCOUNTER → 2025-04-01 10:00 | Outpatient (BNV) | payer MEDICARE, SELFPAY | PROVIDERS: PCP Internal Medicine Medical Oncology; Visit Provider Radiology Diagnostic Ultrasound | DX: M25.562 Pain in left knee (principal) | CPT/HCPCS: 73562 ==